=== PATIENT | female | born 1965 | race Caucasian/White ===

== ENCOUNTER → 2017-12-17 09:57 | Outpatient (CLI) | payer BC, SELFPAY ==
--- NOTE | 2017-12-17 10:06 | MM_ITS ---
MM Dig screening mamm BI w/CAD CAD Screening ORDERING PHYSICIAN : Sena Koroma MD PATIENT AGE: 52 years GENDER: Female COMPARISON: Previous mammograms: October 2013 digital mammogram most helpful. There is also an older 2002 outside mammogram from from [facility]. INDICATION: Routine screening. No hormones. No new complaints. Previous benign needle biopsy right breast. Noncontributory family history. TECHNIQUE: Standard CC and MLO images were obtained. R2 CAD reviewed. FINDINGS: Lower density breast with moderate generalized fatty replacement. No significant new findings. Scattered small unimpressive areas of subtle nodularity bilaterally have been seen before and stable. No new areas of concern Bilateral follow-up one year recommended Cent[facility] IMPRESSION: ...... Stable bilateral mammogram. No new areas of concern. Follow-up in one year recommended BI-RADS Category: 1 Negative RECOMMENDED FOLLOW-UP: 1YR - 1 YEAR FOLLOW-UP (A letter has been sent to the patient regarding results of the study.)
--- NOTE | 2017-12-17 10:06 | XR_ITS ---
DEXA SCAN.-BONE DENSITY STUDY HIPS AND LUMBAR SPINE HISTORY: Postmenopausal female 52-year-old female low calcium intake. Previous fractures in used TECHNIQUE: DEXA scan hip and lumbar spine The most complete data summary and color graphic presentation of the today's ( and any prior ) DEXA findings are available in PACS. Definition and treatment guidelines included. COMPARISON: DEXA October 2013 LUMBAR SPINE: Above normal bone density L1 vertebral body demonstrates the lowest T score 1.3 with BMD1.29 g/cm sq Overall mean lumbar L1-L4 T score 2.5 with BMD1.477 g/cm sq . . October 2013 prior DEXA the mean T score 3.1 with BMD was1.57g/cm sq Thus when comparing today's study to the prior exam there's been a 4.5% decrease bone density in interval but still the bases are well over, over 2 standard deviations above mean. HIPS: Femoral neck density is best predictor of hip fracture risk . Left femoral neck demonstrates the lowest T score 0.5 with BMD1.109 g/cm sq . Right femoral neck T score 0.6 with BMD 1.116 Averaging all regions of the hips yields today's Hip Mean T score 1.6 with BMD1.204 g/cm sq . DEXA October 2013 T score 1.5 with mean BMD1.196. g/cm sq Thus this reflects a 0.7% 6 increase in overall mean bone density at the hips in the interval. IMPRESSION 1. LUMBAR SPINE:. Above normal bone density all levels 2. HIPS:. Normal bone density bilaterally at femoral necks and overall WHO criteria for post-menopausal, Women: Normal: T-score at or above -1 SD Osteopenia: T-score between -1 and -2.5 SD Osteoporosis: T-score at or below -2.5 SD
== END ==
PROVIDERS: Family Provider Family Medicine; PCP Family Medicine; Visit Provider Family Medicine
DX: M85.89 Other specified disorders of bone density and structure, multiple sites (principal); Z13.820 Encounter for screening for osteoporosis; N60.19 Diffuse cystic mastopathy of unspecified breast
CPT/HCPCS: 77067; 77080

== ENCOUNTER → 2018-04-06 13:05 | Outpatient (CLI) | payer BC, SELFPAY ==
--- NOTE | 2018-04-06 13:13 | CI_ITS ---
Cerebrovascular Exam Indications: 780.2 Syncope and collapse. IMPRESSIONS 1. The bilateral vertebral arteries are patent with normal antegrade flow. 2. Study suggests less than 20% stenosis involving the right internal carotid artery and the left internal carotid artery. 3. Tortuous carotid arteries seen bilaterally. Carotid duplex study. Complete study and Doppler flow study including spectral analysis, color and white scale imaging. Location: Vascular laboratory. Patient status: Outpatient. Tables: Arterial flow: + +--------+--------+ Location V sys V ed + +--------+--------+ Right CCA - proximal 73.1cm/s 25.1cm/s + +--------+--------+ Right CCA - distal 94.3cm/s 27.5cm/s + +--------+--------+ Right ECA 86.4cm/s -------- + +--------+--------+ Right ICA - proximal 86.4cm/s 32.2cm/s + +--------+--------+ Right ICA - mid 83.3cm/s 33.8cm/s + +--------+--------+ Right ICA - distal 74.6cm/s 33.6cm/s + +--------+--------+ Right vertebral 41.6cm/s -------- + +--------+--------+ Left CCA - proximal 78.6cm/s 19.6cm/s + +--------+--------+ Left CCA - distal 84.9cm/s 22cm/s + +--------+--------+ Left ECA 88cm/s -------- + +--------+--------+ Left ICA - proximal 66cm/s 22.8cm/s + +--------+--------+ Left ICA - mid 79.1cm/s 32.5cm/s + +--------+--------+ Left ICA - distal 65.7cm/s 26.8cm/s + +--------+--------+ Left vertebral 36.1cm/s -------- + +--------+--------+ Velocity ratios: + + + + + + Right, V sys Right, V ed Left, V sys Left, V ed + + + + + + Max ICA/dist CCA 0.92 1.23 0.93 1.48 + + + + + + (Report amended ) Electronically signed by: Jan Johnson [id number]
== END ==
PROVIDERS: PCP Family Medicine; Visit Provider Family Medicine
DX: R07.9 Chest pain, unspecified (principal); R55 Syncope and collapse
CPT/HCPCS: 93017; 93880

== ENCOUNTER → 2018-04-07 13:08 | Outpatient (CLI) | payer BC, SELFPAY ==
--- NOTE | 2018-04-07 13:21 | NVE_ITS ---
Venous Exam Indications: 729.5 Pain in limb. IMPRESSIONS 1. There is no evidence of significant Reflux. 2. No evidence of deep or superficial vein thrombosis involving the right lower extremity Right lower extremity venous duplex evaluation. Doppler flow study including spectral analysis, color and white scale imaging. Location: Vascular laboratory. Patient status: Outpatient. Tables: Venous flow and imaging: + + + + Location Overall Flow properties + + + + Right common femoral Patent Normal phasicity; spontaneous; normal augmentation; compressible + + + + Right saphenofemoral Patent Compressible junction + + + + Right profunda femoral Patent Compressible + + + + Right femoral Patent Normal phasicity; spontaneous; normal augmentation; compressible + + + + Right greater saphenous Patent Normal phasicity; spontaneous; normal augmentation; compressible + + + + Right popliteal Patent Normal phasicity; spontaneous; normal augmentation; compressible + + + + Right posterior tibial Patent Compressible + + + + Right peroneal Difficult Compressible study + + + + Right gastrocnemius Patent Compressible + + + + Right soleal Patent Compressible + + + + (Report amended ) Electronically signed by: Jan Johnson [id number]
--- NOTE | 2018-04-07 14:15 | CT_ITS ---
CT chest wo con HISTORY: Shortness of breath, chest pressure ITS.REASON: SOB, HX DVT ORDERING PHYSICIAN: Dahlia Perdomo MD PATIENT AGE: 52 years COMPARISON: None Technique: Axial images obtained with sagittal and coronal reformats. All CT scans at the facility use one or more dose reduction, viz: automated exposure control, ma/kV adjustment per patient size (including targeted exams where dose is matched to indication, i.e. head), or iterative reconstruction technique. FINDINGS: No mediastinal or hilar mass. There is mild prominence of the ascending aorta measuring up to 4.1 cm. Coronary artery calcifications are present. Normal heart size without evidence of pericardial effusion. Small hiatal hernia is suspected. There is a small hypodense nodule in the right lobe of the thyroid gland at 11 mm previously 9 mm There is a small pneumatocele in the right upper lobe at 1 cm not significant change. There are mild fibrotic changes in the lung bases. No suspicious pulmonary nodules. No pneumonia or effusions. Upper abdominal images show mild cortical scarring of the left kidney inferiorly with a nonobstructing 2 mm stone in the lower pole on the left. No acute bony findings. IMPRESSION: 1. Mild prominence of the ascending aorta at 4.1 cm previously measuring 3.9 cm. 2. No change in the postinflammatory fibrotic changes in the lung bases 3. Slightly enlarging nodule in the right lobe of the thyroid gland measuring 11 mm
== END ==
PROVIDERS: Family Provider Family Medicine; PCP Family Medicine; Visit Provider Emergency Medicine
DX: R06.02 Shortness of breath (principal); Z86.718 Personal history of other venous thrombosis and embolism
CPT/HCPCS: 71250; 93971

== ENCOUNTER → 2018-04-11 08:17 | Outpatient (CLI) | payer BC, SELFPAY ==
--- NOTE | 2018-04-11 | CA_ITS ---
PROCEDURE: 2-D M-mode and color Doppler study INDICATIONS FOR THE TEST: Chest pain COPD Heart Murmur Tobacco Smoking Palpitations+ Fatigue+ Syncope Edema Hypertension+Diabetes Mellitus Rheumatic Fever SOB+VALDEZ+Obesity+Hyperlipidemia+ Family History HD+ Additional History chest pressure, dizziness, TIA, memory loss PATIENT INFORMATION HEIGHT: 65 WEIGHT: 215 GENDER: Female B/P: 135/82 2-D/M-MODE INTERPRETATION: 2-D MEASUREMENTS OBSERVED VALUES IN CMS Right Ventricular Dimension (RVDd) 2.3 Interventricular Septum (Thickness)(IVsd) 0.8 Left Ventricular Internal Dimensions(LVIDd) 3.1 Left Ventricular Posterior Wall (Thickness)(LVPWd) 0.8 Aortic Root 3.1 Aortic Cusp Separation 2.2 Left Atrial Dimensions (LAD) 2.7 2D 1. Left atrium is qualitatively mildly enlarged, left ventricle is normal size, mild concentric left ventricular hypertrophy, visually estimated ejection fraction 55% with no regional wall motion abnormality. 2. The right atrium and right ventricle are normal size and contractility. 3. The aortic valve is minimally thickened and calcified, leaflet continue to display good mobility. 4. The mitral and tricuspid valvular grossly normal. 5. The pulmonic valve is poorly visualized. 6. No significant pericardial effusion noted. DOPPLER INTERROGATION: Doppler interrogation of the aortic, mitral and tricuspid valvular presence of mild mitral and tricuspid regurgitation, tricuspid regurgitation jet velocity is insufficient for calculation of the right ventricular systolic pressure, grade 1 diastolic dysfunction seen without tissue Doppler evidence of raised left CONCLUSION: 1. Mildly enlarged left atrium, normal left ventricular size, mild concentric left ventricular hypertrophy, visually estimated ejection fraction of 55% with no regional wall motion abnormality, grade 1 diastolic dysfunction seen without tissue Doppler evidence of raised left atrial pressure. 2. Mild mitral and tricuspid regurgitation 3. No significant pericardial effusion noted.
--- NOTE | 2018-04-11 08:29 | CT_ITS ---
CT head/brain wo con HISTORY: ITS.REASON: MEMORY LOSS,TIA ORDERING PHYSICIAN: Dahlia Perdomo MD PATIENT AGE: 52 years COMPARISON: None TECHNIQUE: Axial images obtained without contrast. Brain and bone windows reviewed. All CT scans at the facility use one or more dose reduction, viz: automated exposure control, ma/kV adjustment per patient size (including targeted exams where dose is matched to indication, i.e. head), or iterative reconstruction technique. FINDINGS: No midline shift, mass effect, intracranial hemorrhage, hydrocephalus, or extra-axial fluid collection is evident. There is a small linear area of increased density within the left putamen consistent with some minimal calcification of the basal ganglia. The calvarium has an unremarkable appearance. No mastoid effusion. No sinus air-fluid levels.. IMPRESSION: No acute intracranial finding
== END ==
PROVIDERS: Family Provider Family Medicine; PCP Family Medicine; Visit Provider Emergency Medicine
DX: R41.3 Other amnesia (principal); G45.9 Transient cerebral ischemic attack, unspecified; R06.02 Shortness of breath
CPT/HCPCS: 70450; 93306

== ENCOUNTER → 2019-03-29 14:08 | Outpatient (CLI) | payer BC, SELFPAY ==
--- NOTE | 2019-03-29 14:13 | CA_ITS ---
APPROVED REPORT Right Lower Extremity Venous Study for DVT. Business Consultant: SARAI Indications Lower Extremity Pain: Right Lower Extremity Edema: Left Risk Factors Prior Phlebitis/DVT Obesity Past History DVT : Vein Imaging CFV (R): compressive, spontaneous, phasic, augmentation FEM (R): compressive, spontaneous, phasic, augmentation POP (R): compressive, spontaneous, phasic, augmentation PTV (R): Compressible GSV (R): Compressible Peroneals (R):Compressible GAS (R): Thrombus Conclusion No evidence of DVT visualized right lower extremity. SVT seen in area of right gastrocnemius vein. Critical Notification Physician Notified Date: 03/29/2019 Time: 14:55 Physician Name: Manuela Soliz Electronically signed by : Jan Johnson MD 03/30/2019 16:41:47
== END ==
LOC: RAD 14:09
PROVIDERS: PCP Nurse Practitioner Family; Visit Provider Nurse Practitioner Family
DX: R60.0 Localized edema (principal)
CPT/HCPCS: 93971

== ENCOUNTER → 2019-06-28 13:17 | Outpatient (CLI) | payer BC, SELFPAY ==
--- NOTE | 2019-06-28 13:21 | CA_ITS ---
APPROVED REPORT Right Lower Extremity Venous Study for DVT., DVT. Prepared [employer] Associate: JACINDA Indications Lower Extremity Swelling: Right H/O SVT CALF 03/29/19 Vein Imaging CFV (R): compressive, spontaneous, phasic, augmentation SFJ (R): compressive, spontaneous, phasic, augmentation FEM (R): compressive, spontaneous, phasic, augmentation POP (R): compressive, spontaneous, phasic, augmentation PTV (R): compressive, spontaneous, phasic, augmentation GSV (R): Compressible Peroneals (R):Compressible GAS (R): Compressible Findings No evidence of DVT or superficial thrombophlebitis in the veins scanned of the right lower extremity. Conclusion No evidence of DVT or superficial thrombophlebitis in the veins scanned of the right lower extremity. Electronically signed by : Jan Johnson MD 06/30/2019 17:14:38
--- NOTE | 2019-06-28 16:00 | XR_ITS ---
PROCEDURE: XR CHEST 2V CLINICAL HISTORY: RESPIRATORY CRACKLES AT LT LUNG BASE Cough COMPARISON: CXR CHEST(2 VIEWS-NOT PORTABLE) from 10/21/[address] chest wo con from 04/07/2018 XR CHEST 2V from 06/10/2019 FINDINGS: The cardiomediastinal silhouette and pulmonary vascularity are within normal limits. There is increased density in the left lung base posteriorly consistent with pneumonia. No effusions. The right lung is clear. No acute bony abnormalities. IMPRESSION: Left lower lobe pneumonia Dictated by: Jan Johnson MD 06/28/2019 16:22 Electronically signed by Jan Johnson MD in [facility] 06/28/2019 16:22
== END ==
LOC: RT 13:18 → RAD 15:58
PROVIDERS: PCP Family Medicine; Visit Provider Emergency Medicine
DX: I82.890 Acute embolism and thrombosis of other specified veins (principal); R09.89 Other specified symptoms and signs involving the circulatory and respiratory systems
CPT/HCPCS: 71046; 93971

== ENCOUNTER 2019-06-29 16:35 | Inpatient (IN) ==
--- NOTE | 2019-06-29 17:11 | Progress Note ---
Internal Medicine - PN: Subj *Date: 06/29/19 *Time: 17:09 Interval history: Patient recently diagnosed with pneumonia, was in office today for f/u, HR noted to be 180 bpm by nurse. Assessment and Plan (1) CAP (community acquired pneumonia) Current visit: Yes Status: Acute Category: Medical Code(s): J18.9 - Pneumonia, unspecified organism (2) Tachycardia Current visit: Yes Status: Acute Category: Medical Code(s): R00.0 - Tachycardia, unspecified - Assessment and plan all Dx Assessment and Plan for all problems:: Saw patient in the office. She is being admitted for further evaluation and ma nagement of her pneumonia and tachycardia, see orders.
--- NOTE | 2019-06-29 17:15 | History & Physical Report ---
*Admission Date: 06/29/19 <Shruthi Kenny 06/29/19 17:15> *Chief complaint: heart racing, pneumonia <Shruthi Kenny 06/29/19 17:15> *History of present illness: Ms. Gonzalez is a 53-year-old female who was just seen in the office yesterday and was diagnosed with a left lower lobe pneumonia. She was started on cefdinir, Phenergan DM cough syrup, and an albuterol inhaler. She was called with the CXR results today and zithromax was sent to the pharmacy in addition to her Omnicef. The patient came back to the office today to bring her grandchildren for their well-child exams. She stated her heart had been racing since this morning. She had not taken her cough medicine or used her inhaler and was concerned that her heart rate was elevated. Her heart rate was taken in the office and was 180bpm. She was directly admitted to the stepdown unit for further evaluation and treatment. She does have a history of SVT but states that she never saw a soil scientist. She also has a history of a DVT and is currently on Xarelto. <Shruthi Kenny 06/29/19 18:36> [facility] History I have reviewed the patient's past medical history: Yes <Shruthi Kenny 06/29/19 18:36> Medical History: Reports:: Anxiety, Congestive Heart Failure, Deep Vein Thrombosis, Depression, Hyperlipidemia, Hypertension, Supraventricular Tachycardia <Shruthi Kenny 06/29/19 18:36> *Have you ever received a pneumonia vaccine?: Yes <Shruthi Kenny 06/29/19 17:15> *Have you received a flu vaccine this season?: Yes <Shruthi Kenny 06/29/19 19:12> Comment:: Insomnia, chronic back pain, seasonal allergies <Shruthi Kenny 06/29/19 18:36> Laterality Cases: Bilateral: Tonsillectomy <Shruthi Kenny 06/29/19 18:36> Other Surgeries: Yes: , Hysterectomy-Partial <Shruthi Kenny 06/29/19 18:36> Comment: Left hand ORIF, Laparoscopy x5, root canal, oral surgery <Shruthi Kenny 06/29/19 18:36> - *Social History Smoking Status: Never smoker <[facility] 06/29/19 17:15> [facility] Int[facility]: never [facility] 06/29/[facility] 17:15> Alcohol Intake Frequency:: other <[facility] 06/29/19 17:15> Substance Use Type: denies use <[facility] 06/29/19 17:15> *Occupational Status:: employed <[facility] 06/29/19 17:15> *Travel in the last 8 weeks: None <[facility] 06/29/19 19:12> Family Hx:: Cancer, Hyperlipidemia, Hypertension <[facility] 06/29/19 18:36> Review of Systems - Constitutional Reports body ache(s), Reports chills, Reports fever(s), Reports weakness <[facility] 06/29/19 18:36> - Eyes Denies blurry vision, Denies double vision <[facility] 06/29/19 18:36> - ENT Reports nasal congestion, Reports sore throat <[facility] 06/29/19 18:36> - *Cardiovascular Reports shortness of breath, Reports rapid, pounding, or irregular heartbeat, Denies chest pain, Denies leg swelling <[facility] 06/29/19 18:36> - *Respiratory Reports chest congestion, Reports cough, Reports shortness of breath, Reports wheezing <[facility] 06/29/19 18:36> - *Gastrointestinal Denies abdominal pain, Denies loose stools, Denies nausea, Denies vomiting <[facility] 06/29/19 18:36> - *Genitourinary Denies difficulty urinating, Denies painful urination <[facility] 06/29/19 18:36> - *Musculoskeletal Reports body aches, Denies joint pain <[facility] 06/29/19 18:36> - *Neurologic Reports headache(s), Reports dizziness, Reports weakness <[facility] 06/29/19 18:36> Meds Home Medications Medication Instructions Recorded Confirmed Type furosemide 20 mg tablet 20 mg PO DAILY #30 tab 11/17/18 06/29/19 History gabapentin 100 mg capsule 100 mg PO DAILY #90 cap 11/17/18 06/29/19 History liraglutide (weight loss) 3 mg/0.5 0.6 units SQ DAILY #3 ml 11/17/18 06/29/19 History mL (18 mg/3 mL) subcut pen injector Rivaroxaban [Xarelto 20mg Tablet*] 20 mg PO DAILY 06/10/19 06/29/19 History alprazolam 0.25 mg tablet 0.25 mg PO BID PRN #60 tab 06/20/19 06/29/19 Rx doxepin 100 mg capsule 200 mg PO QHS #60 cap 06/20/19 06/29/19 Rx Albuterol Sulfate [Albuterol HFA 1 - 2 puffs IH Q4-6H PRN 06/29/19 06/29/19 Hist ory Inhaler] Benzonatate [Benzonatate 100mg 100 mg PO TIDP PRN 06/29/19 06/29/19 History cap] Cefdinir [Omnicef 300mg Capsule] 300 mg PO BID 06/29/19 06/29/19 History Gabapentin [Gabapentin 100mg Cap] 200 mg PO HS 06/29/19 06/29/19 History Phentermine/Topiramate [Qsymia 15 1 tab PO DAILY 06/29/19 06/29/19 History mg-92 mg Capsule] Vortioxetine Hydrobromide 20 mg PO HS 06/29/19 06/29/19 History [Trintellix] hydrOXYzine pamoate [Hydroxyzine 1 - 2 cap PO BIDP PRN 06/29/19 06/29/19 History Pamoate] <David Tobin - 06/29/19 19:20> Allergies Allergy/AdvReac Type Severity Reaction Status Date / Time No Known Allergies Allergy Verified 06/29/19 17:54 <CristaDavid - 06/29/19 19:20> Exam Vital signs and Labs for Last 24 Hours: Temp Pulse Resp BP Pulse Ox 100.1 F H 100 H 26 H 155/87 H 98 06/29/19 17:52 06/29/19 18:24 06/29/19 17:52 06/29/19 18:32 06/29/19 17:52 Laboratory Results - last 24 hr 06/29/19 17:35: WBC 9.2, RBC 5.06, Hgb 14.0, Hct 42.7, MCV 84.5, MCH 27.8, MCHC 32.9, RDW 14.2, Plt Count 332, MPV 8.0, Neut % (Auto) 76.8, Lymph % (Auto) 16.7, [place] % (Auto) 5.1, Eos % (Auto) 1.1, Baso % (Auto) 0.2, Neut # (Auto) 7.1, Lymph # (Auto) 1.5, [place] # (Auto) 0.5, Eos # (Auto) 0.1, Baso # (Auto) 0.0 06/29/19 17:35: Sodium 145, Potassium 4.1, Chloride 106, Carbon Dioxide 25, Anion Gap 18.1 H, BUN 10, Creatinine 1.16 H, Estimated Creat Clear 98, Estimated GFR 49 L, Est GFR ( Amer) 59, Glucose 108 H, Calcium 8.6, Total Bilirubin 0.6, AST 69 H, ALT 91 H, Alkaline Phosphatase 129 H, Total Protein 7.6, Albumin 3.4, Globulin 4.2 H, Albumin/Globulin Ratio 0.8 L 06/29/19 17:35: Lactate 1.8 06/29/19 18:00: Influenza Type A Ag Negative, Influenza Type B Ag Negative <David Tobin - 06/29/19 19:20> I & O for Last 24 hours: Intake & Output 06/26/19 06/27/19 06/28/19 06/29/19 23:59 23:59 23:59 23:59 Weight 250 lb 5 oz <David Tobin - 06/29/19 19:20> Microbiology Reports for the Last 24 Hours: Microbiology 06/29/19 18:00 Sputum - Expectorated Sputum Gram Stain - Final <David Tobin - 06/29/19 19:20> - Constitutional Comments: Does not appear to feel well <Shruthi Kenny - 06/29/19 18:36> - *Routine HEENT Exam Head: Present: normocephalic, atraumatic <Shruthi Kenny - 06/29/19 18:36> Eye: Present: EOMI, PERRL <[facility] 06/29/19 18:36> ENT: Present: mucous membranes dry, sinus tenderness (nose congested) <[facility] 06/29/19 18:36> - *Routine Neck Exam Present: supple. Absent: carotid bruit, lymphadenopathy <[facility] 06/29/19 18:36> - *Routine Respiratory Exam Present: rales (left base), rhonchi, wheezes <[facility] 06/29/19 18:36> - *Routine Cardiovascular Exam Present: tachycardia (180bpm) <[facility] 06/29/19 18:36> - *Routine Abdominal Exam Present: soft, normoactive bowel sounds. Absent: tenderness <[facility] 06/29/19 18:36> - *Routine Extremities Exam Present: edema (trace bilateral LE's). Absent: cyanosis, clubbing <[facility] 06/29/19 18:36> - *Routine Skin Exam Present: pallor, warm. Absent: rash <[facility] 06/29/19 18:36> - *Routine Neurological Exam Present: alert, oriented X3 <[facility] 06/29/19 18:36> Assessment and Plan (1) CAP (community acquired pneumonia) Current visit: Yes Status: Acute Category: Medical Code(s): J18.9 - Pneumonia, unspecified organism (2) Tachycardia Current visit: Yes Status: Acute Category: Medical Code(s): R00.0 - Tachycardia, unspecified (3) URI (upper respiratory infection) Current visit: No Status: Acute Qualifiers: URI type: unspecified URI Qualified Code(s): J06.9 - Acute upper respiratory infection, unspecified Category: Medical Code(s): J06.9 - Acute upper respiratory infection, unspecified (4) Renal insufficiency Current visit: Yes Status: Acute Category: Medical Code(s): N28.9 - Disorder of kidney and ureter, unspecified (5) Hypertension Current visit: Yes Status: Chronic Category: Medical Code(s): I10 - Essential (primary) hypertension (6) Hyperlipidemia Current visit: Yes Status: Chronic Category: Medical Code(s): E78.5 - Hyperlipidemia, unspecified (7) History of DVT (deep vein thrombosis) Current visit: Yes Status: Chronic Category: Medical Code(s): Z86.718 - Personal history of other venous thrombosis and embolism (8) Depression with anxiety Current visit: Yes Status: Chronic Category: Medical Code(s): F41.8 - Other specified anxiety disorders (9) SIRS (systemic inflammatory response syndrome) Current visit: Yes Status: Acute Category: Medical Code(s): R65.10 - Systemic inflammatory response syndrome (SIRS) of non-infectious origin without acute organ dysfunction <David Tobin - 06/29/19 19:20> (1) CAP (community acquired pneumonia) Current visit: Yes Status: Acute Category: Medical Code(s): J18.9 - Pneumonia, unspecified organism (2) Tachycardia Current visit: Yes Status: Acute Category: Medical Code(s): R00.0 - Tachycardia, unspecified (3) URI (upper respiratory infection) Current visit: No Status: Acute Qualifiers: URI type: unspecified URI Qualified Code(s): J06.9 - Acute upper respiratory infection, unspecified Category: Medical Code(s): J06.9 - Acute upper respiratory infection, unspecified (4) Renal insufficiency Current visit: Yes Status: Acute Category: Medical Code(s): N28.9 - Disorder of kidney and ureter, unspecified (5) Hypertension Current visit: Yes Status: Chronic Category: Medical Code(s): I10 - Essential (primary) hypertension (6) Hyperlipidemia Current visit: Yes Status: Chronic Category: Medical Code(s): E78.5 - Hyperlipidemia, unspecified (7) History of DVT (deep vein thrombosis) Current visit: Yes Status: Chronic Category: Medical Code(s): Z86.718 - Personal history of other venous thrombosis and embolism (8) Depression with anxiety Current visit: Yes Status: Chronic Category: Medical Code(s): F41.8 - Other specified anxiety disorders <Shruthi Kenny - 06/29/19 18:39> - Assessment and plan all Dx Assessment and Plan for all problems:: Saw patient in the office and after admission to [facility]. HR has improved, now 110, with NS IV bolus, plan to decrease IVF rate to 100 ml/hr now, await CXR. <David Tobin - 06/29/19 19:20> Patient has been started on IV abx and nebs for her pneumonia. Sputum and blood cultures were ordered as well as a lactic acid. She has been started on IVF's and will also get a flu test. Cardiology was consulted and an echo, EKG, and telemetry were ordered. Will discuss further care with Dr. Tobin. <Shruthi Kenny - 06/29/19 18:36>
[2019-06-29 17:58] LABS: Basophils % 0.2 % (0.1-2.0); Eosinophils # 0.1 K/mm3 (0.0-0.4); Eosinophils % 1.1 % (0.1-12.0); Hematocrit 42.7 % (37.0-47.0); Lymphocytes # 1.5 K/mm3 (0.7-4.5); Lymphocytes % 16.7 % (10-50); Mean Corpuscular HGB Conc 32.9 g/dL (31.8-35.4); Mean Corpuscular Volume 84.5 fl (81-99); Monocytes # 0.5 K/mm3 (0.1-1.0); Monocytes % 5.1 % (1.7-9.3); Neutrophils # 7.1 K/mm3 (1.8-7.8); Neutrophils % 76.8 % (37.0-80.0); Platelet Count 332 K/mm3 (142-424); Red Blood Count 5.06 M/mm3 (4.20-5.40); Red Cell Distribution Width 14.2 % (11.5-17.5); White Blood Count 9.2 K/mm3 (4.8-10.8)
[2019-06-29 18:07] LABS: Albumin Level 3.4 gm/dL (3.4-5.0); Albumin/Globulin Ratio 0.8 (1.1-1.8); Anion Gap 18.1 mEq/L (5-15); Bilirubin,Total 0.6 mg/dL (0.2-1.0); Calcium 8.6 mg/dL (8.5-10.1); Globulin 4.2 gm/dl (1.3-3.2); Total Protein,Serum 7.6 gm/dL (6.4-8.2)
[2019-06-30 06:37] LABS: Basophils % 0.3 % (0.1-2.0); Eosinophils # 0.1 K/mm3 (0.0-0.4); Eosinophils % 1.3 % (0.1-12.0); Hematocrit 36.2 % (37.0-47.0); Lymphocytes # 1.7 K/mm3 (0.7-4.5); Lymphocytes % 29.6 % (10-50); Mean Corpuscular HGB Conc 33.3 g/dL (31.8-35.4); Mean Corpuscular Volume 84.4 fl (81-99); Monocytes # 0.3 K/mm3 (0.1-1.0); Monocytes % 5.1 % (1.7-9.3); Neutrophils # 3.6 K/mm3 (1.8-7.8); Neutrophils % 63.6 % (37.0-80.0); Platelet Count 282 K/mm3 (142-424); Red Blood Count 4.28 M/mm3 (4.20-5.40); Red Cell Distribution Width 14.2 % (11.5-17.5); White Blood Count 5.6 K/mm3 (4.8-10.8)
[2019-06-30 06:40] LABS: Albumin Level 2.8 gm/dL (3.4-5.0); Albumin/Globulin Ratio 0.8 (1.1-1.8); Anion Gap 14.4 mEq/L (5-15); Bilirubin,Total 0.5 mg/dL (0.2-1.0); Globulin 3.4 gm/dl (1.3-3.2); Total Protein,Serum 6.2 gm/dL (6.4-8.2)
[2019-06-30 06:52] LABS: Calcium 7.7 mg/dL (8.5-10.1)
--- NOTE | 2019-06-30 07:18 | Pharmacy Consult Notes ---
[facility] Pharmacy VTE Monitoring - Patient Demographics Admission date: 06/29/19 Report Date: 06/30/19 Time: 07:18 Allergies/Adverse Reactions: Patient Allergies No Known Allergies Allergy (Verified 06/29/19 17:54) Height: 1.73 m Weight: 116.8 kg Patient Problems: Current Active Problems CAP (community acquired pneumonia) (Acute) Tachycardia (Acute) Hypertension (Chronic) Hyperlipidemia (Chronic) History of DVT (deep vein thrombosis) (Chronic) Depression with anxiety (Chronic) Renal insufficiency (Acute) SIRS (systemic inflammatory response syndrome) (Acute) - VTE Risk Labs: VTE Related Lab Results Hgb 14.0 g/dL (12.2-16.2) 06/29/19 17:35 Hct 36.2 % (37.0-47.0) L 06/30/19 05:44 Plt Count 282 K/mm3 (142-424) 06/30/19 05:44 BUN 8 mg/dL (7-18) 06/30/19 05:44 Creatinine 0.95 mg/dL (0.55-1.02) 06/30/19 05:44 Estimated Creat Clear 123 mL/min (50-200) 06/30/19 05:44 Was VTE Risk Assessment Performed: Yes VTE Score: 4 VTE Risk Level: Low Risk Clinical Trial Participant: No - Prophylaxis VTE Prophylaxis Ordered?: Yes Types of VTE Prophylaxis: TEDS Knee High, Pharmacological Pharmacologic Type: Other (XARELTO)
--- NOTE | 2019-06-30 07:23 | Electrocardiograph Report ---
APPROVED REPORT Exam: Resting ECG HR:116 bpm ECG Measurements Heart Rate 116 AXES [place] 184 P 53 QRSd 78 QRS -13 QT 330 T43 QTc 458 <Conclusion> Sinus tachycardia left atrial abnormality late r wave progression Abnormal ECG Electronically signed by : [place], 06/30/2019 07:22:20
--- NOTE | 2019-06-30 08:16 | Consult Report ---
History of Present Illness Consult date: 06/30/19 Requesting physician: David Tobin Chief complaint: SOA, chest pain Additional Medical History:: 1. Obesity 2. History of DVT, approximately 2017 and again in 2019 A. Chronic anticoagulation therapy B. Family history of blood clots 3. Questionable history of hypertension 4. Coronary calcification on CT of the chest 2017 5. History of enlarged aortic root at 4.[address] of the chest, 2018 6. Reported history of CHF History of present illness: Ms. Gonzalez is a 53-year-old female who was just seen in the office yesterday and was diagnosed with a left lower lobe pneumonia. She was started on cefdinir, Phenergan DM cough syrup, and an albuterol inhaler. She was called with the CXR results today and zithromax was sent to the pharmacy in addition to her Omnicef. The patient came back to the office today to bring her grandchildren for their well-child exams. She stated her heart had been racing since this morning. She had not taken her cough medicine or used her inhaler and was concerned that her heart rate was elevated. Her heart rate was taken in the office and was 180bpm. She was directly admitted to the stepdown unit for further evaluation and treatment. She does have a history of SVT but states that she never saw a finger buff sewer. She also has a history of a DVT and is currently on Xarelto The above per Shruthi Kenny PA-C for Dr. Tobin After receiving IV fluids in the hospital, patient's heart rate significantly improved to around 100 to 110 bpm and is noted to be sinus rhythm on EKG and telemetry. No EKG or telemetry strips recorded with heart rate in the 170s or 80s. Patient relates a history of SVT in the past for which she was on medication to try to control this and her blood pressure but due to the low blood pressure it was discontinued. Patient has a history of a DVT approximately 2 years ago and again reportedly this year with follow-up lower extremity venous Doppler earlier this month to assess for continued DVT or superficial thrombophlebitis and need for continued anticoagulation. The results are pending at this time. Patient remains on anticoagulant therapy. She does relate a family history of blood clots in her mother and her brother. Patient has never had an anticoagulation work-up due to being on anticoagulation therapy. Patient denies any chest pain but has noted some chest pressure and tightness with activity that may have worsened over the last 6 months. She had a Madi protocol stress test in 2018 where she underwent less than 6 minutes and did not achieve target heart rate but did complain of chest pain. [facility] History Medical History: Reports:: Anxiety, Congestive Heart Failure, Deep Vein Thrombosis, Depression, Hyperlipidemia, Hypertension, Supraventricular Ta chycardia Denies:: Diabetes Mellitus Type 2 *Have you ever received a pneumonia vaccine?: No *Have you received a flu vaccine this season?: Yes Laterality Cases: Bilateral: Tonsillectomy Other Surgeries: Yes: , Hysterectomy-Partial - *Social History Educational Level: Completed College Smoking Status: Never smoker Alcohol Intake: never Alcohol Intake Frequency:: other Substance Use Type: denies use *Occupational Status:: employed *Travel in the last 8 weeks: None - Psychiatric History Pschychiatric History:: Reports:: Anxiety, Depression Family Hx:: Cancer, Hyperlipidemia, Hypertension Meds Home Medications Medication Instructions Recorded Confirmed Type furosemide 20 mg tablet 20 mg PO DAILY #30 tab 11/17/18 06/29/19 History gabapentin 100 mg capsule 100 mg PO DAILY #90 cap 11/17/18 06/29/19 History liraglutide (weight loss) 3 mg/0.5 0.6 units SQ DAILY #3 ml 11/17/18 06/29/19 History mL (18 mg/3 mL) subcut pen injector Rivaroxaban [Xarelto 20mg Tablet*] 20 mg PO DAILY 06/10/19 06/29/19 History alprazolam 0.25 mg tablet 0.25 mg PO BID PRN #60 tab 06/20/19 06/29/19 Rx doxepin 100 mg capsule 200 mg PO QHS #60 cap 06/20/19 06/29/19 Rx Albuterol Sulfate [Albuterol HFA 1 - 2 puffs IH Q4-6H PRN 06/29/19 06/29/19 History Inhaler] Benzonatate [Benzonatate 100mg 100 mg PO TIDP PRN 06/29/19 06/29/19 History cap] Cefdinir [Omnicef 300mg Capsule] 300 mg PO BID 06/29/19 06/29/19 History Gabapentin [Gabapentin 100mg Cap] 200 mg PO HS 06/29/19 06/29/19 History Phentermine/Topiramate [Qsymia 15 1 tab PO DAILY 06/29/19 06/29/19 History mg-92 mg Capsule] Vortioxetine Hydrobromide 20 mg PO HS 06/29/19 06/29/19 History [Trintellix] hydrOXYzine pamoate [Hydroxyzine 1 - 2 cap PO BIDP PRN 06/29/19 06/29/19 History Pamoate] Allergies Allergy/AdvReac Type Severity Reaction Status Date / Time No Known Allergies Allergy Verified 06/29/19 17:54 Review of Systems - *Cardiovascular Reports chest pain with activity, Reports shortness of breath with activity, Denies chest pain - *Respiratory Reports cough, Reports shortness of breath with activity - *Gastrointestinal Denies abdominal pain, Denies nausea, Denies vomiting - *Genitourinary Denies blood in urine - *Musculoskeletal Reports joint pain, Reports back pain - *Neurologic Reports headache(s), Reports dizziness, Reports weakness Exam Vital signs and Labs for Last 24 Hours: Temp Pulse Resp BP Pulse Ox 97.9 F 94 H 18 133/83 95 06/30/19 04:00 06/30/19 06:00 06/30/19 06:00 06/30/19 06:00 06/30/19 06:00 Laboratory Results - last 24 hr 06/29/19 17:35: WBC 9.2, RBC 5.06, Hgb 14.0, Hct 42.7, MCV 84.5, MCH 27.8, MCHC 32.9, RDW 14.2, Plt Count 332, MPV 8.0, Neut % (Auto) 76.8, Lymph % (Auto) 16.7, [place] % (Auto) 5.1, Eos % (Auto) 1.1, Baso % (Auto) 0.2, Neut # (Auto) 7.1, Lymph # (Auto) 1.5, [place] # (Auto) 0.5, Eos # (Auto) 0.1, Baso # (Auto) 0.0 06/29/19 17:35: Sodium 145, Potassium 4.1, Chloride 106, Carbon Dioxide 25, Anion Gap 18.1 H, BUN 10, Creatinine 1.16 H, Estimated Creat Clear 98, Estimated GFR 49 L, Est GFR ( Amer) 59, Glucose 108 H, Calcium 8.6, Total Bilirubin 0.6, AST 69 H, ALT 91 H, Alkaline Phosphatase 129 H, Total Protein 7.6, Albumin 3.4, Globulin 4.2 H, Albumin/Globulin Ratio 0.8 L 06/29/19 17:35: Lactate 1.8 06/29/19 18:00: Influenza Type A Ag Negative, Influenza Type B Ag Negative 06/30/19 05:44: WBC 5.6 D, RBC 4.28, Hgb 12.0 L D, Hct 36.2 L, MCV 84.4, MCH 28.1, MCHC 33.3, RDW 14.2, Plt Count 282, MPV 8.0, Neut % (Auto) 63.6, Lymph % (Auto) 29.6, [place] % (Auto) 5.1, Eos % (Auto) 1.3, Baso % (Auto) 0.3, Neut # (Auto) 3.6, Lymph # (Auto) 1.7, [place] # (Auto) 0.3, Eos # (Auto) 0.1, Baso # (Auto) 0.0 06/30/19 05:44: Sodium 143, Potassium 3.4 L, Chloride 107, Carbon Dioxide 25, Anion Gap 14.4, BUN 8, Creatinine 0.95, Estimated Creat Clear 123, Estimated GFR 61, Est GFR ( Amer) 74 D, Glucose 107 H, Calcium 7.7 L D, Total Bilirubin 0.5, AST 35 D, ALT 70, Alkaline Phosphatase 101, Total Protein 6.2 L, Albumin 2.8 L D, Globulin 3.4 H, Albumin/Globulin Ratio 0.8 L I & O for Last 24 hours: Intake & Output 06/27/19 06/28/19 06/29/19 06/30/19 11:59 11:59 11:59 11:59 Intake Total 2424 / 2424 Output Total 700 / 700 Balance 1724 / 1724 Weight 257 lb 8 oz Microbiology Reports for the Last 24 Hours: Microbiology 06/29/19 18:00 Sputum - Expectorated Sputum Gram Stain - Final 06/29/19 18:00 Sputum - Expectorated Sputum Sputum Culture - Preliminary - *Routine HEENT Exam Head: Present: normocephalic Eye: Present: EOMI, PERRL ENT: Present: mucous membranes moist - *Routine Respiratory Exam Present: rhonchi. Absent: accessory muscle use, rales, wheezes Comments: Mild and expiratory wheezes noted on the right side. - *Routine Cardiovascular Exam Present: RRR. Absent: murmur, gallop, rubs - *Routine Abdominal Exam Present: soft. Absent: tenderness, distended, guarding - *Routine Extremities Exam Present: edema. Absent: calf tenderness - *Routine Neurological Exam Present: alert, oriented X3, moving all extremities Assessment and Plan (1) CAP (community acquired pneumonia) Current visit: Yes Status: Acute Category: Medical Code(s): J18.9 - Pneumonia, unspecified organism (2) Tachycardia Current visit: Yes Status: Acute Category: Medical Code(s): R00.0 - Tachycardia, unspecified (3) URI (upper respiratory infection) Current visit: No Status: Acute Qualifiers: URI type: unspecified URI Qualified Code(s): J06.9 - Acute upper respiratory infection, unspecified Category: Medical Code(s): J06.9 - Acute upper respiratory infection, unspecified (4) Renal insufficiency Current visit: Yes Status: Acute Category: Medical Code(s): N28.9 - Disorder of kidney and ureter, unspecified (5) Hypertension Current visit: Yes Status: Chronic Category: Medical Code(s): I10 - Essential (primary) hypertension (6) Hyperlipidemia Current visit: Yes Status: Chronic Category: Medical Code(s): E78.5 - Hyperlipidemia, unspecified (7) History of DVT (deep vein thrombosis) Current visit: Yes Status: Chronic Category: Medical Code(s): Z86.718 - Personal history of other venous thrombosis and embolism (8) Depression with anxiety Current visit: Yes Status: Chronic Category: Medical Code(s): F41.8 - Other specified anxiety disorders (9) SIRS (systemic inflammatory response syndrome) Current visit: Yes Status: Acute Category: Medical Code(s): R65.10 - Systemic inflammatory response syndrome (SIRS) of non-infectious origin without acute organ dysfunction (10) Coronary artery calcification seen on CT scan Current visit: Yes Status: Acute Category: Medical Code(s): I25.10 - Atherosclerotic heart disease of [place] coronary artery without angina pectoris (11) Aortic root enlargement Current visit: Yes Status: Acute Category: Medical Code(s): I77.89 - Other specified disorders of arteries and arterioles - Assessment and plan all Dx Assessment and Plan for all problems:: 1. Tachycardia likely secondary to acute pulmonary process. Patient is on antibiotics for possible pneumonia. Due to the history of DVT, would like to obtain a CTA of the chest to assess for pulmonary embolus. This will also give us a follow-up on the patient's aortic root enlargement. Tachycardia resolved with IV fluids but was most likely SVT. Will consider low-dose beta-haley or calcium channel haley therapy if recurs, in the meantime would like to have the patient wear a 30-day event monitor upon discharge. Echocardiogram is pending. 2. Regarding the patient's history of exertional chest discomfort and abnormal stress test in 2018, will pursue further work-up as outpatient once the patient's pulmonary status has improved. 3. Further recommendations to follow pending above results.
--- NOTE | 2019-06-30 08:17 | Progress Note ---
Internal Medicine - PN: Subj *Date: 06/30/19 *Time: 08:33 Interval history: Patient states she feels bad this morning. Her heart rate has improved as has her blood pressure. She is still coughing and achy and extremely exhausted. She has some pain in the right mid back, but her pneumonia is on the left. She has been seen by cardiology and they are ordering a CTA to rule out a PE. Exam Vital signs and Labs for Last 24 Hours: Temp Pulse Resp BP Pulse Ox 97.9 F 94 H 18 133/83 95 06/30/19 04:00 06/30/19 06:00 06/30/19 06:00 06/30/19 06:00 06/30/19 06:00 Laboratory Results - last 24 hr 06/29/19 17:35: WBC 9.2, RBC 5.06, Hgb 14.0, Hct 42.7, MCV 84.5, MCH 27.8, MCHC 32.9, RDW 14.2, Plt Count 332, MPV 8.0, Neut % (Auto) 76.8, Lymph % (Auto) 16.7, [place] % (Auto) 5.1, Eos % (Auto) 1.1, Baso % (Auto) 0.2, Neut # (Auto) 7.1, Lymph # (Auto) 1.5, [place] # (Auto) 0.5, Eos # (Auto) 0.1, Baso # (Auto) 0.0 06/29/19 17:35: Sodium 145, Potassium 4.1, Chloride 106, Carbon Dioxide 25, Anion Gap 18.1 H, BUN 10, Creatinine 1.16 H, Estimated Creat Clear 98, Estimated GFR 49 L, Est GFR ( Amer) 59, Glucose 108 H, Calcium 8.6, Total Bilirubin 0.6, AST 69 H, ALT 91 H, Alkaline Phosphatase 129 H, Total Protein 7.6, Albumin 3.4, Globulin 4.2 H, Albumin/Globulin Ratio 0.8 L 06/29/19 17:35: Lactate 1.8 06/29/19 18:00: Influenza Type A Ag Negative, Influenza Type B Ag Negative 06/30/19 05:44: WBC 5.6 D, RBC 4.28, Hgb 12.0 L D, Hct 36.2 L, MCV 84.4, MCH 28.1, MCHC 33.3, RDW 14.2, Plt Count 282, MPV 8.0, Neut % (Auto) 63.6, Lymph % (Auto) 29.6, [place] % (Auto) 5.1, Eos % (Auto) 1.3, Baso % (Auto) 0.3, Neut # (Auto) 3.6, Lymph # (Auto) 1.7, [place] # (Auto) 0.3, Eos # (Auto) 0.1, Baso # (Auto) 0.0 06/30/19 05:44: Sodium 143, Potassium 3.4 L, Chloride 107, Carbon Dioxide 25, Anion Gap 14.4, BUN 8, Creatinine 0.95, Estimated Creat Clear 123, Estimated GFR 61, Est GFR ( Amer) 74 D, Glucose 107 H, Calcium 7.7 L D, Total B ilirubin 0.5, AST 35 D, ALT 70, Alkaline Phosphatase 101, Total Protein 6.2 L, Albumin 2.8 L D, Globulin 3.4 H, Albumin/Globulin Ratio 0.8 L I & O for Last 24 hours: Intake & Output 06/27/19 06/28/19 06/29/19 06/30/19 11:59 11:59 11:59 11:59 Intake Total 2424 / 2424 Output Total 700 / 700 Balance 1724 / 1724 Weight 257 lb 8 oz Microbiology Reports for the Last 24 Hours: Microbiology 06/29/19 18:00 Sputum - Expectorated Sputum Gram Stain - Final 06/29/19 18:00 Sputum - Expectorated Sputum Sputum Culture - Preliminary Radiology Reports for the Last 24 Hours: CXR - Slight improvement left basilar infiltrate - Constitutional no acute distress - *Routine Respiratory Exam Present: rales (left base - slightly improved), wheezes - *Routine Cardiovascular Exam Present: RRR - *Routine Abdominal Exam Present: soft, normoactive bowel sounds. Absent: tenderness - *Routine Extremities Exam Present: edema (bilateral LE's). Absent: cyanosis, clubbing - *Routine Skin Exam Present: warm. Absent: rash - *Routine Neurological Exam Present: alert, oriented X3 Assessment and Plan (1) CAP (community acquired pneumonia) Current visit: Yes Status: Acute Category: Medical Code(s): J18.9 - Pneumonia, unspecified organism (2) Tachycardia Current visit: Yes Status: Acute Category: Medical Code(s): R00.0 - Tachycardia, unspecified (3) URI (upper respiratory infection) Current visit: No Status: Acute Qualifiers: URI type: unspecified URI Qualified Code(s): J06.9 - Acute upper respiratory infection, unspecified Category: Medical Code(s): J06.9 - Acute upper respiratory infection, unspecified (4) Renal insufficiency Current visit: Yes Status: Acute Category: Medical Code(s): N28.9 - Disorder of kidney and ureter, unspecified (5) Hypertension Current visit: Yes Status: Chronic Category: Medical Code(s): I10 - Essential (primary) hypertension (6) Hyperlipidemia Current visit: Yes Status: Chronic Category: Medical Code(s): E78.5 - Hyperlipidemia, unspecified (7) History of DVT (deep vein thrombosis) Current visit: Yes Status: Chronic Category: Medical Code(s): Z86.718 - Personal history of other venous thrombosis and embolism (8) Depression with anxiety Current visit: Yes Status: Chronic Category: Medical Code(s): F41.8 - Other specified anxiety disorders (9) SIRS (systemic inflammatory response syndrome) Current visit: Yes Status: Acute Category: Medical Code(s): R65.10 - Systemic inflammatory response syndrome (SIRS) of non-infectious origin without acute organ dysfunction - Assessment and plan all Dx Assessment and Plan for all problems:: Cardiology has ordered a CTA to r/o a PE. Patient's HR has improved. May need to decrease IVF's once she is eating a drinking and start back on low dose lasix. Will discuss with Dr. Koroma.
--- NOTE | 2019-06-30 14:54 | Cardiology Report ---
APPROVED REPORT EXAM: Comprehensive 2D, Doppler, and color-flow Echocardiogram Marketing And Public Relations Manager: Maty Thomas CRT Ht: 5 ft 8 in Wt: 257lbs BSA: 2.27 BP: 133/83 mmHg Indications: PALP, HTN, SVT, PNEUMONIA, DVT, HTN, HLD 2D Dimensions LVOT 1.63 cm (M/F) 1.5-2.5 M-Mode Dimensions RVDd 2.15 cm (0.9-2.6)LVDd 4.27 cm (3.5-5.7) LVDs 2.04 cm (3.5-5.7)IVSd 1.15 cm (0.6-1.1) PWd 1.15 cm (0.6-1.1)EF (Teich) 83.60% FS 52.20% EDV (Teich) 81.70 mL ESV (Teich) 13.40 mL Left Ventricle Left atrium is mildly enlarged, left ventricle is normal size, mild concentric left ventricular hypertrophy, visually estimated ejection fraction 55% with no regional wall motion abnormality. Doppler evidence of impaired LV relaxation seen, there is no tissue Doppler performed. Right Ventricle Right atrium and right ventricular normal size and contractility. Aortic Valve Aortic valve is minimally thickened and fibrosed. There is no aortic stenosis aortic insufficiency. Mitral Valve Mitral valve is grossly normal, there is mild mitral regurgitation. Tricuspid Valve Tricuspid valve is grossly normal, there is mild tricuspid regurgitation. Pulmonic Valve Pulmonic valve is poorly visualized. Great Vessels Aortic root is normal size. Pericardium No significant pericardial effusion noted. Conclusion 1. Mildly enlarged left atrium, normal left ventricular size, mild concentric left ventricular hypertrophy, visually estimated ejection fraction 55% with no regional wall motion abnormality, Doppler evidence of impaired relaxation seen, there is no tissue Doppler performed. 2. Mild mitral and tricuspid regurgitation. 3. No significant pericardial effusion noted. Electronically signed by : Chip Madrid, 06/30/2019 14:54:21
[2019-07-01 09:28] LABS: Basophils % 0.4 % (0.1-2.0); Eosinophils # 0.1 K/mm3 (0.0-0.4); Eosinophils % 2.5 % (0.1-12.0); Hematocrit 39.6 % (37.0-47.0); Hemoglobin 12.9 g/dL (12.2-16.2); Lymphocytes # 1.1 K/mm3 (0.7-4.5); Lymphocytes % 27.2 % (10-50); Mean Corpuscular HGB Conc 32.5 g/dL (31.8-35.4); Mean Corpuscular Volume 85.8 fl (81-99); Mean Platelet Volume 7.3 fl (7.4-10.4); Monocytes # 0.2 K/mm3 (0.1-1.0); Monocytes % 5.1 % (1.7-9.3); Neutrophils # 2.7 K/mm3 (1.8-7.8); Neutrophils % 64.8 % (37.0-80.0); Platelet Count 306 K/mm3 (142-424); Red Blood Count 4.61 M/mm3 (4.20-5.40); Red Cell Distribution Width 14.3 % (11.5-17.5); White Blood Count 4.1 K/mm3 (4.8-10.8)
[2019-07-01 09:32] LABS: Anion Gap 15.3 mEq/L (5-15); Calcium 8.3 mg/dL (8.5-10.1)
--- NOTE | 2019-07-01 09:36 | Progress Note ---
Internal Medicine - PN: Subj *Date: 07/01/19 *Time: 09:34 Interval history: She is stable. She seems to be responding to treatment. Her heart rate is well controlled. Echocardiogram is reviewed and is not concerning. She is breathing better and is able to rest. Exam Vital signs and Labs for Last 24 Hours: Temp Pulse Resp BP Pulse Ox 97.9 F 91 H 20 142/85 H 95 07/01/19 08:00 07/01/19 08:00 07/01/19 08:00 07/01/19 08:00 07/01/19 08:00 Laboratory Results - last 24 hr 07/01/19 09:10: WBC 4.1 L D, RBC 4.61, Hgb 12.9, Hct 39.6, MCV 85.8, MCH 27.9, MCHC 32.5, RDW 14.3, Plt Count 306, MPV 7.3 L, Neut % (Auto) 64.8, Lymph % (Auto) 27.2, [place] % (Auto) 5.1, Eos % (Auto) 2.5, Baso % (Auto) 0.4, Neut # (Auto) 2.7, Lymph # (Auto) 1.1, [place] # (Auto) 0.2, Eos # (Auto) 0.1, Baso # (Auto) 0.0 I & O for Last 24 hours: Intake & Output 06/28/19 06/29/19 06/30/19 07/01/19 11:59 11:59 11:59 11:59 Intake Total 2424 / 2424 1320 / 1320 Output Total 1150 / 1150 2800 / 2800 Balance 1274 / 1274 -1480 / -1480 Weight 257 lb 8 oz 258 lb 1.6 oz Microbiology Reports for the Last 24 Hours: Microbiology 06/29/19 18:00 Sputum - Expectorated Sputum Gram Stain - Final 06/29/19 18:00 Sputum - Expectorated Sputum Sputum Culture - Preliminary - Constitutional no acute distress - Routine Chest/Breast/Axilla Exam Chest wall: Absent: tenderness - *Routine Respiratory Exam Comments: Good air movement bilaterally. Some bibasilar rales. Sounds may be a bit decreased at the bases. - *Routine Cardiovascular Exam Present: RRR. Absent: tachycardia - *Routine Abdominal Exam Present: soft. Absent: tenderness - *Routine Extremities Exam Absent: edema - *Routine Neurological Exam Present: alert, oriented X3 Assessment and Plan (1) CAP (community acquired pneumonia) Current visit: Yes Status: Acute Category: Medical Code(s): J18.9 - Pneumonia, unspecified organism (2) Tachycardia Current visit: Yes Status: Acute Category: Medical Code(s): R00.0 - Tachycardia, unspecified (3) URI (upper respiratory infection) Current visit: No Status: Acute Qualifiers: URI type: unspecified URI Qualified Code(s): J06.9 - Acute upper respiratory infection, unspecified Category: Medical Code(s): J06.9 - Acute upper respiratory infection, unspecified (4) Renal insufficiency Current visit: Yes Status: Acute Category: Medical Code(s): N28.9 - Disorder of kidney and ureter, unspecified (5) Hypertension Current visit: Yes Status: Chronic Category: Medical Code(s): I10 - Essential (primary) hypertension (6) Hyperlipidemia Current visit: Yes Status: Chronic Category: Medical Code(s): E78.5 - Hyperlipidemia, unspecified (7) History of DVT (deep vein thrombosis) Current visit: Yes Status: Chronic Category: Medical Code(s): Z86.718 - Personal history of other venous thrombosis and embolism (8) Depression with anxiety Current visit: Yes Status: Chronic Category: Medical Code(s): F41.8 - Other specified anxiety disorders (9) SIRS (systemic inflammatory response syndrome) Current visit: Yes Status: Acute Category: Medical Code(s): R65.10 - Systemic inflammatory response syndrome (SIRS) of non-infectious origin without acute organ dysfunction (10) Coronary artery calcification seen on CT scan Current visit: Yes Status: Acute Category: Medical Code(s): I25.10 - Atherosclerotic heart disease of [place] coronary artery without angina pectoris (11) Aortic root enlargement Current visit: Yes Status: Acute Category: Medical Code(s): I77.89 - Other specified disorders of arteries and arterioles - Assessment and plan all Dx Assessment and Plan for all problems:: Continue current therapy. She will receive IV antibiotics through the weekend. Incentive spirometry added.
--- NOTE | 2019-07-02 13:16 | Progress Note ---
Internal Medicine - PN: Subj *Date: 07/02/19 *Time: 13:13 Interval history: She was able to sleep last night. She feels a bit better. She seems less congested. Her color is better. She does have rosacea. Exam Vital signs and Labs for Last 24 Hours: Temp Pulse Resp BP Pulse Ox 98.3 F 65 17 137/83 93 L 07/02/19 11:47 07/02/19 11:47 07/02/19 11:47 07/02/19 11:47 07/02/19 11:47 I & O for Last 24 hours: Intake & Output 06/30/19 07/01/19 07/02/19 07/03/19 11:59 11:59 11:59 11:59 Intake Total 2424 / 2424 1320 / 1320 1740 / 1740 240 / 240 Output Total 1150 / 1150 2800 / 2800 1300 / 1300 Balance 1274 / 1274 -1480 / -1480 440 / 440 240 / 240 Weight 257 lb 8 oz 258 lb 1.6 oz 254 lb 8 oz Microbiology Reports for the Last 24 Hours: Microbiology 06/29/19 18:00 Sputum - Expectorated Sputum Gram Stain - Final 06/29/19 18:00 Sputum - Expectorated Sputum Sputum Culture - Final Normal Respiratory Meghana 06/29/19 17:35 Blood Blood Culture - Preliminary NO GROWTH AFTER 48 HOURS 06/29/19 17:30 Blood Blood Culture - Preliminary NO GROWTH AFTER 48 HOURS - Constitutional no acute distress - *Routine HEENT Exam Head: Present: normocephalic ENT: Present: mucous membranes moist Comments: Erythema of the cheeks with some tent telangiectasias suggestive of rosacea. - *Routine Respiratory Exam Comments: Good air movement bilaterally. Basilar rales are present more prominent on the left than on the right. - *Routine Cardiovascular Exam Present: RRR Comments: No ectopics - *Routine Extremities Exam Present: edema (Trace) - *Routine Neurological Exam Present: alert, oriented X3 Assessment and Plan (1) CAP (community acquired pneumonia) Current visit: Yes Status: Acute Category: Medical Code(s): J18.9 - Pneumonia, unspecified organism (2) Tachycardia Current visit: Yes Status: Acute Category: Medical Code(s): R00.0 - Tachycardia, unspecified (3) URI (upper respiratory infection) Current visit: No Status: Acute Qualifiers: URI type: unspecified URI Qualified Code(s): J06.9 - Acute upper respiratory infection, unspecified Category: Medical Code(s): J06.9 - Acute upper respiratory infection, un specified (4) Renal insufficiency Current visit: Yes Status: Acute Category: Medical Code(s): N28.9 - Disorder of kidney and ureter, unspecified (5) Hypertension Current visit: Yes Status: Chronic Category: Medical Code(s): I10 - Essential (primary) hypertension (6) Hyperlipidemia Current visit: Yes Status: Chronic Category: Medical Code(s): E78.5 - Hyperlipidemia, unspecified (7) History of DVT (deep vein thrombosis) Current visit: Yes Status: Chronic Category: Medical Code(s): Z86.718 - Personal history of other venous thrombosis and embolism (8) Depression with anxiety Current visit: Yes Status: Chronic Category: Medical Code(s): F41.8 - Other specified anxiety disorders (9) SIRS (systemic inflammatory response syndrome) Current visit: Yes Status: Acute Category: Medical Code(s): R65.10 - Systemic inflammatory response syndrome (SIRS) of non-infectious origin without acute organ dysfunction (10) Coronary artery calcification seen on CT scan Current visit: Yes Status: Acute Category: Medical Code(s): I25.10 - Atherosclerotic heart disease of [place] coronary artery without angina pectoris (11) Aortic root enlargement Current visit: Yes Status: Acute Category: Medical Code(s): I77.89 - Other specified disorders of arteries and arterioles - Assessment and plan all Dx Assessment and Plan for all problems:: Saline lock IV. Thyroid ultrasound is ordered due to the 12 mm nodule seen on the CTA. Likely home tomorrow.
[2019-07-03 06:08] LABS: Basophils % 0.3 % (0.1-2.0); Eosinophils # 0.1 K/mm3 (0.0-0.4); Eosinophils % 2.8 % (0.1-12.0); Hematocrit 43.3 % (37.0-47.0); Lymphocytes # 1.7 K/mm3 (0.7-4.5); Lymphocytes % 36.6 % (10-50); Mean Corpuscular HGB Conc 32.2 g/dL (31.8-35.4); Mean Corpuscular Volume 85.3 fl (81-99); Mean Platelet Volume 7.9 fl (7.4-10.4); Monocytes # 0.3 K/mm3 (0.1-1.0); Monocytes % 6.5 % (1.7-9.3); Neutrophils # 2.5 K/mm3 (1.8-7.8); Neutrophils % 53.9 % (37.0-80.0); Platelet Count 363 K/mm3 (142-424); Red Blood Count 5.08 M/mm3 (4.20-5.40); Red Cell Distribution Width 14.2 % (11.5-17.5); White Blood Count 4.7 K/mm3 (4.8-10.8)
[2019-07-03 06:40] LABS: Anion Gap 15.1 mEq/L (5-15); Calcium 8.9 mg/dL (8.5-10.1)
--- NOTE | 2019-07-03 08:02 | Progress Note ---
Internal Medicine - PN: Subj *Date: 07/03/19 *Time: 08:02 Exam Vital signs and Labs for Last 24 Hours: Temp Pulse Resp BP Pulse Ox 97.9 F 80 18 151/92 H 95 07/03/19 07:49 07/03/19 07:49 07/03/19 07:49 07/03/19 07:49 07/03/19 07:49 Laboratory Results - last 24 hr 07/03/19 05:46: WBC 4.7 L, RBC 5.08, Hgb 14.0, Hct 43.3, MCV 85.3, MCH 27.5, MCHC 32.2, RDW 14.2, Plt Count 363, MPV 7.9, Neut % (Auto) 53.9, Lymph % (Auto) 36.6, Dickenson % (Auto) 6.5, Eos % (Auto) 2.8, Baso % (Auto) 0.3, Neut # (Auto) 2.5, Lymph # (Auto) 1.7, Dickenson # (Auto) 0.3, Eos # (Auto) 0.1, Baso # (Auto) 0.0 07/03/19 05:46: Sodium 141, Potassium 4.1, Chloride 104, Carbon Dioxide 26, Anion Gap 15.1 H, BUN 7 D, Creatinine 0.91, Estimated Creat Clear 127, Estimated GFR 64, Est GFR ( Amer) 78, Glucose 98, Calcium 8.9 I & O for Last 24 hours: Intake & Output 06/30/19 07/01/19 07/02/19 07/03/19 23:59 23:59 23:59 23:59 Intake Total 1024 / 1024 1720 / 1720 2120 / 2120 200 / 200 Output Total 3050 / 3650 1300 / 1300 1999 / 1999 400 / 400 Balance -2026 / -2626 420 / 420 120 / 120 -200 / -200 Weight 116.8 kg 117.072 kg 115.439 kg 114.901 kg Microbiology Reports for the Last 24 Hours: Microbiology 06/29/19 18:00 Sputum - Expectorated Sputum Gram Stain - Final 06/29/19 18:00 Sputum - Expectorated Sputum Sputum Culture - Final Normal Respiratory Meghana Assessment and Plan (1) CAP (community acquired pneumonia) Current visit: Yes Status: Acute Category: Medical Code(s): J18.9 - Pn eumonia, unspecified organism (2) Tachycardia Current visit: Yes Status: Acute Category: Medical Code(s): R00.0 - Tachycardia, unspecified (3) URI (upper respiratory infection) Current visit: No Status: Acute Qualifiers: URI type: unspecified URI Qualified Code(s): J06.9 - Acute upper respiratory infection, unspecified Category: Medical Code(s): J06.9 - Acute upper respiratory infection, unspecified (4) Renal insufficiency Current visit: Yes Status: Acute Category: Medical Code(s): N28.9 - Disorder of kidney and ureter, unspecified (5) Hypertension Current visit: Yes Status: Chronic Category: Medical Code(s): I10 - Essential (primary) hypertension (6) Hyperlipidemia Current visit: Yes Status: Chronic Category: Medical Code(s): E78.5 - Hyperlipidemia, unspecified (7) History of DVT (deep vein thrombosis) Current visit: Yes Status: Chronic Category: Medical Code(s): Z86.718 - Personal history of other venous thrombosis and embolism (8) Depression with anxiety Current visit: Yes Status: Chronic Category: Medical Code(s): F41.8 - Other specified anxiety disorders (9) SIRS (systemic inflammatory response syndrome) Current visit: Yes Status: Acute Category: Medical Code(s): R65.10 - Systemic inflammatory response syndrome (SIRS) of non-infectious origin without acute organ dysfunction (10) Coronary artery calcification seen on CT scan Current visit: Yes Status: Acute Category: Medical Code(s): I25.10 - Atherosclerotic heart disease of [place] coronary artery without angina pectoris (11) Aortic root enlargement Current visit: Yes Status: Acute Category: Medical Code(s): I77.89 - Other specified disorders of arteries and arterioles The patient's infection will respond to the chosen ABx?: Yes Is the patient receiving the right drug, dose, and route?: Yes Could a more targeted ABx be ordered?: No
--- NOTE | 2019-07-03 08:16 | Progress Note ---
Internal Medicine - PN: Subj *Date: 07/03/19 *Time: 08:19 Interval history: Pt is sitting up in bed without complaint. She rested well and denies any pain. She remains SOBOE and continues to get SOB at rest during conversation. She is eating well, up to bathroom without difficulty. She is anxious to get home to her family. Exam Vital signs and Labs for Last 24 Hours: Temp Pulse Resp BP Pulse Ox 97.9 F 80 18 151/92 H 95 07/03/19 07:49 07/03/19 07:49 07/03/19 07:49 07/03/19 07:49 07/03/19 07:49 Laboratory Results - last 24 hr 07/03/19 05:46: WBC 4.7 L, RBC 5.08, Hgb 14.0, Hct 43.3, MCV 85.3, MCH 27.5, MCHC 32.2, RDW 14.2, Plt Count 363, MPV 7.9, Neut % (Auto) 53.9, Lymph % (Auto) 36.6, [place]ady % (Auto) 6.5, Eos % (Auto) 2.8, Baso % (Auto) 0.3, Neut # (Auto) 2.5, Lymph # (Auto) 1.7, Grady # (Auto) 0.3, Eos # (Auto) 0.1, Baso # (Auto) 0.0 07/03/19 05:46: Sodium 141, Potassium 4.1, Chloride 104, Carbon Dioxide 26, Anion Gap 15.1 H, BUN 7 D, Creatinine 0.91, Estimated Creat Clear 127, Estimated GFR 64, Est GFR ( Amer) 78, Glucose 98, Calcium 8.9 I & O for Last 24 hours: Intake & Output 06/30/19 07/01/19 07/02/19 07/03/19 11:59 11:59 11:59 11:59 Intake Total 2424 / 2424 1320 / 1320 1740 / 1740 980 / 980 Output Total 1150 / 1150 2800 / 2800 1300 / 1300 1800 / 1800 Balance 1274 / 1274 -1480 / -1480 440 / 440 -820 / -820 Weight 257 lb 8 oz 258 lb 1.6 oz 254 lb 8 oz 253 lb 5 oz Microbiology Reports for the Last 24 Hours: Microbiology 06/29/19 18:00 Sputum - Expectorated Sputum Gram Stain - Final 06/29/19 18:00 Sputum - Expectorated Sputum Sputum Culture - Final Normal Respiratory Meghana - Constitutional no acute distress - *Routine HEENT Exam Head: Present: normocephalic, atraumatic ENT: Present: mucous membranes moist - *Routine Respiratory Exam Comments: good air movement with few left basilar rales, frequent cough with deep breathing - *Routine Cardiovascular Exam Present: RRR - *Routine Abdominal Exam Present: soft, normoactive bowel sounds. Absent: tenderness, distended, rebound, guarding, firm, organomegaly - *Routine Extremities Exam Present: full ROM, pulses intact. Absent: edema, calf tenderness - *Routine Neurological Exam Present: alert, oriented X3, moving all extremities, normal speech Assessment and Plan (1) CAP (community acquired pneumonia) Current visit: Yes Status: Acute Category: Medical Code(s): J18.9 - Pneumonia, unspecified organism (2) Tachycardia Current visit: Yes Status: Acute Category: Medical Code(s): R00.0 - Tachycardia, unspecified (3) URI (upper respiratory infection) Current visit: No Status: Acute Qualifiers: URI type: unspecified URI Qualified Code(s): J06.9 - Acute upper respiratory infection, unspecified Category: Medical Code(s): J06.9 - Acute upper respiratory infection, unspecified (4) Renal insufficiency Current visit: Yes Status: Acute Category: Medical Code(s): N28.9 - Disorder of kidney and ureter, unspecified (5) Hypertension Current visit: Yes Status: Chronic Category: Medical Code(s): I10 - Essential (primary) hypertension (6) Hyperlipidemia Current visit: Yes Status: Chronic Category: Medical Code(s): E78.5 - Hyperlipidemia, unspecified (7) History of DVT (deep vein thrombosis) Current visit: Yes Status: Chronic Category: Medical Code(s): Z86.718 - Personal history of other venous thrombosis and embolism (8) Depression with anxiety Current visit: Yes Status: Chronic Category: Medical Code(s): F41.8 - Other specified anxiety disorders (9) SIRS (systemic inflammatory response syndrome) Current visit: Yes Status: Acute Category: Medical Code(s): R65.10 - Systemic inflammatory response syndrome (SIRS) of non-infectious origin without acute organ dysfunction (10) Coronary artery calcification seen on CT scan Current visit: Yes Status: Acute Category: Medical Code(s): I25.10 - Atherosclerotic heart disease of [place] coronary artery without angina pectoris (11) Aortic root enlargement Current visit: Yes Status: Acute Category: Medical Code(s): I77.89 - Other specified disorders of arteries and arterioles - Assessment and plan all Dx Assessment and Plan for all problems:: Scheduled for thyroid ultrasound. Further per Dr. Koroma.
--- NOTE | 2019-07-04 11:11 | Discharge Summary ---
General - General Admission date:: 06/29/19 Discharge date: 07/03/19 HPI HPI: Ms. Gonzalez is a 53-year-old female who was just seen in the office yesterday and was diagnosed with a left lower lobe pneumonia. She was started on cefdinir, Phenergan DM cough syrup, and an albuterol inhaler. She was called with the CXR results today and zithromax was sent to the pharmacy in addition to her Omnicef. The patient came back to the office today to bring her grandchildren for their well-child exams. She stated her heart had been racing since this morning. She had not taken her cough medicine or used her inhaler and was concerned that her heart rate was elevated. Her heart rate was taken in the office and was 180bpm. She was directly admitted to the stepdown unit for further evaluation and treatment. She does have a history of SVT but states that she never saw a formula clerk. She also has a history of a DVT and is currently on Xarelto. Hospital Course Hospital Course: The patient was admitted to the stepdown unit and was started on IV antibiotics and nebs for her pneumonia. Sputum and blood cultures were ordered as was a lactic acid. She was started on IV fluids and a flu test was ordered. It was negative and her lactic acid was normal. Cardiology was also consulted and an echo, EKG and telemetry were ordered. The patient's heart rate improved with IV hydration and decreased down to 110 bpm. Her IV fluid rate was decreased to 100 mL/h. Her chest x-ray showed slight improvement in her left basilar pneumonia. She was seen in consultation by cardiology and they wanted to order a chest CTA to rule out a PE. She had a CTA which showed no evidence of PE. There was consolidation in the left lower lobe consistent with pneumonia along with trace bilateral effusions. She also had an echo showing a normal LVEF without significant valve disease. They wanted to continue to monitor the patient on telemetry for recurrent tachycardia/SVT while she was inpatient and then also wanted her to have a Holter monitor for 48 hours upon discharge. They recommended to hold off on beta-haley or calcium channel haley unless there was a recurrent tachycardia episode. The patient's heart rate remained well controlled. She was breathing better and was able to rest. Incentive spirometry was added. She became less congested. Her sputum returned with normal respiratory romana and her blood culture showed no growth. A thyroid ultrasound was ordered due to a 12 mm nodule that was seen on the CTA. It showed multinodular thyroid gland and radiology felt she should have a repeat ultrasound in 6 to 12 months. She still remained short of breath with exertion, but was able to get up to the bathroom without difficulty. She was anxious to get home to her family. She was discharged home on Cardizem as well as some potassium. She was told to continue her Omnicef for her pneumonia which she already had at home. She will follow-up in the office with Dr. Koroma. Objective Vital signs: Temp Pulse Resp BP Pulse Ox 97.9 F 100 H 18 151/92 H 95 07/03/19 07:49 07/03/19 08:00 07/03/19 07:49 07/03/19 07:49 07/03/19 07:49 Narrative: - Constitutional Comments: Does not appear to feel well - *Routine HEENT Exam Head: Present: normocephalic, atraumatic Eye: Present: EOMI, PERRL ENT: Present: mucous membranes dry, sinus tenderness (nose congested) - *Routine Neck Exam Present: supple. Absent: carotid bruit, lymphadenopathy - *Routine Respiratory Exam Present: rales (left base), rhonchi, wheezes - *Routine Cardiovascular Exam Present: tachycardia (180bpm) - *Routine Abdominal Exam Present: soft, normoactive bowel sounds. Absent: tenderness - *Routine Extremities Exam Present: edema (trace bilateral LE's). Absent: cyanosis, clubbing - *Routine Skin Exam Present: pallor, warm. Absent: rash - *Routine Neurological Exam Present: alert, oriented X3 Results Labs on day of discharge: Preliminary micro results at discharge 06/29/19 17:35 Blood Culture - Preliminary Blood NO GROWTH AFTER 48 HOURS 06/29/19 17:30 Blood Culture - Preliminary Blood NO GROWTH AFTER 48 HOURS DS: Diagnosis - Discharge Diagnosis (1) CAP (community acquired pneumonia) Status: Acute (2) Tachycardia Status: Acute (3) URI (upper respiratory infection) Status: Acute (4) Renal insufficiency Status: Acute (5) Hypertension Status: Chronic (6) Hyperlipidemia Status: Chronic (7) History of DVT (deep vein thrombosis) Status: Chronic (8) Depression with anxiety Status: Chronic (9) SIRS (systemic inflammatory response syndrome) Status: Acute (10) Coronary artery calcification seen on CT scan Status: Acute (11) Aortic root enlargement Status: Acute Discharge Plan - Patient Discharge Instructions ACTIVITY: Limited activity DIET: low fat, low cholesterol Patient Instructions: Pneumonia-Adult, Tachycardia, DI for Pneumonia -- Adult, DI for Tachycardia - Follow up Plan Follow up with: Sena Koroma MD [Primary Care Provider] - 07/10/19 10:30 am Disposition: Home, Self-Group Home Medications: Home Medications Medication Instructions Recorded Confirmed Type furosemide 20 mg tablet 20 mg PO DAILY #30 tab 11/17/18 06/29/19 History gabapentin 100 mg capsule 100 mg PO DAILY #90 cap 11/17/18 06/29/19 History liraglutide (weight loss) 3 mg/0.5 0.6 units SQ DAILY #3 ml 11/17/18 06/29/19 History mL (18 mg/3 mL) subcut pen injector Rivaroxaban [Xarelto 20mg Tablet*] 20 mg PO QPMWM 06/10/19 06/30/19 History alprazolam 0.25 mg tablet 0.25 mg PO BID PRN #60 tab 06/20/19 06/29/19 Rx Albuterol Sulfate [Albuterol HFA 1 - 2 puffs IH Q4-6H PRN 06/29/19 06/29/19 History Inhaler] Benzonatate [Benzonatate 100mg 100 mg PO TIDP PRN 06/29/19 06/29/19 History cap] Cefdinir [Omnicef 300mg Capsule] 300 mg PO BID 06/29/19 06/29/19 History Gabapentin [Gabapentin 100mg Cap] 200 mg PO HS 06/29/19 06/29/19 History Vortioxetine Hydrobromide 20 mg PO HS 06/29/19 06/29/19 History [Trintellix] hydrOXYzine pamoate [Hydroxyzine 1 - 2 cap PO BIDP PRN 06/29/19 06/29/19 History Pamoate] Non Formulary [Pt's Own Medication] 1 each PO HS each 07/03/19 Rx Potassium Chloride [Klor-con 20 20 meq PO DAILY #30 tab 07/03/19 Rx mEq tablet] dilTIAZem HCL [Cardizem CD 120mg 120 mg PO DAILY #30 cap.er.24h 07/03/19 Rx Cap] Prescriptions/Medication Reconciliation: New dilTIAZem HCL [Cardizem CD 120mg Cap] 120 mg PO DAILY #30 cap.er.24h Non Formulary [Pt's Own Medication] 1 each PO HS each Potassium Chloride [Klor-con 20 mEq tablet] 20 meq PO DAILY #30 tab Continued gabapentin 100 mg capsule 100 mg PO DAILY #90 cap furosemide 20 mg tablet 20 mg PO DAILY #30 tab liraglutide (weight loss) 3 mg/0.5 mL (18 mg/3 mL) subcut pen injector 0.6 units SQ DAILY #3 ml alprazolam 0.25 mg tablet 0.25 mg PO BID PRN #60 tab PRN Reason: anxiety Rivaroxaban [Xarelto 20mg Tablet*] 20 mg PO QPMWM Benzonatate [Benzonatate 100mg cap] 100 mg PO TIDP PRN PRN Reason: Cough Albuterol Sulfate [Albuterol HFA Inhaler] 1 - 2 puffs IH Q4-6H PRN PRN Reason: Shortness Of Breath Or Wheezing Cefdinir [Omnicef 300mg Capsule] 300 mg PO BID hydrOXYzine pamoate [Hydroxyzine Pamoate] 1 - 2 cap PO BIDP PRN PRN Reason: Anxiety Vortioxetine Hydrobromide [Trintellix] 20 mg PO HS Gabapentin [Gabapentin 100mg Cap] 200 mg PO HS Discontinued doxepin 100 mg capsule 200 mg PO QHS #60 cap Azithromycin 250 mg PO DAILY - Problem Reconciliation Problems Reviewed?: Yes
== END 2019-07-03 11:20 | disposition home or self-care (01) | DRG 308 ==
LOC: 2ND → OBSVTOIN 16:40 → 2ND 18:36
PROVIDERS: ADMIT Family Medicine; ATTEND Family Medicine
CPT/HCPCS: 36415; 71020; 71046; 71275; 76536; 80048; 80053; 83605; 84484; 85025; 87040; 87070; 87205; 87275; 87276; 93005; 93306; 94640; 94761; J0456; Q9967

== ENCOUNTER → 2019-07-25 12:42 | Outpatient (CLI) | payer BC, SELFPAY | LOC: RT 12:43 | PROVIDERS: PCP Family Medicine; Visit Provider Physician Assistant | DX: R00.2 Palpitations (principal); I50.30 Unspecified diastolic (congestive) heart failure; I10 Essential (primary) hypertension; I25.10 Atherosclerotic heart disease of native coronary artery without angina pectoris; I77.89 Other specified disorders of arteries and arterioles | CPT/HCPCS: 93225 ==

== ENCOUNTER → 2019-07-31 12:06 | Outpatient (CLI) | payer BC, SELFPAY ==
--- NOTE | 2019-07-31 | CA_ITS ---
APPROVED REPORT Exam: Pharmacologic Technologist: Jayla Borrero Ht: 5 ft 5 in Wt: 255 lbs BSA: 2.19 m2 HR: 86 bpm BP: 127/79 mmHg Indications: CP, SOB Medical History Medications: Alprazolam,,,,, Gabapentin,,,,, Lasix,,,,, Cefdinir,,,,, BenzONATATE,,,,, CardIZEM,,,,, RIvaROXABAN,,,,, Liraglutide,,,,, Hhydrooxyzine,,,,, VoRtioxetine,,,,, Stress Test Details Test: LEXISCAN HR Resting HR: 79 bpm Max Heart Rate (APMHR): 165 bpm Max HR Achieved: 95 bpm Target HR (85% APMHR): 140 bpm % of APMHR: 57 Recovery HR: 85 bpm BP Resting BP: 127.0/79.0 mmHg Max BP: 133.0/76.0 mmHg Recovery BP: 122.0/81.0 mmHg ECG Clinical Exercise duration: 04:02 min Highest Stage Achieved: Stress ECG Conclusion Resting ECG: Sinus rhythm Lexiscan portion completed. Patient complained of shortness of breath and chest pain at peak infusion. Symptoms: Chest pain and shortness of breath. Resolved in recovery. No dizziness. Arrhythmias/Ectopy: Occasional PVC ST-T Changes: Less than 1.[address] depression. Conclusion: Images to follow. Test Summary RECOVERY 03:00 . . 85 . 122/ 73 . . Stage 1 01:00 . . 91 . . . . Stage 2 01:00 . . 94 . 116/ 75 . . Stage 3 01:00 . . 90 . 132/ 77 . . Stage 4 01:00 . . 91 . 123/ 82 . . Stage 4 01:02 . . 90 . 123/ 82 . Stop exercise at 04:02 RECOVERY 01:00 . . 91 . 133/ 76 . . RECOVERY 02:00 . . 88 . 133/ 76 . . RECOVERY 03:00 . . 85 . 122/ 73 . . RECOVERY 04:00 . . 85 . 122/ 75 . . RECOVERY 04:39 . . 90 . 122/ 81 . . Electronically signed by : Chip Madrid, 07/31/2019 19:01:35
--- NOTE | 2019-07-31 12:14 | NM_ITS ---
APPROVED REPORT Exam: Nuclear Stress Test Indication: ABN EKG, C.P., HTN, FM. HX, SOB Patient Location: Outpatient Stress Tech: Jayla Borrero MA Tech:Raisa Barajas, ARRT, RT (R)(N) Ht: 5 ft 5 in Wt: 255 lbs Bra Size: 44DD HR: 86 bpm BP: 127/79 mmHg BSA: 2.19 m2 BMI: 42.4 History: ABN EKG, C.P., HTN, FM. HX, SOB Procedure: Patient received a 0.4 mg of intravenous Lexiscan, resting heart rate 86 bpm, resting blood pressure 127/79 mmHg, with Lexiscan maximum heart rate achived was 93 bpm which is Less than 85 % of the maximum predicted heart rate and blood pressure was 132/77 mmHg. SOB Electrocardiogram Resting electrocardiogram showed sinus rhythm, with Lexiscan there is less than 1.[address] segment depression noted from the baseline EKG. The EKG portion of the Lexiscan Myoview is nondiagnostic. Cardiac Stress and Resting SPECT Images: Cardiac Stress and Resting SPECT images were obtained using technetium 99m Myoview 30.2 mCi stress and 10.02 mCi at rest. Gated SPECT with analysis of segmental wall motion and calculation of the ejection fraction also done. Cardiac stress and rest SPECT images show mild fixed defect in the anterior wall with normal contractility gated SPECT is likely secondary to soft tissue attenuation, no reversible ischemia seen. Computer derived ejection fraction is over 65% with no regional wall motion abnormality, right ventricle is normal size and contractility. Conclusion: 1. The EKG portion of the Lexiscan Myoview is nondiagnostic. 2. No scintigraphic evidence of reversible ischemia seen, computer derived ejection fraction is over 65% with no regional wall motion abnormality, right ventricle is normal size and contractility. 3. Likely normal Lexiscan Myoview study. Electronically signed by : Chip Madrid, 07/31/2019 19:05:22
--- NOTE | 2019-07-31 12:41 | HMH.ITSHM ---
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 []LIRAGLUTIDE HYDROXYZINE GABAPENTIN FUROSEMIDE DILTIAZEM ALPRAZOLAM TRINTELLIX XARELTO POTASSIUM CEFDINIR BENZONATATE ALBUTEROL
== END ==
PROVIDERS: PCP Family Medicine; Visit Provider Physician Assistant
DX: I25.10 Atherosclerotic heart disease of native coronary artery without angina pectoris (principal); I10 Essential (primary) hypertension; I51.89 Other ill-defined heart diseases; I77.89 Other specified disorders of arteries and arterioles
CPT/HCPCS: 78452; 93017; A9502; J2785

== ENCOUNTER 2019-09-18 15:09 | Outpatient (RCR) | payer BC, SELFPAY ==
--- NOTE | 2019-09-18 16:02 | HMH.PTOPWND ---
Rehab Outpt Wound Evaluation Rehab OP Wound Evaluation Start: 09/18/19 15:19 Freq: Status: Active Protocol: Document 09/18/19 15:56 MARY (Rec: 09/18/19 16:02 PHORRAMYA [id number]) Electronically Signed By Bari Wick, PT 09/18/19 15:56 Subjective/History History History Pt is 53 yowf who presents with c/o B LE edema, R > L, x ~ 3 yrs. She reports hx of DVT and another superficial clot both in the R lower leg. She reports increased pain with edema and intermittent numbness, worse in the R LE. She reports hx of HTN, anxiety , depression, and tachycardia. Subjective Subjective She reports pain 4/10 currently, 8/10 at worst. Lymphedema Eval Classification of Lymphedema Secondary Lymphedema Yes Stemmer's sign Stemmer's Sign no Stage of Lymphedema Lymphedema stages Stage II (Pitting edema, increased fibrosis w/ decreased pitting) Skin Changes Dry Skin Yes Redness Yes Other Changes Yes Pain Scale Pain Scale (0-10) 4 Affected Extremities Areas Affected by Lymphedema/Edema Right Lower Extremity,Left Lower Extremity Manual Lymphatic Drainage Treatment Area MLD Treatment Area Right Lower Extremity,Left Lower Extremity Wound Problems/Impairments Impairments Problems/Impairmments Palpation Tenderness,Impaired Endurance,Impaired Walking, Impaired Recreational Activities,Increased Edema, Lymphedema Present,Subjective C/O Pain,Impaired Self Care/ Self Management Prognosis Rehab Potential Good Clinical Impression Consistent with Diagnosis Yes Short Term Goals Number of Weeks 4 Decreased Palpation Tenderness Yes: to min Decrease Subjective C/O Pain Yes: 2/10 Patient to be Ind w/ [place] Yes Compression Garments Patient to Understand Lymphedema Yes Treatment and Exercises Decrease Girth Measurments by (cm) Yes: by 10 cm 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
== END 2019-09-18 16:00 | disposition home or self-care (01) ==
LOC: PT 15:09
PROVIDERS: PCP Family Medicine; Visit Provider Family Medicine
DX: R60.0 Localized edema (principal); I89.0 Lymphedema, not elsewhere classified
CPT/HCPCS: 97140; 97162; 97760

== ENCOUNTER → 2019-11-13 12:04 | Outpatient (CLI) | payer BC, SELFPAY | PROVIDERS: PCP Family Medicine; Visit Provider Family Medicine | DX: Z86.79 Personal history of other diseases of the circulatory system (principal) | CPT/HCPCS: 93225; 93226 ==

== ENCOUNTER → 2020-03-19 14:28 | Outpatient (CLI) | payer BC, SELFPAY ==
--- NOTE | 2020-03-19 14:32 | CA_ITS ---
APPROVED REPORT Bilateral Lower Extremity Venous Study for Medical Reimbursement Manager: JACINDA Indications PAIN Vein Imaging CFV (R): compressive, spontaneous, phasic, augmentation SFJ (R): compressive, spontaneous, phasic, augmentation FEM (R): compressive, spontaneous, phasic, augmentation POP (R): compressive, spontaneous, phasic, augmentation PTV (R): compressive, spontaneous, phasic, augmentation GSV (R): Compressible SSV (R): Partially Compressible Peroneals (R):Not Visualized GAS (R): Partially Compressible Findings POSITIVE FOR DVT OF CALF VEIN IN RIGHT LOWER EXTREMITY Conclusion POSITIVE FOR DVT OF CALF VEIN IN RIGHT LOWER EXTREMITY Electronically signed by : Jan Johnson MD 03/19/2020 15:44:00
== END ==
PROVIDERS: PCP Family Medicine; Visit Provider Family Medicine
DX: M79.604 Pain in right leg (principal); R60.0 Localized edema
CPT/HCPCS: 93971

== ENCOUNTER 2020-06-13 13:00 | Outpatient (RCR) | payer BC, SELFPAY ==
--- NOTE | 2020-01-30 14:45 | HMH.PTOPWND ---
Rehab Outpt Wound Evaluation Rehab OP Wound Evaluation Start: 01/30/20 13:15 Freq: Status: Active Protocol: Document 01/30/20 14:39 PHOCARO (Rec: 01/30/20 14:44 PHORNE [id number]) Electronically Signed By Bari Wick, PT 01/30/20 14:39 Subjective/History History History Pt is 54 yowf who presents with c/o B LE edema, R > L, x ~ 3 yrs. She reports increased pain with edema, especially in the R LE. She has hx of R LE DVT and multiple abdominal surgeries in the past. She reports no c/o numbness or tingling at this time. she also reports the edema does not seem to decreased with elevation of her legs. PMH: CAD, CHF, HTN, Anxiety. Subjective Subjective Pain currently 5/10 in R Lower leg, 7/10 at worst. Palpation tenderness 3/4 in R foot and gaitor area of R Lower leg. Lymphedema Eval Classification of Lymphedema Secondary Lymphedema Yes Stemmer's sign Stemmer's Sign no Stage of Lymphedema Lymphedema stages Stage II (Pitting edema, increased fibrosis w/ decreased pitting) Skin Changes Dry Skin Yes Redness Yes Discoloration of Skin Yes Other Changes Yes Pain Scale Pain Scale (0-10) 5 Affected Extremities Areas Affected by Lymphedema/Edema Right Lower Extremity,Left Lower Extremity Manual Lymphatic Drainage Treatment Area MLD Treatment Area Right Lower Extremity,Left Lower Extremity Wound Problems/Impairments Short Term Goals Number of Weeks 4 Decreased Palpation Tenderness Yes: to min Decrease Edema Yes Decrease Subjective C/O Pain Yes: 3/10 Patient to Understand Lymphedema Yes Treatment and Exercises Decrease Girth Measurments by (cm) Yes: by 10 cm 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
--- NOTE | 2020-03-05 13:56 | HMH.RHREAS ---
Rehab Reassessment Rehab OP Re-assessment Start: 03/05/20 13:52 Freq: Status: Active Protocol: Document 03/05/20 13:52 MARY (Rec: 03/05/20 13:56 MARY [id number]) Electronically Signed By Bari Wick, PT 03/05/20 13:52 Rehab Re-assessment Subjective Subjective Pt reports overall she feels sh is progressing Objective Objective Notes Pitting edema: remains 2+ in B lower legs, R worse than L. Tenderness to palpation: 1/4 throughout B lower legs. Assessment Progress Assessment Progressing as Expected Assessment Notes Less tenderness to palpation and pain overall. Erythema remains worse on R lower leg. Patient goals met ST,2,3,4,5 Goals Not Met LT,2,3,4,5,6,7 Revised Goals none Plan Plan Continue per initial POC Frequency of Therapy 2 x/wk Duration of therapy 8 wks Time and Billing Re-Eval Time 15 Re-Eval Billing Units 1 PHYSICIAN CERTIFICATION: I certify the specified therapy services for Maria L Gonzalez are required, authorized, and reviewed every 30 days.
--- NOTE | 2020-05-07 13:38 | HMH.RHREAS ---
Rehab Reassessment Rehab OP Re-assessment Start: 03/05/20 13:52 Freq: Status: Active Protocol: Document 05/07/20 13:36 MARY (Rec: 05/07/20 13:38 MARY [id number]) Electronically Signed By Bari Wick, PT 05/07/20 13:36 Rehab Re-assessment Subjective Subjective Pt reports continued tenderness in the R lower leg. Objective Objective Notes 2+ pitting edema in B lower legs worse at the ankle and distal calf. Mildly fibrotic edema in the upper calf and thigh area. Assessment Progress Assessment Progressing as Expected Assessment Notes Improving edema overall, continues to have some pain, but it is decreasing. Patient goals met ST,2,3,4,5 Goals Not Met LT,2,3,4,5,6,7 Revised Goals none Plan Plan Continue per initial POC Frequency of Therapy 2 x/wk Duration of therapy 8 wks Time and Billing Re-Eval Time 15 Re-Eval Billing Units 1 PHYSICIAN CERTIFICATION: I certify the specified therapy services for Maria L Gonzalez are required, authorized, and reviewed every 30 days.
== END 2020-06-13 13:05 | disposition home or self-care (01) ==
LOC: PT 13:00
PROVIDERS: PCP Family Medicine; Visit Provider Family Medicine
DX: R60.0 Localized edema (principal)
CPT/HCPCS: 97110; 97140; 97162; 97164; 97760

== ENCOUNTER 2020-08-27 16:11 | Emergency (ER) | payer BC, SELFPAY ==
[2020-08-27 16:30] VITALS: BP 136/91; PULSE 102; RESP 19; TEMP 36.9; O2SAT 98; BMI 45.7
--- NOTE | 2020-08-27 17:42 | HMH.EDUTC ---
[facility] [place] Clinical Impression: Nausea Cellulitis Qualifiers: Site of cellulitis: extremity Site of cellulitis of extremity: lower extremity Laterality: right Qualified Code(s): L03.115 - Cellulitis of right lower limb Disposition: Home, Self-Care Condition on Discharge: Good Instructions: Cellulitis, DI for Nausea -- Adult, Nausea and Vomiting-Adult, Clindamycin Additional Instructions: *Start antibiotic(s) immediately and be sure to take as ordered for the FULL length of time although you may be feeling better or start to see improvement in the next 24-48 hours *Monitor closely. Outlined redness so that you can monitor easier. Follow up immediately for new or worsening symptoms including but not limited to redness, swelling, streaking from site fever or chills. *Warm compress 15 minutes 3-4 times day *Never squeeze or pop these on your own. Seek immediate medical attention next time this occurs *Monitor Temp. Tylenol every 4 hours as needed and ibuprofen every 6 hours as needed (as long as your primary care doctor has told you that it is ok to take both. For fever, aches, pain. ER if no less that 101 despite Tylenol and ibuprofen Follow up with your family doctor/primary care physician in the next 48-72 hours if no improvement and for further evaluation and treatment Return if needed Wound culture was obtained make sure to follow up with your Family Doctor for wound culture results to make sure you are on the right medication to clear infection Straight to ER if any life threatening symptoms If you have any tremors, mental status changes, unsteadiness etc stop taking zofran and follow up immediately ? Avoid fruit juices, as these do not replace minerals and can actually increase diarrhea. ? Children and adults can use sports drinks to replenish electrolytes. Younger children and infants should use products formulated for children, like oral rehydration solutions. ? Eat food in small amounts and let your stomach recover. ? Get lots of rest. You may feel tired or weak. ? No greasy or fried foods for the next 24-48 hours BRAT diet Bananas Rice Apples and [place] ? Make sure to drink plenty of liquids ? Return if needed ? Straight to ER if any life threatening symptoms ? Zofran as prescribed ? Follow up with family doctor in the next 48-72 hours if no improvement or any worsening of symptoms Prescriptions: Mupirocin [Bactroban 2% Ointment 22gm tube] 1 applicatio TP TID 10 Days #1 tube Transmission Status: Pending to [facility] # clindamycin HCL [Cleocin HCl] 300 mg PO TID 10 Days #30 cap Transmission Status: Pending to [facility] # Ondansetron [Zofran 4mg ODT] 4 mg PO BIDP PRN #6 tab PRN Reason: Nausea Transmission Status: Pending to [facility] # Referrals: Sena Koroma MD [Primary Care Provider] - As needed Time of Disposition: 17:59 Medical Decision Making - Aron Inquiry Pt receiving controlled substance: No Aron was queried for this patient: No Vital Signs: 08/27/20 16:30 08/27/20 17:52 Temperature 98.4 F 98.4 F Temperature Source Oral Pulse Rate 102 H Pulse Rate [Left Brachial] 102 H Respiratory Rate 19 19 Blood Pressure 136/91 H Blood Pressure [Left Arm] 136/91 H Blood Pressure Mean [Left Arm] 106 Blood Pressure Source [Left Arm] Automatic Cuff Blood Pressure Position [Left Arm] Sitting 02 Sat by Pulse Oximetry 98 Oxygen Delivery Method Room Air Orders (Tests/Meds): ED MEDICATIONS Generic Name Dose Route Start Last Admin Trade Name Freq PRN Reason Stop Dose Admin Sodium Chloride 1,000 mls @ 999 mls/hr 08/27/20 17:30 08/27/20 17:02 Sod Chlor 0.9% 1000ml Bag IV 08/27/20 18:30 999 mls/hr .Q1H1M GAVIOTA Administration ORDERS Category Date Time Status Wound Culture and Gram Stain Stat Micro 08/27/20 17:00 Received Medical Decision Narrative: Ordered bolus still infusing patient states that she is feeling much bett
[2020-08-27 17:52] VITALS: BP 136/91; PULSE 102; RESP 19; TEMP 36.9; O2SAT 98
== END 2020-08-27 18:18 | disposition home or self-care (01) ==
PROVIDERS: Emergency Provider Nurse Practitioner; PCP Family Medicine
DX: L03.115 Cellulitis of right lower limb (principal); F41.8 Other specified anxiety disorders; I10 Essential (primary) hypertension; E78.5 Hyperlipidemia, unspecified; I47.1 Supraventricular tachycardia; Z79.899 Other long term (current) drug therapy
CPT/HCPCS: 87070; 87077; 87186; 87205; 96365; 99202; G0463

== ENCOUNTER → 2020-11-27 14:09 | Outpatient (CLI) | payer BC, SELFPAY ==
--- NOTE | 2020-11-27 14:20 | XR_ITS ---
PROCEDURE: XR LUMBAR SPINE MIN 4V CLINICAL INDICATION: ACUTE MIDLINE LOW BACK PAIN W/O SCIATICA COMPARISON: No exams were available for comparison FINDINGS: No fracture or dislocation. No lytic or blastic change. There is normal mineralization. Degenerative disc disease is present at T12-L1 L1-L2 L4-5 and L5-S1 most severe at L5-S1. There is nonspecific vascular calcification. IMPRESSION: Multilevel lumbar spondylosis most severe at L5-S1 Dictated by: Jan Johnson MD 11/27/2020 14:44 Jan Johnson MD in [place] 11/27/2020 14:44
== END ==
LOC: RAD 14:10
PROVIDERS: PCP Physician Assistant; Visit Provider Physician Assistant
DX: M54.5 Low back pain (principal)
CPT/HCPCS: 72110

== ENCOUNTER → 2020-12-18 09:17 | Outpatient (CLI) | payer BC, SELFPAY ==
--- NOTE | 2020-12-18 09:24 | US_ITS ---
PROCEDURE: US THYROID CLINICAL INDICATION: THYROID NODULE Follow-up thyroid nodule COMPARISON: US US THYROID from 07/03/2019 FINDINGS: Right lobe: 4.4 x 1.9 x 2.4 cm. Multiple nodules are present involving the right lobe. In the upper pole there is a 13 x 8 mm mixed nodule unchanged. 7 mm cyst in the mid polar region benign-appearing. 5 mm hypoechoic nodule mid polar region possibly due to small cyst. 10 mm by 5 mm slightly hypoechoic nodule mid polar region medially unchanged. Left lobe: 4.5 x 1.9 x 2 cm. 5 mm hypoechoic nodule upper pole unchanged. 8 mm hypoechoic nodule upper pole posteriorly which may be slightly more prominent but could be related to the scanning technique. Stability may be confirmed with follow-up.. Slightly hypoechoic nodule mid polar region at 9 mm unchanged. 7 mm slightly hypoechoic nodule mid polar region unchanged Isthmus: Slightly prominent at 5 mm Additional findings: IMPRESSION: Multiple nodules apparent overall not significantly changed. Mildly enlarged thyroid gland Dictated by: Jan Johnson MD 12/18/2020 12:33 Jan Johnson MD in [place] 12/18/2020 12:33
--- NOTE | 2020-12-18 09:25 | US_ITS ---
PROCEDURE: US EXTREMITY LT LIMITED CLINICAL INDICATION: MASS OF LT FOREARM COMPARISON: No exams were available for comparison FINDINGS: Ultrasound performed of palpable in anterior aspect of forearm. There is slight increase homogeneous echogenicity in the area of palpable concern possibly due to lipomatosis involvement. There are 2 different region which measure approximately 7 mm and could be due to small lipomas. No cyst or other significant anomalies evident. IMPRESSION: Two small areas of ill-defined increased echogenicity in the subcutaneous region in the area of palpable concern which may be due to small lipomas. Dictated by: Jan Johnson MD 12/18/2020 14:06 Jan Johnson MD in [place] 12/18/2020 14:06
== END ==
PROVIDERS: PCP Physician Assistant; Visit Provider Physician Assistant
DX: E04.1 Nontoxic single thyroid nodule (principal); R22.32 Localized swelling, mass and lump, left upper limb
CPT/HCPCS: 76536; 76882

== ENCOUNTER 2020-12-18 14:09 | Outpatient (RCR) | payer BC, SELFPAY ==
--- NOTE | 2020-12-18 14:57 | HMH.PTOPEV ---
PT Outpatient Evaluation Rehab PT Outpatient Evaluation Start: 12/18/20 14:22 Freq: Status: Active Protocol: Document 12/18/20 14:43 MARTHAJOSIE (Rec: 12/18/20 14:56 LUCA [id number]) Electronically Signed By Juan Bangura PT 12/18/20 14:43 Outpatient Therapy Subjective History Subjective History This is the initial Physical Therapy evaluation for Maria L Gonzalez. Pt is a 55 y/o female referred to PT of r c/o LBP and L sided buttocks pian. Pt reports pain began insidiously ~2-3 months ago. Pt does not recall any aggravating factor or trauma. Pt reports she feels like her low back freezes up and she has sharp pains that radiate across low back and some pain shoots up when she walks for any length of time. Chief Complaint Pain,Stiff Symptom Type Throb,Sharp,Stabbing,Burning, Shooting Symptoms Relieved By Nothing Symptoms Aggravated By Supine,Bending/Stooping, Physical Activity,Walking Current Functional Limitations Housework,Driving,Sleeping, Standing,Recreation Activity, Walking,Bending/Stooping Symptom Description Intermittent Level of pain today (0-10) 5 Pain scale - at its best (0-10) 0 Pain scale - at its worst (0-10) 8 Lumbopelvic Eval Posture Lumbar Spine Posture Standing Position Flattened Assistive device Assistive Devices None / NA Palapation tenderness left thoracic spinal tenderness No lumbar spinal tenderness Yes paraspinal tenderness Yes buttock tenderness Yes Lumbar/Sacral Palpation Findings Tenderness,Spasm,Muscle Guarding Accessory Movement L3 left L4 left L5 left S1 left Range of Motion Lumbar Spine Active Flexion Range of 50 Motion (degrees) Lumbar Spine Active Extension Range of 10 Motion (degrees) Left Lumbar Spine Lateral Flexion Active 10 Range of Motion (degrees) Right Lumbar Spine Lateral Flexion 20 Active Range of Motion (degrees) Lumbar Spine ROM Limitations Pain Special Tests Forward Bending Test- Standing Positive Left Hip Piriformis Test Positive Left Sciatic Nerve Tension Jennifer
== END 2020-12-18 14:15 | disposition home or self-care (01) ==
LOC: PT 14:09
PROVIDERS: PCP Physician Assistant; Visit Provider Nurse Practitioner
DX: G57.02 Lesion of sciatic nerve, left lower limb (principal); M54.5 Low back pain
CPT/HCPCS: 97110; 97163

== ENCOUNTER → 2020-12-30 11:00 | Outpatient (CLI) | payer BC, SELFPAY ==
--- NOTE | 2020-12-30 11:04 | MR_ITS ---
PROCEDURE: MR LUMBAR SPINE WO CON CLINICAL INDICATION: ACUTE MIDLINE LOW BACK PAIN Lbp worse on lt side. Symptoms [id number]. No injury or trauma. No prior. COMPARISON: CT ABDPELW CT ABD PELVIS W/ CONTRAST from 09/05/2016 TECHNIQUE: Standard multiplanar multiecho sequences are performed without contrast. 3-D MIP and myelographic images are also rendered and reviewed FINDINGS: There is normal alignment. The spinal cord ends at the L2 level. Multilevel degenerative disc disease is present as described below. T10-T11: Degenerative disc disease with bulging disc. This is slightly eccentric toward the left and is causing some minimal contour deformity along the anterior aspect of the cord with borderline canal stenosis. There is mild left-sided foraminal and lateral recess narrowing. T11-T12: Degenerative disc disease with mild bulging disc. T12-L1: Degenerative disc disease with bulging disc and mild right paracentral disc protrusion with mild right lateral recess and foraminal narrowing. L1-L2: Degenerative disc disease with bulging disc with a small right paracentral disc herniation with minimal inferior extrusion there is mild right-sided foraminal narrowing L2-L3: Degenerative disc disease with minimal bulging disc with facet and ligamentum hypertrophy and mild bilateral foraminal narrowing. There is a tiny right paracentral disc protrusion. L3-L4: Degenerative disc disease. Facet and ligamentum hypertrophic change with [id number] bilateral foraminal narrowing. L4-5: Degenerative disc disease with minimal bulging disc with moderate facet and ligamentum hypertrophic change and moderate bilateral foraminal narrowing right greater than left. Moderate bilateral lateral recess narrowing. L5-S1: Severe degenerative disc disease with endplate hypertrophic change and facet and ligamentum hypertrophy with moderate left-sided foraminal narrowing. No acute fracture apparent. IMPRESSION: Abnormal MRI of the lumbar spine with multilevel lumbar spondylosis. Please see above for detailed description at each level. Dictated by: Jan Johnson MD 12/31/2020 08:20 Jan Johnson MD in [place] 12/31/2020 08:20
== END ==
LOC: RAD 11:01
PROVIDERS: PCP Physician Assistant; Visit Provider Physician Assistant
DX: M54.5 Low back pain (principal)
CPT/HCPCS: 72148; 76376

== ENCOUNTER → 2021-01-09 11:16 | Outpatient (CLI) | payer BC, SELFPAY ==
--- NOTE | 2021-01-09 11:17 | CA_ITS ---
APPROVED REPORT EXAM: Comprehensive 2D, Doppler, and color-flow Echocardiogram Nonfarm Animal Caretaker: Maty Thomas CRT Ht: 5 ft 5 in Wt: 300lbs BSA: 2.35 BP: 138/92 mmHg Indications: Shortness of Breath, Palpitations, Hyperlipidemia, Hypertension/HDD Technically difficult study 2D Dimensions LVOT 1.98 cm (M/F) 1.5-2.5 M-Mode Dimensions RVDd 1.92 cm (0.9-2.6) LA Diam 4.00 cm (1.9-4.0) LVDd 4.73 cm (3.5-5.7) Ao Diam 4.84 cm (2.0-3.7) LVDs 3.32 cm (3.5-5.7) IVSd 1.24 cm (0.6-1.1) PWd 0.89 cm (0.6-1.1) EF (Teich) 56.90% FS 29.80% EDV (Teich) 103.90 mL ESV (Teich) 44.80 mL LV Diastology E Decel Time 263.00 (160-240 msec) E/A Ratio 0.60 MED E' 5.60 (< 7 cm/sec) MED A' 9.70 cm/s E'/MED E' Ratio 10.00 (>14) LAT E' 5.40 (<10 cm/sec) LAT A' 13.40 cm/s E/LAT E' Ratio 10.37 (>14) Aortic Valve AO Peak GR. 7.30 mmHg Mitral Valve MV A Velocity 94.00 (40-130 cm/s) E/A Ratio 0.60 MV Decel. Time 263.00 (160-240 ms) Pulmonary Valve PV Peak Velocity 81.00 (50-150 cm/s) Tricuspid Valve TR P. Velocity 146.00 cm/s RAP Estimate 10.00 mmHg RVSP 18.50 mmHg Left Ventricle Technically difficult study because of the patient factors and poor acoustic windows. Left atrium is mildly enlarged, left ventricle is normal size, mild concentric left ventricular hypertrophy, visually estimated ejection fraction 55% with no regional wall motion abnormality, grade 1 diastolic dysfunction seen without tissue Doppler evidence of raise left atrial pressure. Right Ventricle Right atrium and right ventricle qualitatively mildly enlarged with normal contractility. Aortic Valve Aortic valve is poorly visualized, Doppler is not indicated of of aortic stenosis or aortic insufficiency. Mitral Valve Mitral valve grossly normal, there is trace mitral regurgitation. Tricuspid Valve Tricuspid valve grossly normal, there is trace tricuspid regurgitation, tricuspid regurgitation jet velocity is inadequate for calculation of the right ventricular systolic pressure. Pulmonic Valve Pulmonic valve is poorly visualized. Great Vessels Aortic root is normal size. Pericardium No significant pericardial effusion noted. Conclusion 1. Technically difficult study because of the patient factors and poor acoustic windows. Endocardial surfaces are poorly visualized. 2. Mild biatrial enlargement, normal left ventricular size, mild concentric left ventricular hypertrophy, visually estimated ejection fraction 55% with no regional wall motion abnormality, grade 1 diastolic dysfunction seen without tissue Doppler evidence of raise left atrial pressure. 3. Mildly enlarged right ventricle with normal contractility. 4. Trace mitral and tricuspid regurgitation. 5. No significant pericardial effusion noted. Electronically signed by : Chip Madrid, 01/09/2021 16:33:13
[2021-01-09 13:41] LABS: Chloride 98 mmol/L (98-107)
[2021-01-09 13:42] LABS: Potassium 3.9 mmoL/L (3.5-5.1); Sodium 142 mmol/L (136-145)
[2021-01-09 13:45] LABS: Anion Gap 14.9 mEq/L (5-15); Blood Urea Nitrogen 25 mg/dl (7-17); Calcium 9.7 mg/dl (8.4-10.2); Carbon Dioxide 33 mmol/L (22.0-30.0); Estimated Glomerular Filt Rate 42 ml/min (>60); GFR (African American) 51 ML/MIN (>60); Glucose 120 mg/dl (74-100)
== END ==
PROVIDERS: PCP Family Medicine; Visit Provider Nurse Practitioner Family
DX: R06.02 Shortness of breath (principal); R00.2 Palpitations; R60.9 Edema, unspecified; I25.10 Atherosclerotic heart disease of native coronary artery without angina pectoris; I10 Essential (primary) hypertension; I77.89 Other specified disorders of arteries and arterioles
CPT/HCPCS: 36415; 80048; 93306

== ENCOUNTER → 2021-01-09 12:13 | Outpatient (CLI) | payer BC, SELFPAY | PROVIDERS: Visit Provider Nurse Practitioner Family | DX: R06.02 Shortness of breath (principal) | CPT/HCPCS: 36415; 80048 ==

== ENCOUNTER 2021-05-28 10:16 | Inpatient (IN) | payer BC, SELFPAY ==
[2021-05-28] VITALS (16 sets, daily range): BP systolic 93–130; BP diastolic 60–78; PULSE 89–96; RESP 18–20; TEMP 37.7–37.9; O2SAT 75–97; BMI 48.4
--- NOTE | 2021-05-28 10:36 | XR_ITS ---
PROCEDURE: XR CHEST PORTABLE CLINICAL HISTORY: Cough COMPARISON: CR XR CHEST 2V from 06/10/2019 CR XR CHEST 2V from 06/28/2019 CR XR CHEST 2V from 06/29/[address] ANGIO CHEST from 06/30/[address] ABDOMEN PELVIS WO CON from 05/28/2021 FINDINGS: Borderline cardiomegaly without failure. There are low lung volumes. There is mild patient rotation with increased density of the left hemithorax likely related to the technique. Mild atelectatic changes are present in the right lung base. IMPRESSION: Mild right basilar atelectasis Dictated by: Jan Johnson MD 05/28/2021 13:32 Jan Johnson MD in [place] 05/28/2021 13:32
--- NOTE | 2021-05-28 10:37 | CT_ITS ---
PROCEDURE INFORMATION: Exam: CT Head Without Contrast Exam date and time: 05/28/2021 10:37 AM Age: 55 years old Clinical indication: Patient HX: Dizziness and headache x 2 days TECHNIQUE: Imaging protocol: Computed tomography of the head without contrast. Radiation optimization: All CT scans at this facility use at least one of these dose optimization techniques: automated exposure control; mA and/or kV adjustment per patient size (includes targeted exams where dose is matched to clinical indication); or iterative reconstruction. COMPARISON: HEADWO CT head/brain wo con 04/11/2018 8:32 AM FINDINGS: Brain: Normal. No hemorrhage. Unremarkable white matter. No mass effect. Cerebral ventricles: No ventriculomegaly. Paranasal sinuses: Visualized sinuses are unremarkable. No fluid levels. Mastoid air cells: Visualized mastoid air cells are well aerated. Bones/joints: Unremarkable. No acute fracture. Soft tissues: Unremarkable. IMPRESSION: No acute intracranial abnormality.
[2021-05-28 11:24] LABS: Basophils # 0.1 K/mm3 (0-0.2); Basophils % 0.5 % (0.1-2.0); Eosinophils % 0.1 % (0.1-12.0); Hematocrit 42.9 % (37.0-47.0); Hemoglobin 14.7 g/dL (12.2-16.2); Lymphocytes # 1.2 K/mm3 (0.7-4.5); Lymphocytes % 8.4 % (10-50); Mean Corpuscular HGB Conc 34.2 g/dL (31.8-35.4); Mean Corpuscular Hemoglobin 26.7 pg (27.0-31.2); Mean Corpuscular Volume 77.9 fl (81-99); Mean Platelet Volume 10.4 fl (7.4-10.4); Monocytes # 0.4 K/mm3 (0.1-1.0); Monocytes % 2.4 % (1.7-9.3); Neutrophils # 12.7 K/mm3 (1.8-7.8); Neutrophils % 88.6 % (37.0-80.0); Platelet Count 105 K/mm3 (142-424); Red Cell Distribution Width 14.2 % (11.5-17.5); White Blood Count 14.4 K/mm3 (4.8-10.8)
[2021-05-28 11:27] LABS: Alanine Aminotransferase 82 U/L (12-78); Albumin Level 3.9 g/dl (3.5-5.0); Albumin/Globulin Ratio 1.3 (1.1-1.8); Alkaline Phosphatase 134 U/L (38-126); Anion Gap 15.3 mEq/L (5-15); Aspartate Amino Transferase 195 U/L (14-36); Bilirubin,Total 2.5 mg/dl (0.2-1.3); Blood Urea Nitrogen 58 mg/dl (7-17); Calcium 8.2 mg/dl (8.4-10.2); Carbon Dioxide 38 mmol/L (22.0-30.0); Chloride 81 mmol/L (98-107); Creatinine Clearance Estimated 13 mL/min (50-200); Estimated Glomerular Filt Rate 10 ml/min (>60); GFR (African American) 13 ML/MIN (>60); Glucose 159 mg/dl (74-100); Magnesium 1.7 mg/dl (1.6-2.3); Phosphorous 2.7 mg/dl (2.5-4.5); Sodium 132 mmol/L (136-145); Total Protein,Serum 6.9 g/dl (6.3-8.2)
[2021-05-28 11:28] LABS: Lactic Acid 2.4 mmol/L (0.7-2.1); MANUAL DIFFERENTIAL MANUAL DIFFERENTIAL (MANUAL DIFF)
[2021-05-28 11:30] LABS: Potassium 2.3 mmoL/L (3.5-5.1)
--- NOTE | 2021-05-28 11:34 | PC.NURSE ---
Received a call from lab with the following results... Potassium 2.3; Createnine 4.40
--- NOTE | 2021-05-28 11:39 | US_ITS ---
PROCEDURE: US ABDOMEN LIMITED CLINICAL INDICATION: Elevated T bili Daniela start upon with the tech cared on the karis javier COMPARISON: US RUQ US RUQ-(ABD LTD)1ORGAN/QUAD/FU from 05/11/2013 FINDINGS: PANCREAS: Unremarkable. No obvious mass or abnormal fluid collection. No ductal dilatation LIVER: Diffuse increased echogenicity of the liver with poor through transmission of sound consistent with hepatic steatosis. No focal liver lesion demonstrated. There is appropriate direction of blood flow within non dilated portal vein. RIGHT KIDNEY: Unremarkable. Normal size and echogenicity. No hydronephrosis GALLBLADDER: Gallbladder is distended measuring 11 x 5 cm. No stones, gallbladder wall thickening, pericholecystic fluid, or biliary dilatation is evident. IMPRESSION: Distended gallbladder. No obvious stones. Fatty liver Dictated by: Jan Johnson MD 05/28/2021 16:24 Jan Johnson MD in [place] 05/28/2021 16:24
--- NOTE | 2021-05-28 11:39 | CT_ITS ---
PROCEDURE INFORMATION: Exam: CT Abdomen And Pelvis Without Contrast Exam date and time: 05/28/2021 11:39 AM Age: 55 years old Clinical indication: Abdominal pain; Localized; Lower; Additional info: Elevated t bili TECHNIQUE: Imaging protocol: Computed tomography of the abdomen and pelvis without contrast. Radiation optimization: All CT scans at this facility use at least one of these dose optimization techniques: automated exposure control; mA and/or kV adjustment per patient size (includes targeted exams where dose is matched to clinical indication); or iterative reconstruction. COMPARISON: ABDPELW CT ABD PELVIS W/ CONTRAST 09/05/2016 2:44 PM FINDINGS: Lungs: There are streaky bibasilar opacities, right greater than left. Liver: There is diffuse fatty infiltration of the liver. Gallbladder and bile ducts: There is suspected gallbladder sludge. No calcified stones. No ductal dilation. Pancreas: Normal. No ductal dilation. Spleen: Normal. No splenomegaly. Adrenal glands: Normal. No mass. Kidneys and ureters: There are punctate nonobstructing renal calculi. Stomach and bowel: There is distal colonic diverticulosis. Appendix: No evidence of appendicitis. Intraperitoneal space: Unremarkable. No free air. No significant fluid collection. Vasculature: Unremarkable. No abdominal aortic aneurysm. Lymph nodes: Unremarkable. No enlarged lymph nodes. Urinary bladder: Unremarkable as visualized. Reproductive: The uterus is surgically absent. Bones/joints: Unremarkable. No acute fracture. Soft tissues: Unremarkable. IMPRESSION: 1. Diffuse fatty infiltration of the liver. 2. Gallbladder sludge. No cholelithiasis, cholecystitis or evidence of biliary obstruction.
[2021-05-28 11:47] LABS: Eosinophils % 2 % (0-3); Lymphocytes % 7 % (10-50); Monocytes % 4 % (2-9); Neutrophils % 84 % (42-76); Total Cells Counted 100
[2021-05-28 11:48] LABS: Microcytosis 1+; Platelet Estimate Slight Decrease
--- NOTE | 2021-05-28 11:51 | HMH.PHACONS ---
- Pharmacy Consult Date: 05/28/21 Time: 11:51 Referring provider: DR. GONZALEZ Reason for Consult:: VANCOMYCIN DOSING Allergies and ADEs:: Allergies Allergy/AdvReac Type Severity Reaction Status Date / Time No Known Allergies Allergy Verified 01/06/21 13:02 Home Medications:: Home Medications Medication Instructions Recorded Confirmed Type gabapentin 100 mg capsule 100 mg PO DAILY #90 cap 11/17/18 04/29/21 History Albuterol Sulfate [Ventolin HFA 1 - 2 puffs IH Q4-6H PRN 06/29/19 04/29/21 History Inhaler] Gabapentin [Gabapentin 100mg Cap] 200 mg PO HS 06/29/19 04/29/21 History Potassium Chloride [Klor-con 20 20 meq PO DAILY #30 tab 07/03/19 04/29/21 Rx mEq tablet] alprazolam 0.5 mg tablet 0.5 mg PO TID PRN tab 01/01/21 04/29/21 History furosemide 80 mg tablet 80 mg PO DAILY #90 tab 01/01/21 04/29/21 Rx rivaroxaban 20 mg tablet 20 mg PO QPMWM #30 tab 01/01/21 04/29/21 Rx bisoprolol fumarate 10 mg tablet 10 mg PO BID #180 tab 01/10/21 04/29/21 Rx cariprazine 1.5 mg capsule 1.5 mg PO DAILY #30 cap 04/25/21 04/29/21 Rx doxepin 100 mg capsule 200 mg PO HS PRN #30 cap 04/25/21 04/29/21 Rx hydroxyzine pamoate 50 mg capsule 100 mg PO BID PRN #120 cap 04/25/21 04/29/21 Rx vortioxetine 20 mg tablet 20 mg PO HS #30 tab 05/15/21 Rx Height: 1.65 m Weight: 131.995 kg Laboratory Results:: Laboratory Results - last 24 hr 05/28/21 11:00: WBC 14.4 H, RBC 5.50 H, Hgb 14.7, Hct 42.9, MCV 77.9 L, MCH 26.7 L, MCHC 34.2, RDW 14.2, Plt Count 105 L, MPV 10.4, Neut % (Auto) 88.6 H, Lymph % (Auto) 8.4 L, [place] % (Auto) 2.4, Eos % (Auto) 0.1, Baso % (Auto) 0.5, Neut # (Auto) 12.7 H, Lymph # (Auto) 1.2, [place] # (Auto) 0.4, Eos # (Auto) 0.0, Baso # (Auto) 0.1, Total Counted 100, Neutrophils % (Manual) 84 H, Band Neutrophils % 3.0, Lymphocytes % (Manual) 7 L, Monocytes % (Manual) 4, Eosinophils % (Manual) 2, Platelet Estimate Slight decrease, RBC Morphology Not Reportable, Microcytosis 1+ 05/28/21 11:00: Sodium 132 L, Potassium 2.3 L*, Chloride 81 L, Carbon Dioxide 38 H, Anion Gap 15.3 H, BUN 58 H, Creatinine 4.40 H, Estimated Creat Clear 13, Estimated GFR 10 L*, Est GFR ( Amer) 13 L*, Glucose 159 H, Calcium 8.2 L, Phosphorus 2.7, Magnesium 1.7, Total Bilirubin 2.5 H, AST 195 H, ALT 82 H, Alkaline Phosphatase 134 H, Total Protein 6.9, Albumin 3.9, Globulin 3.0, Albumin/Globulin Ratio 1.3 05/28/21 11:00: Lactate 2.4 H Medical History: Reports:: Anxiety, Congestive Heart Failure, Deep Vein Thrombosis, Depression, Hyperlipidemia, Hypertension, Supraventricular Tachycardia Denies:: Diabetes Mellitus Type 2 Assessment and Plan - Assessment and plan all Dx Assessment and Plan for all problems:: Pharmacokinetic dosing service Objective: Patient: Floor: Age: 55 yo Serum creatinine: 4.40 mg/dL Height: 65.0 Inches Weight (kg): 132 Assessment: IBW (kg): 57.00 Dosing wt(kg): 132 Estimated Creatinine clearance (ml/min): 12.7 CRCL method: Cockcroft and Gault using ibw(default). Drug selected: Vancomycin Loading dose (mg): Vd (liters): 105.6 (factor used: 0.8 L/kg) Aquilino (hr-1): 0.015 Half life (hrs): 46.21 CLvanco=?? 1.584 L/hr Recommended dose: 2250 mg Interval: 72 hrs Infusion time (hrs): 2.0 Predicted peak (mcg/mL): 31.8 Predicted trough (mcg/mL): 11.13 Total body weight is being used for vancomycin dosing. Recommendations: Give Vancomycin 2250 mg q 72 hrs with an expected Cpeak of 31.8 mcg/ml and an expected Ctrough of 11.13 mcg/ml AUC 0-24 /EVERARDO Data: EVERARDO 0.5 mcg/mL:?? AUC/EVERARDO:? 947.0 EVERARDO 1.0 mcg/mL:?? AUC/EVERARDO:? 473.5 --------- EVERARDO 1.5 mcg/mL:?? AUC/EVERARDO:? 315.7 EVERARDO 2.0 mcg/mL:?? AUC/EVERARDO:? 236.7 Thank you for the consult, will continue to follow. -JULIA MASTERSON, JUNAIDD
--- NOTE | 2021-05-28 12:14 | HMH.EDGENADL ---
ED Disposition Clinical Impression: Pyelonephritis, YASMIN (acute kidney injury) Clinical Impression: (Ruled Out): Intractable abdominal pain Disposition: Admitted As Inpatient Condition on Discharge: Good Referrals: Sena Koroma MD [Primary Care Provider] - - Critical Care Critical Care Time: Yes Attestation: On 05/28/21, the high probability of a clinically significant, sudden or life threatening deterioration of the following system(s) required my full and direct attention, intervention and personal management. The time I documented below is in addition to time spent performing reported procedures but includes the following listed in this critical care notation. Total Critical Care Time: 35 Vital system(s) involved:: Circulatory Failure My critical care processes included: Assessment & monitoring of V/S, Initial and Re-exams, Data Review/Interpretation, Coordinating Care, Medication Orders and management, Documentation Medical Decision Making - Aron Inquiry Pt receiving controlled substance: No Vital Signs: 05/28/21 10:17 05/28/21 11:31 Temperature 99.8 F H Temperature Source Oral Pulse Rate 96 H Pulse Rate [Right Radial] 94 H Respiratory Rate 18 Blood Pressure 108/60 L Blood Pressure [Right Arm] 125/78 Blood Pressure Mean 76 Blood Pressure Mean [Right Arm] 93 Blood Pressure Source [Right Arm] Automatic Cuff Blood Pressure Position [Right Arm] Sitting 02 Sat by Pulse Oximetry 88 L 96 Oxygen Delivery Method Room Air - Lab Data Lab Results 05/28/21 10:37: SARS-CoV-2 (PCR) Not detected, Influenza A Untype (PCR) Not detected, Influenza Type B (PCR) Not detected 05/28/21 11:00: WBC 14.4 H, RBC 5.50 H, Hgb 14.7, Hct 42.9, MCV 77.9 L, MCH 26.7 L, MCHC 34.2, RDW 14.2, Plt Count 105 L, MPV 10.4, Neut % (Auto) 88.6 H, Lymph % (Auto) 8.4 L, [place] % (Auto) 2.4, Eos % (Auto) 0.1, Baso % (Auto) 0.5, Neut # (Auto) 12.7 H, Lymph # (Auto) 1.2, [place] # (Auto) 0.4, Eos # (Auto) 0.0, Baso # (Auto) 0.1, Total Counted 100, Neutrophils % (Manual) 84 H, Band Neutrophils % 3.0, Lymphocytes % (Manual) 7 L, Monocytes % (Manual) 4, Eosinophils % (Manual) 2, Platelet Estimate Slight decrease, RBC Morphology Not Reportable, Microcytosis 1+ 05/28/21 11:00: Sodium 132 L, Potassium 2.3 L*, Chloride 81 L, Carbon Dioxide 38 H, Anion Gap 15.3 H, BUN 58 H, Creatinine 4.40 H, Estimated Creat Clear 13, Estimated GFR 10 L*, Est GFR ( Amer) 13 L*, Glucose 159 H, Calcium 8.2 L, Phosphorus 2.7, Magnesium 1.7, Total Bilirubin 2.5 H, AST 195 H, ALT 82 H, Alkaline Phosphatase 134 H, Total Protein 6.9, Albumin 3.9, Globulin 3.0, Albumin/Globulin Ratio 1.3 05/28/21 11:00: Lactate 2.4 H 05/28/21 12:18: Urine Color Yellow, Urine Appearance Clear, Urine pH 6.0, Ur Specific [place] 1.025, Urine Protein 2+, Urine Glucose (UA) Negative, Urine Ketones Negative, Urine Blood 3+, Urine Nitrate Negative, Urine Bilirubin 1+ A, Urine Urobilinogen 1.0, Ur Leukocyte Esterase 3+ A, Urine RBC 10-20, Urine WBC 10-20, Amorphous Sediment 1+, Urine Bacteria 3+, Hyaline Casts 3-5 Result diagrams: 05/28/21 11:00 05/28/21 11:00 Orders (Tests/Meds): ED MEDICATIONS Generic Name Dose Route Start Last Admin Trade Name Freq PRN Reason Stop Dose Admin Vancomycin HCl 2,250 mg/ 250 mls @ 125 mls/hr 05/28/21 12:00 Sodium Chloride IV 06/11/21 11:59 Q72H GAVIOTA Cefepime HCl 2 gm/ Sodium 100 mls @ 200 mls/hr 05/28/21 12:00 05/28/21 13:18 Chloride IV 06/11/21 11:59 200 mls/hr Q24H GAVIOTA Administration Discontinued Medications Generic Name Dose Route Start Last Admin Trade Name Freq PRN Reason Stop Dose Admin Lactated Ringer's 500 mls @ 999 mls/hr 05/28/21 11:45 Lactated Ringer's 1000 Ml Bag IV 05/28/21 12:15 .Q31M GAVIOTA Piperacillin Sod/Tazobactam 50 mls @ 100 mls/hr 05/28/21 11:45 Sod 3.375 gm/ Sodium Chloride IV 06/11/21 11:44 Q6H GAVIOTA Miscellaneous 1 each 05/28/21 11:45 Vancomycin Consult Request * 06/11
[2021-05-28 12:15] LABS: Coronavirus 19, PCR Not Detected (NotDetected); Influenza A, PCR Not Detected (NotDetected); Influenza B, PCR Not Detected (NotDetected)
[2021-05-28 12:21] LABS: Microscopic, Urine URINE MICROSCOPIC (MICROSCOPIC)
[2021-05-28 12:48] LABS: Appearance,Urine CLEAR (Clear); Blood, Urine 3+ (Negative); Color,Urine YELLOW (Yellow); Glucose,Urine (UA) Negative (Negative); Ketones,Urine Negative (Negative); Leukocyte Esterase,Urine 3+ (Negative); Nitrate,Urine Negative (Negative); Protein,Urine 2+ (Negative); Specific Gravity, Urine 1.025 (1.005-1.030)
[2021-05-28 12:52] LABS: Bilirubin,Urine 1+ (Negative)
[2021-05-28 12:53] LABS: Amorphous Sediment,Urine 1+ /lpf; Bacteria,Urine 3+ /lpf
--- NOTE | 2021-05-28 14:43 | PC.NURSE ---
Called Care Management and spoke with Vandana pertaining to a bed request for admission.
[2021-05-28 15:13] LABS: Reflex Lactic Add Lactic Reflex
--- NOTE | 2021-05-28 15:27 | PC.NURSE ---
Pt to ultrasound
[2021-05-28 17:10] LABS: Lactic Acid Follow Up (RFLX 1) 2.3 mmol/L (0.7-2.1)
--- NOTE | 2021-05-28 17:36 | HMH.HP ---
*Admission Date: 05/28/21 *Chief complaint: fever, body aches, dysuria, cough *History of present illness: Ms. Gonzalez is a 55-year-old female who presented to the office of [facility] today for a preop physical. She has felt poorly for the past 4 to 5 days and complains of fever, cough, body aches, chills, and dysuria. She was so weak she had to be pushed in wheelchair and was unable to walk. She was confused and generally appeared to be unwell. She was sent to the emergency room for evaluation and was found to have pyelonephritis. She will be admitted and started on IV antibiotics. [facility] History I have reviewed the patient's past medical history: Yes Medical History: Reports:: Anxiety, Congestive Heart Failure, Deep Vein Thrombosis, Depression, Hyperlipidemia, Hypertension, Supraventricular Tachycardia Denies:: Diabetes Mellitus Type 2 *Have you ever received a pneumonia vaccine?: Yes *Have you received a flu vaccine this season?: Yes Laterality Cases: Bilateral: Tonsillectomy Other Surgeries: Yes: , Hysterectomy-Partial - *Social History Last grade of school completed: Advanced degree Smoking Status: Never smoker Alcohol Intake: never Alcohol Intake Frequency:: other Substance Use Type: denies use *Occupational Status:: retired *Travel in the last 8 weeks: None - Psychiatric History Pschychiatric History:: Reports:: Anxiety, Depression Family Hx:: Cancer, Hyperlipidemia, Hypertension Review of Systems - Constitutional Reports fatigue, Reports fever(s), Reports malaise, Reports weakness - Eyes Denies blurry vision, Denies double vision - ENT Denies nasal congestion, Denies sore throat - *Cardiovascular Reports shortness of breath, Denies chest pain - *Respiratory Reports cough, Reports shortness of breath - *Gastrointestinal Reports abdominal pain, Reports nausea, Denies loose stools, Denies vomiting - *Genitourinary Reports painful urination - *Musculoskeletal Reports body aches - *Neurologic Reports headache(s), Reports dizziness, Reports weakness Meds Home Medications Medication Instructions Recorded Confirmed Type gabapentin 100 mg capsule 100 mg PO DAILY #90 cap 11/17/18 05/28/21 History Albuterol Sulfate [Ventolin HFA 1 - 2 puffs IH Q4-6H PRN 06/29/19 05/28/21 History Inhaler] Gabapentin [Gabapentin 100mg Cap] 200 mg PO HS 06/29/19 05/28/21 History alprazolam 0.5 mg tablet 0.5 mg PO TID PRN tab 01/01/21 05/28/21 History rivaroxaban 20 mg tablet 20 mg PO QPMWM #30 tab 01/01/21 05/28/21 Rx doxepin 100 mg capsule 200 mg PO HS PRN #30 cap 04/25/21 05/28/21 Rx hydroxyzine pamoate 50 mg capsule 100 mg PO BID PRN #120 cap 04/25/21 05/28/21 Rx vortioxetine 20 mg tablet 20 mg PO HS #30 tab 05/15/21 05/28/21 Rx Cariprazine HCl [Vraylar] 1.5 mg PO DAILY 05/28/21 05/28/21 History Furosemide [Furosemide 80mg Tab] 80 mg PO DAILY 05/28/21 05/28/21 History Potassium Chloride [Klor-con 20 20 meq PO DAILY 05/28/21 05/28/21 History mEq tablet] bisoproloL fumarate [Bisoprolol 10 mg PO BID 05/28/21 05/28/21 History Fumarate] Allergies Allergy/AdvReac Type Severity Reaction Status Date / Time No Known Allergies Allergy Verified 01/06/21 13:02 Exam Vital signs and Labs for Last 24 Hours: Temp Pulse Resp BP Pulse Ox 99.8 F H 96 H 18 108/60 L 96 05/28/21 10:17 05/28/21 11:31 05/28/21 10:17 05/28/21 11:31 05/28/21 11:31 Laboratory Results - last 24 hr 05/28/21 10:37: SARS-CoV-2 (PCR) Not detected, Influenza A Untype (PCR) Not detected, Influenza Type B (PCR) Not detected 05/28/21 11:00: WBC 14.4 H, RBC 5.50 H, Hgb 14.7, Hct 42.9, MCV 77.9 L, MCH 26.7 L, MCHC 34.2, RDW 14.2, Plt Count 105 L, MPV 10.4, Neut % (Auto) 88.6 H, Lymph % (Auto) 8.4 L, [place] % (Auto) 2.4, Eos % (Auto) 0.1, Baso % (Auto) 0.5, Neut # (Auto) 12.7 H, Lymph # (Auto) 1.2, [place] # (Auto) 0.4, Eos # (Auto) 0.0, Baso # (Auto) 0.1, Total Counted 100, Neutrophils % (Manual) 84 H, Band Ne
--- NOTE | 2021-05-28 17:45 | PC.NURSE ---
per laborer cook house, waiting on room to be cleaned and then pt will be able to go assigned room on second floor
--- NOTE | 2021-05-28 18:10 | PC.NURSE ---
pt sitting up in bed eating soup at this time, will continue to monitor
[2021-05-28 19:03] LABS: Reflex Lactic (2 hrs) Add Lactic Reflex
--- NOTE | 2021-05-28 20:58 | PC.NURSE ---
patient up to floor via wheelchair @ this time.
[2021-05-29] VITALS: BP 103/61; PULSE 91; RESP 22; TEMP 37.9; O2SAT 98
[2021-05-29 04:00] VITALS: BP 106/63; PULSE 87; RESP 24; TEMP 37.1; O2SAT 95
--- NOTE | 2021-05-29 04:49 | PC.NURSE ---
pt admitted tonight from ER with pyleonephritis diagnosis, altered mental status, pt has slept most of night and has been difficult to arouse after name calling at times, but once arroused pt has been oriented to name, , year but gets confused regarding place. Pt forgets where she is at times. pt with pitting edema to RLE, potassium run x1 given for hypokalemia, V/S with temp 100.2 treated with tylenol overnight.
[2021-05-29 05:11] VITALS: BMI 48.9
[2021-05-29 05:19] VITALS: BMI 48.9
--- NOTE | 2021-05-29 07:31 | P.CONPHA_ITS ---
[facility] Pharmacy VTE Monitoring - Patient Demographics Admission date: 05/28/21 Report Date: 05/29/21 Time: 07:31 Allergies/Adverse Reactions: Patient Allergies No Known Allergies Allergy (Verified 01/06/21 13:02) Height: 1.65 m Weight: 133.2 kg Patient Problems: Current Active Problems Pyelonephritis (Acute) YASMIN (acute kidney injury) (Acute) Elevated lactic acid level (Acute) Hypokalemia (Acute) CAD (coronary artery disease) (Chronic) Diastolic dysfunction (Chronic) Hypertension (Chronic) Hyperlipidemia (Chronic) History of DVT (deep vein thrombosis) (Chronic) Depression with anxiety (Chronic) - VTE Risk Labs: VTE Related Lab Results Hgb 14.7 g/dL (12.2-16.2) 05/28/21 11:00 Hct 42.9 % (37.0-47.0) 05/28/21 11:00 Plt Count 105 K/mm3 (142-424) L 05/28/21 11:00 BUN 58 mg/dl (7-17) H 05/28/21 11:00 Creatinine 4.40 mg/dl (0.52-1.04) H 05/28/21 11:00 Estimated Creat Clear 13 mL/min (50-200) 05/28/21 11:00 Was VTE Risk Assessment Performed: Yes VTE Score: 4 VTE Risk Level: Low Risk - Prophylaxis VTE Prophylaxis Ordered?: Yes Types of VTE Prophylaxis: TEDS Knee High, Pharmacological Location of Applied Device: Bilateral Lower Extremeties Pharmacologic Type: Other (XARELTO)
[2021-05-29 07:47] VITALS: BP 98/52; PULSE 90; RESP 22; TEMP 36.6; O2SAT 96
--- NOTE | 2021-05-29 07:54 | HMH.ACPN2 ---
Internal Medicine - PN: Subj *Date: 05/29/21 *Time: 07:54 Interval history: She did not sleep well. She does not feel a whole lot better this morning. I noticed that she seems to be slurring her words. Her IV rate is at 125 cc an hour. Blood work has been drawn but not available at this time. Exam Vital signs and Labs for Last 24 Hours: Temp Pulse Resp BP Pulse Ox 97.9 F 90 22 98/52 L 96 05/29/21 07:47 05/29/21 07:47 05/29/21 07:47 05/29/21 07:47 05/29/21 07:47 Laboratory Results - last 24 hr 05/28/21 10:37: SARS-CoV-2 (PCR) Not detected, Influenza A Untype (PCR) Not detected, Influenza Type B (PCR) Not detected 05/28/21 11:00: WBC 14.4 H, RBC 5.50 H, Hgb 14.7, Hct 42.9, MCV 77.9 L, MCH 26.7 L, MCHC 34.2, RDW 14.2, Plt Count 105 L, MPV 10.4, Neut % (Auto) 88.6 H, Lymph % (Auto) 8.4 L, [place] % (Auto) 2.4, Eos % (Auto) 0.1, Baso % (Auto) 0.5, Neut # (Auto) 12.7 H, Lymph # (Auto) 1.2, [place] # (Auto) 0.4, Eos # (Auto) 0.0, Baso # (Auto) 0.1, Total Counted 100, Neutrophils % (Manual) 84 H, Band Neutrophils % 3.0, Lymphocytes % (Manual) 7 L, Monocytes % (Manual) 4, Eosinophils % (Manual) 2, Platelet Estimate Slight decrease, RBC Morphology Not Reportable, Microcytosis 1+ 05/28/21 11:00: Sodium 132 L, Potassium 2.3 L*, Chloride 81 L, Carbon Dioxide 38 H, Anion Gap 15.3 H, BUN 58 H, Creatinine 4.40 H, Estimated Creat Clear 13, Estimated GFR 10 L*, Est GFR ( Amer) 13 L*, Glucose 159 H, Calcium 8.2 L, Phosphorus 2.7, Magnesium 1.7, Total Bilirubin 2.5 H, AST 195 H, ALT 82 H, Alkaline Phosphatase 134 H, Total Protein 6.9, Albumin 3.9, Globulin 3.0, Albumin/Globulin Ratio 1.3 05/28/21 11:00: Lactate 2.4 H 05/28/21 12:18: Urine Color Yellow, Urine Appearance Clear, Urine pH 6.0, Ur Specific [place] 1.025, Urine Protein 2+, Urine Glucose (UA) Negative, Urine Ketones Negative, Urine Blood 3+, Urine Nitrate Negative, Urine Bilirubin 1+ A, Urine Urobilinogen 1.0, Ur Leukocyte Esterase 3+ A, Urine RBC 10-20, Urine WBC 10-20, Amorphous Sediment 1+, Urine Bacteria 3+, Hyaline Casts 3-5 05/28/21 16:22: Lactate 2.3 H 05/28/21 19:55: Lactate 2.0 I & O for Last 24 hours: Intake & Output 05/26/21 05/27/21 05/28/21 05/29/21 11:59 11:59 11:59 11:59 Intake Total 480 / 480 Balance 480 / 480 Weight 291 lb 293 lb 10.491 oz Microbiology Reports for the Last 24 Hours: Microbiology 05/28/21 10:37 Nasopharyngeal Coronavirus COVID-19 PCR - Final - Constitutional no acute distress - *Routine HEENT Exam Head: Present: normocephalic Eye: Present: EOMI, PERRL ENT: Present: mucous membranes moist. Absent: mucous membranes dry - *Routine Neck Exam Present: supple. Absent: lymphadenopathy - *Routine Respiratory Exam Present: CTA bilaterally - *Routine Cardiovascular Exam Present: RRR - *Routine Abdominal Exam Present: soft, obese. Absent: mass - *Routine Extremities Exam Absent: cyanosis, clubbing, edema - *Routine Skin Exam Present: warm. Absent: rash - *Routine Neurological Exam Present: alert (But does not feel well. Seems like she's slurring her words.), oriented X3 Assessment and Plan (1) YASMIN (acute kidney injury) Status: Acute Category: Medical Code(s): N17.9 - Acute kidney failure, unspecified (2) Pyelonephritis Status: Acute Category: Medical Code(s): N12 - Tubulo-interstitial nephritis, not specified as acute or chronic (3) CAD (coronary artery disease) Status: Chronic Qualifiers: Coronary Disease-Associated Artery/Lesion type: [place] artery [place] vs. transplanted heart: [place] heart Associated angina: without angina Qualified Code(s): I25.10 - Atherosclerotic heart disease of [place] coronary artery without angina pectoris Category: Medical Code(s): I25.10 - Atherosclerotic heart disease of [place] coronary artery without angina pectoris (4) Diastolic dysfunction Status: Chronic Category: Medical Code(s): I51.89 - Other ill-defined heart diseases
--- NOTE | 2021-05-29 08:01 | HMH.PHAINT ---
Verified home medications with [facility]
[2021-05-29 08:04] LABS: Basophils % 0.1 % (0.1-2.0); Eosinophils % 0.4 % (0.1-12.0); Hematocrit 39.8 % (37.0-47.0); Hemoglobin 13.4 g/dL (12.2-16.2); Lymphocytes # 1.1 K/mm3 (0.7-4.5); Lymphocytes % 9.6 % (10-50); Mean Corpuscular HGB Conc 33.7 g/dL (31.8-35.4); Mean Corpuscular Hemoglobin 26.9 pg (27.0-31.2); Mean Corpuscular Volume 79.7 fl (81-99); Mean Platelet Volume 9.8 fl (7.4-10.4); Monocytes # 0.3 K/mm3 (0.1-1.0); Monocytes % 2.8 % (1.7-9.3); Neutrophils # 10.2 K/mm3 (1.8-7.8); Platelet Count 81 K/mm3 (142-424); Red Blood Count 4.99 M/mm3 (4.20-5.40); Red Cell Distribution Width 14.5 % (11.5-17.5); White Blood Count 11.7 K/mm3 (4.8-10.8)
[2021-05-29 08:16] LABS: MANUAL DIFFERENTIAL MANUAL DIFFERENTIAL (MANUAL DIFF)
[2021-05-29 08:26] LABS: Anion Gap 15.7 mEq/L (5-15); Blood Urea Nitrogen 74 mg/dl (7-17); Calcium 7.2 mg/dl (8.4-10.2); Carbon Dioxide 33 mmol/L (22.0-30.0); Chloride 85 mmol/L (98-107); Creatinine Clearance Estimated 10 mL/min (50-200); Estimated Glomerular Filt Rate 8 ml/min (>60); GFR (African American) 10 ML/MIN (>60); Glucose 118 mg/dl (74-100); Sodium 131 mmol/L (136-145)
[2021-05-29 08:43] LABS: Potassium 2.7 mmoL/L (3.5-5.1)
[2021-05-29 09:27] LABS: Eosinophils % 1 % (0-3); Lymphocytes % 5 % (10-50); Monocytes % 2 % (2-9); Neutrophils % 88 % (42-76); Total Cells Counted 100
[2021-05-29 09:28] LABS: Microcytosis 1+; Platelet Estimate Moderate Decrease
[2021-05-29 09:29] LABS: Hypochromasia 1+
--- NOTE | 2021-05-29 10:13 | CT_ITS ---
PROCEDURE: CT ABDOMEN PELVIS WO CON CLINICAL INDICATION: elevated creatinine and surendra COMPARISON: CT CT ABDOMEN PELVIS WO CON from 05/28/2021 TECHNIQUE: Axial images obtained with sagittal and coronal reformats. All CT scans at the facility use one or more dose reduction, viz: automated exposure control, ma/kV adjustment per patient size (including targeted exams where dose is matched to indication, i.e. head), or iterative reconstruction technique. FINDINGS: LOWER THORAX: Atelectatic changes the right lower. Elevation of the right. ABDOMEN & PELVIS: Diffuse fatty liver infiltration with elevated right hemidiaphragm. No focal liver lesion apparent. No radiopaque gallstones apparent. The spleen has an unremarkable appearance. The adrenal glands and pancreas have an unremarkable appearance There is mild stranding of the right perinephric renal fat. There are numerous small bilateral renal calculi. No hydronephrosis. No ureteral calculus. No intestinal obstruction or free air. Hyperdensity noted in the distal esophagus and proximal stomach may be due to ingested contrast or medication. No evidence of appendicitis. There is a small umbilical hernia containing fat. There has been a prior hysterectomy. There is mild stranding of the right and left perinephric renal fat right greater than left, mild thickening of the right and left pericolic gutter, and mild thickening of the lateral conal fascia on the left. There may be a small amount fluid in the right pararenal space IMPRESSION: 1. Overall no significant change in the appearance of the abdomen and pelvis. There are numerous nonobstructing bilateral renal calculi. No hydronephrosis. 2. Mild stranding of the perinephric renal fat and bilateral pericolic gutters as well as left lateral conal fascia. These findings are nonspecific and could be seen with hypoalbuminemia the. The inflammatory changes for also considered. 3. Diffuse fatty liver infiltration with other nonacute findings as detailed above Dictated by: Jan Johnson MD 05/29/2021 12:45 Jan Johnson MD in [place] 05/29/2021 12:45
[2021-05-29 14:13] VITALS: BMI 48.8
--- NOTE | 2021-05-29 14:28 | PC.NURSE ---
PT IS RESTING IN BED WITH FAMILY IN THE ROOM. PT HAS BEEN VERY DROWSY THIS SHIFT. WHEN PT WAS UP TO THE BSC EARLIER SHE STATED I SEE WRITING ON THE FLOOR BUT I KNOW IT ISN'T REAL PT HAS BEEN SEEING THINGS OFF AND ON T/O THE SHIFT WHILE AWAKE. SKIN WARM/DRY/INTACT. PT'S FACE IS FLUSHED. PT HAS NOT HAD AN APPETITE THIS SHIFT BUT HAS BEEN DRINKING WATER AND CRANBERRY JUICE. THIS MORNING WHEN PT GOT UP TO THE BSC SHE DID SIT FOR SEVERAL MINUTES AND STATED I HAVE THE URGE TO URINATE BUT CAN'T CALLED AND STATED TO INSERT CATHETER AND ORDERED CT ABDOMEN/PELVIS W/O CONTRAST. AFTER CATHETER WAS INSERTED PT IMMEDIATELY HAD 550 ML'S OF CLOUDY/JAMIN URINE. PT STATED SHE HAS ONLY BEEN ABLE TO URINATE VERY LITTLE AT A TIME AT HOME WELL FOR THE LAST 4 DAYS WHICH IS WHEN PT STATED SHE STARTED TO FEEL BAD. LUNG SOUNDS CLEAR. ABDOMEN SOFT/NON TENDER WITH ACTIVE BOWEL SOUNDS. PT STATES SHE IS HAVING SOME MILD LOWER BACK DISCOMFORT. WILL CONTINUE TO MONITOR.
[2021-05-29 14:49] LABS: Microscopic, Urine URINE MICROSCOPIC (MICROSCOPIC)
[2021-05-29 15:08] LABS: Appearance,Urine CLOUDY (Clear); Bilirubin,Urine Negative (Negative); Blood, Urine 3+ (Negative); Color,Urine YELLOW (Yellow); Glucose,Urine (UA) Negative (Negative); Ketones,Urine Negative (Negative); Leukocyte Esterase,Urine 2+ (Negative); Nitrate,Urine POSITIVE (Negative); PH,Urine 7.5 (5.0-8.5); Protein,Urine 2+ (Negative); Urobilinogen,Urine 0.2 EU/dl (0.2)
[2021-05-29 15:21] LABS: Bacteria,Urine 4+ /lpf; RBC,Urine 20-50 #/hpf (0-3); WBC,Urine 20-50 #/hpf (0-3)
[2021-05-29 15:41] VITALS: BP 136/67; PULSE 93; RESP 22; TEMP 37.9; O2SAT 99
[2021-05-29 19:19] VITALS: O2SAT 78
[2021-05-29 19:53] VITALS: BP 98/53; PULSE 88; RESP 20; TEMP 36.6; O2SAT 100
[2021-05-30 04:00] VITALS: BP 111/71; PULSE 86; RESP 22; TEMP 36.7; O2SAT 96
[2021-05-30 05:00] VITALS: BMI 49.7
--- NOTE | 2021-05-30 06:07 | PC.NURSE ---
Pt has become more alert and oriented t/o shift. E[place] is draining cloudy, mellissa urine. No BM this shift. Pt voiced no c/o of pain t/o shift. Pt remains on 2L NC with no c/o of SOA. Pt received a bed bath and linen change and tolerated well. Call light within reach.
[2021-05-30 06:43] LABS: Basophils % 0.2 % (0.1-2.0); Eosinophils # 0.3 K/mm3 (0.0-0.4); Eosinophils % 3.1 % (0.1-12.0); Hematocrit 35.6 % (37.0-47.0); Hemoglobin 12.2 g/dL (12.2-16.2); Lymphocytes % 9.5 % (10-50); Mean Corpuscular HGB Conc 34.3 g/dL (31.8-35.4); Mean Corpuscular Hemoglobin 26.5 pg (27.0-31.2); Mean Corpuscular Volume 77.4 fl (81-99); Mean Platelet Volume 10.8 fl (7.4-10.4); Monocytes # 0.5 K/mm3 (0.1-1.0); Monocytes % 4.3 % (1.7-9.3); Neutrophils # 8.9 K/mm3 (1.8-7.8); Neutrophils % 82.9 % (37.0-80.0); Platelet Count 102 K/mm3 (142-424); Red Cell Distribution Width 14.7 % (11.5-17.5); White Blood Count 10.7 K/mm3 (4.8-10.8)
[2021-05-30 07:15] LABS: Anion Gap 10.9 mEq/L (5-15); Blood Urea Nitrogen 74 mg/dl (7-17); Carbon Dioxide 31 mmol/L (22.0-30.0); Chloride 90 mmol/L (98-107); Creatinine Clearance Estimated 11 mL/min (50-200); Estimated Glomerular Filt Rate 9 ml/min (>60); GFR (African American) 11 ML/MIN (>60); Glucose 142 mg/dl (74-100); Sodium 129 mmol/L (136-145)
[2021-05-30 07:24] LABS: Potassium 2.9 mmoL/L (3.5-5.1)
[2021-05-30 07:41] VITALS: BP 111/72; PULSE 89; RESP 18; TEMP 37.1; O2SAT 95
[2021-05-30 08:00] VITALS: O2SAT 94
--- NOTE | 2021-05-30 08:54 | HMH.ACPN2 ---
Internal Medicine - PN: Subj *Date: 05/30/21 *Time: 08:59 Interval history: She reports resting better overnight. She is more alert this morning and reports feeling a little stronger. She continues with low back discomfort. Exam Vital signs and Labs for Last 24 Hours: Temp Pulse Resp BP Pulse Ox 98.7 F 89 18 111/72 95 05/30/21 07:41 05/30/21 07:41 05/30/21 07:41 05/30/21 07:41 05/30/21 07:41 Laboratory Results - last 24 hr 05/29/21 06:52: Total Counted 100, Neutrophils % (Manual) 88 H, Band Neutrophils % 3.0, Lymphocytes % (Manual) 5 L, Monocytes % (Manual) 2, Eosinophils % (Manual) 1, Basophils % (Manual) 1.0, Platelet Estimate Moderate decrease, Hypochromasia 1+, Microcytosis 1+ 05/29/21 10:36: Urine Color Yellow, Urine Appearance Cloudy, Urine pH 7.5, Ur Specific [place] 1.020, Urine Protein 2+, Urine Glucose (UA) Negative, Urine Ketones Negative, Urine Blood 3+, Urine Nitrate Positive, Urine Bilirubin Negative, Urine Urobilinogen 0.2, Ur Leukocyte Esterase 2+ A, Urine RBC 20-50, Urine WBC 20-50, Ur Squamous Epith Cells 3-5, Urine Bacteria 4+ 05/30/21 06:18: WBC 10.7, RBC 4.60, Hgb 12.2, Hct 35.6 L, MCV 77.4 L, MCH 26.5 L, MCHC 34.3, RDW 14.7, Plt Count 102 L D, MPV 10.8 H, Neut % (Auto) 82.9 H, Lymph % (Auto) 9.5 L, [place] % (Auto) 4.3, Eos % (Auto) 3.1, Baso % (Auto) 0.2, Neut # (Auto) 8.9 H, Lymph # (Auto) 1.0, [place] # (Auto) 0.5, Eos # (Auto) 0.3, Baso # (Auto) 0.0 05/30/21 06:18: Sodium 129 L, Potassium 2.9 L*, Chloride 90 L, Carbon Dioxide 31 H, Anion Gap 10.9, BUN 74 H, Creatinine 4.80 H, Estimated Creat Clear 11, Estimated GFR 9 L*, Est GFR ( Amer) 11 L*, Glucose 142 H D, Calcium 7.0 L I & O for Last 24 hours: Intake & Output 05/27/21 05/28/21 05/29/21 05/30/21 11:59 11:59 11:59 11:59 Intake Total 480 / 480 2480 / 2480 Output Total 550 / 550 1800 / 1800 Balance -70 / -70 680 / 680 Weight 291 lb 293 lb 10.491 oz 298 lb 8.094 oz Microbiology Reports for the Last 24 Hours: Microbiology 05/28/21 12:18 Urine,Clean Catch Urine Culture - Preliminary Radiology Reports for the Last 24 Hours: 05/29/21 CT abdomen/pelvis: IMPRESSION: 1. Overall no significant change in the appearance of the abdomen and pelvis. There are numerous nonobstructing bilateral renal calculi. No hydronephrosis. 2. Mild stranding of the perinephric renal fat and bilateral pericolic gutters as well as left lateral conal fascia. These findings are nonspecific and could be seen with hypoalbuminemia the. The inflammatory changes for also considered. 3. Diffuse fatty liver infiltration with other nonacute findings as detailed above - Constitutional no acute distress - *Routine HEENT Exam Head: Present: normocephalic, atraumatic ENT: Present: mucous membranes moist - *Routine Respiratory Exam Present: CTA bilaterally. Absent: respiratory distress - *Routine Cardiovascular Exam Present: RRR - *Routine Abdominal Exam Present: soft, normoactive bowel sounds, obese. Absent: tenderness, distended - *Routine Extremities Exam Present: pulses intact. Absent: extremity cold to touch Comments: 1+ BLE edema R > L - *Routine Neurological Exam Present: alert, oriented X3, moving all extremities, normal speech Assessment and Plan (1) YASMIN (acute kidney injury) Status: Acute Category: Medical Code(s): N17.9 - Acute kidney failure, unspecified (2) Pyelonephritis Status: Acute Category: Medical Code(s): N12 - Tubulo-interstitial nephritis, not specified as acute or chronic (3) CAD (coronary artery disease) Status: Chronic Qualifiers: Coronary Disease-Associated Artery/Lesion type: [place] artery [place] vs. transplanted heart: [place] heart Associated angina: without angina Qualified Code(s): I25.10 - Atherosclerotic heart disease of [place] coronary artery without angina pectoris Category: Medical Code(s): I25.10 - Atherosclerotic heart disease of [place] coronary artery w
--- NOTE | 2021-05-30 13:02 | DIET.NUTRFU ---
Addendum entered by Lubna Foreman RD, LD 06/04/21 13:36: PO intakes slightly improved 50-75%, pt states she still has nausea but medication is helping. [place] diet selections recommended. BG moderate avg. 150. Addendum entered by Lubna Foreman RD, LD 06/03/21 10:38: PO intakes 50%, weight stable, pt has had some nausea treated with meds and responded well. Original Note: PO intakes 50%. Weight up 4#, pt with 1+ edema.
[2021-05-30 15:31] VITALS: BP 137/81; PULSE 98; RESP 18; TEMP 37.1; O2SAT 94
[2021-05-30 19:59] VITALS: BP 143/82; PULSE 102; RESP 21; TEMP 36.7; O2SAT 93
--- NOTE | 2021-05-30 20:21 | PC.NURSE ---
pt was able to take po medications this shift and tolerated well po intake improving. able to answer some basic questions. has not c/o pain thus far.
[2021-05-31 04:00] VITALS: BP 186/83; PULSE 103; RESP 21; TEMP 36.4; O2SAT 93
[2021-05-31 05:00] VITALS: BMI 22.4
[2021-05-31 08:00] VITALS: BP 99/58; PULSE 88; RESP 19; TEMP 36.4; O2SAT 92
[2021-05-31 08:13] LABS: Basophils % 0.3 % (0.1-2.0); Eosinophils # 0.2 K/mm3 (0.0-0.4); Eosinophils % 1.8 % (0.1-12.0); Hematocrit 40.3 % (37.0-47.0); Hemoglobin 13.4 g/dL (12.2-16.2); Lymphocytes # 1.2 K/mm3 (0.7-4.5); Lymphocytes % 9.7 % (10-50); Mean Corpuscular HGB Conc 33.2 g/dL (31.8-35.4); Mean Corpuscular Volume 78.3 fl (81-99); Monocytes # 0.4 K/mm3 (0.1-1.0); Monocytes % 2.9 % (1.7-9.3); Neutrophils # 10.6 K/mm3 (1.8-7.8); Neutrophils % 85.3 % (37.0-80.0); Platelet Count 167 K/mm3 (142-424); Red Blood Count 5.14 M/mm3 (4.20-5.40); Red Cell Distribution Width 15.1 % (11.5-17.5); White Blood Count 12.5 K/mm3 (4.8-10.8)
[2021-05-31 08:18] LABS: Chloride 95 mmol/L (98-107); Potassium 3.7 mmoL/L (3.5-5.1); Sodium 134 mmol/L (136-145)
[2021-05-31 08:19] LABS: MANUAL DIFFERENTIAL MANUAL DIFFERENTIAL (MANUAL DIFF)
[2021-05-31 08:21] LABS: Anion Gap 14.7 mEq/L (5-15); Blood Urea Nitrogen 68 mg/dl (7-17); Carbon Dioxide 28 mmol/L (22.0-30.0); Creatinine Clearance Estimated 15 mL/min (50-200); Estimated Glomerular Filt Rate 12 ml/min (>60); GFR (African American) 14 ML/MIN (>60); Glucose 157 mg/dl (74-100)
[2021-05-31 08:22] LABS: Calcium 7.6 mg/dl (8.4-10.2)
[2021-05-31 08:43] LABS: Eosinophils % 2 % (0-3); Hypochromasia 2+; Lymphocytes % 4 % (10-50); Monocytes % 5 % (2-9); Neutrophils % 89 % (42-76); Platelet Estimate Normal; Total Cells Counted 100
[2021-05-31 15:25] VITALS: BP 149/97; PULSE 91; RESP 18; TEMP 36.7; O2SAT 96
--- NOTE | 2021-05-31 15:33 | HMH.ACPN2 ---
Internal Medicine - PN: Subj *Date: 05/31/21 *Time: 15:33 Interval history: She feels better today and seems more oriented, less confused. Renal function incrementally improving. Exam Vital signs and Labs for Last 24 Hours: Temp Pulse Resp BP Pulse Ox 98.1 F 91 H 18 149/97 H 96 05/31/21 15:25 05/31/21 15:25 05/31/21 15:25 05/31/21 15:25 05/31/21 15:25 Laboratory Results - last 24 hr 05/31/21 07:00: WBC 12.5 H, RBC 5.14, Hgb 13.4, Hct 40.3, MCV 78.3 L, MCH 26.0 L, MCHC 33.2, RDW 15.1, Plt Count 167 D, MPV 10.0, Neut % (Auto) 85.3 H, Lymph % (Auto) 9.7 L, [place] % (Auto) 2.9, Eos % (Auto) 1.8, Baso % (Auto) 0.3, Neut # (Auto) 10.6 H, Lymph # (Auto) 1.2, [place] # (Auto) 0.4, Eos # (Auto) 0.2, Baso # (Auto) 0.0, Total Counted 100, Neutrophils % (Manual) 89 H, Lymphocytes % (Manual) 4 L, Monocytes % (Manual) 5, Eosinophils % (Manual) 2, Platelet Estimate Normal, Hypochromasia 2+ 05/31/21 07:00: Sodium 134 L, Potassium 3.7 D, Chloride 95 L, Carbon Dioxide 28, Anion Gap 14.7, BUN 68 H, Creatinine 3.90 H, Estimated Creat Clear 15, Estimated GFR 12 L*, Est GFR ( Amer) 14 L* D, Glucose 157 H, Calcium 7.6 L Laboratory Tests 05/28/21 05/29/21 05/30/21 11:00 06:52 06:18 Sodium Potassium 2.9 L* Creatinine 4.40 H 5.40 H D 4.80 H Estimated GFR 10 L* 8 L* 9 L* 05/31/21 07:00 Sodium 134 L Potassium 3.7 D Creatinine 3.90 H Estimated GFR 12 L* I & O for Last 24 hours: Intake & Output 05/29/21 05/30/21 05/31/2121/21 11:59 11:59 11:59 11:59 Intake Total 480 / 480 2480 / 2480 4971 / 4971 120 / 120 Output Total 550 / 550 1800 / 1800 1700 / 1700 1999 Balance -70 / -70 680 / 680 3271 / 3271 -1880 / -1880 Weight 293 lb 10.491 oz 298 lb 8.094 oz 135 lb Microbiology Reports for the Last 24 Hours: Microbiology 05/28/21 12:18 Urine,Clean Catch Urine Culture - Final Escherichia coli Proteus mirabilis 05/29/21 10:36 Urine,Catheterized Urine Culture - Preliminary - *Routine HEENT Exam Head: Present: normocephalic Eye: Present: EOMI, PERRL ENT: Present: mucous membranes moist - *Routine Neck Exam Present: supple. Absent: lymphadenopathy - *Routine Respiratory Exam Present: CTA bilaterally - *Routine Cardiovascular Exam Present: RRR - *Routine Abdominal Exam Present: soft, normoactive bowel sounds, obese. Absent: tenderness - *Routine Extremities Exam Present: edema (2+ noted today). Absent: cyanosis, clubbing - *Routine Skin Exam Present: warm. Absent: rash - *Routine Neurological Exam Present: alert, oriented X3, normal speech. Absent: altered mental status (improved), tremors Assessment and Plan (1) YASMIN (acute kidney injury) Status: Acute Category: Medical Code(s): N17.9 - Acute kidney failure, unspecified (2) Pyelonephritis Status: Acute Category: Medical Code(s): N12 - Tubulo-interstitial nephritis, not specified as acute or chronic (3) CAD (coronary artery disease) Status: Chronic Qualifiers: Coronary Disease-Associated Artery/Lesion type: [place] artery [place] vs. transplanted heart: [place] heart Associated angina: without angina Qualified Code(s): I25.10 - Atherosclerotic heart disease of [place] coronary artery without angina pectoris Category: Medical Code(s): I25.10 - Atherosclerotic heart disease of [place] coronary artery without angina pectoris (4) Diastolic dysfunction Status: Chronic Category: Medical Code(s): I51.89 - Other ill-defined heart diseases (5) Depression with anxiety Status: Chronic Category: Medical Code(s): F41.8 - Other specified anxiety disorders (6) History of DVT (deep vein thrombosis) Status: Chronic Category: Medical Code(s): Z86.718 - Personal history of other venous thrombosis and embolism (7) Hyperlipidemia Status: Chronic Qualifiers: Hyperlipidemia type: mixed hyperlipidemia Agustín
[2021-05-31 20:00] VITALS: BP 116/64; PULSE 88; RESP 19; TEMP 37.2; O2SAT 96
[2021-06-01 04:39] VITALS: BMI 22.4
[2021-06-01 04:57] VITALS: BMI 49.5
[2021-06-01 08:00] VITALS: BP 118/70; PULSE 92; RESP 24; TEMP 36.8; O2SAT 99
[2021-06-01 08:32] LABS: Basophils # 0.1 K/mm3 (0-0.2); Eosinophils # 0.2 K/mm3 (0.0-0.4); Eosinophils % 1.5 % (0.1-12.0); Hematocrit 40.8 % (37.0-47.0); Hemoglobin 13.8 g/dL (12.2-16.2); Lymphocytes # 1.9 K/mm3 (0.7-4.5); Lymphocytes % 13.7 % (10-50); Mean Corpuscular HGB Conc 33.8 g/dL (31.8-35.4); Mean Corpuscular Hemoglobin 26.5 pg (27.0-31.2); Mean Corpuscular Volume 78.3 fl (81-99); Mean Platelet Volume 9.9 fl (7.4-10.4); Monocytes # 0.6 K/mm3 (0.1-1.0); Monocytes % 4.7 % (1.7-9.3); Neutrophils # 10.7 K/mm3 (1.8-7.8); Platelet Count 227 K/mm3 (142-424); Red Blood Count 5.21 M/mm3 (4.20-5.40); Red Cell Distribution Width 15.5 % (11.5-17.5); White Blood Count 13.6 K/mm3 (4.8-10.8)
[2021-06-01 08:41] LABS: Blood Urea Nitrogen 66 mg/dl (7-17); Calcium 8.2 mg/dl (8.4-10.2); Carbon Dioxide 28 mmol/L (22.0-30.0); Chloride 100 mmol/L (98-107); Creatinine Clearance Estimated 18 mL/min (50-200); Estimated Glomerular Filt Rate 16 ml/min (>60); GFR (African American) 19 ML/MIN (>60); Glucose 182 mg/dl (74-100); Sodium 135 mmol/L (136-145)
--- NOTE | 2021-06-01 09:38 | HMH.ACPN2 ---
Internal Medicine - PN: Subj *Date: 06/01/21 *Time: 09:38 Interval history: She feels better, but groggy this AM. Renal function is improving. Creatinine 3.0 this AM. Potassium WNL. Exam Vital signs and Labs for Last 24 Hours: Temp Pulse Resp BP Pulse Ox 98.2 F 92 H 24 118/70 99 06/01/21 08:00 06/01/21 08:00 06/01/21 08:00 06/01/21 08:00 06/01/21 08:00 Laboratory Results - last 24 hr 06/01/21 08:06: WBC 13.6 H, RBC 5.21, Hgb 13.8, Hct 40.8, MCV 78.3 L, MCH 26.5 L, MCHC 33.8, RDW 15.5, Plt Count 227 D, MPV 9.9, Neut % (Auto) 79.0, Lymph % (Auto) 13.7, [place] % (Auto) 4.7, Eos % (Auto) 1.5, Baso % (Auto) 1.0, Neut # (Auto) 10.7 H, Lymph # (Auto) 1.9, [place] # (Auto) 0.6, Eos # (Auto) 0.2, Baso # (Auto) 0.1 06/01/21 08:06: Sodium 135 L, Potassium 4.0, Chloride 100, Carbon Dioxide 28, Anion Gap 11.0, BUN 66 H, Creatinine 3.00 H D, Estimated Creat Clear 18, Estimated GFR 16 L*, Est GFR ( Amer) 19 L* D, Glucose 182 H, Calcium 8.2 L I & O for Last 24 hours: Intake & Output 05/29/21 05/30/21 05/31/21 06/01/21 11:59 11:59 11:59 11:59 Intake Total 480 / 480 2480 / 2480 4971 / 4971 480 / 480 Output Total 550 / 550 1800 / 1800 1700 / 1700 4500 / 4500 Balance -70 / -70 680 / 680 3271 / 3271 -4020 / -4020 Weight 293 lb 10.491 oz 298 lb 8.094 oz 135 lb 297 lb 6.457 oz Microbiology Reports for the Last 24 Hours: Microbiology 05/28/21 12:18 Urine,Clean Catch Urine Culture - Final Escherichia coli Proteus mirabilis 05/29/21 10:36 Urine,Catheterized Urine Culture - Preliminary - Constitutional no acute distress - *Routine HEENT Exam Head: Present: normocephalic Eye: Present: EOMI, PERRL ENT: Present: mucous membranes moist - *Routine Neck Exam Present: supple. Absent: lymphadenopathy - *Routine Respiratory Exam Present: CTA bilaterally - *Routine Cardiovascular Exam Present: RRR - *Routine Abdominal Exam Present: soft, normoactive bowel sounds, obese. Absent: tenderness - *Routine Extremities Exam Present: edema (2+). Absent: cyanosis, clubbing - *Routine Skin Exam Present: warm. Absent: rash - *Routine Neurological Exam Present: oriented X3 Assessment and Plan (1) YASMIN (acute kidney injury) Status: Acute Category: Medical Code(s): N17.9 - Acute kidney failure, unspecified (2) Pyelonephritis Status: Acute Category: Medical Code(s): N12 - Tubulo-interstitial nephritis, not specified as acute or chronic (3) CAD (coronary artery disease) Status: Chronic Qualifiers: Coronary Disease-Associated Artery/Lesion type: [place] artery [place] vs. transplanted heart: [place] heart Associated angina: without angina Qualified Code(s): I25.10 - Atherosclerotic heart disease of [place] coronary artery without angina pectoris Category: Medical Code(s): I25.10 - Atherosclerotic heart disease of [place] coronary artery without angina pectoris (4) Diastolic dysfunction Status: Chronic Category: Medical Code(s): I51.89 - Other ill-defined heart diseases (5) Depression with anxiety Status: Chronic Category: Medical Code(s): F41.8 - Other specified anxiety disorders (6) History of DVT (deep vein thrombosis) Status: Chronic Category: Medical Code(s): Z86.718 - Personal history of other venous thrombosis and embolism (7) Hyperlipidemia Status: Chronic Qualifiers: Hyperlipidemia type: mixed hyperlipidemia Qualified Code(s): E78.2 - Mixed hyperlipidemia Category: Medical Code(s): E78.5 - Hyperlipidemia, unspecified (8) Hypertension Status: Chronic Qualifiers: Hypertension type: essential hypertension Category: Medical Code(s): I10 - Essential (primary) hypertension (9) Elevated lactic acid level Status: Acute Category: Medical Code(s): R79.89 - Other specified abnormal findings of blood chemistry (10) Hypokalemia Status: Acute Category: M
[2021-06-01 16:00] VITALS: BP 103/65; PULSE 79; RESP 24; TEMP 36.4; O2SAT 97
--- NOTE | 2021-06-01 19:20 | PC.NURSE ---
No acute changes. VSS.
[2021-06-01 20:00] VITALS: BP 146/77; PULSE 86; RESP 20; TEMP 36.6; O2SAT 96
--- NOTE | 2021-06-02 03:30 | PC.NURSE ---
Patient has had complaints of nausea and an upset stomach this RN's shift. Patient was treated per MAR for the nausea with favorable results. Patient has been pretty restless tonight and has been sleeping on and off thus far. Patient is finally currently resting comfortably thus far.
[2021-06-02 04:00] VITALS: BP 140/70; PULSE 88; RESP 18; TEMP 36.7; O2SAT 96
[2021-06-02 04:28] VITALS: BMI 49.4
[2021-06-02 08:00] VITALS: BP 137/71; PULSE 91; RESP 22; TEMP 37.1; O2SAT 96
--- NOTE | 2021-06-02 08:34 | HMH.ACPN2 ---
Internal Medicine - PN: Subj *Date: 06/02/21 *Time: 08:34 Interval history: She feels that her body has been run over by a train. She does note improvement since admission. She did have some nausea last night but was able to eat some breakfast this morning. She really has not been out of bed except to the bedside commode for bowel movements. She describes a couple of loose stools yesterday during the night. She continues with a [place] catheter. She denies chest pain or shortness of breath. Exam Vital signs and Labs for Last 24 Hours: Temp Pulse Resp BP Pulse Ox 98.7 F 91 H 22 137/71 96 06/02/21 08:00 06/02/21 08:00 06/02/21 08:00 06/02/21 08:00 06/02/21 08:00 Laboratory Results - last 24 hr 06/01/21 08:06: WBC 13.6 H, RBC 5.21, Hgb 13.8, Hct 40.8, MCV 78.3 L, MCH 26.5 L, MCHC 33.8, RDW 15.5, Plt Count 227 D, MPV 9.9, Neut % (Auto) 79.0, Lymph % (Auto) 13.7, [place] % (Auto) 4.7, Eos % (Auto) 1.5, Baso % (Auto) 1.0, Neut # (Auto) 10.7 H, Lymph # (Auto) 1.9, [place] # (Auto) 0.6, Eos # (Auto) 0.2, Baso # (Auto) 0.1 06/01/21 08:06: Sodium 135 L, Potassium 4.0, Chloride 100, Carbon Dioxide 28, Anion Gap 11.0, BUN 66 H, Creatinine 3.00 H D, Estimated Creat Clear 18, Estimated GFR 16 L*, Est GFR ( Amer) 19 L* D, Glucose 182 H, Calcium 8.2 L I & O for Last 24 hours: Intake & Output 05/30/21 05/31/21 06/01/21 06/02/21 11:59 11:59 11:59 11:59 Intake Total 2480 / 2480 4971 / 4971 480 / 480 720 / 720 Output Total 1800 / 1800 1700 / 1700 5075 / 5075 1000 / 1000 Balance 680 / 680 3271 / 3271 -4595 / -4595 -280 / -280 Weight 298 lb 8.094 oz 135 lb 297 lb 6.457 oz 297 lb - Constitutional no acute distress, obese - *Routine Respiratory Exam Present: CTA bilaterally (Anteriorly and posteriorly) - *Routine Cardiovascular Exam Present: RRR - *Routine Abdominal Exam Present: normoactive bowel sounds, distended, obese. Absent: tenderness - *Routine Extremities Exam Present: edema (Bilateral lower leg edema. Legs are in dependent position.). Absent: calf tenderness - *Routine Neurological Exam Present: alert, oriented X3 Assessment and Plan (1) YASMIN (acute kidney injury) Status: Acute Category: Medical Code(s): N17.9 - Acute kidney failure, unspecified (2) Pyelonephritis Status: Acute Category: Medical Code(s): N12 - Tubulo-interstitial nephritis, not specified as acute or chronic (3) CAD (coronary artery disease) Status: Chronic Qualifiers: Coronary Disease-Associated Artery/Lesion type: [place] artery [place] vs. transplanted heart: [place] heart Associated angina: without angina Qualified Code(s): I25.10 - Atherosclerotic heart disease of [place] coronary artery without angina pectoris Category: Medical Code(s): I25.10 - Atherosclerotic heart disease of [place] coronary artery without angina pectoris (4) Diastolic dysfunction Status: Chronic Category: Medical Code(s): I51.89 - Other ill-defined heart diseases (5) Depression with anxiety Status: Chronic Category: Medical Code(s): F41.8 - Other specified anxiety disorders (6) History of DVT (deep vein thrombosis) Status: Chronic Category: Medical Code(s): Z86.718 - Personal history of other venous thrombosis and embolism (7) Hyperlipidemia Status: Chronic Qualifiers: Hyperlipidemia type: mixed hyperlipidemia Qualified Code(s): E78.2 - Mixed hyperlipidemia Category: Medical Code(s): E78.5 - Hyperlipidemia, unspecified (8) Hypertension Status: Chronic Qualifiers: Hypertension type: essential hypertension Category: Medical Code(s): I10 - Essential (primary) hypertension (9) Elevated lactic acid level Status: Acute Category: Medical Code(s): R79.89 - Other specified abnormal findings of blood chemistry (10) Hypokalemia Status: Acute Category: Medical Code(s): E87.6 - Hypokalemia (11) Obesity Status: Acute Category: Medical Code(s): E66.9 - Obes
[2021-06-02 09:27] LABS: Basophils # 0.1 K/mm3 (0-0.2); Basophils % 0.6 % (0.1-2.0); Eosinophils # 0.3 K/mm3 (0.0-0.4); Hematocrit 37.8 % (37.0-47.0); Hemoglobin 12.5 g/dL (12.2-16.2); Lymphocytes % 13.2 % (10-50); Mean Corpuscular Hemoglobin 26.2 pg (27.0-31.2); Mean Corpuscular Volume 79.3 fl (81-99); Mean Platelet Volume 9.4 fl (7.4-10.4); Monocytes # 0.6 K/mm3 (0.1-1.0); Monocytes % 3.6 % (1.7-9.3); Neutrophils # 12.4 K/mm3 (1.8-7.8); Neutrophils % 80.5 % (37.0-80.0); Platelet Count 283 K/mm3 (142-424); Red Blood Count 4.77 M/mm3 (4.20-5.40); Red Cell Distribution Width 15.7 % (11.5-17.5); White Blood Count 15.4 K/mm3 (4.8-10.8)
[2021-06-02 09:30] LABS: MANUAL DIFFERENTIAL MANUAL DIFFERENTIAL (MANUAL DIFF)
[2021-06-02 09:37] LABS: Alanine Aminotransferase 113 U/L (12-78); Albumin/Globulin Ratio 0.9 (1.1-1.8); Alkaline Phosphatase 207 U/L (38-126); Anion Gap 7.9 mEq/L (5-15); Aspartate Amino Transferase 137 U/L (14-36); Bilirubin,Total 1.1 mg/dl (0.2-1.3); Blood Urea Nitrogen 56 mg/dl (7-17); Carbon Dioxide 31 mmol/L (22.0-30.0); Chloride 101 mmol/L (98-107); Creatinine Clearance Estimated 20 mL/min (50-200); Estimated Glomerular Filt Rate 18 ml/min (>60); GFR (African American) 22 ML/MIN (>60); Globulin 3.2 g/dL (1.3-3.2); Glucose 113 mg/dl (74-100); Potassium 3.9 mmoL/L (3.5-5.1); Sodium 136 mmol/L (136-145); Total Protein,Serum 6.2 g/dl (6.3-8.2)
[2021-06-02 09:47] LABS: Lymphocytes % 11 % (10-50); Monocytes % 4 % (2-9); Neutrophils % 83 % (42-76); Total Cells Counted 100
[2021-06-02 09:48] LABS: Hypochromasia 1+; Microcytosis 1+; Platelet Estimate Normal
[2021-06-02 15:20] VITALS: BP 120/63; PULSE 81; RESP 18; TEMP 36.5; O2SAT 97
--- NOTE | 2021-06-02 16:33 | PC.NURSE ---
Patient is non tele and on room air. Patient is up with standby assist/assist times one. Patient up to chair most of the day. Patient is alert and oriented times 4. Bed in lowest position and phone and and call light in reach. Will continue to monitor.
[2021-06-02 20:00] VITALS: BP 116/76; PULSE 90; RESP 18; TEMP 36.5; O2SAT 100
[2021-06-03 05:00] VITALS: BMI 49.4
--- NOTE | 2021-06-03 06:02 | PC.NURSE ---
Pt has rested well t/o shift. Pt has voiced no complaints of pain/nausea this shift. Pt has been using [facility] x1 assist to void. Call light within reach.
[2021-06-03 07:20] LABS: Basophils # 0.1 K/mm3 (0-0.2); Basophils % 0.5 % (0.1-2.0); Eosinophils # 0.2 K/mm3 (0.0-0.4); Eosinophils % 1.5 % (0.1-12.0); Hematocrit 35.8 % (37.0-47.0); Lymphocytes # 2.1 K/mm3 (0.7-4.5); Lymphocytes % 14.2 % (10-50); Mean Corpuscular HGB Conc 33.5 g/dL (31.8-35.4); Mean Corpuscular Volume 77.6 fl (81-99); Mean Platelet Volume 9.6 fl (7.4-10.4); Monocytes # 0.4 K/mm3 (0.1-1.0); Monocytes % 2.9 % (1.7-9.3); Neutrophils # 12.1 K/mm3 (1.8-7.8); Neutrophils % 80.9 % (37.0-80.0); Platelet Count 372 K/mm3 (142-424); Red Blood Count 4.61 M/mm3 (4.20-5.40); Red Cell Distribution Width 15.8 % (11.5-17.5)
[2021-06-03 07:24] LABS: MANUAL DIFFERENTIAL MANUAL DIFFERENTIAL (MANUAL DIFF)
[2021-06-03 07:39] LABS: Anion Gap 9.2 mEq/L (5-15); Blood Urea Nitrogen 47 mg/dl (7-17); Calcium 8.2 mg/dl (8.4-10.2); Carbon Dioxide 26 mmol/L (22.0-30.0); Chloride 105 mmol/L (98-107); Creatinine Clearance Estimated 23 mL/min (50-200); Estimated Glomerular Filt Rate 22 ml/min (>60); GFR (African American) 26 ML/MIN (>60); Glucose 117 mg/dl (74-100); Potassium 4.2 mmoL/L (3.5-5.1); Sodium 136 mmol/L (136-145)
[2021-06-03 08:00] VITALS: BP 139/70; PULSE 101; RESP 18; TEMP 36.4; O2SAT 98
--- NOTE | 2021-06-03 08:50 | HMH.ACPN2 ---
Internal Medicine - PN: Subj *Date: 06/03/21 *Time: 08:50 Interval history: Patient may feel a little bit better today. She states she was out of bed much of yesterday and did not sit in the chair. Ely catheter is out and she is voiding QS. She continues to have loose stools. States she had 2-5 throughout the night yesterday. She has had minimal nausea and has been able to eat a little bit. She states she has no appetite. She denies chest pain or shortness of breath. Discussed UA culture with Proteus and sensitivities. Lab states had to be replated. Results should be available tomorrow a.m. Laboratory data this morning show continued elevated white blood cell count at 15,000 with a hemoglobin of 12 hematocrit of 35.8. Blood chemistries showed normal electrolytes. Renal function has improved with a BUN of 47 and creatinine of 2.3. Exam Vital signs and Labs for Last 24 Hours: Temp Pulse Resp BP Pulse Ox 97.5 F L 101 H 18 139/70 98 06/03/21 08:00 06/03/21 08:00 06/03/21 08:00 06/03/21 08:00 06/03/21 08:00 Laboratory Results - last 24 hr 05/29/21 10:36: Urine Color Yellow, Urine Appearance Cloudy, Urine pH 7.5, Ur Specific [place] 1.020, Urine Protein 2+, Urine Glucose (UA) Negative, Urine Ketones Negative, Urine Blood 3+, Urine Nitrate Positive, Urine Bilirubin Negative, Urine Urobilinogen 0.2, Ur Leukocyte Esterase 2+ A, Urine RBC 20-50, Urine WBC 20-50, Ur Squamous Epith Cells 3-5, Urine Bacteria 4+ 06/02/21 09:18: WBC 15.4 H, RBC 4.77, Hgb 12.5, Hct 37.8, MCV 79.3 L, MCH 26.2 L, MCHC 33.0, RDW 15.7, Plt Count 283, MPV 9.4, Neut % (Auto) 80.5 H, Lymph % (Auto) 13.2, [place] % (Auto) 3.6, Eos % (Auto) 2.0, Baso % (Auto) 0.6, Neut # (Auto) 12.4 H, Lymph # (Auto) 2.0, [place] # (Auto) 0.6, Eos # (Auto) 0.3, Baso # (Auto) 0.1, Total Counted 100, Neutrophils % (Manual) 83 H, Band Neutrophils % 1.0, Lymphocytes % (Manual) 11, Atypical Lymphs % 1.0, Monocytes % (Manual) 4, Platelet Estimate Normal, Hypochromasia 1+, Microcytosis 1+ 06/02/21 09:18: Sodium 136, Potassium 3.9, Chloride 101, Carbon Dioxide 31 H, Anion Gap 7.9, BUN 56 H, Creatinine 2.70 H, Estimated Creat Clear 20, Estimated GFR 18 L*, Est GFR ( Amer) 22 L, Glucose 113 H, Calcium 8.0 L, Total Bilirubin 1.1, AST 137 H, ALT 113 H, Alkaline Phosphatase 207 H, Total Protein 6.2 L, Albumin 3.0 L, Globulin 3.2, Albumin/Globulin Ratio 0.9 L 06/03/21 06:51: WBC 15.0 H, RBC 4.61, Hgb 12.0 L, Hct 35.8 L, MCV 77.6 L, MCH 26.0 L, MCHC 33.5, RDW 15.8, Plt Count 372 D, MPV 9.6, Neut % (Auto) 80.9 H, Lymph % (Auto) 14.2, [place] % (Auto) 2.9, Eos % (Auto) 1.5, Baso % (Auto) 0.5, Neut # (Auto) 12.1 H, Lymph # (Auto) 2.1, [place] # (Auto) 0.4, Eos # (Auto) 0.2, Baso # (Auto) 0.1 06/03/21 06:51: Sodium 136, Potassium 4.2, Chloride 105, Carbon Dioxide 26, Anion Gap 9.2, BUN 47 H, Creatinine 2.30 H, Estimated Creat Clear 23, Estimated GFR 22 L, Est GFR ( Amer) 26 L, Glucose 117 H, Calcium 8.2 L I & O for Last 24 hours: Intake & Output 05/31/21 06/01/21 06/02/21 06/03/21 11:59 11:59 11:59 11:59 Intake Total 4971 / 4971 480 / 480 720 / 720 480 / 480 Output Total 1700 / 1700 5075 / 5075 1000 / 1000 Balance 3271 / 3271 -4595 / -4595 -280 / -280 480 / 480 Weight 135 lb 297 lb 6.457 oz 297 lb 297 lb 0.108 oz Microbiology Reports for the Last 24 Hours: Microbiology 05/29/21 10:36 Urine,Catheterized Urine Culture - Preliminary Staphylococcus epidermidis Gram Negative Rods 05/28/21 12:18 Urine,Clean Catch Urine Culture - Preliminary Escherichia coli Proteus mirabilis - Constitutional no acute distress, obese - *Routine Respiratory Exam Present: CTA bilaterally (A&P) - *Routine Cardiovascular Exam Present: RRR - *Routine Abdominal Exam Present: obese. Absent: normoactive bowel sounds (hyperactive), tenderness - *Routine Extremities Exam Present: edema (t
[2021-06-03 09:07] LABS: Lymphocytes % 17 % (10-50); Monocytes % 6 % (2-9); Neutrophils % 77 % (42-76); Platelet Estimate Normal; Total Cells Counted 100
[2021-06-03 09:08] LABS: Microcytosis 2+
--- NOTE | 2021-06-03 10:18 | HMH.PTEV ---
Physical Therapy Evaluation Rehab PT IP Evaluation Start: 06/02/21 19:35 Freq: ONCE Status: Active Protocol: Document 06/03/21 10:07 MARTHAJOSIE (Rec: 06/03/21 10:18 ARLETTEBAIRON [id number]) Subjective/History History History This is the initial evaluation for Maria L Gonzalez. Pt is a 55 y/o female admitted to [facility] for fever, cough, body aches, chills, and dysuria. Pt found to have UTI. Pt was supine in bed upon arrival. - note done by Alexandria Mckeon, SPT Subjective Subjective Pt states that she was completely independent with all ADL's before this medical episode. 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 Pt reports no issuse with ambulation before current medical episode. Pt reports living at home with and two grandchildren. Rehab PT IP Eval Objective Appearance Patient Behavior Appropriate,Cooperative Patient Orientation Place,Name,Birthday,Year, Situation Difficulty following instructions none Speech Pattern Clear,Appropriate,Coherent Ambulation Patient Able to Ambulate Yes Ambulation Observation IP General Gait Pattern Observation Shuffling Step,Hips Posterior to BARBRA Ambulation Distance (feet) 75 Ambulation Assistive Device Rolling Walker Ambulation Ability Supervision/Stand by Balance Ability to Arise Able, uses arms to help Sitting Balance Steady, safe Standing Balance Steady, wide stance Dynamic Sitting Balance Ability Good Dynamic Standing Balance Ability Good Transfers Bed Transfer Ability Supervision/Stand by Sit to Stand Bed Transfer Ability Supervision/Stand by Rehab PT IP prob,goals,plan Problems Date of Evaluation: 06/03/21 PT IP Problems Bed Mobility,Transfers,Gait, Balance,Self care,Safety Rehab Potential Rehab Potential Good Plan PT Intervention Plan Bed Mobility,Transfers,Gait, Balance,Self care,Safety, Therapeutic Exercise PT Plan Frequency BID Duration LOS Discharge Goals Bed Transfer Ability Supervision/Stand by Ambulation Dist
--- NOTE | 2021-06-03 10:51 | HMH.ACPN ---
Internal Medicine - PN: Subj *Date: 06/03/21 *Time: 10:51 Exam Vital signs and Labs for Last 24 Hours: Temp Pulse Resp BP Pulse Ox 97.5 F L 101 H 18 139/70 98 06/03/21 08:00 06/03/21 08:00 06/03/21 08:00 06/03/21 08:00 06/03/21 08:00 Laboratory Results - last 24 hr 06/03/21 06:51: WBC 15.0 H, RBC 4.61, Hgb 12.0 L, Hct 35.8 L, MCV 77.6 L, MCH 26.0 L, MCHC 33.5, RDW 15.8, Plt Count 372 D, MPV 9.6, Neut % (Auto) 80.9 H, Lymph % (Auto) 14.2, [place] % (Auto) 2.9, Eos % (Auto) 1.5, Baso % (Auto) 0.5, Neut # (Auto) 12.1 H, Lymph # (Auto) 2.1, [place] # (Auto) 0.4, Eos # (Auto) 0.2, Baso # (Auto) 0.1, Total Counted 100, Neutrophils % (Manual) 77 H, Lymphocytes % (Manual) 17, Monocytes % (Manual) 6, Platelet Estimate Normal, Microcytosis 2+ 06/03/21 06:51: Sodium 136, Potassium 4.2, Chloride 105, Carbon Dioxide 26, Anion Gap 9.2, BUN 47 H, Creatinine 2.30 H, Estimated Creat Clear 23, Estimated GFR 22 L, Est GFR ( Amer) 26 L, Glucose 117 H, Calcium 8.2 L I & O for Last 24 hours: Intake & Output 05/31/21 06/01/21 06/02/21 06/03/21 23:59 23:59 23:59 23:59 Intake Total 4851 / 4851 720 / 720 840 / 840 240 / 240 Output Total 4600 / 4600 2275 / 2275 Balance 251 / 251 -1555 / -1555 840 / 840 240 / 240 Weight 61.235 kg 134.9 kg 134.717 kg 134.72 kg Microbiology Reports for the Last 24 Hours: Microbiology 05/28/21 12:18 Urine,Clean Catch Urine Culture - Preliminary Escherichia coli Proteus mirabilis 05/29/21 10:36 Urine,Catheterized Urine Culture - Preliminary Staphylococcus epidermidis Gram Negative Rods Assessment and Plan (1) YASMIN (acute kidney injury) Status: Acute Category: Medical Code(s): N17.9 - Acute kidney failure, unspecified (2) Pyelonephritis Status: Acute Category: Medical Code(s): N12 - Tubulo-interstitial nephritis, not specified as acute or chronic (3) CAD (coronary artery disease) Status: Chronic Qualifiers: Coronary Disease-Associated Artery/Lesion type: [place] artery [place] vs. transplanted heart: [place] heart Associated angina: without angina Qualified Code(s): I25.10 - Atherosclerotic heart disease of [place] coronary artery without angina pectoris Category: Medical Code(s): I25.10 - Atherosclerotic heart disease of [place] coronary artery without angina pectoris (4) Diastolic dysfunction Status: Chronic Category: Medical Code(s): I51.89 - Other ill-defined heart diseases (5) Depression with anxiety Status: Chronic Category: Medical Code(s): F41.8 - Other specified anxiety disorders (6) History of DVT (deep vein thrombosis) Status: Chronic Category: Medical Code(s): Z86.718 - Personal history of other venous thrombosis and embolism (7) Hyperlipidemia Status: Chronic Qualifiers: Hyperlipidemia type: mixed hyperlipidemia Qualified Code(s): E78.2 - Mixed hyperlipidemia Category: Medical Code(s): E78.5 - Hyperlipidemia, unspecified (8) Hypertension Status: Chronic Qualifiers: Hypertension type: essential hypertension Category: Medical Code(s): I10 - Essential (primary) hypertension (9) Elevated lactic acid level Status: Acute Category: Medical Code(s): R79.89 - Other specified abnormal findings of blood chemistry (10) Hypokalemia Status: Acute Category: Medical Code(s): E87.6 - Hypokalemia (11) Obesity Status: Acute Category: Medical Code(s): E66.9 - Obesity, unspecified The patient's infection will respond to the chosen ABx?: Yes (EMPIRIC THERAPY) Could a more targeted ABx be ordered?: No (AWAITING SENS AND RESIST)
[2021-06-03 16:00] VITALS: BP 160/88; PULSE 91; RESP 22; TEMP 36.8; O2SAT 93
--- NOTE | 2021-06-03 16:27 | PC.NURSE ---
Patient is non tele and on room air. Patient is alert and oriented times four. Patient is up with assist times one. Patient's bowels moved today. Plan of care, continue antibiotic treatment. Bed in lowest position and phone and call light in reach. Will continue to monitor.
[2021-06-03 19:10] VITALS: BP 125/69; PULSE 86; RESP 22; TEMP 36.6; O2SAT 98
[2021-06-03 23:55] VITALS: BP 141/79; PULSE 86; RESP 20; TEMP 37.2; O2SAT 96
[2021-06-04 04:00] VITALS: BP 138/83; PULSE 86; RESP 20; TEMP 37.2; O2SAT 96
--- NOTE | 2021-06-04 04:16 | PC.NURSE ---
pt has ambulated independently to the BR using walker. pt has had one small BM this shift. remains on room air. c/o nausea X1. Zofran admin per SEP w/ effectiveness noted. no other c/o pain or discomfort voiced.
[2021-06-04 05:00] VITALS: BMI 49.4
[2021-06-04 08:00] VITALS: BP 138/69; PULSE 84; RESP 18; TEMP 37.1; O2SAT 99
[2021-06-04 08:11] LABS: Basophils # 0.1 K/mm3 (0-0.2); Basophils % 0.4 % (0.1-2.0); Eosinophils # 0.2 K/mm3 (0.0-0.4); Eosinophils % 1.3 % (0.1-12.0); Hematocrit 36.2 % (37.0-47.0); Lymphocytes # 1.9 K/mm3 (0.7-4.5); Lymphocytes % 12.9 % (10-50); Mean Corpuscular Hemoglobin 26.3 pg (27.0-31.2); Mean Corpuscular Volume 79.7 fl (81-99); Mean Platelet Volume 8.3 fl (7.4-10.4); Monocytes # 0.5 K/mm3 (0.1-1.0); Monocytes % 3.2 % (1.7-9.3); Neutrophils # 11.9 K/mm3 (1.8-7.8); Neutrophils % 82.2 % (37.0-80.0); Platelet Count 342 K/mm3 (142-424); Red Blood Count 4.55 M/mm3 (4.20-5.40); White Blood Count 14.5 K/mm3 (4.8-10.8)
--- NOTE | 2021-06-04 09:08 | HMH.ACPN2 ---
Internal Medicine - PN: Subj *Date: 06/04/21 *Time: 09:08 Interval history: Patient states she is feeling slightly better today. She still very weak and does get nauseated towards the end of the day. She slept off and on last night and is trying to eat. Exam Vital signs and Labs for Last 24 Hours: Temp Pulse Resp BP Pulse Ox 98.7 F 84 18 138/69 99 06/04/21 08:00 06/04/21 08:00 06/04/21 08:00 06/04/21 08:00 06/04/21 08:00 Laboratory Results - last 24 hr 06/03/21 06:51: Total Counted 100, Neutrophils % (Manual) 77 H, Lymphocytes % (Manual) 17, Monocytes % (Manual) 6, Platelet Estimate Normal, Microcytosis 2+ 06/04/21 07:55: WBC 14.5 H, RBC 4.55, Hgb 12.0 L, Hct 36.2 L, MCV 79.7 L, MCH 26.3 L, MCHC 33.0, RDW 16.0, Plt Count 342, MPV 8.3, Neut % (Auto) 82.2 H, Lymph % (Auto) 12.9, [place] % (Auto) 3.2, Eos % (Auto) 1.3, Baso % (Auto) 0.4, Neut # (Auto) 11.9 H, Lymph # (Auto) 1.9, [place] # (Auto) 0.5, Eos # (Auto) 0.2, Baso # (Auto) 0.1 I & O for Last 24 hours: Intake & Output 06/01/21 06/02/21 06/03/21 06/04/21 11:59 11:59 11:59 11:59 Intake Total 480 / 480 720 / 720 720 / 720 720 / 720 Output Total 5075 / 5075 1000 / 1000 Balance -4595 / -4595 -280 / -280 720 / 720 720 / 720 Weight 297 lb 6.457 oz 297 lb 297 lb 0.108 oz 296 lb 4.82 oz Microbiology Reports for the Last 24 Hours: Microbiology 05/28/21 12:18 Urine,Clean Catch Urine Culture - Preliminary Escherichia coli Proteus mirabilis - Constitutional no acute distress - *Routine Respiratory Exam Present: CTA bilaterally - *Routine Cardiovascular Exam Present: RRR - *Routine Abdominal Exam Present: soft, normoactive bowel sounds, tenderness (Diffuse), distended - *Routine Extremities Exam Present: edema (Bilateral lower extremities, legs are wrapped) - *Routine Skin Exam Present: warm. Absent: rash - *Routine Neurological Exam Present: alert, oriented X3 Assessment and Plan (1) YASMIN (acute kidney injury) Status: Acute Category: Medical Code(s): N17.9 - Acute kidney failure, unspecified (2) Pyelonephritis Status: Acute Category: Medical Code(s): N12 - Tubulo-interstitial nephritis, not specified as acute or chronic (3) CAD (coronary artery disease) Status: Chronic Qualifiers: Coronary Disease-Associated Artery/Lesion type: [place] artery [place] vs. transplanted heart: [place] heart Associated angina: without angina Qualified Code(s): I25.10 - Atherosclerotic heart disease of [place] coronary artery without angina pectoris Category: Medical Code(s): I25.10 - Atherosclerotic heart disease of [place] coronary artery without angina pectoris (4) Diastolic dysfunction Status: Chronic Category: Medical Code(s): I51.89 - Other ill-defined heart diseases (5) Depression with anxiety Status: Chronic Category: Medical Code(s): F41.8 - Other specified anxiety disorders (6) History of DVT (deep vein thrombosis) Status: Chronic Category: Medical Code(s): Z86.718 - Personal history of other venous thrombosis and embolism (7) Hyperlipidemia Status: Chronic Qualifiers: Hyperlipidemia type: mixed hyperlipidemia Qualified Code(s): E78.2 - Mixed hyperlipidemia Category: Medical Code(s): E78.5 - Hyperlipidemia, unspecified (8) Hypertension Status: Chronic Qualifiers: Hypertension type: essential hypertension Category: Medical Code(s): I10 - Essential (primary) hypertension (9) Elevated lactic acid level Status: Acute Category: Medical Code(s): R79.89 - Other specified abnormal findings of blood chemistry (10) Hypokalemia Status: Acute Category: Medical Code(s): E87.6 - Hypokalemia (11) Obesity Status: Acute Category: Medical Code(s): E66.9 - Obesity, unspecified - Assessment and plan all Dx Assessment and Plan for all problems:: Urine culture is positive for E. coli and
[2021-06-04 15:16] LABS: Chloride 101 mmol/L (98-107); Potassium 4.5 mmoL/L (3.5-5.1); Sodium 136 mmol/L (136-145)
[2021-06-04 15:19] LABS: Anion Gap 11.5 mEq/L (5-15); Blood Urea Nitrogen 33 mg/dl (7-17); Calcium 8.2 mg/dl (8.4-10.2); Carbon Dioxide 28 mmol/L (22.0-30.0); Creatinine Clearance Estimated 28 mL/min (50-200); Estimated Glomerular Filt Rate 27 ml/min (>60); GFR (African American) 33 ML/MIN (>60); Glucose 150 mg/dl (74-100)
[2021-06-04 16:00] VITALS: BP 130/70; PULSE 85; RESP 18; TEMP 36.6; O2SAT 98
[2021-06-04 20:00] VITALS: BP 123/85; PULSE 85; RESP 16; TEMP 36.8; O2SAT 95
[2021-06-05 04:00] VITALS: BP 114/69; PULSE 87; RESP 18; TEMP 36.7; O2SAT 95
[2021-06-05 04:42] VITALS: BMI 49.9
[2021-06-05 07:35] VITALS: BP 122/82; PULSE 93; RESP 17; TEMP 36.5; O2SAT 97
--- NOTE | 2021-06-05 09:31 | HMH.ACPN2 ---
Internal Medicine - PN: Subj *Date: 06/05/21 *Time: 09:31 Interval history: She continues slow clinical improvement. She seems quite oriented and alert. She is concerned about returning home due to her 's debilitation. Her white blood cell count remains elevated. Further details on urine culture show E. coli and Proteus mirabilis, both sensitive to cefepime as well as other antibiotics. Her renal function has steadily improved. Exam Vital signs and Labs for Last 24 Hours: Temp Pulse Resp BP Pulse Ox 97.7 F 93 H 17 122/82 97 06/05/21 07:35 06/05/21 07:35 06/05/21 07:35 06/05/21 07:35 06/05/21 07:35 Laboratory Results - last 24 hr 06/04/21 07:55: Sodium 136, Potassium 4.5, Chloride 101, Carbon Dioxide 28, Anion Gap 11.5, BUN 33 H D, Creatinine 1.90 H, Estimated Creat Clear 28, Estimated GFR 27 L, Est GFR ( Amer) 33 L D, Glucose 150 H, Calcium 8.2 L I & O for Last 24 hours: Intake & Output 06/02/21 06/03/21 06/04/21 06/05/21 11:59 11:59 11:59 11:59 Intake Total 720 / 720 720 / 720 720 / 720 1610 / 1610 Output Total 1000 / 1000 Balance -280 / -280 720 / 720 720 / 720 1610 / 1610 Weight 297 lb 297 lb 0.108 oz 296 lb 4.82 oz 299 lb 13.259 oz Microbiology Reports for the Last 24 Hours: Microbiology 05/29/21 10:36 Urine,Catheterized Urine Culture - Final Staphylococcus epidermidis Proteus mirabilis 05/28/21 12:18 Urine,Clean Catch Urine Culture - Final Escherichia coli Proteus mirabilis Proteus mirabilis#2 - Constitutional no acute distress - *Routine HEENT Exam Head: Present: normocephalic Eye: Present: EOMI, PERRL ENT: Present: mucous membranes moist - *Routine Neck Exam Present: supple. Absent: lymphadenopathy - *Routine Respiratory Exam Present: CTA bilaterally - *Routine Cardiovascular Exam Present: RRR - *Routine Abdominal Exam Present: soft, normoactive bowel sounds, obese. Absent: tenderness - *Routine Extremities Exam Present: edema. Absent: cyanosis, clubbing - *Routine Skin Exam Present: warm. Absent: rash - *Routine Neurological Exam Present: alert, oriented X3 Assessment and Plan (1) YASMIN (acute kidney injury) Status: Acute Category: Medical Code(s): N17.9 - Acute kidney failure, unspecified (2) Pyelonephritis Status: Acute Category: Medical Code(s): N12 - Tubulo-interstitial nephritis, not specified as acute or chronic (3) CAD (coronary artery disease) Status: Chronic Qualifiers: Coronary Disease-Associated Artery/Lesion type: [place] artery [place] vs. transplanted heart: [place] heart Associated angina: without angina Qualified Code(s): I25.10 - Atherosclerotic heart disease of [place] coronary artery without angina pectoris Category: Medical Code(s): I25.10 - Atherosclerotic heart disease of [place] coronary artery without angina pectoris (4) Diastolic dysfunction Status: Chronic Category: Medical Code(s): I51.89 - Other ill-defined heart diseases (5) Depression with anxiety Status: Chronic Category: Medical Code(s): F41.8 - Other specified anxiety disorders (6) History of DVT (deep vein thrombosis) Status: Chronic Category: Medical Code(s): Z86.718 - Personal history of other venous thrombosis and embolism (7) Hyperlipidemia Status: Chronic Qualifiers: Hyperlipidemia type: mixed hyperlipidemia Qualified Code(s): E78.2 - Mixed hyperlipidemia Category: Medical Code(s): E78.5 - Hyperlipidemia, unspecified (8) Hypertension Status: Chronic Qualifiers: Hypertension type: essential hypertension Category: Medical Code(s): I10 - Essential (primary) hypertension (9) Elevated lactic acid level Status: Acute Category: Medical Code(s): R79.89 - Other specified abnormal findings of blood chemistry (1
[2021-06-05 14:59] VITALS: BP 125/79; PULSE 87; RESP 16; TEMP 36.6; O2SAT 96
--- NOTE | 2021-06-05 15:51 | PC.NURSE ---
PT IS RESTING IN BED. TOLERATED SITTING UP IN THE CHAIR FOR SEVERAL HOURS THIS SHIFT. PT HAS BEEN AMBULATING AROUND THE ROOM WITH WALKER. PT REQUESTED FOR ISAIAS WRAPS TO BE REMOVED B/C THEY WERE CAUSING HER SOME DISCOMFORT. PT STILL CONTINUES TO HAVE BLE EDEMA HOWEVER HAS IMPROVED. LUNG SOUNDS DIMINISHED. ABDOMEN SOFT/LARGE/NON TENDER WITH ACTIVE BOWEL SOUNDS. VSS. WILL CONTINUE TO MONITOR.
[2021-06-05 16:36] LABS: Microscopic, Urine URINE MICROSCOPIC (MICROSCOPIC)
[2021-06-05 16:39] LABS: Appearance,Urine SL CLOUDY (Clear); Bilirubin,Urine Negative (Negative); Blood, Urine 1+ (Negative); Color,Urine YELLOW (Yellow); Glucose,Urine (UA) Negative (Negative); Ketones,Urine Negative (Negative); Leukocyte Esterase,Urine Negative (Negative); Nitrate,Urine Negative (Negative); PH,Urine 6.5 (5.0-8.5); Protein,Urine 1+ (Negative); Specific Gravity, Urine 1.015 (1.005-1.030); Urobilinogen,Urine 0.2 EU/dl (0.2)
[2021-06-05 16:51] LABS: Bacteria,Urine 1+ /lpf
[2021-06-05 20:00] VITALS: BP 161/75; PULSE 86; RESP 20; TEMP 37.6; O2SAT 98
[2021-06-06] VITALS: BP 137/68; PULSE 89; RESP 16; TEMP 37.1; O2SAT 94
--- NOTE | 2021-06-06 03:25 | PC.NURSE ---
A&OX4. TOLERATING RA WELL. ONLY C/O HAS BEEN NA/VO MULTIPLE TIMES THIS SHIFT. TX WITH ZOFRAN PER SEP. EFFECTIVENESS NOTED. PT HAS SLEPT MAJORITY OF SHIFT. NO OTHER C/O THUS FAR. PT CONTINUES TO REFUSE WRAPPING TO BLE. VSS WILL CONTINUE TO MONITOR.
[2021-06-06 04:00] VITALS: BP 127/77; PULSE 87; RESP 16; TEMP 36.9; O2SAT 98; BMI 48.6
[2021-06-06 04:44] VITALS: BMI 48.6
[2021-06-06 08:00] VITALS: BP 122/78; PULSE 94; RESP 18; TEMP 37.2; O2SAT 95
--- NOTE | 2021-06-06 08:54 | HMH.ACPN2 ---
Internal Medicine - PN: Subj *Date: 06/06/21 *Time: 08:54 Interval history: She seems to be stable enough to go home today. Lab work is pending. I will follow her up soon in [facility]. Exam Vital signs and Labs for Last 24 Hours: Temp Pulse Resp BP Pulse Ox 98.4 F 87 16 127/77 98 06/06/21 04:00 06/06/21 04:00 06/06/21 04:00 06/06/21 04:00 06/06/21 04:00 Laboratory Results - last 24 hr 06/05/21 16:30: Urine Color Yellow, Urine Appearance Sl cloudy, Urine pH 6.5, Ur Specific [place] 1.015, Urine Protein 1+, Urine Glucose (UA) Negative, Urine Ketones Negative, Urine Blood 1+, Urine Nitrate Negative, Urine Bilirubin Negative, Urine Urobilinogen 0.2, Ur Leukocyte Esterase Negative, Urine RBC 3-5, Urine WBC 5-10, Ur Squamous Epith Cells 5-10, Urine Bacteria 1+ I & O for Last 24 hours: Intake & Output 06/03/21 06/04/21 06/05/21 06/06/21 11:59 11:59 11:59 11:59 Intake Total 720 / 720 720 / 720 1610 / 1610 600 / 600 Balance 720 / 720 720 / 720 1610 / 1610 600 / 600 Weight 297 lb 0.108 oz 296 lb 4.82 oz 299 lb 13.259 oz 292 lb 1.8 oz - Constitutional no acute distress - *Routine HEENT Exam Head: Present: normocephalic Eye: Present: EOMI, PERRL ENT: Present: mucous membranes moist - *Routine Neck Exam Present: supple. Absent: lymphadenopathy - *Routine Respiratory Exam Present: CTA bilaterally - *Routine Cardiovascular Exam Present: RRR - *Routine Abdominal Exam Present: soft, normoactive bowel sounds, obese. Absent: tenderness - *Routine Extremities Exam Present: edema. Absent: cyanosis, clubbing - *Routine Skin Exam Present: warm. Absent: rash - *Routine Neurological Exam Present: alert, oriented X3 Assessment and Plan (1) YASMIN (acute kidney injury) Status: Acute Category: Medical Code(s): N17.9 - Acute kidney failure, unspecified (2) Pyelonephritis Status: Acute Category: Medical Code(s): N12 - Tubulo-interstitial nephritis, not specified as acute or chronic (3) CAD (coronary artery disease) Status: Chronic Qualifiers: Coronary Disease-Associated Artery/Lesion type: [place] artery [place] vs. transplanted heart: [place] heart Associated angina: without angina Qualified Code(s): I25.10 - Atherosclerotic heart disease of [place] coronary artery without angina pectoris Category: Medical Code(s): I25.10 - Atherosclerotic heart disease of [place] coronary artery without angina pectoris (4) Diastolic dysfunction Status: Chronic Category: Medical Code(s): I51.89 - Other ill-defined heart diseases (5) Depression with anxiety Status: Chronic Category: Medical Code(s): F41.8 - Other specified anxiety disorders (6) History of DVT (deep vein thrombosis) Status: Chronic Category: Medical Code(s): Z86.718 - Personal history of other venous thrombosis and embolism (7) Hyperlipidemia Status: Chronic Qualifiers: Hyperlipidemia type: mixed hyperlipidemia Qualified Code(s): E78.2 - Mixed hyperlipidemia Category: Medical Code(s): E78.5 - Hyperlipidemia, unspecified (8) Hypertension Status: Chronic Qualifiers: Hypertension type: essential hypertension Category: Medical Code(s): I10 - Essential (primary) hypertension (9) Elevated lactic acid level Status: Acute Category: Medical Code(s): R79.89 - Other specified abnormal findings of blood chemistry (10) Hypokalemia Status: Acute Category: Medical Code(s): E87.6 - Hypokalemia (11) Obesity Status: Acute Category: Medical Code(s): E66.9 - Obesity, unspecified - Assessment and plan all Dx Assessment and Plan for all problems:: CBC and CMP are pending. Anticipate discharge with follow-up Wednesday.
[2021-06-06 09:09] LABS: Basophils # 0.1 K/mm3 (0-0.2); Basophils % 0.5 % (0.1-2.0); Eosinophils # 0.2 K/mm3 (0.0-0.4); Eosinophils % 1.7 % (0.1-12.0); Hematocrit 36.2 % (37.0-47.0); Hemoglobin 11.9 g/dL (12.2-16.2); Lymphocytes # 1.6 K/mm3 (0.7-4.5); Lymphocytes % 15.4 % (10-50); Mean Corpuscular HGB Conc 32.9 g/dL (31.8-35.4); Mean Corpuscular Hemoglobin 26.5 pg (27.0-31.2); Mean Corpuscular Volume 80.5 fl (81-99); Mean Platelet Volume 8.5 fl (7.4-10.4); Monocytes # 0.5 K/mm3 (0.1-1.0); Monocytes % 4.4 % (1.7-9.3); Neutrophils # 8.1 K/mm3 (1.8-7.8); Platelet Count 379 K/mm3 (142-424); Red Cell Distribution Width 15.7 % (11.5-17.5); White Blood Count 10.4 K/mm3 (4.8-10.8)
[2021-06-06 09:15] LABS: Chloride 103 mmol/L (98-107); Sodium 137 mmol/L (136-145)
[2021-06-06 09:16] LABS: Potassium 4.5 mmoL/L (3.5-5.1)
[2021-06-06 09:19] LABS: Alanine Aminotransferase 79 U/L (12-78); Albumin Level 3.4 g/dl (3.5-5.0); Alkaline Phosphatase 159 U/L (38-126); Anion Gap 10.5 mEq/L (5-15); Aspartate Amino Transferase 67 U/L (14-36); Bilirubin,Direct 0.4 mg/dl (0.0-0.4); Bilirubin,Indirect 0.7 mg/dL (0.0-0.9); Bilirubin,Total 1.1 mg/dl (0.2-1.3); Bilirubin,Unconjugated 0.7 mg/dL (0.0-1.1); Blood Urea Nitrogen 21 mg/dl (7-17); Calcium 8.4 mg/dl (8.4-10.2); Carbon Dioxide 28 mmol/L (22.0-30.0); Creatinine Clearance Estimated 33 mL/min (50-200); Estimated Glomerular Filt Rate 33 ml/min (>60); GFR (African American) 40 ML/MIN (>60); Glucose 139 mg/dl (74-100); Total Protein,Serum 6.6 g/dl (6.3-8.2)
--- NOTE | 2021-06-06 09:53 | DIET.NUTRFU ---
Pt with anticipated discharge today pending CBC and CMP. Pt with continued PO intake improvement with 50, 75, 50 at last 3 meals. Will continue to monitor.
--- NOTE | 2021-06-07 11:41 | HMH.DCSUM ---
General - General Admission date:: 05/28/21 Discharge date: 06/06/21 HPI HPI: Ms. Gonzalez is a 55-year-old female who presented to the office of [facility] today for a preop physical. She has felt poorly for the past 4 to 5 days and complains of fever, cough, body aches, chills, and dysuria. She was so weak she had to be pushed in wheelchair and was unable to walk. She was confused and generally appeared to be unwell. She was sent to the emergency room for evaluation and was found to have pyelonephritis. She will be admitted and started on IV antibiotics. Hospital Course Hospital Course: The patient was admitted and started on IV antibiotics for pyelonephritis. Her white blood cell count was elevated as was her BUN and creatinine. Her creatinine was 4.4 and her potassium was low at 2.3. She was started on potassium supplementation and IV fluids along with IV antibiotics. She did feel better by 05/29/2021. She had an abdominal pelvic CT on 05/29/2021 which showed no significant change in the appearance of the abdomen and pelvis. There were numerous nonobstructing bilateral renal calculi and no hydronephrosis. There was mild stranding of the perinephric renal fat and bilateral paracolic gutters as well as left lateral conal fascia. These were nonspecific and could be seen with hypoalbuminemia or inflammatory changes. There was diffuse fatty liver infiltration as well. She did become more alert and felt stronger. Dr. Koroma felt she had some degree of metabolic encephalopathy which was resolving. Her renal function remained elevated. She did gradually become less confused over her admission and her renal function incrementally began improving. Her urine culture grew E. coli and Proteus. She was continued on IV antibiotics. She did began having some nausea and loose stools. Her [place] catheter was removed and she was given medication for nausea. Her diarrhea improved. By 06/06/2021 she was feeling better and her labs had improved. It was felt she could be discharged home and will need to follow-up next week at [facility]. Objective Vital signs: Temp Pulse Resp BP Pulse Ox 99.0 F 94 H 18 122/78 95 06/06/21 08:00 06/06/21 08:00 06/06/21 08:00 06/06/21 08:00 06/06/21 08:00 Narrative: - Constitutional Comments: Ill-appearing, unable to walk - *Routine HEENT Exam Head: Present: normocephalic Eye: Present: EOMI, PERRL ENT: Present: mucous membranes dry - *Routine Neck Exam Present: supple. Absent: lymphadenopathy - *Routine Respiratory Exam Present: CTA bilaterally - *Routine Cardiovascular Exam Present: RRR - *Routine Abdominal Exam Present: soft, normoactive bowel sounds, tenderness (Suprapubic, left lower quadrant) - *Routine Rectal Exam Rectal:: deferred - *Routine Genitalia Exam Genitalia:: deferred - *Routine Extremities Exam Present: edema (Bilateral lower extremities). Absent: cyanosis, clubbing - *Routine Skin Exam Present: warm. Absent: rash - *Routine Neurological Exam Present: altered mental status DS: Diagnosis - Discharge Diagnosis (1) YASMIN (acute kidney injury) Status: Acute (2) Pyelonephritis Status: Acute (3) CAD (coronary artery disease) Status: Chronic (4) Diastolic dysfunction Status: Chronic (5) Depression with anxiety Status: Chronic (6) History of DVT (deep vein thrombosis) Status: Chronic (7) Hyperlipidemia Status: Chronic (8) Hypertension Status: Chronic (9) Elevated lactic acid level Status: Acute (10) Hypokalemia Status: Acute (11) Obesity Status: Acute Discharge Plan - Patient Discharge Instructions ACTIVITY: Limited activity DIET: low fat, low cholesterol Patient Instructions: Kidney Infection, Methicillin-Resistant Staph Infection, Escherichia coli Infection, Essential Hypertension, DI for Kidney Infection, Acute Kidney Injury, DI for Multiple Drug-resistant Organism (MDRO)
== END 2021-06-06 15:45 | disposition home or self-care (01) | DRG 683 ==
LOC: ER 14:44 → 2ND 14:58
PROVIDERS: Nurse Practitioner Family; Admitting Provider Family Medicine; Emergency Provider Emergency Medicine; PCP Family Medicine; Visit Provider Family Medicine
DX: N17.9 Acute kidney failure, unspecified (principal); Z68.42 Body mass index [BMI] 45.0-49.9, adult; N10 Acute pyelonephritis; Z20.822 Contact with and (suspected) exposure to COVID-19; I11.0 Hypertensive heart disease with heart failure; I50.9 Heart failure, unspecified; Z86.718 Personal history of other venous thrombosis and embolism; Z79.02 Long term (current) use of antithrombotics/antiplatelets; G47.00 Insomnia, unspecified; G89.29 Other chronic pain; M54.9 Dorsalgia, unspecified; I25.10 Atherosclerotic heart disease of native coronary artery without angina pectoris; E87.6 Hypokalemia; F41.8 Other specified anxiety disorders; E78.2 Mixed hyperlipidemia; E66.9 Obesity, unspecified; B96.20 Unspecified Escherichia coli [E. coli] as the cause of diseases classified elsewhere
CPT/HCPCS: 36415; 70450; 71045; 74176; 76705; 80048; 80053; 80076; 81001; 83605; 83735; 84100; 85007; 85025; 87086; 87088; 87186; 96365; 96366; 97116; 97161; 97530; 99281; C9803; J0692; J2405; J3370; U0003; U0005

== ENCOUNTER → 2021-06-13 15:18 | Outpatient (CLI) | payer BC, SELFPAY ==
[2021-06-13 17:28] LABS: Microscopic, Urine URINE MICROSCOPIC (MICROSCOPIC)
[2021-06-13 17:39] LABS: Basophils # 0.1 K/mm3 (0-0.2); Basophils % 0.9 % (0.1-2.0); Eosinophils # 0.1 K/mm3 (0.0-0.4); Eosinophils % 1.7 % (0.1-12.0); Hematocrit 36.5 % (37.0-47.0); Hemoglobin 11.9 g/dL (12.2-16.2); Lymphocytes # 1.8 K/mm3 (0.7-4.5); Lymphocytes % 25.7 % (10-50); Mean Corpuscular HGB Conc 32.6 g/dL (31.8-35.4); Mean Corpuscular Hemoglobin 26.5 pg (27.0-31.2); Mean Corpuscular Volume 81.4 fl (81-99); Mean Platelet Volume 9.1 fl (7.4-10.4); Monocytes # 0.4 K/mm3 (0.1-1.0); Monocytes % 5.1 % (1.7-9.3); Neutrophils # 4.7 K/mm3 (1.8-7.8); Neutrophils % 66.5 % (37.0-80.0); Platelet Count 438 K/mm3 (142-424); Red Blood Count 4.48 M/mm3 (4.20-5.40); Red Cell Distribution Width 15.5 % (11.5-17.5)
[2021-06-13 17:43] LABS: Chloride 101 mmol/L (98-107); Potassium 3.8 mmoL/L (3.5-5.1); Sodium 137 mmol/L (136-145)
[2021-06-13 17:45] LABS: Blood Urea Nitrogen 11 mg/dl (7-17); Estimated Glomerular Filt Rate 42 ml/min (>60); GFR (African American) 51 ML/MIN (>60)
[2021-06-13 17:46] LABS: Alanine Aminotransferase 71 U/L (12-78); Albumin Level 3.9 g/dl (3.5-5.0); Albumin/Globulin Ratio 1.1 (1.1-1.8); Alkaline Phosphatase 178 U/L (38-126); Anion Gap 14.8 mEq/L (5-15); Aspartate Amino Transferase 61 U/L (14-36); Bilirubin,Total 0.9 mg/dl (0.2-1.3); Calcium 9.2 mg/dl (8.4-10.2); Carbon Dioxide 25 mmol/L (22.0-30.0); Globulin 3.4 g/dL (1.3-3.2); Glucose 102 mg/dl (74-100); Total Protein,Serum 7.3 g/dl (6.3-8.2)
[2021-06-13 20:16] LABS: Appearance,Urine SL CLOUDY (Clear); Bilirubin,Urine Negative (Negative); Blood, Urine Negative (Negative); Color,Urine YELLOW (Yellow); Glucose,Urine (UA) Negative (Negative); Ketones,Urine Negative (Negative); Leukocyte Esterase,Urine TRACE (Negative); Nitrate,Urine Negative (Negative); PH,Urine 6.5 (5.0-8.5); Protein,Urine TRACE (Negative)
[2021-06-13 20:53] LABS: Bacteria,Urine 4+ /lpf
== END ==
PROVIDERS: PCP Physician Assistant; Visit Provider Physician Assistant
DX: Z20.822 Contact with and (suspected) exposure to COVID-19 (principal)
CPT/HCPCS: 36415; 80053; 81001; 85025; 87040; 87086; C9803; U0003; U0005

== ENCOUNTER → 2021-06-14 17:51 | Outpatient (CLI) | payer BC, SELFPAY ==
[2021-06-14 18:22] LABS: Adenovirus F 40/41, stool Not Detected (NotDetected); Astrovirus Not Detected (NotDetected); Campylobacter Not Detected (NotDetected); Cryptosporidium Not Detected (NotDetected); Cyclospora Cayetanesis Not Detected (NotDetected); Entamoeba histolytica Not Detected (NotDetected); Enteroaggregative E coli Not Detected (NotDetected); Enterotoxigenic E coli Not Detected (NotDetected); Giardia lamblia Not Detected (NotDetected); Norovirus Not Detected (NotDetected); Plesimonas Shigalloides, PCR Not Detected (NotDetected); Rotavirus A Not Detected (NotDetected); Salmonella, PCR Not Detected (NotDetected); Sapovirus Not Detected (NotDetected); Shiga-like toxin E coli Not Detected (NotDetected); Shigella Enterovasive E coli Not Detected (NotDetected); Vibrio Cholerae Not Detected (NotDetected); Vibrio, PCR Not Detected (NotDetected); Yersinia Entercolitica, PCR Not Detected (NotDetected)
[2021-06-14 21:25] LABS: Clostridium Difficile A/B, PCR Detected (NotDetected); Enteropathogenic E coli Detected (NotDetected)
== END ==
PROVIDERS: PCP Family Medicine; Visit Provider Physician Assistant
DX: Z20.822 Contact with and (suspected) exposure to COVID-19 (principal); R19.5 Other fecal abnormalities; A04.72 Enterocolitis due to Clostridium difficile, not specified as recurrent; A04.0 Enteropathogenic Escherichia coli infection
CPT/HCPCS: 87507

== ENCOUNTER → 2021-07-16 17:40 | Outpatient (CLI) | payer BC, SELFPAY ==
[2021-07-16 17:52] LABS: Microscopic, Urine URINE MICROSCOPIC (MICROSCOPIC)
[2021-07-16 18:59] LABS: Basophils # 0.1 K/mm3 (0-0.2); Basophils % 1.1 % (0.1-2.0); Eosinophils # 0.1 K/mm3 (0.0-0.4); Eosinophils % 2.2 % (0.1-12.0); Hemoglobin 12.6 g/dL (12.2-16.2); Lymphocytes # 2.5 K/mm3 (0.7-4.5); Lymphocytes % 51.4 % (10-50); Mean Corpuscular HGB Conc 31.5 g/dL (31.8-35.4); Mean Corpuscular Hemoglobin 26.5 pg (27.0-31.2); Mean Corpuscular Volume 84.1 fl (81-99); Mean Platelet Volume 8.3 fl (7.4-10.4); Monocytes # 0.2 K/mm3 (0.1-1.0); Monocytes % 4.5 % (1.7-9.3); Neutrophils % 40.8 % (37.0-80.0); Platelet Count 274 K/mm3 (142-424); Red Blood Count 4.75 M/mm3 (4.20-5.40); Red Cell Distribution Width 16.3 % (11.5-17.5); White Blood Count 4.9 K/mm3 (4.8-10.8)
[2021-07-16 19:05] LABS: MANUAL DIFFERENTIAL MANUAL DIFFERENTIAL (MANUAL DIFF)
[2021-07-16 19:21] LABS: Appearance,Urine CLOUDY (Clear); Bilirubin,Urine Negative (Negative); Blood, Urine Negative (Negative); Color,Urine YELLOW (Yellow); Glucose,Urine (UA) Negative (Negative); Ketones,Urine Negative (Negative); Leukocyte Esterase,Urine 1+ (Negative); Nitrate,Urine POSITIVE (Negative); Protein,Urine Negative (Negative); Specific Gravity, Urine 1.015 (1.005-1.030); Urobilinogen,Urine 0.2 EU/dl (0.2)
[2021-07-16 19:45] LABS: Creatinine,Urine Random 69 mg/dL (Not Estab.)
[2021-07-16 19:47] LABS: Eosinophils % 3 % (0-3); Lymphocytes % 50 % (10-50); Monocytes % 8 % (2-9); Neutrophils % 39 % (42-76); Platelet Estimate Normal; Total Cells Counted 100
[2021-07-16 19:48] LABS: Microcytosis 1+
[2021-07-16 19:49] LABS: Bacteria,Urine 1+ /lpf; WBC,Urine Occasional #/hpf (0-3)
[2021-07-16 20:01] LABS: Albumin Level 4.1 g/dl (3.5-5.0); Anion Gap 13.7 mEq/L (5-15); Blood Urea Nitrogen 14 mg/dl (7-17); Carbon Dioxide 25 mmol/L (22.0-30.0); Chloride 104 mmol/L (98-107); Estimated Glomerular Filt Rate 39 ml/min (>60); GFR (African American) 47 ML/MIN (>60); Glucose 109 mg/dl (74-100); Phosphorous 3.9 mg/dl (2.5-4.5); Potassium 3.7 mmoL/L (3.5-5.1); Sodium 139 mmol/L (136-145)
[2021-07-16 20:14] LABS: Intact Parathyroid Hormone 87.8 pg/mL (7.5-53.5)
[2021-07-16 20:19] LABS: 25-OH Vitamin D, Total 14.3 ng/mL (30-100)
== END ==
LOC: LAB 17:41
PROVIDERS: Visit Provider Internal Medicine Nephrology
DX: N18.32 Chronic kidney disease, stage 3b (principal); E55.9 Vitamin D deficiency, unspecified
CPT/HCPCS: 36415; 80069; 81001; 82306; 82570; 83970; 84155; 84156; 84166; 85007; 85025; 87086; 87186

== ENCOUNTER → 2021-07-17 14:32 | Outpatient (POV) | payer BC, SELFPAY | PROVIDERS: Visit Provider Internal Medicine Nephrology | DX: Z00.00 Encounter for general adult medical examination without abnormal findings (principal) ==

== ENCOUNTER → 2021-08-11 15:49 | Outpatient (CLI) | payer BC, SELFPAY ==
--- NOTE | 2021-08-11 | CA_ITS ---
FINAL REPORT TECHNIQUE: Color Doppler, duplex Doppler and compression sonography of the right lower extremity venous system was performed. CLINICAL HISTORY: . FINDINGS: There is no evidence of deep venous thrombosis from the level of the groin to the calf. The veins are patent and compressible. IMPRESSION: No evidence of deep venous thrombosis right lower extremity. Reviewed, Interpreted and Dictated by Deepak Atkins III, MD Transcribed by Baldomero Domínguez Authenticated by Deepak Atkins III, MD on 08/11/2021 04:56:37 PM [facility]
== END ==
LOC: RT 15:50
PROVIDERS: PCP Family Medicine; Visit Provider Family Medicine
DX: M79.604 Pain in right leg (principal)
CPT/HCPCS: 93971

== ENCOUNTER → 2021-10-02 16:07 | Outpatient (CLI) | payer BC, SELFPAY ==
[2021-10-02 17:21] LABS: Chloride 105 mmol/L (98-107); Potassium 4.4 mmoL/L (3.5-5.1); Sodium 140 mmol/L (136-145)
[2021-10-02 17:24] LABS: Anion Gap 10.4 mEq/L (5-15); Blood Urea Nitrogen 21 mg/dl (7-17); Calcium 8.8 mg/dl (8.4-10.2); Carbon Dioxide 29 mmol/L (22.0-30.0); Estimated Glomerular Filt Rate 36 ml/min (>60); GFR (African American) 43 ML/MIN (>60); Glucose 93 mg/dl (74-100)
== END ==
PROVIDERS: PCP Family Medicine; Visit Provider Ophthalmology
DX: Z01.812 Encounter for preprocedural laboratory examination (principal); Z11.52 Encounter for screening for COVID-19
CPT/HCPCS: 80048; C9803; U0003; U0005

== ENCOUNTER → 2021-10-16 15:02 | Outpatient (CLI) | payer BC, SELFPAY ==
[2021-10-16 15:09] LABS: Microscopic, Urine URINE MICROSCOPIC (MICROSCOPIC)
[2021-10-16 15:51] LABS: Hematocrit 44.5 % (37.0-47.0); Hemoglobin 14.7 g/dL (12.2-16.2); Mean Corpuscular HGB Conc 33.1 g/dL (31.8-35.4); Mean Corpuscular Hemoglobin 29.1 pg (27.0-31.2); Mean Corpuscular Volume 87.8 fl (81-99); Platelet Count 217 K/mm3 (142-424); Red Blood Count 5.07 M/mm3 (4.20-5.40); Red Cell Distribution Width 14.7 % (11.5-17.5); White Blood Count 5.8 K/mm3 (4.8-10.8)
[2021-10-16 16:56] LABS: Albumin Level 4.3 g/dl (3.5-5.0); Chloride 104 mmol/L (98-107); Potassium 3.8 mmoL/L (3.5-5.1); Sodium 140 mmol/L (136-145)
[2021-10-16 16:59] LABS: Anion Gap 12.8 mEq/L (5-15); Blood Urea Nitrogen 21 mg/dl (7-17); Calcium 9.3 mg/dl (8.4-10.2); Carbon Dioxide 27 mmol/L (22.0-30.0); Estimated Glomerular Filt Rate 39 ml/min (>60); GFR (African American) 47 ML/MIN (>60); Glucose 107 mg/dl (74-100); Phosphorous 5.7 mg/dl (2.5-4.5)
[2021-10-16 17:26] LABS: Appearance,Urine CLEAR (Clear); Bilirubin,Urine Negative (Negative); Blood, Urine TRACE-I (Negative); Color,Urine YELLOW (Yellow); Glucose,Urine (UA) Negative (Negative); Ketones,Urine Negative (Negative); Leukocyte Esterase,Urine TRACE (Negative); Nitrate,Urine Negative (Negative); Protein,Urine Negative (Negative); Urobilinogen,Urine 0.2 EU/dl (0.2)
[2021-10-16 17:43] LABS: Creatinine,Urine Random 63 mg/dL (Not Estab.)
== END ==
PROVIDERS: PCP Family Medicine; Visit Provider Internal Medicine Nephrology
DX: N17.9 Acute kidney failure, unspecified (principal)
CPT/HCPCS: 36415; 80069; 81001; 82570; 84155; 85014; 85018; 85048; 85049

== ENCOUNTER → 2021-10-20 15:17 | Outpatient (POV) | payer BC, SELFPAY | PROVIDERS: Visit Provider Internal Medicine Nephrology | DX: Z00.00 Encounter for general adult medical examination without abnormal findings (principal) ==

== ENCOUNTER → 2022-05-11 11:51 | Outpatient (CLI) | payer BC, SELFPAY ==
[2022-05-11 11:56] LABS: Microscopic, Urine URINE MICROSCOPIC (MICROSCOPIC)
[2022-05-11 12:29] LABS: Hematocrit 48.4 % (37.0-47.0); Hemoglobin 15.7 g/dL (12.2-16.2); Mean Corpuscular HGB Conc 32.5 g/dL (31.8-35.4); Mean Corpuscular Hemoglobin 29.4 pg (27.0-31.2); Mean Corpuscular Volume 90.5 fl (81-99); Platelet Count 270 K/mm3 (142-424); Red Blood Count 5.35 M/mm3 (4.20-5.40); Red Cell Distribution Width 14.5 % (11.5-17.5); White Blood Count 8.9 K/mm3 (4.8-10.8)
[2022-05-11 12:31] LABS: Appearance,Urine SL CLOUDY (Clear); Bilirubin,Urine Negative (Negative); Blood, Urine TRACE-I (Negative); Color,Urine YELLOW (Yellow); Glucose,Urine (UA) Negative (Negative); Ketones,Urine Negative (Negative); Leukocyte Esterase,Urine 1+ (Negative); Nitrate,Urine POSITIVE (Negative); PH,Urine 6.5 (5.0-8.5); Protein,Urine Negative (Negative); Urobilinogen,Urine 0.2 EU/dl (0.2)
[2022-05-11 12:36] LABS: Creatinine,Urine Random 69 mg/dL (Not Estab.)
[2022-05-11 12:54] LABS: Bacteria,Urine 3+ /lpf; Squamous Epithelial Cell,Urine Occasional #/hpf (0-5)
[2022-05-11 13:31] LABS: Albumin Level 4.6 g/dl (3.5-5.0); Chloride 104 mmol/L (98-107); Potassium 4.1 mmoL/L (3.5-5.1); Sodium 143 mmol/L (136-145)
[2022-05-11 13:33] LABS: Blood Urea Nitrogen 19 mg/dl (7-17)
[2022-05-11 13:34] LABS: Anion Gap 19.1 mEq/L (5-15); Calcium 10.5 mg/dl (8.4-10.2); Carbon Dioxide 24 mmol/L (22.0-30.0); Estimated Glomerular Filt Rate 46 ml/min (>60); GFR (African American) 56 ML/MIN (>60); Glucose 120 mg/dl (74-100); Phosphorous 4.6 mg/dl (2.5-4.5)
== END ==
PROVIDERS: PCP Family Medicine; Visit Provider Internal Medicine Nephrology
DX: N17.9 Acute kidney failure, unspecified (principal)
CPT/HCPCS: 36415; 80069; 81001; 82570; 84155; 85014; 85018; 85048; 85049; 87086; 87088; 87186

== ENCOUNTER → 2022-05-14 13:59 | Outpatient (POV) | payer BC, SELFPAY | PROVIDERS: Visit Provider Internal Medicine Nephrology | DX: Z00.00 Encounter for general adult medical examination without abnormal findings (principal) ==

== ENCOUNTER 2022-06-24 12:24 | Outpatient (CLI) | payer BC, SELFPAY ==
[2022-06-24 12:35] VITALS: BMI 50.3
[2022-06-24 12:55] VITALS: BP 135/82; PULSE 71; RESP 18; TEMP 35.8; O2SAT 92
[2022-06-24 13:34] LABS: Chloride 102 mmol/L (98-107)
[2022-06-24 13:35] LABS: Potassium 3.6 mmoL/L (3.5-5.1); Sodium 139 mmol/L (136-145)
[2022-06-24 13:38] LABS: Anion Gap 13.6 mEq/L (5-15); Blood Urea Nitrogen 14 mg/dl (7-17); Calcium 9.7 mg/dl (8.4-10.2); Carbon Dioxide 27 mmol/L (22.0-30.0); Creatinine Clearance Estimated 41 mL/min (50-200); Estimated Glomerular Filt Rate 42 ml/min (>60); GFR (African American) 51 ML/MIN (>60); Glucose 117 mg/dl (74-100)
[2022-06-24 13:55] VITALS: BP 124/75; PULSE 81; RESP 18; O2SAT 91
[2022-06-24 14:55] VITALS: BP 125/68; PULSE 78; RESP 18
[2022-06-24 15:40] VITALS: BP 99/60; PULSE 71; RESP 18
== END 2022-06-24 16:05 | disposition home or self-care (01) ==
LOC: INF 12:24
PROVIDERS: PCP Family Medicine; Visit Provider Physician Assistant
DX: E86.0 Dehydration (principal); R11.2 Nausea with vomiting, unspecified; R30.0 Dysuria
CPT/HCPCS: 80048; 96360; 96361; 96367; 96375; J1956; J2405

== ENCOUNTER → 2022-06-29 11:45 | Outpatient (CLI) | payer BC, SELFPAY ==
--- NOTE | 2022-06-29 11:51 | CT_ITS ---
FINAL REPORT CLINICAL HISTORY: STONE PROTOCOL Lt sided flank pain and decreased urine output for 3 weeks COMPARISON: May 29, 2021 FINDINGS: Axial CT images of the abdomen and pelvis were obtained without intravenous contrast. Coronal reformatted images were also obtained.This study was performed with techniques to keep radiation doses as low as reasonably achievable (ALARA). Individualized dose reduction techniques using automated exposure control or adjustment of mA and/or kV according to the patient's size were employed. Abdomen: There is mild atelectasis or scarring in the lung bases. There are less than 3 mm nonobstructing renal stones in both kidneys. There is no hydronephrosis. There is moderate scarring in the left kidney. The gallbladder is present. The liver is fatty infiltrated. The spleen and pancreas have an unremarkable, unenhanced appearance. No mass or adenopathy is seen. No inflammatory process is identified. There is a small umbilical hernia containing fat. Pelvis: Images of the pelvis reveal no evidence of ureteral dilation or ureteral stone. The appendix is normal. No mass or abnormal fluid collection is identified. The patient is status post hysterectomy. IMPRESSION: Bilateral less than 3 mm nonobstructing renal stones with no hydronephrosis. Moderate scarring in the left kidney. Reviewed, Interpreted and Dictated by Deepak Atkins III, MD Transcribed by Sally Escalante Authenticated and [facility]
== END ==
PROVIDERS: PCP Family Medicine; Visit Provider Nurse Practitioner Family
DX: R10.9 Unspecified abdominal pain (principal)
CPT/HCPCS: 74176

== ENCOUNTER → 2022-07-31 11:04 | Outpatient (CLI) | payer BC, SELFPAY ==
--- NOTE | 2022-07-31 11:06 | MM_ITS ---
PROCEDURE INFORMATION: Exam: MG Bilateral Screening 3D Mammography Exam date and time: 07/31/2022 10:58 AM Age: 56 years old Clinical indication: Screening examination TECHNIQUE: Imaging protocol: Bilateral Screening tomosynthesis and 2D mammography including computer-aided detection (CAD) when performed. COMPARISON: 1. MG SCBI MM Dig screening mamm BI w/CAD 12/17/2017 10:21 AM 2. MG DMSB DIG MAMM-SCREEN YARI 11/08/2013 4:09 PM FINDINGS: MAMMOGRAPHY: Breast composition: There are scattered areas of fibroglandular density. Mass: 1.0 cm mass in the middle third of the left medial breast Architectural distortion: None. Calcifications: No suspicious calcifications. Asymmetric density: None. Skin thickening: None. Axillary adenopathy: None. IMPRESSION: Patient to be recalled for spot compression views of the left breast in the CC and MLO projections, a full 90 degree lateral view, and left breast ultrasound for further evaluation of a left breast mass. ASSESSMENT: BI-RADS Category 0: Incomplete- Need Additional Imaging Evaluation and/or Prior Mammograms for Comparison
== END ==
PROVIDERS: PCP Family Medicine; Visit Provider Nurse Practitioner Family
DX: Z12.31 Encounter for screening mammogram for malignant neoplasm of breast (principal)
CPT/HCPCS: 77063; 77067

== ENCOUNTER 2022-08-14 09:13 | Day surgery (SDC) | payer BC, SELFPAY ==
[2022-08-11 09:18] VITALS: BMI 35.2
[2022-08-14] VITALS (7 sets, daily range): BP systolic 96–138; BP diastolic 60–81; PULSE 63–84; RESP 17–18; TEMP 36.5–36.8; O2SAT 93–96; BMI 51.0
--- NOTE | 2022-08-14 09:39 | P.PN_ITS ---
[facility] Disclaimer: The information contained in this section may have been updated after the patient was seen, as this information can be updated by other users. Medical History Anxiety CAD (coronary artery disease) Chest pain CHF (congestive heart failure) Depression DVT (deep venous thrombosis) Edema Hyperlipidemia Hypertension Left hand fracture Palpitations Renal insufficiency SVT (supraventricular tachycardia) Surgical History (Updated 08/14/22 @ 09:39 by Joshua Ramon RN) History of hand surgery History of partial hysterectomy Hx of colonoscopy Hx of oral surgery Hx of tonsillectomy Previous section Family History (Updated 08/14/22 @ 09:38 by Joshua Ramon RN) Other Colon cancer Family history of cancer Family history of myocardial infarction Social History Smoking Status: Never smoker alcohol intake: never substance use type: denies use current occupational status: retired Travel in the last 8 weeks: Inside the [place] number of children: 2 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 [employer] Anesthesia Checklist Patient Identification Patient Identification: Arm Band and Verbal (Name & ) Structural Data Admitted From: Home Planned Operative Procedure/s: Colonoscopy Consent for Planned Operative Procedure(s) Verified: Yes Verified Documents: Surgical Consent NPO Status Verified Time NPO: 14:00 Airway Assessment C-Spine Mobility Assessed: Yes TMJ Mobility Assessed: Yes Dentition: Good Dentition Neurological Assessment Level of Consciousness: Awake, Alert and Appropriate Anesthesia Plan Anesthesia Risk discussed: Yes ASA Class: II Anesthesia Type: MAC
--- NOTE | 2022-08-14 10:41 | HMH.SCOPE ---
Procedure: Date: 08/14/22 Patient Date of :: 1965 Procedure Performed:: Total colonoscopy to terminal ileum with multiple polypectomy using snare Indications:: Patient is a 56-year-old female with history of coronary artery disease, congestive heart failure, DVT, hypertension, hyperlipidemia, history of SVT, on Xarelto. She is referred by Dr. Mauricio Koroma for colonoscopy. She did have a colonoscopy [address] Ar Burk on 04/21/2010 which revealed a small polyp. She does have a family history of colon cancer with colon cancer in her maternal grandfather and paternal aunts and uncles. After her colonoscopy on 04/21/2010 5-year follow-up colonoscopy was recommended. Performing Provider:: Deepak Mcqueen MD Referring Provider:: Mauricio Koroma MD Sedation:: MAC sedation Procedure:: Patient history was obtained and appropriate physical examination was performed. Patient's medications and allergies were reviewed. Informed consent was obtained after explaining the benefits, alternatives, and risks of the procedure including, but not limited to, bleeding, perforation, missed lesions, and adverse reaction to anesthesia medications. Patient was transported to endoscopy procedure room. Patient was connected to monitoring devices. Throughout the procedure the patient's blood pressure, pulse, and oxygen saturations were monitored continuously. Patient identification and planned procedure were verified by the staff. Patient was positioned in lateral decubitus position. Digital anorectal exam was performed. Variable stiffness Olympus colonoscope was inserted and advanced under direct visualization to the cecum. Adequacy of the colonic preparation was noted. The colonoscope was advanced a short distance into the terminal ileum. The colonoscope was then slowly withdrawn while carefully examining the color, texture, anatomy, and integrity of the mucosoa circumferentially. Within the rectum retroflexion was performed. Colonoscope was then withdrawn. Findings:: She has some particulate liquid stool throughout the colon. High-volume irrigation and suctioning was performed which allowed for fair visualization. There was a small periappendiceal cecal polyp removed with cold snare with residual tissue removed with biopsy. There was a small adenomatous appearing polyp within the appendiceal orifice. This was grasped with a biopsy forceps and everted. It was then able to be removed in its entirety with cold cutting snare. Colonoscope was withdrawn to the proximal descending colon just distal to the splenic flexure. There were a couple of adenomatous appearing polyps removed with cold cutting snare. Potential residual tissue at the base was removed with biopsy forceps. There was some sigmoid diverticulosis. Retroflexion within the rectum revealed no evidence of any pathologic internal hemorrhoids. Colonoscope was withdrawn. Impression: Fair preparation despite high-volume irrigation and suctioning Cecal polyp Polyp within the appendiceal orifice, removed using cold snare after eversion. Proximal descending colon polyp x2 Sigmoid diverticulosis Recommendations:: Follow-up colonoscopy pending pathology. However, given suboptimal prep, multiple adenomatous appearing polyps, and family history likely repeat colonoscopy with maximum prep in 2 years Complications:: None immediately apparent Estimated blood obtained (mL): 2
[2022-08-15 09:20] LABS: POC Glucose,Bedside 110 (70-110)
== END 2022-08-14 11:26 | disposition home or self-care (01) ==
PROVIDERS: PCP Family Medicine; Visit Provider Surgery
PROC: 0DJD8ZZ Inspection of Lower Intestinal Tract, Via Natural or Artificial Opening Endoscopic (ICD-10-PCS; CPT 45385; principal; 2022-08-14 10:30)
DX: Z12.11 Encounter for screening for malignant neoplasm of colon (principal); D12.0 Benign neoplasm of cecum; D12.4 Benign neoplasm of descending colon; K57.30 Diverticulosis of large intestine without perforation or abscess without bleeding; Z79.899 Other long term (current) drug therapy
CPT/HCPCS: 45385; 82962; 88305; J2704

== ENCOUNTER → 2022-08-20 14:03 | Outpatient (CLI) | payer BC, SELFPAY ==
--- NOTE | 2022-08-20 14:07 | US_ITS ---
PROCEDURE INFORMATION: Exam: US Left Breast, Complete MG Left Diagnostic Breast Tomosynthesis Exam date and time: 08/20/2022 3:00 PM Age: 56 years old Clinical indication: Recall the basis of screening mammogram 07/31/2022 for further evaluation of 1.0 cm mass in the middle 3rd of the left medial breast. TECHNIQUE: Imaging protocol: Complete ultrasound of all four quadrants of the Left breast and the retroareolar regions, including ultrasound of the axilla when performed. Left Diagnostic tomosynthesis and 2D mammography including computer-aided detection (CAD) when performed. Unilateral or bilateral exam. COMPARISON: MG MM DIG MAMM DX UNILAT LT CAD 08/20/2022 2:00 PM MG US BREAST(S) 04/06/2003 11:24 AM FINDINGS: MAMMOGRAPHY: Spot compression demonstrates a persistent 1.0 cm oval mass in the middle 3rd of the medial breast. ULTRASOUND: Left sonography, all 4 quadrants, retroareolar and axilla. At 8 o'clock 6 cm from the nipple, simple cyst measuring 0.9 x 0.4 x 1.0 cm. At 9 o'clock 4 cm from the nipple, oval hypoechoic avascular mass with a central echogenic calcification, measuring 2.2 by 1.7 x 0.6 cm. Several scattered subcentimeter benign-appearing cysts. Sonographically unremarkable left axillary lymph nodes. IMPRESSION: Persistent new mammographic mass in the medial left breast more likely corresponds to the 1.0 simple cyst at 8:00; however, there is an indeterminate sonographic mass at 9 o'clock with no definite mammographic correlate. Suggest ultrasound-guided aspiration of the cyst at 8 o'clock and ultrasound-guided biopsy of the indeterminate mass at 9 o'clock - then checking the postprocedure mammogram to ensure that the mammographic mass either resolved related to the 8:00 cyst or matches the sonographically placed biopsy clip at 9:00. ASSESSMENT: BI-RADS Category 4: Suspicious
== END ==
LOC: RAD 14:03
PROVIDERS: PCP Family Medicine; Visit Provider Nurse Practitioner Family
DX: R92.8 Other abnormal and inconclusive findings on diagnostic imaging of breast (principal)
CPT/HCPCS: 76641; 77061; 77065; G0279

== ENCOUNTER → 2022-09-16 09:42 | Outpatient (CLI) | payer BC, SELFPAY ==
--- NOTE | 2022-09-16 09:49 | US_ITS ---
FINAL REPORT CLINICAL HISTORY: ABNORMAL MAMM Narciso Pruett FINDINGS: ULTRASOUND-GUIDED LEFT BREAST CORE BIOPSY and left breast FNA/aspiration TECHNIQUE: Limited images were obtained to localize region of interest. The left breast was prepped in a routine sterile fashion and locally anesthetized with 1% lidocaine. Standard written informed consent was obtained. There were 2 separate lesions of the left breast, one located at 8:00 and the 2nd located at 9:00. The biopsy needle was positioned within the outer periphery of the 9:00 lesion. A total of 3 passes were made with a 16 gauge core biopsy needle. A biopsy marker clip was deployed in satisfactory position. Postbiopsy mammogram showed postbiopsy changes with clip in satisfactory position. The 2nd lesion, located at 8:00, was then targeted. The lesion was subcentimeter in size measuring 9 mm. After achieving local anesthesia, an 18-gauge needle was directed into the lesion. The lesion was completely decompressed with complex fluid aspirated totaling less than 1 mL. Fluid was sent for cytology evaluation. Procedure was well tolerated . CONCLUSION: 1. Technically successful ultrasound guided core biopsy of left breast lesion 9:00 as above. 2. Biopsy marker clip deployed within the 8:00 lesion 3. Ultrasound directed FNA and aspiration performed of complex cystic lesion at 8:00 Histopathology reveals benign findings for both lesion, concordant with imaging findings. Short-term sonographic and mammographic follow-up left breast recommended in 6 months Authenticated and ERN
--- NOTE | 2022-09-16 09:52 | MM_ITS ---
FINAL REPORT CLINICAL HISTORY: clip placement, left breast biopsy FINDINGS: MAMMOGRAM LEFT TECHNIQUE: Standard digital 2-D views COMPARISON: 08-20-22 and 07-31-22 DENSITY: There are scattered areas of fibroglandular density FINDINGS: Post biopsy marker clip is noted to be in satisfactory position. Postbiopsy changes are noted. IMPRESSION: Biopsy marker clip in good position RECOMMENDATION: Histopathology reveals benign findings for both lesion, concordant with imaging findings. Short-term sonographic and mammographic follow-up left breast recommended in 6 months Authenticated and ERN
== END ==
PROVIDERS: PCP Psychiatry & Neurology Sleep Medicine; Visit Provider Nurse Practitioner Family
DX: R92.8 Other abnormal and inconclusive findings on diagnostic imaging of breast (principal)
CPT/HCPCS: 19083; 19084; 76942; 77065

== ENCOUNTER 2023-03-02 21:00 | Inpatient (IN) | payer BC, SELFPAY ==
--- NOTE | 2023-03-02 20:53 | ECG_ITS ---
APPROVED REPORT Exam: Resting ECG HR:75 bpm ECG Measurements Heart Rate 75 AXES [place] 200 P 101 QRSd 77 QRS 16 QT 332 T 24 QTc 361 Conclusion SINUS RHYTHM LOW QRS VOLTAGE IN PRECORDIAL LEADS [QRS DEFLECTION < 1.0 mV IN CHEST LEADS] NONSPECIFIC T-WAVE ABNORMALITY BORDERLINE ECG UNCONFIRMED REPORT Electronically signed by : West Ventura MD 03/04/2023 06:49:50
[2023-03-02 21:01] VITALS: BP 141/88; PULSE 74; RESP 18; TEMP 36.6; O2SAT 99; BMI 39.8
--- NOTE | 2023-03-02 21:06 | XR_ITS ---
PROCEDURE INFORMATION: Exam: XR Chest Exam date and time: 03/02/2023 9:08 PM Age: 57 years old Clinical indication: Sternal or substernal pain; Additional info: Severe cp TECHNIQUE: Imaging protocol: Radiologic exam of the chest. Views: 1 view. COMPARISON: CR XR CHEST PORTABLE 05/28/2021 11:24 AM FINDINGS: Lungs: Subsegmental atelectasis vs airspace disease in the left lung base. Bilateral lungs are otherwise well aerated. No appreciable pulmonary edema. Pleural spaces: No significant pleural effusion. No pneumothorax. Heart/Mediastinum: Cardiomediastinal silouhette is unchanged, noting prominent pericardial fat pad. Bones/joints: No evidence of acute osseous abnormality. IMPRESSION: Subsegmental atelectasis vs airspace disease in the left lung base.
[2023-03-02 21:09] VITALS: PULSE 79
[2023-03-02 21:20] LABS: Chloride 102 mmol/L (98-107); Potassium 4.2 mmoL/L (3.5-5.1); Sodium 140 mmol/L (136-145)
[2023-03-02 21:22] LABS: Alanine Aminotransferase 42 U/L (12-78); Aspartate Amino Transferase 46 U/L (14-36); Blood Urea Nitrogen 21 mg/dl (7-17); Creatinine Clearance Estimated 84 mL/min (50-200); Estimated Glomerular Filt Rate 46 ml/min (>60); GFR (African American) 56 ML/MIN (>60)
[2023-03-02 21:23] LABS: Albumin Level 4.6 g/dl (3.5-5.0); Albumin/Globulin Ratio 1.4 (1.1-1.8); Alkaline Phosphatase 119 U/L (38-126); Anion Gap 14.2 mEq/L (5-15); Bilirubin,Total 1.1 mg/dl (0.2-1.3); Calcium 10.1 mg/dl (8.4-10.2); Carbon Dioxide 28 mmol/L (22.0-30.0); Globulin 3.4 g/dL (1.3-3.2); Glucose 82 mg/dl (74-100)
[2023-03-02 21:31] VITALS: BP 127/76; PULSE 72; RESP 18; O2SAT 98
[2023-03-02 21:32] LABS: Basophils % 0.3 % (0.1-2.0); Eosinophils # 0.1 K/mm3 (0.0-0.4); Eosinophils % 0.9 % (0.1-12.0); Hemoglobin 15.8 g/dL (12.2-16.2); Lymphocytes # 3.5 K/mm3 (0.7-4.5); Lymphocytes % 42.2 % (10-50); Mean Corpuscular HGB Conc 32.8 g/dL (31.8-35.4); Mean Corpuscular Hemoglobin 28.1 pg (27.0-31.2); Mean Corpuscular Volume 85.8 fl (81-99); Mean Platelet Volume 10.2 fl (7.4-10.4); Monocytes # 0.3 K/mm3 (0.1-1.0); Monocytes % 4.2 % (1.7-9.3); Neutrophils # 4.3 K/mm3 (1.8-7.8); Neutrophils % 52.4 % (37.0-80.0); Platelet Count 209 K/mm3 (142-424); Red Cell Distribution Width 14.5 % (11.5-17.5); White Blood Count 8.3 K/mm3 (4.8-10.8)
[2023-03-02 21:43] LABS: Troponin I < 0.01 ng/ml (0.00-0.034)
--- NOTE | 2023-03-02 21:50 | HMH.EDGENADL ---
Discharge Plan Disposition Patient Disposition: Admitted Condition: Serious Clinical Impressions Clinical Impression: Acute non-ST elevation myocardial infarction (NSTEMI), Chest pain, Aortic aneurysm Discharge ED Provider: Jose D Lundberg General Adult HPI <Jose D Lundberg MD - Last Filed: 03/02/23 23:45> General Chief complaint: Chest Pain Stated complaint: chest pain Time Seen by Provider: 03/02/23 21:05 Mode of Arrival: Wheelchair Source of Information: Patient Limitations: No Limitations Description of Symptoms (Recalled from ER Triage Doc. by RN): pt c/o chest tightness radiating to back and lt arm since 4:30. pt states she took 300mg gabpentin and xanax @ 5:30 with no relief History of Present Illness HPI narrative: Is a 57-year-old female with history of hypertension, hyperlipidemia, right lower extremity DVT currently on Xarelto, CHF, CAD status post stenting, gastric bypass surgery presenting with chest pain. Patient states that chest pain started a few hours prior to arrival when she was walking around her house. Not doing anything exertional. Nothing particular makes it better or worse. It is nonpositional. Associated with shortness of breath. Chest pain is more of a pressure, located in the left side of her chest, radiates through to her left shoulder blade and down her left arm. Mild to moderate in intensity. No neurologic deficits, or any other concerns. Related Data Home Medications Medication Instructions Recorded Confirmed alprazolam 0.5 mg tablet 0.5 mg PO TID PRN Anxiety 01/01/21 03/03/23 potassium chloride 20 mEq 20 meq PO DAILY Potassium 05/28/21 03/03/23 tablet,extended release(part/cryst) supplement doxepin 100 mg capsule 50 mg PO QHS PRN sleep 02/19/22 03/03/23 gabapentin 100 mg capsule 300 mg PO BID NEUROPATHY 02/19/22 03/03/23 rivaroxaban 20 mg tablet (Xarelto) See Rx Instructions .Route 06/24/22 03/03/23 .COMPLEX DVT vortioxetine 10 mg tablet 10 mg PO DAILY Depression 06/24/22 03/03/23 (Trintellix) dulaglutide 1.5 mg/0.5 mL 1.5 mg SQ WEEKLY Diabetes 08/11/22 03/03/23 subcutaneous pen injector (Trulicity) bisoprolol fumarate 10 mg tablet See Rx Instructions .Route 03/03/23 03/03/23 .COMPLEX High Blood Pressure Previous Rx's Medication Instructions Recorded cariprazine 1.5 mg capsule 1.5 mg PO DAILY Mood #30 caps 10/23/21 hydroxyzine pamoate 50 mg capsule 50 mg PO BID PRN anxiety #60 caps 12/10/21 (Vistaril) Allergies Allergy/AdvReac Type Severity Reaction Status Date / Time No Known Allergies Allergy Verified 08/25/22 09:52 PFS <Jose D Lundberg MD - Last Filed: 03/02/23 23:45> [facility] Disclaimer: The information contained in this section may have been updated after the patient was seen, as this information can be updated by other users. Medical History Anxiety CAD (coronary artery disease) Chest pain CHF (congestive heart failure) Depression DVT (deep venous thrombosis) Edema Hyperlipidemia Hypertension Left hand fracture Palpitations Renal insufficiency SVT (supraventricular tachycardia) Surgical History History of hand surgery History of partial hysterectomy Hx of colonoscopy Hx of oral surgery Hx of tonsillectomy Previous section Family History Other Colon cancer Family history of cancer Family history of myocardial infarction Social History Smoking Status: Never smoker alcohol intake: never substance use type: denies use current occupational status: retired Travel in the last 8 weeks: Inside the [place] number of children: 2 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
[2023-03-02 21:51] LABS: Lipase 216 U/L (23-300)
--- NOTE | 2023-03-02 21:53 | CT_ITS ---
PROCEDURE INFORMATION: Exam: CTA Chest With Contrast Exam date and time: 03/02/2023 10:32 PM Age: 57 years old Clinical indication: Pain; Radiating; Additional info: Acute cp radiating to back TECHNIQUE: Imaging protocol: Computed tomographic angiography of the chest with contrast. Exam focused on the arteries. 3D rendering (Not supervised by radiologist): MIP and/or 3D reconstructed images were created by the technologist. Radiation optimization: All CT scans at this facility use at least one of these dose optimization techniques: automated exposure control; mA and/or kV adjustment per patient size (includes targeted exams where dose is matched to clinical indication); or iterative reconstruction. Contrast material: ISOVUE; Contrast volume: 100 ml; Contrast route: INTRAVENOUS (IV); REPORTING DATA: Count of CT and Cardiac NM exams in prior 12 months: This patient has received [address] and 0 known cardiac nuclear medicine studies in the 12 months prior to the current study. COMPARISON: CT ANGIO CHEST 06/30/2019 9:34 AM FINDINGS: Pulmonary arteries: No evidence of large central pulmonary emboli. Technically non-diagnostic exam for exclusion of most pulmonary emboli due to bolus timing for systemic arteries with poor opacification of the pulmonary arteries. Aorta: Mild fusiform aneurysmal dilation of the ascending aorta, measuring 4.0 cm in diameter. No evidence of aortic dissection. Thyroid: Hypoattenuating subcentimeter right thyroid nodule. No routine follow-up is recommended per current guidelines. (Reference: Cates) Lungs: No evidence of acute airspace consolidation. No pulmonary edema. Pleural spaces: No pneumothorax. No pleural effusion. Heart: No cardiomegaly. No significant pericardial effusion. Coronary arteries: Calcific coronary artery disease. Lymph nodes: No enlarged lymph nodes by CT criteria. Bones/joints: Multi-level bridging disc osteophytes in the mid thoracic spine compatible with diffuse idiopathic skeletal hyperostosis (DISH). No evidence of acute osseous abnormality. Soft tissues: Unremarkable. IMPRESSION: 1. No acute findings in the chest. 2. Mild fusiform aneurysmal dilation of the ascending aorta, measuring 4.0 cm in diameter. 3. Calcific coronary artery disease. 4. Diffuse idiopathic skeletal hyperostosis (DISH). COMMENTS: Consistent with the [employer]'s Incidental Findings Committee white paper (J Am Todd Radiol 2015): In patients aged 35 years and older with an incidental thyroid nodule equal to or greater than 1.[address], MRI or extrathyroidal US, further evaluation with dedicated thyroid US is recommended for patients with normal life expectancy and without comorbidities. For smaller nodules without suspicious features, no further evaluation or follow up is recommended. REFERENCES: Sena Cates., et al. (2015). Managing Incidental Thyroid Nodules Detected on Imaging: White Paper of the ACR Incidental Thyroid Findings Committee. Journal of the [employer], 12(2), 143-150.
[2023-03-02 22:01] VITALS: BP 118/67; PULSE 69; RESP 16; O2SAT 97
[2023-03-02 22:01] LABS: NT Pro Brain Natriuretic Pep. 74.7 pg/mL (0-125)
[2023-03-02 23:00] VITALS: BP 102/58; PULSE 69; RESP 15; O2SAT 99
[2023-03-02 23:30] VITALS: BP 107/57; PULSE 67; RESP 14; O2SAT 95
[2023-03-03] VITALS (24 sets, daily range): BP systolic 90–135; BP diastolic 48–85; PULSE 54–75; RESP 14–18; TEMP 36.6–36.9; O2SAT 93–100; BMI 39.4
--- NOTE | 2023-03-03 | IR_ITS ---
APPROVED REPORT Patient Location: Inpatient Construction Representative: ANDREA Nelson RT (R) PROCEDURES Selective coronary angiogram Drug-eluting stent deployment to the proximal and mid LAD Drug-eluting stent deployment to the ostial proximal first diagonal artery INDICATION Elevated troponin consistent with non-ST elevation myocardial infarction, Coronary artery disease Informed consent was obtained prior to the procedure. COMPLICATIONS None Estimated Blood Loss: Less than 10 ml TECHNIQUE One percent lidocaine used to anesthetize the right anterior aspect of the wrist. The right radial artery was accessed via the Seldinger technique. A 6 Spanish sheath was placed in the right radial artery. 2.5 mg of Verapamil, 800 mcg of nitroglycerin, 1mg Lidocaine and 5000 U Heparin were given through the arterial sheath. The papa catheter was also used to perform selective coronary angiography. At the end the diagnostic angiogram therapeutic Was administered giving a therapeutic ACT and the guide catheter was placed in left main artery followed by Choice PT extra-support wire being placed on the LAD. A 3.5 x 30 mm Iglesia frontier stent was deployed at 14 malcolm reducing the severe stenosis to 0%. There was significant jailing of a large first diagonal artery therefore an additional Choice PT wire was placed into the first diagonal artery and a 2 mm balloon was used to open the struts. Following this a 2.5 x 12 mm Iglesia frontier stent was placed in the ostium of the diagonal artery with a small amount sticking out into the LAD itself and deployed at 16 malcolm. The wire and the balloon was pulled out of the diagonal artery after achieving excellent angiographic results and a fresh 3.5 x 12 mm noncompliant balloon was placed adjacent to the first diagonal artery and deployed at 16 malcolm. The balloon was brought back into the proximal portion and deployed at 16 malcolm. VANIA II flow was present at the beginning of the procedure with VANIA-3 flow at the end of the procedure in the LAD and diagonal artery. At the end the procedure the apparatus was removed the sheath was removed and hemostasis was achieved using TR banding patient was transferred to the postop putting in stable condition ANGIOGRAPHIC RESULTS The left main artery Normal The left anterior descending artery Has proximal 60 to 70% stenosis with a 70 to 80% stenosis immediately distal to the first diagonal artery. Distally there are 10 to 20% luminal regularities The circumflex artery Is a large dominant vessel and normal The right coronary artery Vestigial normal The JOHNSON ventriculogram reveals Not performed The left ventricular end-diastolic pressure Not measured IMPRESSION Severe proximal LAD disease as described above Successful stenting of the proximal LAD with successful bifurcating stenting into a large first diagonal artery severe disease reduced to 0% with 1 stent in the LAD and 1 stent bifurcating into a large first diagonal artery PLAN 1. Effient 10 mg daily plus aspirin 81 mg daily 2. LDL less than 55 to be achieved with high intensity statin 3. Avoidance of tobacco products 4. Cardiac rehabilitation 5. Recommend echocardiogram 6. Aggressive risk factor modification Electronically signed by : Jamal Oviedo MD 03/03/2023 12:05:45
[2023-03-03 01:11] LABS: Troponin I 0.12 ng/ml (0.00-0.034)
--- NOTE | 2023-03-03 01:25 | ECG_ITS ---
APPROVED REPORT Exam: Resting ECG HR:71 bpm ECG Measurements Heart Rate 71 AXES [place] 234 P 61 QRSd 106 QRS 19 QT 413 T 25 QTc 436 Conclusion SINUS RHYTHM WITH FIRST DEGREE AV BLOCK LOW QRS VOLTAGE IN PRECORDIAL LEADS [QRS DEFLECTION < 1.0 mV IN CHEST LEADS] NONSPECIFIC T-WAVE ABNORMALITY ABNORMAL ECG UNCONFIRMED REPORT Electronically signed by : West Ventura MD 03/04/2023 06:47:36
--- NOTE | 2023-03-03 01:36 | PC.NURSE ---
on phone with dr reddy
--- NOTE | 2023-03-03 01:41 | PC.NURSE ---
notified bath house attendant of admission
--- NOTE | 2023-03-03 02:09 | PC.NURSE ---
Pt. arrived to floor via wheelchair at 2:09.
[2023-03-03 03:47] LABS: Troponin I < 0.01 ng/ml (0.00-0.034)
--- NOTE | 2023-03-03 06:55 | PC.NURSE ---
zainab reddy r/t shoulder, neck and cp on left side -- verbal orders for nitro -- see provider notification for details
--- NOTE | 2023-03-03 07:54 | HMH.PHAINT1 ---
Pharmacy Intervention Comments: Medication history complete, medication list verified with fill history. - Jennifer Olea, PharmD Candidate 2023
--- NOTE | 2023-03-03 09:57 | EXP.HP ---
History of Present Illness *Admission Date: 03/03/23 *Reason for visit:: chest pain *History of present illness: Ms. Gonzalez is a 57-year-old female with history of hypertension, hyperlipidemia, right lower extremity DVT currently on Xarelto, depression/anxiety, and a history of gastric bypass surgery who presented to the ER last night with chest pain. She states she began having pain in between her shoulder blades around 4:00 PM yesterday. Became progressively worsened and spread to her left shoulder blade and began going down her left arm. It then proceeded to radiate around into the middle and left side of her chest. She became very short of breath and felt poorly. She drove herself to the emergency room around 8 PM last night. She states she has continued with chest pain and nitroglycerin eased it only slightly. She does have a history of coronary calcification seen on CT scan. [facility] Disclaimer: The information contained in this section may have been updated after the patient was seen, as this information can be updated by other users. Medical History (Updated 03/03/23 @ 10:12 by FLORINA Edward) Anxiety CAD (coronary artery disease) Chest pain CHF (congestive heart failure) Depression DVT (deep venous thrombosis) Edema Hyperlipidemia Hypertension Left hand fracture Palpitations Renal insufficiency SVT (supraventricular tachycardia) Surgical History (Updated 03/03/23 @ 10:08 by FLORINA Edward) H/O gastric sleeve History of hand surgery History of laparoscopy History of partial hysterectomy History of root canal procedure Hx of colonoscopy Hx of oral surgery Hx of tonsillectomy Previous section Family History (Updated 03/03/23 @ 10:08 by FLORINA Edward) Colon cancer Family history of cancer Hyperlipidemia Family history of myocardial infarction Hypertension Social History Smoking Status: Never smoker alcohol intake: never substance use type: denies use current occupational status: retired Travel in the last 8 weeks: Inside the [place] number of children: 2 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 Review of Systems Constitutional Constitutional: Reports fatigue, Denies fever(s), Reports headache(s), Reports malaise and Reports weakness Eyes Eyes: Denies blurry vision and Denies diplopia ENT Ears, Nose, Mouth, and Throat: Reports headache(s), Denies nasal congestion, Denies sore throat and Reports vertigo *Cardiovascular Cardiovascular: Reports chest pain, Reports dyspnea, Reports irregular heart rhythm and Reports leg edema *Respiratory Respiratory: Denies cough and Reports dyspnea *Gastrointestinal Gastrointestinal: Denies abdominal pain, Denies diarrhea, Denies nausea and Denies vomiting *Genitourinary Genitourinary: Denies difficulty voiding and Denies dysuria *Musculoskeletal Musculoskeletal: Reports back pain *Neurologic Neurologic: Denies confusion, Reports headache(s), Reports paresthesias, Reports vertigo and Reports weakness Psychiatric Psychiatric: Reports anxiety, Denies confusion and Reports depression Endocrine Endocrine: Reports fatigue Meds Home Medications and Allergies Home Medications Medication Instructions Recorded Confirmed Type alprazolam 0.5 mg tablet 0.5 mg PO TID PRN Anxiety 01/01/21 03/03/23 History potassium chloride 20 mEq 20 meq PO DAILY Potassium 05/28/21 03/03/23 History tablet,extended release(part/cryst) supplement hydroxyzine pamoate 50 mg capsule 50 mg PO BID PRN anxiety #60 caps 12/10/21 03/03/23 Rx (Vistaril) gabapentin 100 mg capsule 300 mg PO BID Neuropathic pain 02/19/22 03/03/23 History rivaroxaban 20 mg tablet (Xarelto) 20 mg PO DAILY Blood Thinner 06/24/22 03/03/23 History vortioxetine 10 mg tablet 10 mg PO DAILY Mood 06/24/22 03/03/23 History (Trintellix) Lactobacillus acidophilus 10 10 cell PO DAILY Supplementation 03/03/23 03/03/23 History billion cell capsul
--- NOTE | 2023-03-03 10:31 | EXP.CARD.CON ---
History of Present Illness History of Present Illness Consult date: 03/03/23 Requesting physician: David Tobin Consult reason: chest pain Chief complaint: chest pain, NSTEMi History of present illness: 57 year old female with past medical history of hypertension, hyperlipidemia, unprovoked right lower extremity DVT on Xarelto and history of gastric bypass surgery presented to emergency department last night with complaints of left shoulder pain and chest pressure that started around 4 PM, was progressive and worsened throughout the evening, associated with soa. Initial EKG shows normal sinus rhythm rate of 75 with nonspecific T wave abnormality, negative for acute ischemic changes. Labs as follow: WBC 8.3, hemoglobin 15.8, sodium 140, potassium 4.2, creatinine 1.2, initial troponin 0.01 trending up to 0.12. A CTA of chest was negative for acute findings, a stable aneurysmal dilation of the ascending aorta measuring 4.0 cm was noted. Patient continued to have chest pain and was admitted for cardiology evaluation. [facility] Disclaimer: The information contained in this section may have been updated after the patient was seen, as this information can be updated by other users. Medical History (Updated 03/03/23 @ 10:12 by FLORINA Edward) Anxiety CAD (coronary artery disease) Chest pain CHF (congestive heart failure) Depression DVT (deep venous thrombosis) Edema Hyperlipidemia Hypertension Left hand fracture Palpitations Renal insufficiency SVT (supraventricular tachycardia) Surgical History (Updated 03/03/23 @ 10:08 by FLORINA Edward) H/O gastric sleeve History of hand surgery History of laparoscopy History of partial hysterectomy History of root canal procedure Hx of colonoscopy Hx of oral surgery Hx of tonsillectomy Previous section Family History (Updated 03/03/23 @ 10:08 by FLORINA Edward) Other Colon cancer Family history of cancer Family history of myocardial infarction Hyperlipidemia Hypertension Social History Smoking Status: Never smoker alcohol intake: never substance use type: denies use current occupational status: retired Travel in the last 8 weeks: Inside the [place] number of children: 2 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 Review of Systems Constitutional Constitutional: Reports headache(s) and Reports weakness ENT Ears, Nose, Mouth, and Throat: Reports headache(s) and Reports vertigo *Cardiovascular Cardiovascular: Reports chest pain and Reports dyspnea *Respiratory Respiratory: Reports dyspnea *Neurologic Neurologic: Denies confusion, Reports headache(s), Reports paresthesias, Reports vertigo and Reports weakness Psychiatric Psychiatric: Denies confusion Exam Data for Last 24 hours Vital signs and Labs for Last 24 Hours: Temp Pulse Resp BP Pulse Ox O2 Del Method O2 Flow Rate 97.9 F 65 18 106/50 L 97 Nasal Cannula 2 03/03/23 07:35 03/03/23 07:35 03/03/23 07:35 03/03/23 07:35 03/03/23 07:35 03/03/23 07:35 03/03/23 07:35 Laboratory Results - last 24 hr 03/02/23 21:07: WBC 8.3, RBC 5.60 H, Hgb 15.8, Hct 48.0 H, MCV 85.8, MCH 28.1, MCHC 32.8, RDW 14.5, Plt Count 209, MPV 10.2, Neut % (Auto) 52.4, Lymph % (Auto) 42.2, Polk % (Auto) 4.2, Eos % (Auto) 0.9, Baso % (Auto) 0.3, Neut # (Auto) 4.3, Lymph # (Auto) 3.5, Polk # (Auto) 0.3, Eos # (Auto) 0.1, Baso # (Auto) 0.0, Sodium 140, Potassium 4.2, Chloride 102, Carbon Dioxide 28, Anion Gap 14.2, BUN 21 H, Creatinine 1.20 H, Estimated Creat Clear 84, Estimated GFR 46 L, Est GFR ( Amer) 56 L, Glucose 82, Calcium 10.1, Total Bilirubin 1.1, AST 46 H, ALT 42, Alkaline Phosphatase 119, Troponin I < 0.01, NT-Pro-B Natriuret Pep 74.7, Total Protein 8.0, Albumin 4.6, Globulin 3.4 H, Albumin/Globulin Ratio 1.4, Lipase 216 03/03/23 00:40: Troponin I 0.12 H 03/03/23 03:10: Troponin I < 0.01 I & O for Last 24 hours: Intake & Output 02/28/23
--- NOTE | 2023-03-03 10:47 | CA_ITS ---
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 Thomas CRT Ht: 5 ft 4 in Wt: 231lbs BSA: 2.08 BP: 106/50 mmHg Indications: Chest Pain, Shortness of Breath, Non STEMI, Palpitations, Hyperlipidemia, STENTS TODAY, GASTRIC BYPASS, AAA 2D Dimensions LVOT 2.07 cm (M/F) 1.5-2.5 LA Volume 34.20 mL LA Volume Index 16.10 mL/m2 (M/F) 16-34 M-Mode Dimensions RVDd 2.50 cm (0.9-2.6) LA Diam 3.50 cm (1.9-4.0) LVDd 4.79 cm (3.5-5.7) Ao Diam 3.77 cm (2.0-3.7) LVDs 2.54 cm (3.5-5.7) IVSd 1.57 cm (0.6-1.1) PWd 0.57 cm (0.6-1.1) EF (Teich) 78.30% FS 47.00% EDV (Teich) 107.00 mL TAPSE 1.92 (<1.7) ESV (Teich) 23.20 mL LV Diastology E Decel Time 120.00 (160-240 msec) E/A Ratio 0.97 MED E' 6.70 (< 7 cm/sec) MED A' 8.20 cm/s E'/MED E' Ratio 13.46 (>14) LAT E' 8.10 (<10 cm/sec) LAT A' 9.20 cm/s E/LAT E' Ratio 11.14 (>14) Aortic Valve AO Peak GR. 8.40 mmHg Mitral Valve MV A Velocity 93.00 (40-130 cm/s) E/A Ratio 0.97 MV Decel. Time 120.00 (160-240 ms) Pulmonary Valve PV Peak Velocity 120.00 (50-150 cm/s) Tricuspid Valve TR P. Velocity 211.00 cm/s RAP Estimate 10.00 mmHg RVSP 27.90 mmHg Left Ventricle The left ventricle is normal size. The left ventricular systolic function is normal. The left ventricular ejection fraction is within the normal range. There is normal left ventricular wall thickness. There is normal LV segmental wall motion. The left ventricular diastolic function is normal. LVEF is 55%. Right Ventricle The right ventricle is normal size. The right ventricular systolic function is normal. Atria The left atrium size is normal. The right atrium size is normal. There is no Doppler evidence of interatrial shunt. Aortic Valve The aortic valve opens well. There is no aortic valvular stenosis. No aortic regurgitation is present. Mitral Valve The mitral valve is normal in structure. No evidence of mitral valve stenosis. Mild mitral regurgitation. Tricuspid Valve The tricuspid valve leaflets are thin and pliable. Trace tricuspid regurgitation. RVSP is normal. Pulmonic Valve The pulmonary valve is normal in structure. Trace pulmonic regurgitation. Great Vessels The aortic root is normal in size. The ascending aorta is mildly normal. Ascending aorta diameter measures 3.9 cm. IVC is normal in size and collapses >50% with inspiration. Pericardium There is no pericardial effusion. Other Information Study Quality: Adequate Conclusion Normal biventricular systolic function. No significant valvular disease. Mildly dilated ascending aorta 3.9 cm. Electronically signed by : Taylor Connell, 03/03/2023 23:03:08
[2023-03-03 12:09] LABS: CATHL Activated Clotting Time 323 SEC (74-125)
[2023-03-03 12:43] LABS: Direct LDL Cholesterol 125.31 mg/dL (100-129)
--- NOTE | 2023-03-03 21:45 | PC.NURSE ---
Spoke with Dr Tobin to have pts night meds ordered. Rest of pts home meds will need to be ordered tomorrow.
[2023-03-04] VITALS: BP 109/68; PULSE 50; PULSE 56; RESP 18; TEMP 36.7; O2SAT 95
[2023-03-04 04:00] VITALS: BP 113/75; PULSE 57; PULSE 60; RESP 18; TEMP 36.8; O2SAT 98; BMI 39.2
--- NOTE | 2023-03-04 05:20 | PC.NURSE ---
Pt medicated PRN per MAR for pain and anxiety this shift. Pt has had no other complaints. Denies CP or SOA. Remains on RA. Sinus Heath - NSR on tele.
[2023-03-04 08:00] VITALS: BP 133/71; PULSE 70; PULSE 80; RESP 16; TEMP 36.4; O2SAT 97
--- NOTE | 2023-03-04 08:44 | EXP.ACUTE.PN ---
Subjective *Date: 03/04/23 *Time: 09:05 Interval history: The patient states she is feeling much better today. She no longer has back pain or chest pressure. Her shortness of breath has also resolved. She slept off and on last night and has been able to eat breakfast. She wants to go home. Medical Exam Vital signs and Labs for Last 24 Hours: Vital Signs Temp Pulse Pulse Pulse Resp BP Pulse Ox 03/04/23 08:00 97.6 F 80 16 133/71 97 03/04/23 06:51 03/04/23 04:00 60 03/04/23 05:00 03/04/23 04:00 98.2 F 57 L 18 113/75 98 03/03/23 20:00 66 03/04/23 03:00 03/04/23 00:00 50 L 03/04/23 01:00 03/03/23 23:00 03/03/23 21:00 03/04/23 00:00 98.1 F 56 L 18 109/68 L 95 03/03/23 20:00 03/03/23 19:54 98.4 F 55 L 18 102/62 L 96 03/03/23 18:32 03/03/23 16:13 60 03/03/23 16:20 57 L 18 105/69 L 97 03/03/23 17:00 03/03/23 15:20 56 L 16 135/85 99 03/03/23 14:50 60 16 117/66 98 03/03/23 14:20 61 18 108/48 L 98 03/03/23 13:50 65 16 118/65 96 03/03/23 13:20 64 16 101/55 L 98 03/03/23 13:05 59 L 18 94/60 L 97 03/03/23 12:50 62 17 100/61 L 96 03/03/23 12:40 54 L 16 129/65 100 03/03/23 14:55 03/03/23 13:00 03/03/23 12:20 63 18 98/59 L 98 03/03/23 12:20 59 L 18 98/58 L 99 03/03/23 12:15 56 L 57 L 18 109/63 L 97 03/03/23 12:15 63 63 18 109/63 L 100 03/03/23 12:10 74 18 103/65 L 98 03/03/23 12:05 72 18 114/72 99 03/03/23 09:00 O2 Del Method O2 Flow Rate 03/04/23 08:00 Room Air 03/04/23 06:51 Room Air 03/04/23 04:00 03/04/23 05:00 Room Air 03/04/23 04:00 Room Air 03/03/23 20:00 03/04/23 03:00 Room Air 03/04/23 00:00 03/04/23 01:00 Room Air 03/03/23 23:00 Room Air 03/03/23 21:00 Room Air 03/04/23 00:00 Room Air 03/03/23 20:00 Room Air 03/03/23 19:54 Room Air 03/03/23 18:32 Room Air 03/03/23 16:13 03/03/23 16:20 Room Air 03/03/23 17:00 Room Air 03/03/23 15:20 Room Air 03/03/23 14:50 Room Air 03/03/23 14:20 Room Air 03/03/23 13:50 Room Air 03/03/23 13:20 Room Air 03/03/23 13:05 Room Air 03/03/23 12:50 Room Air 03/03/23 12:40 Room Air 03/03/23 14:55 Room Air 03/03/23 13:00 Room Air 03/03/23 12:20 Room Air 03/03/23 12:20 Room Air 03/03/23 12:15 Room Air 03/03/23 12:15 Room Air 03/03/23 12:10 Room Air 03/03/23 12:05 Room Air 03/03/23 09:00 Nasal Cannula 2 Intake and Output 03/03/23 03/04/23 03/04/23 19:59 03:59 11:59 Intake Total 480 / 480 Output Total 0 / 0 0 / 0 Balance 480 / 480 0 / 480 Intake: Intake, Oral Amount 480 / 480 Output: Output, Urine Amount 0 / 0 0 / 0 Other: Number of Unmeasured Voids 1 1 Weight 229 lb 8 oz Patient Weight 03/04/23 11:59 Weight 229 lb 8 oz Laboratory Results - last 24 hr 03/03/23 03:10: LDL Cholesterol Direct 125.31 03/03/23 11:39: Activated Clotting Time 323 H* I & O for Labs for Last 24 Hours: Intake & Output 03/01/23 03/02/23 03/03/23 03/04/23 11:59 11:59 11:59 11:59 Intake Total 480 / 480 Output Total 0 / 0 0 / 0 Balance 0 / 0 480 / 480 Weight 231 lb 4.238 oz 229 lb 8 oz Constitutional: Present no acute distress Respiratory: Present CTA bilaterally Cardiac: Present Reg Rate and Rhythm GI: Present soft and normal bowel sounds; Absent distention or tenderness Extremities: Absent edema, clubbing or cyanosis Skin: Present intact Neuro: Present alert and awake Assessment and Plan *Assessment and plan (1) Acute non-ST elevation myocardial infarction (NSTEMI): Status: Acute Category: Medical Code(s): I21.4 - Non-ST elevation (NSTEMI) myocardial infarction (2) Chest pain: Status: Acute Category: Medical Code(s): R07.9 - Chest pain, unspecified (3)
--- NOTE | 2023-03-04 09:25 | EXP.CARD.PN ---
Subjective Subjective Date: 03/04/23 Time: 08:00 Principal diagnosis: Non-STEMI Interval history: Status post left heart cath 03/03/2023, see report below ANGIOGRAPHIC RESULTS The left main artery Normal The left anterior descending artery Has proximal 60 to 70% stenosis with a 70 to 80% stenosis immediately distal to the first diagonal artery. Distally there are 10 to 20% luminal regularities The circumflex artery Is a large dominant vessel and normal The right coronary artery Vestigial normal The JOHNSON ventriculogram reveals Not performed The left ventricular end-diastolic pressure Not measured IMPRESSION Severe proximal LAD disease as described above Successful stenting of the proximal LAD with successful bifurcating stenting into a large first diagonal artery severe disease reduced to 0% with 1 stent in the LAD and 1 stent bifurcating into a large first diagonal artery PLAN 1. Effient 10 mg daily plus aspirin 81 mg daily 2. LDL less than 55 to be achieved with high intensity statin 3. Avoidance of tobacco products 4. Cardiac rehabilitation 5. Recommend echocardiogram 6. Aggressive risk factor modification Electronically signed by : Jamal Oviedo MD 08 Exam Data for Last 24 hours Vital signs and Labs for Last 24 Hours: Temp Pulse Resp BP Pulse Ox O2 Del Method O2 Flow Rate 97.6 F 80 16 133/71 97 Room Air 2 03/04/23 08:00 03/04/23 08:00 03/04/23 08:00 03/04/23 08:00 03/04/23 08:00 03/04/23 08:00 03/03/23 09:00 Laboratory Results - last 24 hr 03/03/23 03:10: LDL Cholesterol Direct 125.31 03/03/23 11:39: Activated Clotting Time 323 H* I & O for Last 24 hours: Intake & Output 03/01/23 03/02/23 03/03/23 03/04/23 23:59 23:59 23:59 23:59 Intake Total 480 / 480 Output Total 0 / 0 Balance 480 / 480 Weight 232 lb 231 lb 4.238 oz 229 lb 8 oz Constitutional Constitutional: no acute distress *Routine Respiratory Exam Respiratory: Present CTA bilaterally and symmetric chest movement *Routine Cardiovascular Exam Cardiovascular: Present RRR, Normal S1 and Normal S2 *Routine Abdominal Exam Abdominal: Present soft and normoactive bowel sounds; Absent tenderness *Routine Extremities Exam Extremities: Present full ROM and normal capillary refill; Absent edema *Routine Skin Exam Skin: Present intact, dry and warm Detailed Neck Exam: Thyroids Thyroid: Absent bruit Progress Note: A&P Assessment and plan (1) Acute non-ST elevation myocardial infarction (NSTEMI): Status: Acute (2) Chest pain: Status: Acute (3) Aortic aneurysm: Status: Acute (4) Hypertension: Status: Chronic (5) Hyperlipidemia: Status: Chronic (6) History of DVT (deep vein thrombosis): Status: Chronic (7) Depression with anxiety: Status: Chronic (8) Coronary artery calcification seen on CT scan: Status: Chronic (9) Status post coronary artery stent placement: Status: Acute (10) CAD (coronary artery disease): Status: Chronic Assessment and Plan Assessment and Plan for All Diagnoses:: NSTEMi Unstable angina CCS3 Stable aortic aneursym -Troponin 0.01 trending up to 0.12 -EKG negative for acute ischemic changes -History of coronary calcifications noted on CT -Plan for left heart catheterization today. Discussed risk versus benefits with patient she is agreeable. -Stable 4.0 cm aneurysmal dilation of the ascending aorta noted on CTA 03/02/2023 -Echo-normal biventricular systolic function, no significant valve disease, mildly dilated ascending aorta 3.9 cm 03/04/2023: Status post left heart cath with CAMILLA to LAD. Continue DAPT therapy with aspirin and Plavix(will switch from Effient to Plavix due to need for triple therapy, reloaded with Plavix) beta-haley and high-dose statin. History of unprovoked DVT -Maintained on Xarelto 20 mg p.o. daily. We will decrease Xarelto to 15 mg daily due need for Plavix as well. We will add Protonix 40 mg braden
[2023-03-04 12:00] VITALS: PULSE 50
[2023-03-04 12:19] VITALS: BP 114/66; PULSE 55; RESP 18; TEMP 36.7; O2SAT 95
--- NOTE | 2023-03-04 13:47 | P.CONPHA_ITS ---
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
--- NOTE | 2023-03-04 14:08 | PC.NURSE ---
Addendum entered by Sayda Valenzuela RN 03/04/23 14:18: also verified with her that metoprolol would be okay to go home with even though heart rate had moments in the 50-60s. Original Note: removed cath dressing from wrist, noted some swelling underneath and notified a zandra estradan. she stated to go ahead and order an ultrasound of it at this time.
--- NOTE | 2023-03-04 14:16 | CA_ITS ---
FINAL REPORT CLINICAL HISTORY: RT WRIST SWELLING,S/P CATH WITH RT WRIST ACCESS YESTERDAY FINDINGS: Spectral and Doppler waveform evaluations of the right wrist was performed. Spectral analysis was performed. There is no evidence of pseudoaneurysm. IMPRESSION: No evidence of pseudoaneurysm. Reviewed, Interpreted and Dictated by Enrrique Wood MD Transcribed by Manuela Bahena Authenticated and [facility]
--- NOTE | 2023-03-05 14:20 | CARE MANAGER ---
Spoke with patient related to hospital discharge. She picked up her medications and is aware of her follow up appointments. Denies any questions or concerns. OWEN Izaguirre
--- NOTE | 2023-03-09 23:08 | EXP.DC.SUM ---
General Admission date:: 03/03/23 Discharge date: 03/04/23 HPI HPI HPI: Ms. Gonzalez is a 57-year-old female with history of hypertension, hyperlipidemia, right lower extremity DVT currently on Xarelto, depression/anxiety, and a history of gastric bypass surgery who presented to the ER last night with chest pain. She states she began having pain in between her shoulder blades around 4:00 PM yesterday. Became progressively worsened and spread to her left shoulder blade and began going down her left arm. It then proceeded to radiate around into the middle and left side of her chest. She became very short of breath and felt poorly. She drove herself to the emergency room around 8 PM last night. She states she has continued with chest pain and nitroglycerin eased it only slightly. She does have a history of coronary calcification seen on CT scan. Hospital Course Hospital Course Hospital Course: Patient's chest x-ray showed subsegmental atelectasis versus airspace disease in the left lung base. Her chest CTA showed mild fusiform aneurysmal dilatation of the ascending aorta measuring at 4 cm, calcific coronary artery disease, and diffuse idiopathic skeletal hyperostosis. The patient continued with chest pain and did get some relief with sublingual nitroglycerin. Cardiology was consulted and the patient had a heart cath. She received 2 stents to the LAD and felt much better. By 03/04/2023 she no longer had any chest or back discomfort. Her shortness of breath resolved. She was able to eat breakfast and wanted to go home. She was stable to be discharged and will follow-up with both Dr. Koroma and cardiology. Exam Data for Last 24 hours Vital signs and Labs for Last 24 Hours: Temp Pulse Resp BP Pulse Ox O2 Del Method O2 Flow Rate 98.1 F 55 L 18 114/66 95 Room Air 2 03/04/23 12:19 03/04/23 12:19 03/04/23 12:19 03/04/23 12:19 03/04/23 12:19 03/04/23 13:00 03/03/23 09:00 Narrative: Constitutional Constitutional: no acute distress *Routine HEENT Exam Head: Present normocephalic and atraumatic Eye: Present EOMI and PERRL ENT: Present mucous membranes moist *Routine Neck Exam Neck: Present supple and full ROM *Routine Respiratory Exam Respiratory: Present CTA bilaterally *Routine Cardiovascular Exam Cardiovascular: Present RRR *Routine Abdominal Exam Abdominal: Present soft and normoactive bowel sounds; Absent tenderness *Routine Rectal Exam Rectal:: deferred *Routine Genitalia Exam Genitalia:: deferred *Routine Extremities Exam Extremities: Present edema (RLE); Absent cyanosis or clubbing *Routine Skin Exam Skin: Present intact; Absent erythema *Routine Neurological Exam Neurological: Present alert and oriented X3 DS: Diagnosis Discharge Diagnosis (1) Acute non-ST elevation myocardial infarction (NSTEMI): Status: Acute Code(s): I21.4 - Non-ST elevation (NSTEMI) myocardial infarction (2) Chest pain: Status: Acute Code(s): R07.9 - Chest pain, unspecified (3) Aortic aneurysm: Status: Acute Code(s): I71.9 - Aortic aneurysm of unspecified site, without rupture (4) Hypertension: Status: Chronic Code(s): I10 - Essential (primary) hypertension Qualifiers: Hypertension type: primary hypertension Qualified Code(s): I10 - Essential (primary) hypertension (5) Hyperlipidemia: Status: Chronic Code(s): E78.5 - Hyperlipidemia, unspecified Qualifiers: Hyperlipidemia type: mixed hyperlipidemia Qualified Code(s): E78.2 - Mixed hyperlipidemia (6) History of DVT (deep vein thrombosis): Status: Chronic Code(s): Z86.718 - Personal history of other venous thrombosis and embolism (7) Depression with anxiety: Status: Chronic Code(s): F41.8 - Other specified anxiety disorders (8) Coronary artery calcification seen on CT scan: Status: Chronic Code(s): I25.10 - Atherosclerotic heart disease
== END 2023-03-04 15:00 | disposition home or self-care (01) | DRG 247 ==
LOC: ER 23:45 → 2ND 03-03 01:52
PROVIDERS: Internal Medicine; Nurse Practitioner; Admitting Provider Internal Medicine Adolescent Medicine; Emergency Provider Emergency Medicine; PCP Family Medicine; Visit Provider Family Medicine
PROC: 027135Z Dilation of Coronary Artery, Two Arteries with Two Drug-eluting Intraluminal Devices, Percutaneous Approach (ICD-10-PCS; principal; 2023-03-03 10:30)
DX: I21.4 Non-ST elevation (NSTEMI) myocardial infarction (principal); I10 Essential (primary) hypertension; E78.2 Mixed hyperlipidemia; Z86.718 Personal history of other venous thrombosis and embolism; Z95.5 Presence of coronary angioplasty implant and graft; I71.9 Aortic aneurysm of unspecified site, without rupture; Z79.899 Other long term (current) drug therapy; Z79.84 Long term (current) use of oral hypoglycemic drugs; E11.9 Type 2 diabetes mellitus without complications; F41.8 Other specified anxiety disorders; I25.110 Atherosclerotic heart disease of native coronary artery with unstable angina pectoris; Z79.01 Long term (current) use of anticoagulants
CPT/HCPCS: 36415; 71045; 71275; 80053; 83690; 83722; 83880; 84484; 85025; 85347; 92929; 92941; 93005; 93306; 93458; 93931; 99152; 99153; 99291; C1725; C1760; C1769; C1874; C1876; C9601; C9606; J1644; Q9967

== ENCOUNTER 2023-03-11 13:16 | Outpatient (RCR) | payer BC, SELFPAY ==
[2023-03-11 16:58] LABS: Basophils % 0.4 % (0.1-2.0); Eosinophils # 0.1 K/mm3 (0.0-0.4); Eosinophils % 1.3 % (0.1-12.0); Hematocrit 45.3 % (37.0-47.0); Hemoglobin 14.9 g/dL (12.2-16.2); Lymphocytes # 2.8 K/mm3 (0.7-4.5); Lymphocytes % 44.5 % (10-50); Mean Corpuscular HGB Conc 32.9 g/dL (31.8-35.4); Mean Corpuscular Hemoglobin 28.5 pg (27.0-31.2); Mean Corpuscular Volume 86.6 fl (81-99); Mean Platelet Volume 9.4 fl (7.4-10.4); Monocytes # 0.3 K/mm3 (0.1-1.0); Monocytes % 4.5 % (1.7-9.3); Neutrophils # 3.1 K/mm3 (1.8-7.8); Neutrophils % 49.4 % (37.0-80.0); Platelet Count 207 K/mm3 (142-424); Red Blood Count 5.24 M/mm3 (4.20-5.40); Red Cell Distribution Width 14.6 % (11.5-17.5); White Blood Count 6.3 K/mm3 (4.8-10.8)
[2023-03-11 18:07] LABS: Chloride 104 mmol/L (98-107); Potassium 4.8 mmoL/L (3.5-5.1); Sodium 142 mmol/L (136-145)
[2023-03-11 18:10] LABS: Alanine Aminotransferase 47 U/L (12-78); Albumin Level 4.1 g/dl (3.5-5.0); Alkaline Phosphatase 146 U/L (38-126); Anion Gap 12.8 mEq/L (5-15); Aspartate Amino Transferase 38 U/L (14-36); Blood Urea Nitrogen 18 mg/dl (7-17); Calcium 9.6 mg/dl (8.4-10.2); Carbon Dioxide 30 mmol/L (22.0-30.0); Cholesterol 180 mg/dl (140-200); Estimated Glomerular Filt Rate 42 ml/min (>60); GFR (African American) 51 ML/MIN (>60); Glucose 81 mg/dl (74-100); Magnesium 1.9 mg/dl (1.6-2.3); Total Protein,Serum 6.7 g/dl (6.3-8.2); Triglycerides 81 mg/dl (30-150); VLDL Cholesterol 16 mg/dL (0-40)
[2023-03-11 18:11] LABS: Chol/HDL Ratio 3.5 (1-3.5); HDL Cholesterol 51 mg/dl (40-60)
[2023-03-11 18:26] LABS: Direct LDL Cholesterol 89.21 mg/dL (100-129)
[2023-03-11 18:27] LABS: Free T4 (Free Thyroxine) 1.17 ng/dl (0.78-2.19)
[2023-03-11 18:41] LABS: Thyroid Stimulating Hormone 1.83 uIU/mL (0.465-4.68)
[2023-03-11 21:14] LABS: Bilirubin,Direct 0.1 mg/dl (0.0-0.4); Bilirubin,Indirect 0.9 mg/dL (0.0-0.9); Bilirubin,Unconjugated 0.9 mg/dL (0.0-1.1)
== END 2023-04-21 14:30 | disposition home or self-care (01) ==
LOC: PT 13:16
PROVIDERS: Nurse Practitioner; Visit Provider Internal Medicine
DX: I25.10 Atherosclerotic heart disease of native coronary artery without angina pectoris (principal); Z95.5 Presence of coronary angioplasty implant and graft
CPT/HCPCS: 36415; 80048; 80061; 80076; 83735; 84439; 84443; 85025; 93798

== ENCOUNTER → 2023-03-11 14:09 | Outpatient (CLI) | payer BC, SELFPAY | PROVIDERS: PCP Psychiatry & Neurology Sleep Medicine; Visit Provider Internal Medicine | DX: I25.10 Atherosclerotic heart disease of native coronary artery without angina pectoris (principal); I10 Essential (primary) hypertension; E78.5 Hyperlipidemia, unspecified; Z95.5 Presence of coronary angioplasty implant and graft ==

== ENCOUNTER 2023-03-14 20:24 | Emergency (ER) | payer BC, SELFPAY ==
[2023-03-14 20:24] VITALS: BP 101/68; PULSE 82; RESP 20; TEMP 37.6; O2SAT 97; BMI 38.2
--- NOTE | 2023-03-14 20:52 | XR_ITS ---
PROCEDURE INFORMATION: Exam: XR Chest Exam date and time: 03/14/2023 8:51 PM Age: 57 years old Clinical indication: Pain; Chest pressure; Additional info: Cp TECHNIQUE: Imaging protocol: Radiologic exam of the chest. Views: 1 view. COMPARISON: CR XR CHEST PORTABLE 03/02/2023 9:08 PM FINDINGS: Lungs: Unremarkable. No consolidation. Pleural spaces: Unremarkable. No pleural effusion. No pneumothorax. Heart/Mediastinum: Unremarkable. No cardiomegaly. Diaphragm: There is elevation of the right hemidiaphragm. Bones/joints: Unremarkable. IMPRESSION: No dense parenchymal consolidation, pleural effusion, or pneumothorax.
--- NOTE | 2023-03-14 20:52 | ECG_ITS ---
APPROVED REPORT Exam: Resting ECG HR:93 bpm ECG Measurements Heart Rate 93 AXES IL 189 P 44 QRSd 97 QRS -34 QT 390 T 45 QTc 441 Conclusion SINUS RHYTHM LEFT AXIS DEVIATION [QRS AXIS < -30] LOW QRS VOLTAGE IN PRECORDIAL LEADS with late R wave progression ABNORMAL ECG UNCONFIRMED REPORT Electronically signed by : West Ventura MD 03/15/2023 15:50:34
[2023-03-14 20:59] LABS: Basophils % 0.3 % (0.1-2.0); Eosinophils % 0.5 % (0.1-12.0); Hematocrit 44.6 % (37.0-47.0); Hemoglobin 14.6 g/dL (12.2-16.2); Lymphocytes # 2.3 K/mm3 (0.7-4.5); Lymphocytes % 26.2 % (10-50); Mean Corpuscular HGB Conc 32.8 g/dL (31.8-35.4); Mean Corpuscular Hemoglobin 27.9 pg (27.0-31.2); Mean Corpuscular Volume 84.9 fl (81-99); Mean Platelet Volume 9.4 fl (7.4-10.4); Monocytes # 0.3 K/mm3 (0.1-1.0); Monocytes % 3.7 % (1.7-9.3); Neutrophils # 6.2 K/mm3 (1.8-7.8); Neutrophils % 69.3 % (37.0-80.0); Platelet Count 204 K/mm3 (142-424); Red Blood Count 5.25 M/mm3 (4.20-5.40); Red Cell Distribution Width 14.3 % (11.5-17.5); White Blood Count 8.9 K/mm3 (4.8-10.8)
[2023-03-14 21:00] VITALS: BP 118/68; PULSE 88; RESP 15; O2SAT 98
[2023-03-14 21:00] LABS: Chloride 104 mmol/L (98-107); Potassium 3.6 mmoL/L (3.5-5.1); Sodium 138 mmol/L (136-145)
[2023-03-14 21:03] LABS: Alanine Aminotransferase 37 U/L (12-78); Albumin Level 4.2 g/dl (3.5-5.0); Albumin/Globulin Ratio 1.3 (1.1-1.8); Alkaline Phosphatase 149 U/L (38-126); Anion Gap 13.6 mEq/L (5-15); Aspartate Amino Transferase 38 U/L (14-36); Bilirubin,Total 1.8 mg/dl (0.2-1.3); Blood Urea Nitrogen 17 mg/dl (7-17); Calcium 9.8 mg/dl (8.4-10.2); Carbon Dioxide 24 mmol/L (22.0-30.0); Creatinine Clearance Estimated 81 mL/min (50-200); Estimated Glomerular Filt Rate 46 ml/min (>60); GFR (African American) 56 ML/MIN (>60); Globulin 3.2 g/dL (1.3-3.2); Glucose 102 mg/dl (74-100); Total Protein,Serum 7.4 g/dl (6.3-8.2)
--- NOTE | 2023-03-14 21:06 | CT_ITS ---
PROCEDURE INFORMATION: Exam: CTA Chest With Contrast Exam date and time: 03/14/2023 9:30 PM Age: 57 years old Clinical indication: Pain; Chest pressure; Additional info: Chest pain radiating to the back TECHNIQUE: Imaging protocol: Computed tomographic angiography of the chest with contrast. Exam focused on the arteries. 3D rendering (Not supervised by radiologist): MIP and/or 3D reconstructed images were created by the technologist. Radiation optimization: All CT scans at this facility use at least one of these dose optimization techniques: automated exposure control; mA and/or kV adjustment per patient size (includes targeted exams where dose is matched to clinical indication); or iterative reconstruction. Contrast material: ISOVUE; Contrast volume: 100 ml; Contrast route: INTRAVENOUS (IV); REPORTING DATA: Count of CT and Cardiac NM exams in prior 12 months: This patient has received 2 known CTs and 0 known cardiac nuclear medicine studies in the 12 months prior to the current study. COMPARISON: CT ANGIO CHEST 03/02/2023 10:32 PM FINDINGS: Pulmonary arteries: There is fair opacification of the pulmonary arterial tree, no central pulmonary arterial filling defect is seen. Aorta: The ascending thoracic aorta is upper limits of normal in size measuring up to 3.9 cm (image 43 series 5). No evidence for dissection or aneurysm of the thoracic aorta. There is atherosclerotic disease of the visualized aorta and its major branch vessels. Lungs: Unremarkable. No consolidation. No masses. Pleural spaces: Unremarkable. No pneumothorax. No pleural effusion. Heart: Unremarkable. No cardiomegaly. No pericardial effusion. Coronary arteries: There is moderate coronary atherosclerotic disease/calcification. Lymph nodes: Unremarkable. No enlarged lymph nodes. Liver: There are partially visualized hyperdensities adjacent posterior right hepatic lobe which may reflect dropped gallstones (image 85 series 5). Gallbladder and bile ducts: The patient is status post cholecystectomy. Stomach and bowel: The patient is status post sleeve gastrectomy. Bones/joints: There is diffuse degenerative disease of the visualized osseous structures. Soft tissues: Unremarkable. IMPRESSION: The ascending thoracic aorta is upper limits of normal in size measuring up to 3.9 cm (image 43 series 5). No evidence for dissection or aneurysm of the thoracic aorta.
--- NOTE | 2023-03-14 21:08 | HMH.EDGENADL ---
Discharge Plan Disposition Patient Disposition: Home, Self-Care Condition: Good Prescriptions Prescriptions: No Action alprazolam 0.5 mg tablet 0.5 mg PO TID PRN (Reason: Anxiety) isosorbide mononitrate 60 mg tablet extended release 24 hr 60 mg PO DAILY Qty: 30 2RF gabapentin 100 mg capsule 300 mg PO BID hydroxyzine pamoate [Vistaril] 50 mg capsule 50 mg PO BID PRN (Reason: anxiety) Qty: 60 1RF atorvastatin 80 mg tablet 80 mg PO DAILY Qty: 30 2RF clopidogrel [Plavix] 75 mg tablet 75 mg PO DAILY Qty: 34 2RF Rx Instructions: Take loading dose of 300mg x 1 then 75mg daily aspirin [Adult Aspirin Regimen] 81 mg tablet,delayed release (DR/EC) 81 mg PO DAILY Qty: 30 2RF pantoprazole [Protonix] 40 mg tablet,delayed release (DR/EC) 40 mg PO DAILY Qty: 30 2RF metoprolol succinate [Toprol XL] 25 mg tablet extended release 24 hr 25 mg PO DAILY Qty: 30 2RF lisinopril 2.5 mg tablet 2.5 mg PO DAILY Qty: 30 2RF Xarelto 15 mg tablet 15 mg PO DAILY Qty: 30 2RF Rx Instructions: must administer with evening meal potassium chloride 20 MEQ tablet 20 meq PO DAILY Trintellix 10 mg tablet 10 mg PO DAILY Hair,Skin and Nails Tablet 1 tab PO DAILY cholecalciferol (vitamin D3) [Vitamin D3] 25 mcg (1,000 unit) Capsule 1 mcg PO DAILY Probiotic 10 billion cell Capsule 10 cell PO DAILY doxepin 50 mg capsule 50 mg PO DAILY omeprazole 20 mg capsule,delayed release(DR/EC) 20 mg PO DAILY Trulicity 0.75 mg/0.5 mL pen injector 0.75 mg SQ WEEKLY Referrals Follow up/Referrals: Sena Koroma MD [Primary Care Provider] - See instructions Activity Restrictions/Add. Instructions Additional Instructions/Restrictions: Please follow-up with your primary care provider. Please return to the emergency department if you develop any new or worsening symptoms or become concerned for your health. Clinical Impressions Clinical Impression: Chest pain, Back pain, Headache Discharge ED Provider: [place] [facility]PI <[place] MD - Last Filed: 03/14/23 23:17> General Chief complaint: Chest Pain Stated complaint: chest pain Time Seen by Provider: 03/14/23 20:52 Mode of Arrival: Ambulatory Source of Information: Patient Limitations: No Limitations Description of Symptoms (Recalled from ER Triage Doc. by RN): Presents to ED with c/o midsternal chest pressure, pain in between her shoulder blades, and SOA since this morning when she woke up. Patient reports having 2 stents placed 1 1/2 weeks ago. PAtient does taking Plavix and Xarelto. History of Present Illness HPI narrative: Patient is a 57-year-old female who is 1-1/2-week status post left heart cath with multiple stents placed after an NSTEMI presenting today with multiple complaints. She states she is having chest pain that is radiating through to her back and her shoulder blade she is also been having some dyspnea some palpitations and a significant headache. Headaches Mazz[place] worsening no sudden component of there is no neurologic symptoms. She states she feels much better than she did when she came in last time with her NSTEMI but is still severe. She states that her current anticoagulation regimen includes a low-dose of Xarelto, Plavix, and 81 mg aspirin. She states he has a history of DVT she has not had a pulmonary embolism in the past. She she denies any asymmetric lower extremity swelling. She does have some ecchymosis on her right upper extremity abdomen from the recent heart cath site. Related Data Home Medications Medication Instructions Recorded Confirmed alprazolam 0.5 mg tablet 0.5 mg PO TID PRN Anxiety 01/01/21 03/11/23 potassium chloride 20 mEq 20 meq PO DAILY Potassium 05/28/21 03/11/23 tablet,extended release(part/cryst) supplement gabapentin 100 mg capsule 300 mg PO BID Neuropathic pain 02/19/22 03/11/23 vortioxetine 10 mg tablet 10 mg
[2023-03-14 21:23] LABS: Troponin I < 0.01 ng/ml (0.00-0.034)
--- NOTE | 2023-03-14 21:59 | ECG_ITS ---
APPROVED REPORT Exam: Resting ECG HR:80 bpm ECG Measurements Heart Rate 80 AXES LA 206 P 49 QRSd 92 QRS -32 QT 386 T 44 QTc 422 Conclusion SINUS RHYTHM LEFT AXIS DEVIATION [QRS AXIS < -30] LOW QRS VOLTAGE IN PRECORDIAL LEADS [QRS DEFLECTION < 1.0 mV IN CHEST LEADS] POSSIBLE ANTERIOR MYOCARDIAL INFARCTION , PROBABLY OLD [30 ms Q WAVE IN V3/V4, OR R < 0.2 mV IN V4] ABNORMAL ECG UNCONFIRMED REPORT Electronically signed by : West Ventura MD 03/16/2023 19:57:37
[2023-03-14 22:00] VITALS: BP 106/72; PULSE 79; RESP 16; O2SAT 97
--- NOTE | 2023-03-14 22:00 | PC.NURSE ---
Rounded on patient and family member nothing needed at this time. Call light within reach
[2023-03-14 22:30] VITALS: BP 108/65; PULSE 77; RESP 18; O2SAT 92
--- NOTE | 2023-03-14 22:43 | PC.NURSE ---
Patient reported she was hurting and is requesting pain medication. MD notified; V/O for 4mg Morphine IVP. Patient also desat'd to 86% RA. Applied 2L NC to patient; patient's sat's improved to 96%
[2023-03-14 23:00] VITALS: BP 107/62; PULSE 71; RESP 16; O2SAT 92
[2023-03-14 23:30] VITALS: BP 103/60; PULSE 67; RESP 18; O2SAT 93
--- NOTE | 2023-03-14 23:31 | PC.NURSE ---
Rounded on patient and family; nothing needed at this time.
[2023-03-15] VITALS: BP 108/67; PULSE 73; RESP 15; O2SAT 96
[2023-03-15 00:30] VITALS: BP 102/60; PULSE 67; RESP 16; O2SAT 99
[2023-03-15 00:30] LABS: Troponin I < 0.01 ng/ml (0.00-0.034)
--- NOTE | 2023-03-15 00:44 | PC.NURSE ---
in room talking with patient at this time.
[2023-03-15 01:00] VITALS: BP 97/65; PULSE 63; RESP 14; O2SAT 98
--- NOTE | 2023-03-15 01:02 | PC.NURSE ---
Report handed off to Ashwin WEAVER.
[2023-03-15 01:24] VITALS: BP 106/68; PULSE 61; RESP 16; TEMP 37.1; O2SAT 94
== END 2023-03-15 01:25 | disposition home or self-care (01) ==
PROVIDERS: Emergency Provider Student in an Organized Health Care Education/Training Program; PCP Family Medicine
DX: R07.9 Chest pain, unspecified (principal); R51.9 Headache, unspecified; M54.6 Pain in thoracic spine; R06.02 Shortness of breath; I25.2 Old myocardial infarction; I25.10 Atherosclerotic heart disease of native coronary artery without angina pectoris; I11.0 Hypertensive heart disease with heart failure; I50.9 Heart failure, unspecified; I47.1 Supraventricular tachycardia; E78.5 Hyperlipidemia, unspecified; F32.A Depression, unspecified; N28.9 Disorder of kidney and ureter, unspecified; F41.9 Anxiety disorder, unspecified; Z79.01 Long term (current) use of anticoagulants; Z79.02 Long term (current) use of antithrombotics/antiplatelets; Z79.82 Long term (current) use of aspirin; Z86.718 Personal history of other venous thrombosis and embolism
CPT/HCPCS: 36415; 71045; 71275; 80053; 84484; 85025; 93005; 96374; 96375; 99285; J0131; Q9967

== ENCOUNTER → 2023-03-18 15:28 | Outpatient (CLI) | payer BC, SELFPAY | PROVIDERS: PCP Family Medicine; Visit Provider Internal Medicine Nephrology | DX: N18.31 Chronic kidney disease, stage 3a (principal) | CPT/HCPCS: 36415 ==

== ENCOUNTER → 2023-03-19 10:36 | Outpatient (CLI) | payer BC, SELFPAY ==
[2023-03-19 11:03] LABS: Microscopic, Urine URINE MICROSCOPIC (MICROSCOPIC)
[2023-03-19 11:40] LABS: Hematocrit 42.6 % (37.0-47.0); Hemoglobin 13.5 g/dL (12.2-16.2); Mean Corpuscular HGB Conc 31.8 g/dL (31.8-35.4); Mean Corpuscular Hemoglobin 28.2 pg (27.0-31.2); Mean Corpuscular Volume 88.8 fl (81-99); Platelet Count 235 K/mm3 (142-424); Red Cell Distribution Width 14.5 % (11.5-17.5); White Blood Count 4.7 K/mm3 (4.8-10.8)
[2023-03-19 11:42] LABS: Appearance,Urine CLEAR (Clear); Bilirubin,Urine Negative (Negative); Blood, Urine Negative (Negative); Color,Urine YELLOW (Yellow); Glucose,Urine (UA) Negative (Negative); Ketones,Urine Negative (Negative); Leukocyte Esterase,Urine TRACE (Negative); Nitrate,Urine Negative (Negative); Protein,Urine Negative (Negative); Urobilinogen,Urine 0.2 EU/dl (0.2)
[2023-03-19 11:54] LABS: Squamous Epithelial Cell,Urine Occasional #/hpf (0-5)
[2023-03-19 11:55] LABS: Creatinine,Urine Random 102 mg/dL (Not Estab.)
[2023-03-19 12:11] LABS: Albumin Level 4.1 g/dl (3.5-5.0); Anion Gap 11.8 mEq/L (5-15); Blood Urea Nitrogen 14 mg/dl (7-17); Calcium 8.9 mg/dl (8.4-10.2); Carbon Dioxide 31 mmol/L (22.0-30.0); Chloride 103 mmol/L (98-107); Estimated Glomerular Filt Rate 51 ml/min (>60); GFR (African American) 62 ML/MIN (>60); Glucose 87 mg/dl (74-100); Phosphorous 3.6 mg/dl (2.5-4.5); Potassium 3.8 mmoL/L (3.5-5.1); Sodium 142 mmol/L (136-145)
[2023-03-19 12:23] LABS: Intact Parathyroid Hormone 33.2 pg/mL (7.5-53.5)
[2023-03-19 12:26] LABS: 25-OH Vitamin D, Total 37.8 ng/mL (30-100)
== END ==
PROVIDERS: Internal Medicine Nephrology; PCP Family Medicine
DX: N18.31 Chronic kidney disease, stage 3a (principal); E55.9 Vitamin D deficiency, unspecified
CPT/HCPCS: 36415; 80069; 81001; 82306; 82570; 83970; 84155; 85014; 85018; 85048; 85049

== ENCOUNTER 2023-09-22 15:31 | Emergency (ER) | payer BC, SELFPAY ==
[2023-09-22] VITALS (8 sets, daily range): BP systolic 110–142; BP diastolic 51–76; PULSE 52–65; RESP 18; TEMP 36.6–36.7; O2SAT 96–100; BMI 38.0
--- NOTE | 2023-09-22 15:43 | CT_ITS ---
PROCEDURE INFORMATION: Exam: CT Abdomen And Pelvis With Contrast Exam date and time: 09/22/2023 4:15 PM Age: 57 years old Clinical indication: Abdominal pain; Generalized; Additional info: Fall, right flank/chest/abd pain on xarelto/plavix TECHNIQUE: Imaging protocol: Computed tomography of the abdomen and pelvis with contrast. Radiation optimization: All CT scans at this facility use at least one of these dose optimization techniques: automated exposure control; mA and/or kV adjustment per patient size (includes targeted exams where dose is matched to clinical indication); or iterative reconstruction. Contrast material: ISOVUE; Contrast volume: 75 ml; Contrast route: IV; COMPARISON: CT ABDOMEN PELVIS WO CON 06/29/2022 11:53 AM FINDINGS: Liver: Significant interval reduction in hepatic steatosis compared with most recent available prior abdominal imaging performed on 06/29/2022. No suspicious liver lesions. No evidence of liver laceration. Gallbladder and bile ducts: Status post cholecystectomy. Post cholecystectomy biliary ectasia, within normal limits. Pancreas: Unremarkable. Spleen: No evidence of splenic laceration. Adrenal glands: Unremarkable. Kidneys and ureters: Moderate cortical atrophy in the left kidney with multifocal cortical scarring, grossly unchanged from prior exam. Bilateral punctate (2-3 mm) non-obstructing renal stones. No hydronephrosis. Simple renal cyst in the right kidney. No evidence of acute kidney injury. Stomach and bowel: Post-operative changes of prior gastric sleeve surgery. Colonic diverticulosis without evidence of acute diverticulitis. Appendix: Appendix is visualized and is normal. Intraperitoneal space: No free fluid. No pneumoperitoneum. Vasculature: No abdominal aortic aneurysm. Lymph nodes: Unremarkable. Urinary bladder: Unremarkable. Reproductive: Status post hysterectomy. Bones/joints: No evidence of acute osseous abnormality. Soft tissues: Unremarkable. IMPRESSION: 1. No acute findings in the abdomen or pelvis. 2. Significant interval reduction in hepatic steatosis compared with most recent available prior abdominal imaging performed on 06/29/2022. 3. Bilateral punctate (2-3 mm) non-obstructing renal stones. 4. Colonic diverticulosis without evidence of acute diverticulitis. 5. Concurrent chest CT reported separately. COMMENTS: Consistent with the [employer]'s Incidental Findings Committee white paper (J Am Todd Radiol 2018): Any incidental renal lesion less than 1 cm or classified as too small to characterize, or any incidental cystic renal lesion characterized as simple-appearing, is likely benign. No follow-up imaging is recommended for these lesions per consensus recommendations based on imaging criteria.
--- NOTE | 2023-09-22 15:43 | CT_ITS ---
PROCEDURE INFORMATION: Exam: CT Chest With Contrast; Diagnostic Exam date and time: 09/22/2023 4:15 PM Age: 57 years old Clinical indication: Pain; Right-sided; Additional info: Fall, right flank/chest/abd pain on xarelto/plavix TECHNIQUE: Imaging protocol: Diagnostic computed tomography of the chest with contrast. Radiation optimization: All CT scans at this facility use at least one of these dose optimization techniques: automated exposure control; mA and/or kV adjustment per patient size (includes targeted exams where dose is matched to clinical indication); or iterative reconstruction. Contrast material: ISOVUE; Contrast volume: 75 ml; Contrast route: IV; COMPARISON: CT ANGIO CHEST 03/14/2023 9:30 PM FINDINGS: Thyroid: Subcentimeter right thyroid nodule. No routine follow-up is recommended per current guidelines. (Reference: Darryn) Lungs: No evidence of pulmonary contusion. No pulmonary edema. Pleural spaces: No pleural effusion. No pneumothorax. Heart: No cardiomegaly. No significant pericardial effusion. Coronary arteries: Calcific coronary artery disease status post coronary artery revascularization. Lymph nodes: Unremarkable. Vasculature: Ascending aortic ectasia measuring 3.9 cm in diameter. No aortic dissection. Bones/joints: No evidence of rib fracture or other acute osseous abnormality. Soft tissues: Unremarkable. IMPRESSION: 1. No acute findings in the chest. 2. Concurrent CT abdomen/pelvis reported separately. COMMENTS: Consistent with the [employer]'s Incidental Findings Committee white paper (J Am Todd Radiol 2015): In patients aged 35 years and older with an incidental thyroid nodule equal to or greater than 1.[address], MRI or extrathyroidal US, further evaluation with dedicated thyroid US is recommended for patients with normal life expectancy and without comorbidities. For smaller nodules without suspicious features, no further evaluation or follow up is recommended. REFERENCES: Sena Cates, et al. (2015). Managing Incidental Thyroid Nodules Detected on Imaging: White Paper of the [employer] Incidental Thyroid Findings Committee. Journal of the [employer], 12(2), 143-150.
--- NOTE | 2023-09-22 15:47 | HMH.EDGENADL ---
Discharge Plan Disposition Patient Disposition: Home, Self-Care Prescriptions Prescriptions: New ibuprofen 800 mg tablet 800 mg PO TID PRN (Reason: pain) 7 Days Qty: 20 0RF cyclobenzaprine 5 mg tablet 5 mg PO TID PRN (Reason: muscle spasm) 5 Days Qty: 15 0RF No Action alprazolam 0.5 mg tablet 0.5 mg PO TID PRN (Reason: Anxiety) gabapentin 100 mg capsule 300 mg PO BID hydroxyzine pamoate [Vistaril] 50 mg capsule 50 mg PO BID PRN (Reason: anxiety) Qty: 60 1RF isosorbide mononitrate 60 mg tablet extended release 24 hr 60 mg PO DAILY Qty: 90 1RF clopidogrel [Plavix] 75 mg tablet 75 mg PO DAILY Qty: 90 1RF lisinopril 2.5 mg tablet 2.5 mg PO DAILY Qty: 90 1RF atorvastatin 80 mg tablet 80 mg PO DAILY Qty: 90 1RF metoprolol succinate [Toprol XL] 25 mg tablet extended release 24 hr 25 mg PO DAILY Qty: 90 1RF Xarelto 15 mg tablet 15 mg PO DAILY Qty: 90 1RF Rx Instructions: must administer with evening meal pantoprazole [Protonix] 40 mg tablet,delayed release (DR/EC) 40 mg PO DAILY Qty: 90 1RF potassium chloride 20 MEQ tablet 20 meq PO DAILY Trintellix 10 mg tablet 10 mg PO DAILY Hair,Skin and Nails Tablet 1 tab PO DAILY cholecalciferol (vitamin D3) [Vitamin D3] 25 mcg (1,000 unit) Capsule 1 mcg PO DAILY Probiotic 10 billion cell Capsule 10 cell PO DAILY doxepin 50 mg capsule 50 mg PO DAILY Trulicity 0.75 mg/0.5 mL pen injector 0.75 mg SQ WEEKLY Referrals Follow up/Referrals: Sena Koroma MD [Primary Care Provider] - See instructions Activity Restrictions/Add. Instructions Additional Instructions/Restrictions: No traumatic abnormalities found in your workup today. Your urinalysis was abnormal but consistent with contamination no evidence of any blood from a trauma standpoint. Anti-inflammatory medication and muscle laxer have been prescribed to you. You may follow-up with primary care doctor as needed and return emerged part with any significant worsening symptoms. Clinical Impressions Clinical Impression: Contusion of right chest wall, Abdominal wall contusion, Anticoagulated Instructions Patient Instructions: DI for Acute Abdominal Pain Discharge ED Provider: [place] [facility] HPI General Chief complaint: Abdominal Pain Stated complaint: sent by Dr. Koroma. abd pain Time Seen by Provider: 09/22/23 15:35 History of Present Illness HPI narrative: Is a 57-year-old female who is chronically anticoagulated on Xarelto for DVTs and also on Plavix for antiplatelet in association with stents that she had placed from an NH last fall presents today with right upper quadrant and right flank pain following a fall. This happened several days ago she fell onto her [employer] toy box with direct blunt trauma to the right lateral aspect of her chest wall and the rib cage to the right upper quadrant and right flank. She has had pretty severe pain since that time. No injuries elsewhere. Related Data Home Medications Medication Instructions Recorded Confirmed alprazolam 0.5 mg tablet 0.5 mg PO TID PRN Anxiety 01/01/21 03/24/23 potassium chloride 20 mEq 20 meq PO DAILY Potassium 05/28/21 03/24/23 tablet,extended release(part/cryst) supplement gabapentin 100 mg capsule 300 mg PO BID Neuropathic pain 02/19/22 03/24/23 vortioxetine 10 mg tablet 10 mg PO DAILY Mood 06/24/22 03/24/23 (Trintellix) Lactobacillus acidophilus 10 10 cell PO DAILY Supplementation 03/03/23 03/24/23 billion cell capsule (Probiotic) cholecalciferol (vitamin D3) 25 1 mcg PO DAILY Supplementation 03/03/23 03/24/23 mcg (1,000 unit) capsule (Vitamin D3) doxepin 50 mg capsule 50 mg PO DAILY Mood 03/03/23 03/24/23 dulaglutide 0.75 mg/0.5 mL 0.75 mg SQ WEEKLY Diabetes 03/03/23 03/24/23 subcutaneous pen injector (Trulicity) multivitamin with minerals 1 tab PO DAILY Supplement 03/03/23 03/24/23 (Hair,Skin and Nails tablet) Previous Rx's Medication Instructions Recorded hydroxyzine pamoate 50 mg capsule 50 mg PO BID PRN anxiety #60 caps 12/10/21 (Vistaril) atorvastatin 80 mg tablet 80 mg PO DAILY #90 tabs 05/27/23 clopidogrel 75 mg tablet (Plavix) 75 mg PO DAILY #90 tabs 05/27/23 isosorbide mononitrate 60 mg 60 mg PO DAILY #90 tabs 05/27/23 tablet,extended release 24 hr lisinopril 2.5 mg tablet 2.5 mg PO DAILY #90 tabs 05/27/23 metoprolol succinate 25 mg 25 mg PO DAILY #90 tabs 05/27/23 tablet,extended release 24 hr (Toprol XL) pantoprazole 40 mg tablet,delayed 40 mg PO DAILY #90 tabs 05/27/23 release (Protonix) rivaroxaban 15 mg tablet (Xarelto) 15 mg PO DAILY #90 tabs 05/27/23 cyclobenzaprine 5 mg tablet 5 mg PO TID PRN muscle spasm 5 09/22/23 days #15 tabs ibuprofen 800 mg tablet 800 mg PO TID PRN pain 7 days #20 09/22/23 tabs Allergies Allergy/AdvReac Type Severity Reaction Status Date / Time No Known Allergies Allergy Verified 03/24/23 15:12 [facility] Disclaimer: The information contained in this section may have been updated after the patient was seen, as this information can be updated by other users. Medical History (Updated 09/22/23 @ 15:46 by [place] Carolina MD) Mild ascending aorta dilation SVT (supraventricular tachycardia) CHF (congestive heart failure) Renal insufficiency Depression Anxiety DVT (deep venous thrombosis) Hyperlipidemia Hypertension Chest pain Palpitations CAD (coronary artery disease) Left hand fracture Edema Surgical History H/O gastric sleeve History of root canal procedure History of laparoscopy History of hand surgery Previous section Hx of tonsillectomy Hx of colonoscopy History of partial hysterectomy Hx of oral surgery Family History Other Colon cancer Family history of cancer Family history of myocardial infarction Hyperlipidemia Hypertension Social History Smoking Status: Former smoker alcohol intake: never substance use type: denies use current occupational status: retired Travel in the last 8 weeks: Inside the [place] number of children: 2 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 ROS Obtained: Yes All systems reviewed & no additional complaints except as documented Physical Exam General General appearance: alert Chest Chest inspection: Present tenderness (Right lateral flank and chest wall tenderness with compression) Respiratory Respiratory exam: Present normal lung sounds bilaterally Cardiovascular Cardiovascular exam: Present regular rate and normal rhythm Abdominal Exam Abdominal exam: Present soft and tenderness (Right upper quadrant tenderness and right lateral flank tenderness) Neurological Exam Neurological exam: Present alert and oriented X3 Medical Decision Making Aron Inquiry Pt receiving controlled substance: No Vital Signs: 09/22/23 15:32 09/22/23 15:50 09/22/23 15:50 Temperature 97.9 F Temperature Source Oral Pulse Rate 65 Pulse Rate [Right Radial] 65 Respiratory Rate 18 Blood Pressure 117/73 Blood Pressure [Right Arm] 116/76 Blood Pressure Mean 88 Blood Pressure Mean [Right Arm] 89 Blood Pressure Source [Right Arm] Automatic Cuff Blood Pressure Position [Right Arm] Sitting 02 Sat by Pulse Oximetry 99 100 Oxygen Delivery Method Room Air 09/22/23 16:00 09/22/23 16:00 09/22/23 16:16 Temperature Temperature Source Pulse Rate 62 65 Pulse Rate [Right Radial] Respiratory Rate Blood Pressure 142/76 H 115/75 Blood Pressure [Right Arm] Blood Pressure Mean 85 93 Blood Pressure Mean [Right Arm] Blood Pressure Source [Right Arm] Blood Pressure Position [Right Arm] 02 Sat by Pulse Oximetry 99 100 Oxygen Delivery Method 09/22/23 16:45 09/22/23 17:01 09/22/23 17:15 Temperature Temperature Source Pulse Rate 61 52 L Pulse Rate [Right Radial] Respiratory Rate 18 18 Blood Pressure 119/76 110/75 114/76 Blood Pressure [Right Arm] Blood Pressure Mean 91 81 88 Blood Pressure Mean [Right Arm] Blood Pressure Source [Right Arm] Blood Pressure Position [Right Arm] 02 Sat by Pulse Oximetry 96 99 Oxygen Delivery Method Lab Data Lab results reviewed: Yes I reviewed the patient's lab results. Lab Results 09/22/23 15:50: WBC 4.9, RBC 4.71, Hgb 14.0, Hct 42.2, MCV 89.6, MCH 29.8, MCHC 33.3, RDW 14.4, Plt Count 194, MPV 9.0, Neut % (Auto) 41.6, Lymph % (Auto) 51.8 H, [place] % (Auto) 4.1, Eos % (Auto) 1.5, Baso % (Auto) 1.0, Neut # (Auto) 2.1, Lymph # (Auto) 2.6, [place] # (Auto) 0.2, Eos # (Auto) 0.1, Baso # (Auto) 0.1, Sodium 140, Potassium 3.9, Chloride 107, Carbon Dioxide 29, Anion Gap 7.9, BUN 18 H, Creatinine 1.10 H, Estimated Creat Clear 77, Estimated GFR 51 L, Est GFR ( Amer) 62, Glucose 87, Calcium 9.0, Total Bilirubin 1.1, AST 56 H, ALT 57, Alkaline Phosphatase 120, Total Protein 6.7, Albumin 4.1, Globulin 2.6, Albumin/Globulin Ratio 1.6, Lipase 196 09/22/23 16:00: Urine Color Yellow, Urine Appearance Clear, Urine pH 6.0, Ur Specific [place] >= 1.030, Urine Protein Negative, Urine Glucose (UA) Negative, Urine Ketones Negative, Urine Blood Negative, Urine Nitrate Negative, Urine Bilirubin Negative, Urine Urobilinogen 1.0, Ur Leukocyte Esterase 2+ A, Urine RBC Occasional, Urine WBC 10-20, Ur Squamous Epith Cells Occasional, Urine Bacteria Trace, Urine Yeast Occasional 09/22/23 15:50 09/22/23 15:50 Orders (Tests/Meds): ED MEDICATIONS Generic Name Dose Route Start Last Admin Trade Name Freq PRN Reason Stop Dose Admin Sodium Chloride 10 ml 09/22/23 16:45 09/22/23 16:46 Sodium Chloride 0.9% 10ml Syr (Rad Only) IV 10/22/23 16:44 10 ml NEEDED PRN Administration Maintain IV Site Discontinued Medications Generic Name Dose Route Start Last Admin Trade Name Freq PRN Reason Stop Dose Admin Lactated Ringer's 1,000 mls @ 999 mls/hr 09/22/23 15:45 09/22/23 15:52 Lactated Ringer's 1000 Ml Bag IV 09/22/23 16:45 999 mls/hr .Q1H1M GAVI[place] Administration Iopamidol 75 ml 09/22/23 16:45 09/22/23 16:46 Iopamidol-370 (76%);100ml Bottle IV 09/22/23 16:46 75 ml ONCE ONE Administration Morphine Sulfate 4 mg 09/22/23 15:43 09/22/23 15:52 Morphine 4mg/Ml Syringe IV 09/22/23 15:44 4 mg ONCE ONE Administration Ondansetron HCl 4 mg 09/22/23 15:43 09/22/23 15:52 Ondansetron 4mg/2ml Vial IV 09/22/23 15:44 4 mg ONCE ONE Administration ORDERS Category Date Time Status CT abdomen pelvis w con Stat Cat Scan 09/22/23 15:[address] chest w con Stat Cat Scan 09/22/23 15:43 Completed CBC w/Auto Diff [Complete Blood Count Auto Diff] Stat Lab 09/22/23 15:50 Results CMP [Comprehensive Metabolic Panel] Stat Lab 09/22/23 15:50 Completed Lipase Stat Lab 09/22/23 15:50 Completed UA [Urinalysis and Microscopic] Stat Lab 09/22/23 16:00 Completed Urine Culture Stat Micro 09/22/23 16:00 Received Medical Decision Narrative: Patient is a 57-year-old female chronically anticoagulated on a antiplatelet agents presents today with a fall with blunt injury to the right inferior margin of the lateral chest wall at the junction of the right upper quadrant of the abdomen differential includes hepatobiliary injury bony injury with multiple rib fractures hemothorax pneumothorax pulmonary contusion kidney injury etc. Will get contrasted CT scans to further evaluate this. IV fluids pain medicine nausea medicine have been administered will reassess. CT scans performed which I personally interpreted which show no acute traumatic abnormalities. Specifically no evidence of any type of injury in the right upper quadrant or the right lower rib ramírez. Urinalysis negative for blood but did have positive leuks I went and talked her further about that she has had no urinary symptoms no dysuria frequency or urgency is most likely contaminant will not treat for UTI. She has been given a prescription of anti-inflammatory medication muscle laxer with return precautions emphasized she was discharged in improved and stable condition. Critical Care Critical Care Time Critical Care Time: No
[2023-09-22] MEDS: MORPHINE 4MG/ML SYRINGE 4 MG IV (15:52)
[2023-09-22] MEDS: ONDANSETRON 4MG/2ML VIAL 4 MG IV (15:52)
[2023-09-22] MEDS: LACTATED RINGERS 1000ML 1,000 ML 999 ML IV (15:52)
[2023-09-22 16:04] LABS: Basophils # 0.1 K/mm3 (0-0.2); Eosinophils # 0.1 K/mm3 (0.0-0.4); Eosinophils % 1.5 % (0.1-12.0); Hematocrit 42.2 % (37.0-47.0); Lymphocytes # 2.6 K/mm3 (0.7-4.5); Lymphocytes % 51.8 % (10-50); MANUAL DIFFERENTIAL MANUAL DIFFERENTIAL (MANUAL DIFF); Mean Corpuscular HGB Conc 33.3 g/dL (31.8-35.4); Mean Corpuscular Hemoglobin 29.8 pg (27.0-31.2); Mean Corpuscular Volume 89.6 fl (81-99); Monocytes # 0.2 K/mm3 (0.1-1.0); Monocytes % 4.1 % (1.7-9.3); Neutrophils # 2.1 K/mm3 (1.8-7.8); Neutrophils % 41.6 % (37.0-80.0); Platelet Count 194 K/mm3 (142-424); Red Blood Count 4.71 M/mm3 (4.20-5.40); Red Cell Distribution Width 14.4 % (11.5-17.5); White Blood Count 4.9 K/mm3 (4.8-10.8)
[2023-09-22 16:06] LABS: Microscopic, Urine URINE MICROSCOPIC (MICROSCOPIC)
[2023-09-22 16:09] LABS: Chloride 107 mmol/L (98-107); Sodium 140 mmol/L (136-145)
[2023-09-22 16:10] LABS: Appearance,Urine CLEAR (Clear); Bilirubin,Urine Negative (Negative); Blood, Urine Negative (Negative); Color,Urine YELLOW (Yellow); Glucose,Urine (UA) Negative (Negative); Ketones,Urine Negative (Negative); Leukocyte Esterase,Urine 2+ (Negative); Nitrate,Urine Negative (Negative); Protein,Urine Negative (Negative); Specific Gravity, Urine >= 1.030 (1.005-1.030)
[2023-09-22 16:10] LABS: Potassium 3.9 mmoL/L (3.5-5.1)
[2023-09-22 16:12] LABS: Alanine Aminotransferase 57 U/L (12-78); Albumin Level 4.1 g/dl (3.5-5.0); Albumin/Globulin Ratio 1.6 (1.1-1.8); Alkaline Phosphatase 120 U/L (38-126); Anion Gap 7.9 mEq/L (5-15); Aspartate Amino Transferase 56 U/L (14-36); Bilirubin,Total 1.1 mg/dl (0.2-1.3); Blood Urea Nitrogen 18 mg/dl (7-17); Carbon Dioxide 29 mmol/L (22.0-30.0); Creatinine Clearance Estimated 77 mL/min (50-200); Estimated Glomerular Filt Rate 51 ml/min (>60); GFR (African American) 62 ML/MIN (>60); Globulin 2.6 g/dL (1.3-3.2); Glucose 87 mg/dl (74-100); Lipase 196 U/L (23-300); Total Protein,Serum 6.7 g/dl (6.3-8.2)
[2023-09-22 16:37] LABS: Bacteria,Urine Trace /lpf; RBC,Urine Occasional #/hpf (0-3); Squamous Epithelial Cell,Urine Occasional #/hpf (0-5); Yeast,Urine Occasional /lpf
[2023-09-22] MEDS: SODIUM CHLORIDE 0.9% 10ML SYR (RAD ONLY) 10 ML IV (16:46)
[2023-09-22] MEDS: IOPAMIDOL-370 (76%);100ML BOTTLE 75 ML IV (16:46)
[2023-09-22 20:09] LABS: Eosinophils % 1 % (0-3); Lymphocytes % 58 % (10-50); Monocytes % 1 % (2-9); Neutrophils % 40 % (42-76); Platelet Estimate Normal; RBC Morphology Normal; Total Cells Counted 100
== END 2023-09-22 18:06 | disposition home or self-care (01) ==
PROVIDERS: Emergency Provider Student in an Organized Health Care Education/Training Program; PCP Family Medicine
DX: S20.211A Contusion of right front wall of thorax, initial encounter (principal); S30.1XXA Contusion of abdominal wall, initial encounter; Z86.718 Personal history of other venous thrombosis and embolism; Z79.01 Long term (current) use of anticoagulants; Z79.02 Long term (current) use of antithrombotics/antiplatelets; W01.198A Fall on same level from slipping, tripping and stumbling with subsequent striking against other object, initial encounter; I11.0 Hypertensive heart disease with heart failure; I50.9 Heart failure, unspecified; I47.10 Supraventricular tachycardia, unspecified; I77.810 Thoracic aortic ectasia; E78.5 Hyperlipidemia, unspecified; I25.10 Atherosclerotic heart disease of native coronary artery without angina pectoris; Z87.891 Personal history of nicotine dependence
CPT/HCPCS: 71260; 74177; 80053; 81001; 83690; 85007; 85025; 87086; 96361; 96374; 96375; 99285; J2405; Q9967

== ENCOUNTER 2023-10-14 15:04 | Emergency (ER) | payer BC, SELFPAY ==
[2023-10-14] VITALS (9 sets, daily range): BP systolic 108–123; BP diastolic 73–82; PULSE 52–72; RESP 14–28; TEMP 36.8; O2SAT 95–100; BMI 32.9
--- NOTE | 2023-10-14 15:00 | ECG_ITS ---
APPROVED REPORT Exam: Resting ECG HR:64 bpm ECG Measurements Heart Rate 64 AXES NV 203 P 14 QRSd 86 QRS -21 QT 436 T 31 QTc 445 Conclusion SINUS RHYTHM BORDERLINE LEFT AXIS DEVIATION Electronically signed by : KELLEY GU, 10/14/2023 21:01:50
--- NOTE | 2023-10-14 15:18 | XR_ITS ---
FINAL REPORT CLINICAL HISTORY: Chest pain and shortness of breath COMPARISON: 03/14/2023 FINDINGS: A single portable view of the chest was obtained. The heart size and pulmonary vascularity are within normal limits. The mediastinum is within normal limits. No acute pulmonary abnormality is identified. The bony thorax is intact. IMPRESSION: No active cardiopulmonary disease. Reviewed, Interpreted and Dictated by Deepak Atkins III, MD Transcribed by Suki Eden Authenticated and [facility]
[2023-10-14 15:26] LABS: Basophils % 0.9 % (0.1-2.0); Eosinophils % 1.8 % (0.1-12.0); Hematocrit 42.5 % (37.0-47.0); Hemoglobin 13.8 g/dL (12.2-16.2); Lymphocytes % 49.6 % (10-50); Mean Corpuscular HGB Conc 32.5 g/dL (31.8-35.4); Mean Corpuscular Hemoglobin 29.2 pg (27.0-31.2); Mean Corpuscular Volume 89.9 fl (81-99); Mean Platelet Volume 9.2 fl (7.4-10.4); Monocytes % 4.7 % (1.7-9.3); Neutrophils % 43.1 % (37.0-80.0); Platelet Count 184 K/mm3 (142-424); Red Blood Count 4.72 M/mm3 (4.20-5.40); Red Cell Distribution Width 14.5 % (11.5-17.5)
[2023-10-14 15:27] LABS: Eosinophils # 0.1 K/mm3 (0.0-0.4); Lymphocytes # 2.5 K/mm3 (0.7-4.5); Monocytes # 0.2 K/mm3 (0.1-1.0); Neutrophils # 2.2 K/mm3 (1.8-7.8)
--- NOTE | 2023-10-14 15:27 | CT_ITS ---
FINAL REPORT TECHNIQUE: Then section axial CT images of the chest were obtained with contrast. Three-D reformatted images were also obtained.This study was performed with techniques to keep radiation doses as low as reasonably achievable (ALARA). Individualized dose reduction techniques using automated exposure control or adjustment of mA and/or kV according to the patient''s size were employed. CLINICAL HISTORY: CP to back FINDINGS: There is no evidence of pulmonary embolism. There is no evidence of thoracic aortic aneurysm or dissection. There is no evidence of mediastinal or hilar mass or adenopathy. A small hiatal hernia is present. There is no evidence of axillary mass or adenopathy. No localized inflammatory process is seen within the lungs. There is no evidence of pleural effusion. The chest wall is intact. Limited images of the upper abdomen reveal postoperative changes from gastric sleeve procedure and cholecystectomy. Moderate left renal scarring is noted. Several small nonobstructing left renal stones are seen. IMPRESSION: No evidence of pulmonary embolism. No mass or localized inflammatory process. Authenticated and [facility]
--- NOTE | 2023-10-14 15:27 | ED_ITS ---
Discharge Plan Disposition Patient Disposition: Home, Self-Care Chief Complaint: Chest Pain Prescriptions Prescriptions: No Action alprazolam 0.5 mg tablet 0.5 mg PO TID PRN (Reason: Anxiety) gabapentin 100 mg capsule 300 mg PO BID hydroxyzine pamoate [Vistaril] 50 mg capsule 50 mg PO BID PRN (Reason: anxiety) Qty: 60 1RF isosorbide mononitrate 60 mg tablet extended release 24 hr 60 mg PO DAILY Qty: 90 1RF clopidogrel [Plavix] 75 mg tablet 75 mg PO DAILY Qty: 90 1RF lisinopril 2.5 mg tablet 2.5 mg PO DAILY Qty: 90 1RF atorvastatin 80 mg tablet 80 mg PO DAILY Qty: 90 1RF metoprolol succinate [Toprol XL] 25 mg tablet extended release 24 hr 25 mg PO DAILY Qty: 90 1RF Xarelto 15 mg tablet 15 mg PO DAILY Qty: 90 1RF Rx Instructions: must administer with evening meal pantoprazole [Protonix] 40 mg tablet,delayed release (DR/EC) 40 mg PO DAILY Qty: 90 1RF potassium chloride 20 MEQ tablet 20 meq PO DAILY Trintellix 10 mg tablet 10 mg PO DAILY Hair,Skin and Nails Tablet 1 tab PO DAILY cholecalciferol (vitamin D3) [Vitamin D3] 25 mcg (1,000 unit) Capsule 1 mcg PO DAILY Probiotic 10 billion cell Capsule 10 cell PO DAILY doxepin 50 mg capsule 50 mg PO DAILY Trulicity 0.75 mg/0.5 mL pen injector 0.75 mg SQ WEEKLY ibuprofen 800 mg tablet 800 mg PO TID PRN (Reason: pain) 7 Days Qty: 20 0RF cyclobenzaprine 5 mg tablet 5 mg PO TID PRN (Reason: muscle spasm) 5 Days Qty: 15 0RF Referrals Follow up/Referrals: Provider,Referral, MD [Primary Care Provider] - See instructions Activity Restrictions/Add. Instructions Additional Instructions/Restrictions: Call your family doctor to establish care for this visit to the emergency department and schedule follow-up within 48 hours to ensure improvement. If you have any worsening of your condition or any other concerning signs or symptoms, return to the emergency department or your primary care doctor for further evaluation. Call Dr. Oviedo's office and follow-up for further evaluation. Clinical Impressions Clinical Impression: Chest pain, Heart palpitations Discharge ED Provider: Jose D Lundberg [facility] General Chief Complaint: Chest Pain Stated Complaint: cp Time Seen by Provider: 10/14/23 15:06 Mode of Arrival: Ambulatory Source of Information: Patient Limitations: No Limitations Description of Symptoms (Recalled from ER Triage Doc. by RN): pt to ed c/o chest discomfort. pt states at midnight she felt like her heart was racing. pt reports since then she has had a pressure in the center of her chest. pt denies any cp. pt states she spoke with cardiology who referred her to the ED. History of Present Illness HPI narrative: Is a 58-year-old female history of bariatric surgery, cholecystectomy, ACS, [place] status post stenting in the LAD currently on Plavix, unprovoked DVTs currently on Xarelto, thoracic aortic aneurysm, hypertension, hyperlipidemia, anxiety, depression presenting with chest pain. Patient states that last night, 4/3 in the p.m. while she was going to bed, she felt that her heart was beating very rapidly and forcefully. Did not feel like it radiated at that time. States she took her pulse and it was around 170, took her blood pressure and it was 90 systolic. She states that she tried to manage it as if it was anxiety without relief, blood pressure maintained lower readings and pulse remained high. Intermittently both did light up. Because patient began having chest pressure throughout the night into today, called cardiology. Because of patient's extensive history, cardiology recommended patient come to the emergency department for further evaluation. Patient states that she is currently having the symptoms, feels like her heart is racing, chest pressure. Chest pressure radiates through her to her back and she is feeling lightheaded. No shortness of breath, diaphoresis, nausea or vomiting, or unilateral deficits. No recent illness, recent travel, new medication changes, or any other concerns. Has been taking her medication as prescribed. Please note that above description of symptoms, in this electronic medical record under categorization of recalled from ER triage doctor by RN are reflective of an initial nursing assessment, however, is not reflective of my full history and physical exam that was personally taken and clarified. Consequentially, this preceding description of symptoms, which may include the patient's categorized chief complaint in the EMR, do not reflect my personal clinical impression, and the ultimate description of history of present illness and patient stated complaints should be deferred to this section of the note. Unless stated otherwise or congruent with this section of the note, additional signs, symptoms, or incongruence should be interpreted as inaccurate with my clinical impression. Related Data Home Medications Medication Instructions Recorded Confirmed alprazolam 0.5 mg tablet 0.5 mg PO TID PRN Anxiety 01/01/21 03/24/23 potassium chloride 20 mEq 20 meq PO DAILY Potassium 05/28/21 03/24/23 tablet,extended release(part/cryst) supplement gabapentin 100 mg capsule 300 mg PO BID Neuropathic pain 02/19/22 03/24/23 vortioxetine 10 mg tablet 10 mg PO DAILY Mood 06/24/22 03/24/23 (Trintellix) Lactobacillus acidophilus 10 10 cell PO DAILY Supplementation 03/03/23 03/24/23 billion cell capsule (Probiotic) cholecalciferol (vitamin D3) 25 1 mcg PO DAILY Supplementation 03/03/23 03/24/23 mcg (1,000 unit) capsule (Vitamin D3) doxepin 50 mg capsule 50 mg PO DAILY Mood 03/03/23 03/24/23 dulaglutide 0.75 mg/0.5 mL 0.75 mg SQ WEEKLY Diabetes 03/03/23 03/24/23 subcutaneous pen injector (Trulicity) multivitamin with minerals 1 tab PO DAILY Supplement 03/03/23 03/24/23 (Hair,Skin and Nails tablet) Previous Rx's Medication Instructions Recorded hydroxyzine pamoate 50 mg capsule 50 mg PO BID PRN anxiety #60 caps 12/10/21 (Vistaril) atorvastatin 80 mg tablet 80 mg PO DAILY #90 tabs 05/27/23 clopidogrel 75 mg tablet (Plavix) 75 mg PO DAILY #90 tabs 05/27/23 isosorbide mononitrate 60 mg 60 mg PO DAILY #90 tabs 05/27/23 tablet,extended release 24 hr lisinopril 2.5 mg tablet 2.5 mg PO DAILY #90 tabs 05/27/23 metoprolol succinate 25 mg 25 mg PO DAILY #90 tabs 05/27/23 tablet,extended release 24 hr (Toprol XL) pantoprazole 40 mg tablet,delayed 40 mg PO DAILY #90 tabs 05/27/23 release (Protonix) rivaroxaban 15 mg tablet (Xarelto) 15 mg PO DAILY #90 tabs 11/16/23 cyclobenzaprine 5 mg tablet 5 mg PO TID PRN muscle spasm 5 09/22/23 days #15 tabs ibuprofen 800 mg tablet 800 mg PO TID PRN pain 7 days #20 09/22/23 tabs Allergies Allergy/AdvReac Type Severity Reaction Status Date / Time No Known Allergies Allergy Verified 03/24/23 15:12 [facility] Disclaimer: The information contained in this section may have been updated after the patient was seen, as this information can be updated by other users. Medical History (Updated 10/14/23 @ 18:56 by Jose D Lundberg MD) Mild ascending aorta dilation SVT (supraventricular tachycardia) CHF (congestive heart failure) Renal insufficiency Depression Anxiety DVT (deep venous thrombosis) Hyperlipidemia Hypertension Chest pain Palpitations CAD (coronary artery disease) Left hand fracture Edema Surgical History H/O gastric sleeve History of root canal procedure History of laparoscopy History of hand surgery Previous section Hx of tonsillectomy Hx of colonoscopy History of partial hysterectomy Hx of oral surgery Family History Other Colon cancer Family history of cancer Family history of myocardial infarction Hyperlipidemia Hypertension Social History Smoking Status: Never smoker alcohol intake: never substance use type: denies use current occupational status: retired Travel in the last 8 weeks: Inside the [place] number of children: 2 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 ROS Obtained: Yes All systems reviewed & no additional complaints except as documented Physical Exam General General appearance: alert Neck Neck exam: Present trachea midline Chest Chest inspection: Present normal inspection and symmetric chest wall rise Respiratory Respiratory exam: Present normal lung sounds bilaterally; Absent respiratory distress, wheezes, stridor, accessory muscle use or prolonged expiratory phase Cardiovascular Cardiovascular exam: Present regular rate, normal rhythm and other (Pulses are equal and symmetric in bilateral upper and lower extremities); Absent systolic murmur Abdominal Exam Abdominal exam: Present soft; Absent distention, tenderness, guarding, rebound or rigidity Extremities Exam Extremities exam: Absent edema Neurological Exam Neurological exam: Present alert, oriented X3, CN II-XII intact and normal gait; Absent motor sensory deficit Skin Skin exam: Present warm and dry; Absent cyanosis, diaphoresis or pallor HEART Score HEART Score HEART Score assessment performed?: Yes HEART Score: 3 Critical Care Critical Care Time Critical Care Time: No Medical Decision Making Medical Records Medical records reviewed: Yes I reviewed the patient's medical records. Aron Inquiry Pt receiving controlled substance: No Aron was queried for this patient: No Vital Signs Vital Signs: 10/14/23 15:07 10/14/23 15:30 10/14/23 16:00 Temperature 98.2 F Temperature Source Oral Pulse Rate 72 64 Pulse Rate [Left Radial] 62 Respiratory Rate 20 16 24 Blood Pressure Blood Pressure [Right Arm] 122/81 Blood Pressure Mean Blood Pressure Mean [Right Arm] 94 02 Sat by Pulse Oximetry 99 100 99 10/14/23 16:23 10/14/23 16:30 10/14/23 17:00 Temperature Temperature Source Pulse Rate 54 L 52 L 59 L Pulse Rate [Left Radial] Respiratory Rate 16 Blood Pressure 123/82 123/77 108/75 L Blood Pressure [Right Arm] Blood Pressure Mean 97 103 86 Blood Pressure Mean [Right Arm] 02 Sat by Pulse Oximetry 99 99 95 10/14/23 17:30 10/14/23 18:00 Temperature Temperature Source Pulse Rate 62 71 Pulse Rate [Left Radial] Respiratory Rate 28 H 14 Blood Pressure 114/79 109/79 L Blood Pressure [Right Arm] Blood Pressure Mean 91 88 Blood Pressure Mean [Right Arm] 02 Sat by Pulse Oximetry 97 85 L Lab Data Labs: Lab Results 10/14/23 15:05: WBC 5.0, RBC 4.72, Hgb 13.8, Hct 42.5, MCV 89.9, MCH 29.2, MCHC 32.5, RDW 14.5, Plt Count 184, MPV 9.2, Neut % (Auto) 43.1, Lymph % (Auto) 49.6, [place] % (Auto) 4.7, Eos % (Auto) 1.8, Baso % (Auto) 0.9, Neut # (Auto) 2.2, Lymph # (Auto) 2.5, [place] # (Auto) 0.2, Eos # (Auto) 0.1, Baso # (Auto) 0.0, Sodium 142, Potassium 3.8, Chloride 106, Carbon Dioxide 31 H, Anion Gap 8.8, BUN 19 H, Creatinine 1.10 H, Estimated Creat Clear 75, Estimated GFR 51 L, Est GFR ( Amer) 61, Glucose 75, Calcium 9.2, Total Bilirubin 0.9, AST 52 H, ALT 46, Alkaline Phosphatase 115, Troponin I < 0.01, NT-Pro-B Natriuret Pep 272 H, Total Protein 6.5, Albumin 4.1, Globulin 2.4, Albumin/Globulin Ratio 1.7, Lipase 197 10/14/23 18:05: Troponin I < 0.01 10/14/23 15:05 10/14/23 15:05 Response Orders (Tests/Meds): ED MEDICATIONS Generic Name Dose Route Start Last Admin Trade Name Freq PRN Reason Stop Dose Admin Sodium Chloride 10 ml 10/14/23 16:06 10/14/23 16:12 Sodium Chloride 0.9% 10ml Syr (Rad Only) IV 11/13/23 16:05 10 ml NEEDED PRN Administration Maintain IV Site Discontinued Medications Generic Name Dose Route Start Last Admin Trade Name Freq PRN Reason Stop Dose Admin Acetaminophen 1,000 mg 10/14/23 15:18 10/14/23 15:33 Acetaminophen 500mg Tab PO 10/14/23 15:19 1,000 mg ONCE ONE Administration Aspirin 324 mg 10/14/23 15:18 10/14/23 15:31 Aspirin 81mg Chewable Tablet PO 10/14/23 15:19 324 mg ONCE ONE Administration Iopamidol 100 ml 10/14/23 16:06 10/14/23 16:07 Iopamidol-370 (76%);100ml Bottle IV 10/14/23 16:07 100 ml ONCE ONE Administration Sodium Chloride 50 ml 10/14/23 16:06 10/14/23 16:07 0.9 % Sodium Chloride 50 Ml Vial IV 10/14/23 16:07 50 ml ONCE ONE Administration ORDERS Category Date Time Status CT angio chest - dissection Stat Cat Scan 10/14/23 15:27 Completed CXR --portable [XR chest portable] Stat Exams 10/14/23 15:18 Completed CBC w/Auto Diff [Complete Blood Count Auto Diff] Stat Lab 10/14/23 15:05 Completed CMP [Comprehensive Metabolic Panel] Stat Lab 10/14/23 15:05 Completed Lipase Stat Lab 10/14/23 15:05 Completed NT Pro Brain Natriuretic Pep. 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 Patient states that last night, 4/3 in the p.m. while she was going to bed, she felt that her heart was beating very rapidly and forcefully. Did not feel like it radiated at that time. States she took her pulse and it was around 170, took her blood pressure and it was 90 systolic. She states that she tried to manage it as if it was anxiety without relief, blood pressure maintained lower readings and pulse remained high. Intermittently both did light up. Because patient began having chest pressure throughout the night into today, called cardiology. Because of patient's extensive history, cardiology recommended patient come to the emergency department for further evaluation. Patient states that she is currently having the symptoms, feels like her heart is racing, chest pressure. Chest pressure radiates through her to her back and she is feeling lightheaded. No shortness of breath, diaphoresis, nausea or vomiting, or unilateral deficits. No recent illness, recent travel, new medication changes, or any other concerns. Has been taking her medication as prescribed. History was obtained via conversation with patient. On arrival, patient hemodynamically stable, alert, oriented x4, appropriate, GCS 15, moving all extremities spontaneously, pupils equal and reactive to light. Full physical exam performed and significant for anxious appearing woman in no acute distress. Keeping her eyes closed and trying to breathe deeply due to anxiety. Neurologically intact including cranial nerve, cerebellar, motor and sensory exams. Cardiac exam with no murmurs, gallops, rubs, pulses are equal and symmetric, no lower extremity edema. Lungs are clear to auscultation anterior and posterior bilaterally. Abdomen nonfocal. Differential includes arrhythmia, microvascular coronary artery disease, CHF, ACS, [place], coronary artery dissection, pneumothorax, PE, dissection, pericarditis, myocarditis, pneumothorax, aortic aneurysm, pneumonia, bronchitis, among others. Patient was given 325 mg aspirin for symptomatic management and correction of underlying abnormalities. Workup independently interpreted and significant for nonactionable CBC or chemistry. Initial troponin negative. Chest x-ray without acute cardiopulmonary airspace disease see radiology read for full review of final results. Independent interpretation of EKG shows sinus rhythm 64 beats a minute no ST or T wave changes concerning for acute ischemia. Wandering baseline in the inferior leads, nondiagnostic EKG. SC interval mildly prolonged at 203 ms. QRS and QT intervals within normal limits. Patient was placed in observation beginning at 3:30 PM in order to rule out evolving [place] with delta troponins and determine need for admission versus home-going. The patient was provided serial exams and monitoring while awaiting results. Independent interpretation of results demonstrated negative delta troponin. On reevaluation, sleeping comfortably, has no complaints at this time and feeling comfortable with going home. At this time, I feel patient is appropriate for discharge. Total observation time 3 hours. Because patient at baseline without signs or symptoms of clinical decompensation, deemed appropriate for discharge. Results were relayed to patient who voiced understanding and were agreeable to outpatient management and follow up. I discussed my clinical impression with patient and answered all questions. At this time, the evidence for any other entities in the differential is insufficient to warrant any further testing or ED observation. This was explained as well. Advisory was given that persistent or worsening symptoms require further evaluation. I confirmed the understanding of this discussion.
[2023-10-14 15:30] LABS: Chloride 106 mmol/L (98-107); Potassium 3.8 mmoL/L (3.5-5.1); Sodium 142 mmol/L (136-145)
[2023-10-14] MEDS: ASPIRIN 81MG CHEWABLE TABLET 324 MG PO (15:31)
[2023-10-14 15:32] LABS: Blood Urea Nitrogen 19 mg/dl (7-17); Creatinine Clearance Estimated 75 mL/min (50-200); Estimated Glomerular Filt Rate 51 ml/min (>60); GFR (African American) 61 ML/MIN (>60)
[2023-10-14 15:33] LABS: Alanine Aminotransferase 46 U/L (12-78); Albumin Level 4.1 g/dl (3.5-5.0); Albumin/Globulin Ratio 1.7 (1.1-1.8); Alkaline Phosphatase 115 U/L (38-126); Anion Gap 8.8 mEq/L (5-15); Aspartate Amino Transferase 52 U/L (14-36); Bilirubin,Total 0.9 mg/dl (0.2-1.3); Calcium 9.2 mg/dl (8.4-10.2); Carbon Dioxide 31 mmol/L (22.0-30.0); Globulin 2.4 g/dL (1.3-3.2); Glucose 75 mg/dl (74-100); Lipase 197 U/L (23-300); Total Protein,Serum 6.5 g/dl (6.3-8.2)
[2023-10-14] MEDS: ACETAMINOPHEN 500MG TAB 1000 MG PO (15:33)
--- NOTE | 2023-10-14 15:42 | PC.NURSE ---
rounded on pt, pt does not need anything at this time.
[2023-10-14 15:43] LABS: NT Pro Brain Natriuretic Pep. 272 pg/mL (0-125)
--- NOTE | 2023-10-14 15:45 | PC.NURSE ---
pt has gone to radiology at this time.
[2023-10-14 15:47] LABS: Troponin I < 0.01 ng/ml (0.00-0.034)
[2023-10-14] MEDS: IOPAMIDOL-370 (76%);100ML BOTTLE 100 ML IV (16:07)
[2023-10-14] MEDS: 0.9 % SODIUM CHLORIDE 50 ML VIAL IV (16:07)
[2023-10-14] MEDS: SODIUM CHLORIDE 0.9% 10ML SYR (RAD ONLY) 10 ML IV (16:12)
[2023-10-14 18:43] LABS: Troponin I < 0.01 ng/ml (0.00-0.034)
== END 2023-10-14 19:25 | disposition home or self-care (01) ==
PROVIDERS: Emergency Provider Emergency Medicine
DX: R07.9 Chest pain, unspecified (principal); R00.2 Palpitations; I11.0 Hypertensive heart disease with heart failure; I50.9 Heart failure, unspecified; E78.5 Hyperlipidemia, unspecified; I25.10 Atherosclerotic heart disease of native coronary artery without angina pectoris; Z95.5 Presence of coronary angioplasty implant and graft; Z79.01 Long term (current) use of anticoagulants; Z86.73 Personal history of transient ischemic attack (TIA), and cerebral infarction without residual deficits
CPT/HCPCS: 71045; 71275; 80053; 83690; 83880; 84484; 85025; 93005; 99285; Q9967

== ENCOUNTER 2024-01-07 14:45 | Outpatient (CLI) | payer BC, SELFPAY ==
[2024-01-07 14:56] LABS: Microscopic, Urine URINE MICROSCOPIC (MICROSCOPIC)
[2024-01-07 15:31] LABS: Hematocrit 40.8 % (37.0-47.0); Hemoglobin 13.6 g/dL (12.2-16.2); Mean Corpuscular HGB Conc 33.3 g/dL (31.8-35.4); Mean Corpuscular Hemoglobin 29.6 pg (27.0-31.2); Platelet Count 222 K/mm3 (142-424); Red Blood Count 4.59 M/mm3 (4.20-5.40); Red Cell Distribution Width 14.5 % (11.5-17.5); White Blood Count 5.8 K/mm3 (4.8-10.8)
[2024-01-07 17:39] LABS: Appearance,Urine CLEAR (Clear); Bilirubin,Urine Negative (Negative); Blood, Urine Negative (Negative); Color,Urine YELLOW (Yellow); Glucose,Urine (UA) Negative (Negative); Ketones,Urine Negative (Negative); Leukocyte Esterase,Urine 1+ (Negative); Nitrate,Urine Negative (Negative); Protein,Urine Negative (Negative); Specific Gravity, Urine <= 1.005 (1.005-1.030); Urobilinogen,Urine 0.2 EU/dl (0.2)
[2024-01-07 17:59] LABS: Bacteria,Urine Trace /lpf
[2024-01-07 18:02] LABS: Creatinine,Urine Random 45 mg/dL (Not Estab.)
[2024-01-07 21:03] LABS: Albumin Level 4.2 g/dl (3.5-5.0); Anion Gap 15.4 mEq/L (5-15); Blood Urea Nitrogen 22 mg/dl (7-17); Calcium 9.8 mg/dl (8.4-10.2); Carbon Dioxide 30 mmol/L (22.0-30.0); Chloride 100 mmol/L (98-107); Estimated Glomerular Filt Rate 51 ml/min (>60); GFR (African American) 61 ML/MIN (>60); Glucose 82 mg/dl (74-100); Phosphorous 5.1 mg/dl (2.5-4.5); Potassium 4.4 mmoL/L (3.5-5.1); Sodium 141 mmol/L (136-145)
[2024-01-11 07:09] LABS: Cystatin C 1.29 mg/L (0.67-1.14)
== END 2024-01-07 23:59 | disposition home or self-care (01) ==
LOC: LAB 14:47
PROVIDERS: PCP Family Medicine; Visit Provider Internal Medicine Nephrology
DX: N18.31 Chronic kidney disease, stage 3a (principal)
CPT/HCPCS: 36415; 80069; 81001; 82570; 82610; 84156; 85014; 85018; 85048; 85049; 87086

== ENCOUNTER 2024-02-10 14:32 | Outpatient (CLI) | payer BC, SELFPAY ==
[2024-02-10 15:16] LABS: Basophils % 0.6 % (0.1-2.0); Eosinophils # 0.1 K/mm3 (0.0-0.4); Eosinophils % 1.2 % (0.1-12.0); Hematocrit 40.1 % (37.0-47.0); Hemoglobin 13.1 g/dL (12.2-16.2); Lymphocytes % 35.9 % (10-50); Mean Corpuscular HGB Conc 32.8 g/dL (31.8-35.4); Mean Corpuscular Hemoglobin 29.6 pg (27.0-31.2); Mean Corpuscular Volume 90.4 fl (81-99); Mean Platelet Volume 8.3 fl (7.4-10.4); Monocytes # 0.2 K/mm3 (0.1-1.0); Monocytes % 3.6 % (1.7-9.3); Neutrophils # 3.3 K/mm3 (1.8-7.8); Neutrophils % 58.8 % (37.0-80.0); Platelet Count 255 K/mm3 (142-424); Red Blood Count 4.43 M/mm3 (4.20-5.40); White Blood Count 5.6 K/mm3 (4.8-10.8)
[2024-02-10 16:03] LABS: Alanine Aminotransferase 29 U/L (12-78); Albumin Level 3.9 g/dl (3.5-5.0); Alkaline Phosphatase 106 U/L (38-126); Anion Gap 10.2 mEq/L (5-15); Aspartate Amino Transferase 32 U/L (14-36); Bilirubin,Indirect 0.8 mg/dL (0.0-0.9); Bilirubin,Total 0.8 mg/dl (0.2-1.3); Bilirubin,Unconjugated 0.8 mg/dL (0.0-1.1); Blood Urea Nitrogen 29 mg/dl (7-17); Calcium 9.4 mg/dl (8.4-10.2); Carbon Dioxide 32 mmol/L (22.0-30.0); Chloride 102 mmol/L (98-107); Chol/HDL Ratio 2.9 (1-3.5); Cholesterol 161 mg/dl (140-200); Estimated Glomerular Filt Rate 57 ml/min (>60); GFR (African American) 68 ML/MIN (>60); Glucose 80 mg/dl (74-100); HDL Cholesterol 56 mg/dl (40-60); Magnesium 1.9 mg/dl (1.6-2.3); Potassium 4.2 mmoL/L (3.5-5.1); Sodium 140 mmol/L (136-145); Total Protein,Serum 6.5 g/dl (6.3-8.2); Triglycerides 101 mg/dl (30-150); VLDL Cholesterol 20 mg/dL (0-40)
[2024-02-10 16:14] LABS: Direct LDL Cholesterol 69.77 mg/dL (100-129)
[2024-02-10 16:19] LABS: Free T4 (Free Thyroxine) 0.84 ng/dl (0.78-2.19)
[2024-02-10 16:34] LABS: Thyroid Stimulating Hormone 1.05 uIU/mL (0.465-4.68)
== END 2024-02-10 23:59 | disposition home or self-care (01) ==
LOC: LAB 14:34
PROVIDERS: PCP Family Medicine; Visit Provider Internal Medicine
DX: I77.810 Thoracic aortic ectasia (principal); E78.2 Mixed hyperlipidemia; I10 Essential (primary) hypertension; I25.10 Atherosclerotic heart disease of native coronary artery without angina pectoris; R60.0 Localized edema; Z95.5 Presence of coronary angioplasty implant and graft; Z86.718 Personal history of other venous thrombosis and embolism
CPT/HCPCS: 36415; 80048; 80061; 80076; 83735; 84439; 84443; 85025

== ENCOUNTER 2024-02-15 14:54 | Outpatient (CLI) | payer BC, SELFPAY ==
--- NOTE | 2024-02-15 14:55 | CA_ITS ---
FINAL REPORT TECHNIQUE: Color Doppler, duplex Doppler and compression sonography of the right lower extremity venous system was performed. CLINICAL HISTORY: Edema RLE, hx DVT 2020, HTN, HLD, travel by airplane 12/02-01/02. Patient currently taking Xarelto. FINDINGS: There is no evidence of deep venous thrombosis from the level of the groin to the calf. The veins are patent and compressible. IMPRESSION: No evidence of deep venous thrombosis right lower extremity. Reviewed, Interpreted and Dictated by Deepak Atkins III, MD Transcribed by Manuela Bahena Authenticated and [facility]
== END 2024-02-15 23:59 | disposition home or self-care (01) ==
LOC: RT 14:55
PROVIDERS: PCP Family Medicine; Visit Provider Internal Medicine
DX: R60.0 Localized edema (principal); Z86.718 Personal history of other venous thrombosis and embolism
CPT/HCPCS: 93971

== ENCOUNTER 2024-03-21 19:01 | Emergency (ER) | payer BC, SELFPAY ==
[2024-03-21 19:03] VITALS: BP 137/96; PULSE 74; RESP 20; TEMP 36.6; O2SAT 96; BMI 28.3
--- NOTE | 2024-03-21 19:05 | [facility].EDCP ---
Discharge Plan Disposition Patient Disposition: Home, Self-Care Prescriptions Prescriptions: New ferrous sulfate 325 mg (65 mg iron) tablet 325 mg PO .every other day Qty: 30 1RF No Action alprazolam 0.5 mg tablet 0.5 mg PO TID PRN (Reason: Anxiety) coenzyme Q10 [Co Q-10] 10 mg capsule 10 mg PO TID gabapentin 100 mg capsule 300 mg PO BID hydroxyzine pamoate [Vistaril] 50 mg capsule 50 mg PO BID PRN (Reason: anxiety) Qty: 60 1RF lisinopril 2.5 mg tablet 2.5 mg PO DAILY Qty: 90 1RF Xarelto 15 mg tablet 15 mg PO DAILY Qty: 90 1RF Rx Instructions: must administer with evening meal pantoprazole [Protonix] 40 mg tablet,delayed release (DR/EC) 40 mg PO DAILY Qty: 90 1RF clopidogrel [Plavix] 75 mg tablet 75 mg PO DAILY Qty: 90 1RF atorvastatin 80 mg tablet 80 mg PO DAILY Qty: 90 1RF metoprolol succinate [Toprol XL] 25 mg tablet extended release 24 hr 25 mg PO DAILY Qty: 90 1RF isosorbide mononitrate 60 mg tablet extended release 24 hr 60 mg PO DAILY Qty: 90 1RF Repatha Syringe 140 mg/mL syringe 140 mg SQ Q2W Qty: 3 2RF potassium chloride 20 MEQ tablet 20 meq PO DAILY Trintellix 10 mg tablet 10 mg PO DAILY Hair,Skin and Nails Tablet 1 tab PO DAILY cholecalciferol (vitamin D3) [Vitamin D3] 25 mcg (1,000 unit) Capsule 1 mcg PO DAILY Probiotic 10 billion cell Capsule 10 cell PO DAILY doxepin 50 mg capsule 50 mg PO DAILY Trulicity 0.75 mg/0.5 mL pen injector 0.75 mg SQ WEEKLY ibuprofen 800 mg tablet 800 mg PO TID PRN (Reason: pain) 7 Days Qty: 20 0RF Referrals Follow up/Referrals: Sena Koroma MD [Primary Care Provider] - See instructions Activity Restrictions/Add. Instructions Additional Instructions/Restrictions: Call your family doctor to establish care for this visit to the emergency department and schedule follow-up within 48 hours to ensure improvement. If you have any worsening of your condition or any other concerning signs or symptoms, return to the emergency department or your primary care doctor for further evaluation. Iron supplement every other day if you do not have it in your current daily multivitamin to prevent constipation and other GI upset. Have hemoglobin levels drawn in about 4 weeks to determine need for continued use versus cessation of iron supplementation. Clinical Impressions Clinical Impression: Symptomatic anemia Print Language Print Language: Luxembourgish Discharge ED Provider: Jose D Lundberg HPI General Chief Complaint: Weakness Stated Complaint: Dizziness,weakness,tingling hands & feet Time Seen by Provider: 03/21/24 19:04 History of Present Illness HPI narrative: Please note that above description of symptoms, in this electronic medical record under categorization of recalled from ER triage doctor by RN are reflective of an initial nursing assessment, however, is not reflective of my full history and physical exam that was personally taken and clarified. Consequentially, this preceding description of symptoms, which may include the patient's categorized chief complaint in the EMR, do not reflect my personal clinical impression, and the ultimate description of history of present illness and patient stated complaints should be deferred to this section of the note. Unless stated otherwise or congruent with this section of the note, additional signs, symptoms, or incongruence should be interpreted as inaccurate with my clinical impression. Related Data Home Medications ?Medication ?Instructions ?Recorded ?Confirmed alprazolam 0.5 mg tablet 0.5 mg PO TID PRN Anxiety 01/01/21 02/10/24 potassium chloride 20 mEq 20 meq PO DAILY Potassium 05/28/21 02/10/24 tablet,extended release(part/cryst) supplement gabapentin 100 mg capsule 300 mg PO BID Neuropathic pain 02/19/22 02/10/24 vortioxetine 10 mg tablet 10 mg PO DAILY Mood 06/24/22 02/10/24 (Trintellix) Lactobacillus acidophilus 10 10 cell PO DAILY Supplementation 03/03/23 02/10/24 billion cell capsule (Probiotic) cholecalciferol (vitamin D3) 25 1 mcg PO DAILY Supplementation 03/03/23 02/10/24 mcg (1,000 unit) capsule (Vitamin D3) doxepin 50 mg capsule 50 mg PO DAILY Mood 03/03/23 02/10/24 dulaglutide 0.75 mg/0.5 mL 0.75 mg SQ WEEKLY Diabetes 03/03/23 02/10/24 subcutaneous pen injector (Trulicity) multivitamin with minerals 1 tab PO DAILY Supplement 03/03/23 02/10/24 (Hair,Skin and Nails tablet) coenzyme Q10 10 mg capsule (Co 10 mg PO TID 02/10/24 02/10/24 Q-10) Previous Rx's ?Medication ?Instructions ?Recorded hydroxyzine pamoate 50 mg capsule 50 mg PO BID PRN anxiety #60 caps 12/10/21 (Vistaril) lisinopril 2.5 mg tablet 2.5 mg PO DAILY #90 tabs 05/27/23 ibuprofen 800 mg tablet 800 mg PO TID PRN pain 7 days #20 09/22/23 tabs atorvastatin 80 mg tablet 80 mg PO DAILY #90 tabs 11/10/23 clopidogrel 75 mg tablet (Plavix) 75 mg PO DAILY #90 tabs 11/10/23 isosorbide mononitrate 60 mg 60 mg PO DAILY #90 tabs 11/10/23 tablet,extended release 24 hr metoprolol succinate 25 mg 25 mg PO DAILY #90 tabs 11/10/23 tablet,extended release 24 hr (Toprol XL) pantoprazole 40 mg tablet,delayed 40 mg PO DAILY #90 tabs 11/10/23 release (Protonix) rivaroxaban 15 mg tablet (Xarelto) 15 mg PO DAILY #90 tabs 11/10/23 evolocumab 140 mg/mL subcutaneous 140 mg SQ Q2W #3 mL 02/21/24 syringe (Repatha Syringe) ferrous sulfate 325 mg (65 mg 325 mg PO .every other day #30 tabs 03/21/24 iron) tablet Allergies Allergy/AdvReac Type Severity Reaction Status Date / Time No Known Allergies Allergy Verified 02/10/24 13:23 [facility] Disclaimer: The information contained in this section may have been updated after the patient was seen, as this information can be updated by other users. Medical History (Updated 03/21/24 @ 20:42 by Jose D Lundberg MD) Edema of right lower extremity Mild ascending aorta dilation SVT (supraventricular tachycardia) CHF (congestive heart failure) Renal insufficiency Depression Anxiety DVT (deep venous thrombosis) Hyperlipidemia Hypertension Chest pain Palpitations CAD (coronary artery disease) Left hand fracture Edema Surgical History H/O gastric sleeve History of root canal procedure History of laparoscopy History of hand surgery Previous section Hx of tonsillectomy Hx of colonoscopy History of partial hysterectomy Hx of oral surgery Family History Other Colon cancer Family history of cancer Family history of myocardial infarction Hyperlipidemia Hypertension Social History Smoking Status: Never smoker alcohol intake: never substance use type: denies use current occupational status: retired Travel in the last 8 weeks: Inside the [place] number of children: 2 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 ROS Obtained: Yes All systems reviewed & no additional complaints except as documented Physical Exam General General appearance: alert, in no apparent distress and obese Neck Neck exam: Present trachea midline Chest Chest inspection: Present normal inspection and symmetric chest wall rise Respiratory Respiratory exam: Present normal lung sounds bilaterally; Absent respiratory distress, wheezes, stridor, accessory muscle use or prolonged expiratory phase Cardiovascular Cardiovascular exam: Present regular rate, normal rhythm and other (Pulses equal and symmetric in upper and lower extremities) Extremities Exam Extremities exam: Absent edema Neurological Exam Neurological exam: Present alert, oriented X3 and CN II-XII intact Skin Skin exam: Present warm and dry; Absent cyanosis, diaphoresis or pallor HEART Score HEART Score HEART Score assessment performed?: No Critical Care Critical Care Time Critical Care Time: No Medical Decision Making Medical Records Medical records reviewed: Yes I reviewed the patient's medical records. Aron Inquiry Pt receiving controlled substance: No Aron was queried for this patient: No Vital Signs Vital Signs: 03/21/24 19:03 03/21/24 19:31 03/21/24 20:00 Temperature 97.9 F Temperature Source Oral Pulse Rate 74 72 Pulse Rate [Left] 74 Respiratory Rate 20 Blood Pressure 110/65 114/69 Blood Pressure [Right Arm] 137/96 H Blood Pressure Mean [Right Arm] 109 Blood Pressure Source [Right Arm] Automatic Cuff Blood Pressure Position [Right Arm] Sitting 02 Sat by Pulse Oximetry 96 99 98 Oxygen Delivery Method Room Air Lab Data Labs: Lab Results 03/21/24 20:00: WBC 5.1, RBC 4.02 L, Hgb 11.6 L, Hct 36.9 L, MCV 91.8, MCH 29.0, MCHC 31.6 L, RDW 14.4, Plt Count 196, MPV 9.1, Neut % (Auto) 67.2, Lymph % (Auto) 27.9, Dyer % (Auto) 4.2, Eos % (Auto) 0.4, Baso % (Auto) 0.3, Neut # (Auto) 3.4, Lymph # (Auto) 1.4, Dyer # (Auto) 0.2, Eos # (Auto) 0.0, Baso # (Auto) 0.0, PT 10.9, INR 0.97, APTT 30.9 H, Sodium 140, Potassium 3.6, Chloride 108 H, Carbon Dioxide 31 H, Anion Gap 4.6 L, BUN 14, Creatinine 1.10 H, Estimated Creat Clear 64, Estimated GFR 51 L, Est GFR ( Amer) 61, Glucose 88, Calcium 8.2 L, Total Bilirubin 0.8, AST 31, ALT 35, Alkaline Phosphatase 93, Total Protein 6.0 L, Albumin 3.7, Globulin 2.3, Albumin/Globulin Ratio 1.6 03/21/24 20:00 03/21/24 20:00 Response Orders (Tests/Meds): ORDERS Category Date Time Status CBC w/Auto Diff [Complete Blood Count Auto Diff] Stat Lab 03/21/24 20:00 Completed CMP [Comprehensive Metabolic Panel] Stat Lab 03/21/24 20:00 Completed PT INR [Prothrombin Time INR] Stat Lab 03/21/24 20:00 Completed PTT [Activated Partial Thrombo Time] Stat Lab 03/21/24 20:00 Completed MDM Narrative Medical Decision Narrative: This is a 58-year-old female history of bariatric surgery, cholecystectomy, ACS, [place] status post stenting in the LAD currently on Plavix, 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 Patient states that she was recently diagnosed with rectal bleeding, followed up with gastroenterology at [facility]. She states that she had upper endoscopy and colonoscopy done yesterday. Stopped her Plavix and Xarelto 5 days and 2 days prior to the operation, respectively. States that during the colonoscopy, they removed a large polyp. Since that time, patient continued to bleed, they had to place surgical clips in order to control bleeding. Patient also states that bleeding was largely controlled, felt well throughout today, however she started having bleeding and passing large clots again. Went back to [facility] today, reevaluation with colonoscopy demonstrated rebleeding. Placed 5 more clips this afternoon. Bleeding was reportedly largely hemostatic, with small leak. Patient took first dose of Xarelto again this morning, 03/21. States that her new symptoms are tingling in her hands and feet, weakness, fatigue. No chest pain, shortness of breath, nausea or vomiting, not currently passing large clots at this time. Was told to come to the emergency department if she experiences any other symptoms concerning for blood loss, so she presents for evaluation. History was obtained via conversation with patient. On arrival, patient hemodynamically stable, alert, oriented x4, appropriate, GCS 15, moving all extremities spontaneously, pupils equal and reactive to light. Full physical exam performed and significant for well-appearing woman who is in no acute distress. Nontachycardic, but patient states that she is is on a haley. Normotensive, well-appearing overall. Does not appear incredibly pale. Differential includes acute blood loss anemia, symptomatic anemia, metabolic abnormality, anxiety, among others. Patient placed on continuous cardiac monitoring and continuous pulse ox with initial blood pressure 137/96, heart rate 74, saturation 96% on room air. Workup independently interpreted and significant for hemoglobin drop from about a month ago from 13.1-11.6 today. Platelet count normal, white count normal. Patient's coagulation factors unremarkable and nonactionable today. Electrolytes nonactionable. On reevaluation, patient still resting comfortably bed, results were relayed to her, she is agreeable to outpatient management. Does not take iron supplement that she knows of at home, does take daily multivitamin, unsure if it has iron in it. Iron will be sent to the pharmacy of choice in case she does not have iron prescription at home. I feel this is most likely related the patient's nearly 2 g hemoglobin drop in just a couple of weeks given very well appearance clinically, but generalized fatigue. Because patient at baseline without signs or symptoms of clinical decompensation, deemed appropriate for discharge. Results were relayed to patient who voiced understanding and were agreeable to outpatient management and follow up. I discussed my clinical impression with patient and answered all questions. At this time, the evidence for any other entities in the differential is insufficient to warrant any further testing or ED observation. This was explained as well. Advisory was given that persistent or worsening symptoms require further evaluation. I confirmed the understanding of this discussion. Scheduling Clerk disclaimer Much of this encounter note is an electronic environmental field technician spoken language to printed text. Electronic environmental field technician of the spoken language may permit errors. Although I have reviewed the note, some errors may still exist.
[2024-03-21 19:31] VITALS: BP 110/65; PULSE 74; O2SAT 99
[2024-03-21 20:00] VITALS: BP 114/69; PULSE 72; O2SAT 98
[2024-03-21 20:15] LABS: Chloride 108 mmol/L (98-107)
[2024-03-21 20:16] LABS: Albumin Level 3.7 g/dl (3.5-5.0); Potassium 3.6 mmoL/L (3.5-5.1); Sodium 140 mmol/L (136-145)
[2024-03-21 20:18] LABS: Blood Urea Nitrogen 14 mg/dl (7-17); Creatinine Clearance Estimated 64 mL/min (50-200); Estimated Glomerular Filt Rate 51 ml/min (>60); GFR (African American) 61 ML/MIN (>60)
[2024-03-21 20:19] LABS: Alanine Aminotransferase 35 U/L (12-78); Albumin/Globulin Ratio 1.6 (1.1-1.8); Alkaline Phosphatase 93 U/L (38-126); Anion Gap 4.6 mEq/L (5-15); Aspartate Amino Transferase 31 U/L (14-36); Bilirubin,Total 0.8 mg/dl (0.2-1.3); Calcium 8.2 mg/dl (8.4-10.2); Carbon Dioxide 31 mmol/L (22.0-30.0); Globulin 2.3 g/dL (1.3-3.2); Glucose 88 mg/dl (74-100)
[2024-03-21 20:22] LABS: Activated Partial Thrombo Time 30.9 seconds (22.8-30.6); INR 0.97 (0.9-1.1); Prothrombin Time 10.9 seconds (10.1-12.5)
[2024-03-21 20:30] VITALS: BP 127/75; PULSE 60; O2SAT 100
[2024-03-21 20:32] LABS: Basophils % 0.3 % (0.1-2.0); Eosinophils % 0.4 % (0.1-12.0); Hematocrit 36.9 % (37.0-47.0); Hemoglobin 11.6 g/dL (12.2-16.2); Lymphocytes # 1.4 K/mm3 (0.7-4.5); Lymphocytes % 27.9 % (10-50); Mean Corpuscular HGB Conc 31.6 g/dL (31.8-35.4); Mean Corpuscular Volume 91.8 fl (81-99); Mean Platelet Volume 9.1 fl (7.4-10.4); Monocytes # 0.2 K/mm3 (0.1-1.0); Monocytes % 4.2 % (1.7-9.3); Neutrophils # 3.4 K/mm3 (1.8-7.8); Neutrophils % 67.2 % (37.0-80.0); Platelet Count 196 K/mm3 (142-424); Red Blood Count 4.02 M/mm3 (4.20-5.40); Red Cell Distribution Width 14.4 % (11.5-17.5); White Blood Count 5.1 K/mm3 (4.8-10.8)
[2024-03-21 20:47] VITALS: BP 127/75; PULSE 67; RESP 18; TEMP 37.1; O2SAT 95
== END 2024-03-21 20:51 | disposition home or self-care (01) ==
PROVIDERS: Emergency Provider Emergency Medicine; PCP Family Medicine
DX: D64.9 Anemia, unspecified (principal); R42 Dizziness and giddiness; R20.2 Paresthesia of skin; R53.83 Other fatigue; Z86.010 Personal history of colon polyps; Z86.718 Personal history of other venous thrombosis and embolism; I10 Essential (primary) hypertension; E78.5 Hyperlipidemia, unspecified; Z86.79 Personal history of other diseases of the circulatory system; Z79.01 Long term (current) use of anticoagulants
CPT/HCPCS: 80053; 85025; 85610; 85730; 99283

== ENCOUNTER 2024-05-15 09:40 | Outpatient (CLI) | payer BC, SELFPAY ==
--- NOTE | 2024-05-15 09:49 | MM_ITS ---
PROCEDURE INFORMATION: Exam: MG Bilateral Screening 3D Mammography Exam date and time: 05/15/2024 9:34 AM Age: 58 years old Clinical indication: Screening examination TECHNIQUE: Imaging protocol: Bilateral Screening tomosynthesis and 2D mammography including computer-aided detection (CAD) when performed. COMPARISON: 1. MG MM CLIP PLACEMENT LT 09/16/2022 10:34 AM 2. MG MM DIG MAMM DX UNILAT LT CAD 08/20/2022 2:00 PM FINDINGS: MAMMOGRAPHY: Breast composition: The breasts are almost entirely fatty. Mass: None. Architectural distortion: None. Calcifications: No suspicious calcifications. Asymmetric density: None. Skin thickening: None. Axillary adenopathy: None. IMPRESSION: No mammographic evidence of malignancy. Annual screening is recommended unless otherwise clinically indicated. ASSESSMENT: BI-RADS Category 1: Negative.
--- NOTE | 2024-05-15 09:49 | XR_ITS ---
FINAL REPORT TECHNIQUE: Bone densitometry calculations of the lumbar spine and left hip were obtained. CLINICAL HISTORY: .screening COMPARISON: None FINDINGS: Using L1-4, the bone mineral density of the spine is 1.317 g/cm2, corresponding to T-score of 2.5. Using the left hip, the bone mineral density of the femoral neck is 1.057 g/cm2, corresponding to a T-score of 0.9. Using the right hip, the bone mineral density of the femoral neck is 1.020 g/cm?, corresponding to a T-score of 1.5. NOTE: T-score: Standard deviation compared with peak bone mass of young adult mean. *Following the recommendations of the International Society of Bone densitometry, classification of hip BMD is based on the lower of two T-scores; total hip or femoral neck. IMPRESSION: Normal bone mineral density of the lumbar spine and bilateral hips. Reviewed, Interpreted and Dictated by Deepak Atkins III, MD Transcribed by Sharon Hall Authenticated and [facility]
== END 2024-05-15 23:59 | disposition home or self-care (01) ==
LOC: RAD 09:41
PROVIDERS: PCP Family Medicine; Visit Provider Family Medicine
DX: M85.80 Other specified disorders of bone density and structure, unspecified site (principal); N60.19 Diffuse cystic mastopathy of unspecified breast
CPT/HCPCS: 77063; 77067; 77080

== ENCOUNTER 2025-02-02 13:13 | Outpatient (CLI) | payer BC, SELFPAY ==
--- OUTSIDE RECORDS SUMMARY | 2024-10-02 10:30 | XMS_ITS ---
Author Organization [facility] Address [address] [place] [id number] Care Team Providers Care Box Maker Paperboard Name Role Phone Indiana Koroma Primary Care Provider [phone] Allergies No Known Allergies Results Component Value [...] 1.05 Performing Lab: Notes/Report: Test performed by [facility] [address] [place] [address] , [address], [place] [address] Wilberto Johnson MD, Master Baker CLIA: [id number] Sodium 143 135-145 mmol/L Potassium 5.1 3.5-5.3 [...] HCl 50 MG TAKE 1 CAPSULE BY [facility] AT BEDTIME; Duration: 30 Active Potassium Chloride ER 20 MEQ 1 tab(s) orally once daily; Duration: 30 days Active Gabapentin 100 MG 2 caps orally 3 times a day 08/13 Active Trintellix 10 MG TAKE 1 TABLET BY [facility] ONCE DAILY; Duration: 30 Active Xanax 0.5 [...] AM Orally Once a day Active Nystatin-Triamcinolone 398245-8.1 UNIT/GM 1 application Externally Twice a day 10/02/2024 Active Repatha 140 MG/ML 1 mL Subcutaneous; Duration: 30 day(s) Active Probiotic Daily - as directed Orally Active Vitamin D3 25 MCG (1000 UT) 1 capsule Orally Once a day; Duration: 30 day(s) Active Vital Signs Weight 169.0 lbs 10/02/2024 Blood pressure systolic 120 mm Hg 10/03/19 25 Blood pressure diastolic 80 mm Hg 025 Heart Rate 74 /min 10/02/2024 Height 65 in 10/02/2024 BMI 28.12 kg/m2 10/02/2024 Encounters Encounter Location Date Provider Diagnosis [facility] [address] [place] [id number] 10/02/2024 Indiana Koroma Essential hypertensi on I10 [...] Sig Start Date Stop Date Notes Nystatin-Triamcinolone 187561-4.1 UNIT/GM 1 application Externally Twice a day 10/02/2024 Next Appt Details Follow Up: 3 Months, Reason: Provider Name:Indiana Isabel er, 03/26/2025 11:45:00 AM, [address], [address] , [place], [phone], Progress Notes * CHIKIS MOLINAOB:1965 (59 yo F)Acc No.[id number]:10/02/2024 Progress Notes Patient: MANUELA GIL Provider: Indiana Koroma M.D. :1965 A ge:59 Y S ex:Female Date:10/02/2024 Address:[address] [place] [address] [place] [id number] Subjective: * Chief Complaints: * 1 . [...] 08/27/2022. * Hospitalization/Major Diagno stic Procedure: M [facility] 06/14/2010, [facility] 09/02-, [facility], Tachycardia 06/29/2019, [facility] 06/28/2201. * Family History: F ather: [...] patient in office. 2.?Intertrigo? Start Nystatin-Triamcinolone Cream, 437457-8.1 UNIT/GM, 1 application, Externally, Twice a day, 60 Gram, Refills 0.?? * Procedure Codes: 8 5025 CBC WITH AUTO DIFF, 12314 VENIPUNCT, ROUTINE*, 3074F SYST BP LT 130 MM HG, 3079F DIAST BP 80-89 MM HG * Follow Up: 3 Months * Images: Billing Information: * Visit Code: 63222 Office Visit, Est Pt., Level 4. * Procedure Codes: 83513 CBC WITH AUTO DIFF. 20563 VENIPUNCT, ROUTINE*. 3074F SYST BP LT 130 MM HG. 3079F DIAST BP 80-89 MM HG. * Electronic signature of Indiana Koroma MD on 02/02/2025 at 01:15 PM EDT Sign off status: Pending * Provider: Indiana Koroma M.D. Date: 0 10/02/2024 Generated for Kunali santos/Caitlin/eTransmitting on: 0 02/02/2025 01:15 PM EDT History and Physical Notes * HPI (History [...]
--- OUTSIDE RECORDS SUMMARY | 2025-01-01 09:15 | XMS_ITS ---
Author Organization [facility] Address [address] [place] [id number] Care Team Providers Care Mathematics Professor Name Role Phone Indiana Koroma Primary Care Provider Allergies No Known Allergies Results Component Value Reference Range Notes Glycohemoglobin A1c (in hous e) Reviewed date:01/05/2025 12:20:09 PM Interpretation: Performing Lab: Notes/Report: glycohemoglobin 5.2% 5 - 6.5 % P-Basic Metabolic Panel (BMP ) Reviewed date:01/05/2025 01:33:12 PM Interpretation:satisfactory Performing Lab: Notes/Report: Test performed by [employer], [employer] [address] [place] [address] , [address], [place] [address] Wilberto Johnson MD, Steel Tester CLIA: [id number] Sodium 146 135-145 mmol/L Potassium 4.3 3.5-5.3 mmol/L Chloride 109 97-108 mmol/L CO2 27 22-32 mmol/L Glucose 78 65-99 mg/dL BUN 16 8-23 mg/dL Creatinine 1.01 0.50-1.00 mg/dL Calcium 9.1 8.6-10.4 mg/dL eGFR by Creatinine 63 >59 mL/min/1.73m2 Reason For Referral Reason lumbar DJD, pain Diagnosis 1 DJD (degenerative gee int disease), lumbosacral (M47.817) [facility] Referring Provider First Name Indiana Diaz Referring Provider Last Name Ga Referring Provider Speciality Family Pra ctice Referred Provider Specialty Physical The rapist General Notes Jessica Timmons 2024 03:04:33 PM > faxed to [facility] PT Referral Priority Routine REASON FOR VISIT [...] day; Duration: 30 days 10/19/2024 Active Nystatin-Triamcinolone 677403-1.1 UNIT/GM APPLY TO AFFECTED AREA TWICE DAILY; [...] Problem Status W/U Status Risk Notes Problem DJD (degenerative joint disease), lumbosacral (M47.817) Active confirmed Vital Signs Weight 163.6 lbs 01/01/2025 Blood pressure systolic 92 mm Hg 01/02/20 25 Blood pressure diastolic 62 mm Hg 025 Heart Rate 64 /min 01/01/2025 Height 65 in 01/01/2025 BMI 27.22 kg/m2 01/01/2025 Encounters Encounter Location Date Provider Diagnosis [facility] [address] [facility] [address] [facility] [address] [place] [id number] 01/01/2025 Indiana Koroma Essential hypertensi on I10 ; Diastolic dysfunction I51.89 ; BMI 27.0-27.9,adult Z68.27 ; Atherosclerosis of [place] coronary artery without angina pectoris, unspecified whether [place] or transplanted heart I25.10 and DJD (degenerative joint disease), lumbosacral M47.817 Assessments Encounter Date Diagnosis (ICD Code) Assessment Notes Treatment Notes Treatment Clinical Notes Section Notes 01/01/2025 Essential hypertension (ICD-10 - I10) 01/01/2025 Diastolic dysfunction (ICD-10 - I51.89) 01/01/2025 BMI 27.0-27.9,adult (ICD-10 - Z68.27) 01/01/2025 Atherosclerosis of [place] coronary artery without angina pectoris, unspecified whether [place] or transplanted heart (ICD-10 - I25.10) 01/01/2025 [...] 3 Weeks, Reason: Provider Name:Indiana Isabel er, 03/26/2025 11:45:00 AM, [address] [facility], [address], [place], [id number], Progress Notes * CHIKIS MOLINAOB:1965 (59 yo F)Acc No.[id number]:01/01/2025 Progress Notes Patient: MANUELA GIL Provider: Indiana Koroma M.D. :1965 A ge:59 Y S ex:Female Date:01/01/2025 Address:[address] [place] [address] [id number] Subjective: * Chief Complaints: * 1 . [...] 08/27/2022. * Hospitalization/Major Diagno stic Procedure: M [facility] 06[facility]14/2010, [facility] 09/02-, [facility], Tachycardia 06/29/2019, [facility] 06/28/2201. * Family History: F ather: alive, [...] 3 times a day , Taking Nystatin-Triamcinolone 456095-4.1 UNIT/GM Cream APPLY TO AFFECTED AREA TWICE [...] iastolic dysfunction - I51.89 3 . B NE 27.0-27.9,adult - Z68.27 4 . A therosclerosis of [place] coronary artery without angina pectoris, unspecified whether [place] or transplanted heart - I25.10 5 . [...] Patient informed of normal results. 2.?Atherosclerosis of [place] coronary artery without angina pectoris, unspecified whether [place] or transplanted heart? Decrease Isosorbide Mononitrate ER [...] Procedure Codes: 3 6416 CAPILLARY BLOOD DRAW, 53016 GLYCATED HEMOGLOBIN TEST, Modifiers: QW , 1036F TOBACCO NON-USER, 3044F HG A1C LEVEL LT 7.0%, G8783 BP SCR PRFRM RCMDD DEFIND SCR INTVL, G8752 MOST RECENT SYSTOLIC BP < 140MM HG, G8754 MOST RECENT DIASTOLIC BP < 90MM HG, G8420 BMI<30 AND >=22 CALC & DOCU * Follow Up: 3 Weeks * Images: Billing Information: * Visit Code: 33330 Office Visit, Est Pt., Level 4. * Procedure Codes: 94527 CAPILLARY BLOOD DRAW. 56860 GLYCATED HEMOGLOBIN TEST. Modifiers: QW 1036F TOBACCO NON-USER. 3044F HG A1C LEVEL LT 7.0%. G8783 BP SCR PRFRM RCMDD DEFIND SCR INTVL. G8752 MOST RECENT SYSTOLIC BP < 140MM HG. G8754 MOST RECENT DIASTOLIC BP < 90MM HG. G8420 BMI<30 AND >=22 CALC & DOCU. * Electronic signature of Indiana Koroma MD on 02/02/2025 at 01:16 PM EDT Sign off status: Pending * Provider: Indiana Koroma M.D. Date: 0 01/01/2025 Generated for Isabel graham/Caitlin/eTransmitting on: 0 02/02/2025 01:16 PM EDT History and Physical Notes * [...] Referring Provider Referred Provider Not es 01/01/2025 Indiana Koroma , lumbar DJD , pain
--- OUTSIDE RECORDS SUMMARY | 2025-01-22 09:15 | XMS_ITS ---
Author Organization [facility] [place] Address [address] [facility] [address] [place] [id number] Care Team Providers Care Bee Farmer Name Role Phone Indiana Koroma Primary Care Provider Allergies No Known Allergies REASON FOR VISIT 3 weeks Medications Medication [...] day; Duration: 30 days 01/01/2025 Active Nystatin-Triamcinolone 926477-2.1 UNIT/GM APPLY TO AFFECTED AREA TWICE DAILY; [...] - as directed Orally Active Vital Signs Weight 158.8 lbs 01/22/2025 Blood pressure systolic 102 mm Hg 01/23/20 25 Blood pressure diastolic 66 mm Hg 025 Heart Rate 74 /min 01/22/2025 Height 65 in 01/22/2025 BMI 26.42 kg/m2 01/22/2025 Encounters Encounter Location Date Provider Diagnosis [facility] [address] [facility] [address] [facility] [address] [place], [place] [id number] 01/22/2025 Indiana Koroma Lumbar back pain wit h radiculopathy affecting lower extremity M54.16 and Degeneration of intervertebral disc of lumbar [...] pain (ICD-10 - M51.362) Plan Of Treatment Treatment Notes Assessment Notes Lumbar back pain with radicu lopathy affecting lower extremity Continue present care. MRI Pending Test Test Name Order Date MRI : spine, lumbosacral with and withou t contrast 01/22/2025 Next Appt Details Follow Up: 2 Months, Reason: Provider Name:Indiana Isabel er, 03/26/2025 11:45:00 AM, [address] [facility], [address], [place], [id number], Progress Notes * CHIKIS MOLINAOB:1965 (59 yo F)Acc No.[id number]:01/22/2025 Progress Notes Patient: MANUELA GIL Provider: Indiana Koroma M.D. :1965 A ge:59 Y S ex:Female Date:01/22/2025 [facility] [place], [id number] Subjective: * Chief Complaints: * 1 . 3 weeks. * HPI: Mary marquis back: The patient is here for a [...] 08/27/2022. * Hospitalization/Major Diagno stic Procedure: M [facility] 06/14/2010, [facility] 09/02-, [facility], Tachycardia 06/29/2019, [facility] 06/28/2201. * Family History: F [...] day (in the evening) , Taking Nystatin-Triamcinolone 505543-0.1 UNIT/GM Cream APPLY TO AFFECTED AREA TWICE [...] extremity pain - M51.362 Plan: * Treatment: Notes: Continue present care. MRI??2.?Degeneration of intervertebral disc of lumbar region with discogenic back pain and lower extremity pain?Imaging: MRI : spine, lumbosacral with and without contrast* Jessica Timmons 01/24/2025 02:0 8:56 PM EDT > auth# [id number]; valid 01/24/2025-02/22/2025; CPT code 58544; faxed to [facility] Scheduling * Follow Up: 2 Months * Images: Billing Information: * Visit Code: 62349 Office Visit, Est Pt., Level 3. * Procedure Codes: * Electronic signature of Indiana Koroma MD on 02/02/2025 at 01:15 PM EDT Sign off status: Pending * Provider: Indiana Koroma M.D. Date: 01/22/2025 Generated for Printi ng/Fabarrong/eTransmitting on: 02/02/2025 01:15 PM EDT History and Physical [...]
--- OUTSIDE RECORDS SUMMARY | 2025-02-02 13:16 | XMS_ITS | Clinical Summary ---
Author Organization [facility] Address [address] [place] [address] Care Team Providers Care Pail Tester Name Role Phone Joshua Koroma MD Primary Care Provider [phone] Allergies No known active allergies Medications * This document contains information received from the source organization and may not represent a complete record from that organization. ALPRAZolam (XANAX) 0.5 MG tablet Take 1 tablet by mouth 3 (Three) Times a Day. 1 Active hydrOXYzine pamoate (VISTARIL) 50 MG capsule Take 1 capsule by mouth Daily. 1 Active Vortioxetine HBr (TRINTELLIX) 10 MG tablet tablet Take 1 tablet by mouth Daily. 1 Active potassium chloride (K-DUR,KLOR-CON) 20 MEQ CR tablet Take 1 tablet by mouth Daily. 1 Active doxepin (SINEquan) 50 MG capsule Take 1 capsule by mouth Daily. 1 Active gabapentin (NEURONTIN) 300 MG capsuleIndicatio ns:Meralgia paraesthetica, right Take 1 capsule by mouth 3 (Three) Times a Day. 90 capsule 1 Active Cholecalciferol (Vitamin D3) 50 MCG (1999 UT) tablet Take 1 tablet by mouth Daily. Active atorvastatin (LIPITOR) 80 MG tablet Take 1 tablet by mouth Daily. Active clopidogrel (PLAVIX) 75 MG tablet Take 1 tablet by mouth Daily. 3 Active isosorbide mononitrate (IMDUR) 60 MG 24 hr tablet Take 1 tablet by mouth Daily. 3 Active metoprolol succinate XL (TOPROL-XL) 25 MG 24 hr tablet Take 1 tablet by mouth Daily. 3 Active multivitamin with minerals (Hair Skin and Nails Formula) tablet tablet 3 Active multivitamin with minerals (ONE-A-DAY 50 PLUS PO) Active Probiotic Product (Daily Probiotic) capsule 3 Active Evolocumab (REPATHA) solution prefilled syringe injection Inject 1 mL under the skin into the appropriate area as directed Every 14 (Fourteen) Days. Active Xarelto 15 MG tablet Take 1 tablet by mouth Daily With Dinner. 4 Active pantoprazole (PROTONIX) 40 MG EC tabletIndication s:Gastroesophage al reflux disease, unspecified whether esophagitis present Take 1 tablet by mouth Daily. 30 tablet 11 4 Active Tirzepatide (Mounjaro) 10 MG/0.5ML solution auto-injector Inject 10 mg under the skin into the appropriate area as directed Every 7 (Seven) Days. Active Active Problems Problem Noted Date Diagnosed Date Morbid obesity with body mas s index (BMI) of 50.0 to 59.9 in adult 08/04/2022 Hypertension 11/05/2021 HLD (hyperlipidemia) 11/05/2021 Dyspepsia 11/05/2021 Chronic low back pain 11/05/2021 Overview (11/05/2021): DDD; takes gabapentin; PRN Tylenol. Endometriosis 11/05/2021 Overview (11/05/2021): s/p partial hysterectomy PCOS (polycystic ovarian syndrome) 11/05/2021 Overview (11/05/2021): s/p R oopherectomy Palpitations 11/05/2021 Overview (11/05/2021): Sees Dr. Oviedo Anxiety and depression 04/22/2021 Physical deconditioning 04/22/2021 Chronic anticoagulation 04/22/2021 Gait disturbance 04/22/2021 Lymphedema of both lower extremities 04/22/2021 Meralgia paraesthetica, right 04/22/2021 Spondylosis of lumbar region without myelopathy or radiculopathy 04/10/2021 Degeneration of lumbar or lumbosacral interverte bral disc 04/10/2021 Lumbar stenosis with neurogenic claudication Morbid obesity 04/10/2021 Kidney infection 07/12/2020 Overview (11/05/2021): bilateral; resulted in sepsis and admission x 2 weeks Acute deep vein thrombosis ( DVT) of distal vein of right lower extremity 07/12/2016 Overview (11/05/2021): DVT x 1; has had 2 superficial vein clots since. On Xarelto Resolved Problems Problem Noted Date Diagnosed Date Resolved Date Chronic cholecystitis without calculus 08/05/2022 08/27/2022 Overview (08/05/2022): Added automatically from request for surgery [id number] Immunizations Immunization Administration Dates Next Due COVID-19 (MODERNA) 1st,2nd,3 rd Dose Monovalent 07/25/2021,10/23/2020,09/25/2020 Family History Medical History Relation Name Comments Clotting disorder Brother Drug abuse Daughter Alcohol abuse Father Cirrhosis Father Heart disease Father Hypertension Father Cancer Maternal Grandfather Colon cancer Maternal Grandfather Hearing loss Maternal Grandfather Hypertension Maternal Grandfather Arthritis Mother Cancer Mother Heart disease Mother Hypertension Mother Kidney disease Mother Liver disease Mother Colon cancer Paternal Aunt Cancer Paternal Grandfather Alcohol abuse Paternal Uncle Colon cancer Paternal Uncle Rheum arthritis Sister Relation Name Status Comments Brother Daughter Father Maternal Grandfather Mother Paternal Aunt Paternal Grandfather Paternal Uncle Sister Social History Tobacco Use Types Packs/Day Years Used Date Smoking Tobacco: Never Smokeless Tobacco: Never Tobacco Cessation:Counseling Given: Not Answered Alcohol Use Standard Drinks/Week Comments Not Currently 0 (1 standard drink = 0.6 oz pur e alcohol) Occ AUDIT-C Answer Date Recorded Q1: How often do you have a drink containing alcohol? Never 08/27/2022 Q2: How many drinks containi ng alcohol do you have on a typical day when you are drinking? Patient does not drink Q3: How often do you have si x or more drinks on one occasion? Never 08/27/2022 PHQ-2 Answer Date Recorded Retired Total Score 16 12/17/2021 Abuse Screen Answer Date Recorded Feels Unsafe at Home or Work/School no 08/27/2022 Feels Threatened by Someone no 08/12 Does Anyone Try to Keep You From Having Contact with Others or Doing Things Outside Your Home? no 08/27/2022 Physical Signs of Abuse Present no 08/27/2022 Housing Stability Answer Date Recorded Current Living Arrangements home 08/12 Potentially Unsafe Housing Conditions Not on dario e 08/28/2022 Disabilities Answer Date Recorded Difficulty Concentrating, Remembering or Making Decisions no 08/27/2022 Difficulty Managing Errands Independently no 08/27/2022 Education Answer Date Recorded Help with school or training? Not on file Preferred Language Bangladeshi 08/28/2022 Education Answer Date Recorded What is the highest level of school you have completed or the highest degree you have received? 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, CLINICAL NURSING MANAGER, MARCUS) 12/18/2021 Comments No Sex and Gender Information Value Date Recorded Sex Assigned at Not on file Legal Sex Female 9:34 AM EDT Gender Identity Not on file Sexual Orientation Not on file Last Filed Vital Signs Vital Sign Reading Time Taken Comments Blood Pressure 116/72 10/09/2024 9:28 AM EDT Pulse 66 10/09/2024 9:28 AM EDT Temperature 36.2 C (97.1 F) 10/09/2024 9:28 AM EDT Respiratory Rate 16 10/09/2024 9:28 AM EDT Oxygen Saturation 97% 10/09/2024 9:28 AM EDT Inhaled Oxygen Concentration - - Weight 76 kg (167 lb 9.6 oz) 10/09/2024 9:28 AM EDT Height 161.3 cm (5' 3.5 ) 10/09/2024 9:28 AM EDT Body Mass Index 29.22 10/09/2024 9:28 AM EDT Plan of Treatment Upcoming Encounters Date Type Department Care Team (Late st Contact Info) Description 10/09/2025 11:00 AM EDT Office Visit [facility] [address] [place] [address] Bere Daly PA [address] [place] [address] Health Maintenance Due Date Last Done Comments Annual Gynecologic Pelvic an d Breast Exam 1965 Pneumococcal Vaccine 50+ (1 of 2 - PCV) 09/30/1982 TDAP/TD VACCINES (1 - Tdap) 09/30/1982 MAMMOGRAM 2003 COLOGUARD 09/30/2008 COLON CANCER SCREENING 5 YEA R SIGMOIDOSCOPY 09/30/2008 CT COLONOGRAPHY 09/30/2008 FECAL OCCULT BLOOD TEST 09/30/2008 FIT Testing (1 year) 09/30/2008 ZOSTER VACCINE (1 of 2) 09/30/2013 ANNUAL PHYSICAL 03/10/2021 HEPATITIS C SCREENING 03/10/2021 LIPID PANEL 11/05/2022 11/05/2021 COVID-19 Vaccine (4 - 2023-2 5 season) 2024 07/25/2021, 10/23/2020, 09/25/2020 INFLUENZA VACCINE 04/11/2025 04/15/2022, , 05/07/2020, Additional history exists COLONOSCOPY 03/21/2034 03/21/2024, 0903/2024, 08/14/2022 (Patient-Reported (Performed Externally)) COLORECTAL CANCER SCREENING 03/21/2034 Medical Devices Implanted Type Area Route Cdl Driver Device Identifier Shelf Expiration Date Model / Serial / Lot Clipapplr M/ Endo Ligamax5 5mm 33cm /Lg - [id number] Implanted:Qty : 1 on 08/27/2022 by Amanuel Nunes MD at [facility] Implant N/A: Bile Duct [employer] J [employer] J 07/11/2027 [id number] / / [id number] Stplr Gastrc/Slv Titan/Sgs Non/Articulr Pwr 23cm 1/Pu - [id number] Implanted:Qty : 1 on 08/27/2022 by Amanuel Nunes MD at [facility] Implant N/A: Stomach STANDARD [employer] 01/30/2023 [id number] / / [id number] Description:Tracking number: [id number] Kt Tran Hemos Abs Floseal Matrx Fast/Prep 10ml - [id number] Implanted:Qty : 1 on 08/27/2022 by Amanuel Nunes MD at [facility] Implant N/A: Abdomen [facility] 06/02/2024 [id number] / / [id number] Procedures Procedure Name Priority Date/Time Associated Diagnosis Comments SCANNED - COLONOSCOPY 03/21/2024 LIPID PANEL Routine 11/05/2021 1:03 PM EDT Palpitations Hypertension, unspecified type Hyperlipidemia, unspecified hyperlipidemia type Body mass index (BMI) of 50-59.9 in adult Fatigue, unspecified type from Last 3 Months or Most Recently Relevant to Health Maintenance Results * Colonoscopy, Scan (03/21/2024) us Ryder Seymour MD CHART REVIEW T ABS Final Result * (ABNORMAL) Lipid Panel (11/05/2021 1:03 PM EDT) Total Cholesterol 251(H) 100 - 199 mg/dL [facility] Triglycerides 199(H) 0 - 149 mg/dL [facility] HDL Cholesterol 47 >39 mg/dL [facility] VLDL Cholesterol Nehemiah 37 5 - 40 mg/dL [facility] LDL Chol Calc (NIH) 167(H) 0 - 99 mg/dL [facility] Blood 11/05/2021 1:03 PM EDT 11/05/2021 Narrative [facility]) - 11/07/2021 3:08 PM EDT Performed at: [facility] [id number] Net Making Supervisor: Trey Moran PhD, Phone: [phone] Patient Fasting: N us Carol [facility] BLOOD ORDERABLES Final Resu lt [facility] ([facility]) [address] [place] [address], [place] [phone] [facility] [address] [place] [address], [place] [phone] from Last 3 Months or Most Recently Relevant to Health Maintenance Insurance [employer] [facility] Advance Directives * CPR (Attempt to Resuscitate) (Latest Code Status on File) Date Activated Date Inactivated Comments 08/27/2022 11:02 AM 08/29/2022 6:36 PM Question Answer Comments Code Status (Patient has no pulse and is not breathing): CPR (Attempt to Resuscitate) Medical Interventions (Patie nt has pulse or is breathing): Full Support Level Of Support Discussed With: Patient Release to patient: Routine Release Care Teams Pail Tester Relationship Specialty Start Date End Date Joshua Koroma MD [address] [facility] [address] [place] [address] PCP - General Family Medicine 01/31/21
--- OUTSIDE RECORDS SUMMARY | 2025-02-02 13:16 | XMS_ITS | Clinical Summary ---
Author Organization [facility] Address [address] [place] [address] Care Team Providers Care Chief Clinical Dietitian Name Role Phone Joshua Koroma MD Primary Care Provider [phone] Allergies No known active allergies Medications bisoprolol (Zebeta) 10 MG tablet Take by mouth 1 (one) time each day. Active rivaroxaban (Xarelto) 20 MG tablet Take by mouth 1 (one) time each day. Take with food. Active hydrOXYzine pamoate (Vistaril) 25 MG capsule Take 25 mg by mouth 2 (two) times a day. Active gabapentin (Neurontin) 100 MG capsule Take 100 mg by mouth. 2 caps tid Active potassium chloride CR (Klor-Con M20) 20 MEQ ER tablet Take 20 mEq by mouth 1 (one) time each day. Do not crush or chew. Active ALPRAZolam (Xanax) 1 MG tablet Take 1 mg by mouth at night if needed for anxiety. Active doxepin (SINEquan) 100 MG capsule 10/10/2021 Active Trintellix 10 MG tablet 10/10/2021 Active Active Problems Problem Noted Date Diagnosed Date Traveling blood clot in leg 07/25/2024 Overview (07/25/2024): 3 times also family history of blood clots Colonoscopy causing post-procedural bleeding 03/2024 Overview (07/25/2024): Removed 12mm polyp from rectum Placed 5 clips the next day because of excessive bleeding Heart attack 03/02/2023 Overview (07/25/2024): 2 stents 1 in maker and one in LAD artery Fatty liver determined by biopsy 08/27/2022 Stage 3 chronic kidney disease 10/20/2021 Morbid obesity 10/20/2021 Vitamin D deficiency 07/24/2021 Proteinuria 07/24/2021 Resolved Problems Problem Noted Date Diagnosed Date Resolved Date YASMIN (acute kidney injury) 07/17/2021 Immunizations Immunization Administration Dates Next Due Influenza, injectable, quadrivalent 11/2021,03/26/2021,05/07/2020,04/21,04/14/2018,03/31/2017 Moderna COVID-19 Vaccine (Re d Cap) 12+ years 07/25/2021,10/23/2020,09/25/2020 Pneumococcal Polysaccharide PPV23 12/02/2017 Tdap 04/08/2020 Zoster, live 05/07/2020 Family History Medical History Relation Name Comments Depression Daughter Cali Gonzalez Drug abuse Daughter Cali Gonzalez Alcohol abuse Father Frankie Oketo Cancer Father Frankie Oketo Heart disease Father Frankie Oketo Hyperlipidemia Father Frankie Oketo Hypertension Father Frankie Oketo Alcohol abuse Father's Brother 1 León Oketo Cancer Father's Brother 1 León Oketo Alcohol abuse Father's Brother 2 Edin Oketo Alcohol abuse Father's Sister Sravani Dinesh Cancer Father's Sister Sravani Dinesh Cancer Maternal Grandfather LaVaine Minerva Heart disease Maternal Grandfather LaVaine Minerva Cancer Mother Dee Oketo Heart disease Mother Dee Oketo Hypertension Mother Dee Oketo Kidney disease Mother Dee Oketo Cancer Mother's Sister LaDene Tarrabaccia Cancer Paternal Grandfather Ole Oketo Hypertension Son Rolando Gonzalez Relation Name Status Comments Heidi Gonzalez Father Frankie Oketo Alive Father's Brother 1 León Oketo Father's Brother 2 Edin Oketo Father's Sister Sravani Dinesh Maternal Grandfather LaVaine Minerva Mother Dee Oketo Alive Mother's Sister LaDene Tarrabaccia Paternal Grandfather Ole Oketo Son Rolando Gonzalez Social History Tobacco Use Types Packs/Day Years Used Date Smoking Tobacco: Never Passive Smoke Exposure: Never Smokeless Tobacco: Never Tobacco Cessation:Counseling Given: Not Answered Alcohol Use Standard Drinks/Week Comments Not Currently 0 (1 standard drink = 0.6 oz pur e alcohol) Comments Unknown Sex and Gender Information Value Date Recorded Sex Assigned at Not on file Legal Sex Female 8:02 PM EDT Gender Identity Not on file Sexual Orientation Not on file Last Filed Vital Signs Vital Sign Reading Time Taken Comments Blood Pressure 99/66 05/05/2024 1:14 PM EDT Pulse 70 05/05/2024 1:14 PM EDT Temperature - - Respiratory Rate 18 03/22/2023 3:37 PM EDT Oxygen Saturation 99% 01/10/2024 2:33 PM EDT Inhaled Oxygen Concentration - - Weight 86.7 kg (191 lb 2.2 oz) 05/05/2024 1:14 P M EDT Height 162.6 cm (5' 4 ) 05/05/2024 1:14 PM EDT Body Mass Index 32.81 05/05/2024 1:14 PM EDT Plan of Treatment Health Maintenance Due Date Last Done Comments [facility]-Depression Screening 1965 [facility]-HIV Screening 1965 [facility]-Hepatitis C Screening 1965 [facility]-/Child/Adol SDOH Screenings 1965 Diabetes: Dental Exam 09/30/1973 [facility]- SDOH Screenings 09/30/1981 [facility]-Adult SDOH Screenings 09/30/1981 [facility]-Hepatitis A Vaccines (1 of 2 - Risk 2-dose series) 09/30/1982 CT Colonography 09/30/2008 Colonoscopy 09/30/2008 FIT-DNA 09/30/2008 FIT 09/30/2008 FOBT 09/30/2008 Sigmoidoscopy 09/30/2008 [facility]-Colorectal Cancer Screening 09/30/2008 [facility]-Breast Cancer Screening 09/30/2013 [facility]-Pneumococcal Vaccine: 50+ Years (2 of 2 - PCV) 12/02/2018 12/02/2017 [facility]-Zoster Vaccines (2 of 3) 07/02/2020 05/07/2020 [facility]-Diabetes: Hemoglobin A1C 02/17/2023 08/20/2022, 11/05/2021 [facility]-RSV Vaccine: 60+ Years or (1 - Risk 60-74 years 1-dose series) 2023 [id number] Vaccine (4 - season) 2024 07/25/2021, 10/23/2020, 09/25/2020 [facility]-Influenza Vaccine (#1) 03/12/202504/15, 03/26/2021, 05/07/2020, Additional history exists [facility]-DTaP,Tdap,and Td Vaccines (2 - Td or Tdap) 04/08/2030 04/08/2020 [facility]-Obesity Intervention Completed 05/05/2024, 07/2023 HPV Vaccines Aged Out No longer eligi ble based on patient's age to complete this topic [facility]-HIB Vaccines Aged Out No longer e ligible based on patient's age to complete this topic [facility]-IPV Vaccines Aged Out No longer e ligible based on patient's age to complete this topic [facility]-Rotavirus Vaccines Aged Out No lo nger eligible based on patient's age to complete this topic Insurance [facility] Care Teams Chief Clinical Dietitian Relationship Specialty Start Date End Date Joshua Koroma MD [address] [place] [address] PCP - General 07/17/21
--- NOTE | 2025-02-02 13:27 | MR_ITS ---
FINAL REPORT TECHNIQUE: Multiplanar MR, without and with gadolinium enhancement CLINICAL HISTORY: LUMBAR BACK PAIN/DEGENERATION OF DISC lower back pain with right leg pain , tingling and numbness COMPARISON: none FINDINGS: Sagittal images show normal vertebral height. Alignment is normal. Fusion of the L5-S1 disc. No evidence of mass. There is no abnormal enhancement. T12-L1: Ibcz-ta-xmmkdlka annular disc bulge. Mild neural foraminal narrowing. L1-2: Moderate annular disc bulge. Small central disc protrusion. Borderline central canal stenosis. L2-3: Mild annular disc bulge. Mild facet arthropathy. Mild central canal stenosis and bilateral neural foraminal narrowing. L3-4: Moderate annular disc bulge. Moderate facet arthropathy. Mild central canal stenosis. Moderate bilateral neural foraminal narrowing. L4-5: Moderate annular disc bulge. Severe facet overgrowth. Moderate central canal stenosis. Moderate bilateral neural foraminal narrowing. L5-S1: Endplate hypertrophic changes. Small central disc osteophyte complex. Mild bilateral neural foraminal narrowing without canal stenosis. IMPRESSION: Midline degenerative changes with canal stenosis and neural foraminal narrowing most pronounced at L4-5. Reviewed, Interpreted and Dictated by Sena Pruett MD Transcribed by Suki Eden Authenticated and [facility]
[2025-02-02 13:54] LABS: Blood Urea Nitrogen 14 mg/dl (7-17); Creatinine,Serum 1.00 mg/dl (0.52-1.04); Estimated Glomerular Filt Rate 56 ml/min (>60); GFR (African American) 68 ML/MIN (>60)
[2025-02-02] MEDS: SODIUM CHLORIDE 0.9% 10ML SYR (RAD ONLY) 10 ML IV (14:21)
[2025-02-02] MEDS: GADOTERIDOL INJ 20ML SYRINGE 15 ML IV (14:21)
== END 2025-02-02 23:59 | disposition home or self-care (01) ==
LOC: RAD 13:14
PROVIDERS: PCP Family Medicine; Visit Provider Family Medicine
DX: M47.26 Other spondylosis with radiculopathy, lumbar region (principal); M48.061 Spinal stenosis, lumbar region without neurogenic claudication; M99.73 Connective tissue and disc stenosis of intervertebral foramina of lumbar region; M51.362 Other intervertebral disc degeneration, lumbar region with discogenic back pain and lower extremity pain; M51.16 Intervertebral disc disorders with radiculopathy, lumbar region
CPT/HCPCS: 36415; 72158; 82565; 84520; A9576

== ENCOUNTER 2025-02-07 16:00 | Outpatient (RCR) | payer BC, SELFPAY ==
--- NOTE | 2025-01-16 17:36 | HMH.PTOPEV ---
PT Outpatient Evaluation Rehab PT Outpatient Evaluation Start: 01/16/25 14:14 Freq: Status: Active Protocol: Document 01/16/25 14:16 CATRACHO (Rec: 01/16/25 17:21 CATRACHO [id number]) E-signed By Laura Ornelas, PT Outpatient Therapy Subjective History Subjective History Pt is a 59 y/o female who reports chronic LBP with worsening of symptoms over the past 2-3 months, denies trauma or injury. Pt reports most recent MRI in 2020 showing DJD and bulging discs. Pt reports current symptoms of R>L central low back aggravated by bending forward, lifting, twisting, prolonged sitting, standing and walking. Pt reports it feels that her back gets stuck with prolonged sitting or standing and requires frequent repositioning. Pt reports intermittent referral pain into her posterior hips and tingling of bilateral thighs and calves. Pt denies b/b dysfunction. Pt reports she takes Gabapentin which she states does not improve her symptoms. Medical History: Chronic back pain, Anxiety, GERD, Depression, HTN, HLP, Insomnia, Type II Diabetes New diagnosis of No cancer in past 12 months? Chief Complaint Pain Symptom Type Ache,Sharp,Dull Symptoms Relieved By Rest/Positioning Symptoms Aggravated Sitting,Standing,Physical Activity,Twisting,Walking, By Lifting Current Functional Lifting,Housework,Standing,Sitting,Squatting,Walking, Limitations Bending/Stooping Symptom Description Constant but Variable Level of pain today 4 (0-10) Pain scale - at its 3 best (0-10) Pain scale - at its 9 worst (0-10) Lumbopelvic Eval Palapation tenderness bilateral lumbar spinal Yes: L3-4, L4-5, L5-S1 tenderness buttock tenderness Yes: glute med, min, piriformis Lumbar/Sacral Tenderness Palpation Findings Lumbar/Sacral 2-3/4 TTP Palpation Overall Comment Accessory Movement L-spine Vertebrae Central P/A Pierson Accessory Movements that Elicit Symptoms L4 bilateral L5 bilateral S1 bilateral Range of Motion Lumbar Spine Active 80 Flexion Range of Motion (degrees) Lumbar Spine Active 10 Extension Range of Motion (degrees) Left Lumbar Spine 10 Lateral Flexion Active Range of Motion (degrees) Right Lumbar Spine 10 Lateral Flexion Active Range of Motion (degrees) Manual Muscle Test Bilateral Knee Extension 5 Normal Strength Grade Knee Flexion 5 Normal Strength Grade Hip Flexion Strength 4 Good Grade Hip Abduction 4 Good Strength Grade Hip Adduction 4 Good Strength Grade Hip Extension 4- Good- Strength Grade Ankle Dorsiflexion 5 Normal Strength Grade DTR Rt Patellar 2+ Lt Patellar 2+ Altered Sensation Bilateral Comment equal and intact to light touch sensation bilaterally Special Tests Hip Pete (WAYNE) Positive Left,Positive Right Test Sciatic Nerve Negative Left,Negative Right Tension Test Unilateral Straight Negative Left,Negative Right Leg Raise (Lasegue) Test Oswestry Index Section 1 Pain Intensity The pain comes and goes and is severe Section 2 Personal Care ( increase the pain, but I manage not to change my way of Washing,Dresing) doing it Section 3 Lifting lifting heavy weights off the floor, but I can manage light to medium Section 4 Walking I cannot walk more than 1/4 mile without increasing pain Section 5 Sitting Pain prevents me from sitting for more than 1/2 hour Section 6 Standing I cannot stand more than 10 minutes without increasing pain Section 7 Sleeping Because of my pain, my normal night's sleep is less than 6 hours sleep Section 8 Social Life Pain has restricted my social life and I do not go out often Section 9 Traveling I get extra pain while traveling, but it does not compel me to seek al Section 10 Changing Degreee of My pain is gradually getting worse Pain Score and Risk Level Oswestry Sc 32 Oswestry Risk Level Severe Disability Outpatient Therapy Assessment Impairments Problems/ Palpation Tenderness,Impaired Range of Motion,Impaired Impairmments Strength,Impaired Walking,Impaired Standing,Impaired Sitting,Impaired Lifting,Impaired Household Care, Subjective C/O Pain,Impaired Self Care/Self Management Prognosis Rehab Potential Good Clinical Impression Consistent with Yes Diagnosis Short Term Goals Number of Weeks 3 Decrease Subjective Yes: Improve pain at worst to 7/10 to improve overall C/O Pain QOL Improve Self Care/ Yes Self Management Patient to be Ind w/ Yes HEP Alf Goals Number of Weeks 6 Decreased Palpation Yes: 0-1/4 TTP of lower lumbar spinal segments and Tenderness gluteal mm Increase Range of Yes: Improve lumbar AROM flex to 90, ext and LF to 15 Motion Increase Strength Yes: Improve B hip MMT to 4+/5 grossly to assist with function Improve Oswestry Yes: Improve score to 27 or less to improve overall QOL Score Decrease Subjective Yes: Improve pain at worst to 5/10 to improve overall C/O Pain QOL Outpatient Therapy Plan of Care Treatment Plan May Include Therapeutic Exercise Yes Including Home Exercise Program Manual Therapy Yes Techniques Neuromuscular Re- Yes education Therapeutic Yes Activities to Return to Previous Functional/Work Level Gait Training Yes ADL/Self Care Yes Education Mechanical Traction Yes Dry Needling Yes Thermal Modalities Yes Electrical Yes Stimulation Ultrasound/ Yes Phonophoresis Iontophoresis Yes Massage Yes Group Therapy for Yes Medicare Eval/Re-Eval Yes Frequency Times per week 2 Duration Number of Weeks 4-6 Addendums This patient is a No candidate for social or vocational rehab ? Patient/Guardian Yes verbally acknowledges understanding of treatment program and consents to further treatment? Patient/Guardian Yes verbally acknowledges understanding of diagnosis, prognosis and goals for treatment? Eval Complexity PT Charges 94519 - Moderate Complexity Shoulder/Elbow Eval Shoulder Objective Measurements Elbow Objective Measurements PHYSICIAN CERTIFICATION: I certify the specified therapy services for Maria L Gonzalez are required, authorized, and reviewed every 30 days.
== END 2025-02-07 23:59 | disposition home or self-care (01) ==
LOC: PT 16:00
PROVIDERS: Visit Provider Family Medicine
DX: M47.817 Spondylosis without myelopathy or radiculopathy, lumbosacral region (principal)
CPT/HCPCS: 97014; 97110; 97162; G0283

== ENCOUNTER 2025-03-01 11:12 | Outpatient (CLI) | payer BC, SELFPAY ==
--- OUTSIDE RECORDS SUMMARY | 2025-01-01 09:15 | XMS_ITS ---
Author Organization [facility] Address [address] [place] [id number] Care Team Providers Care Business Controller Name Role Phone Indiana Koroma Primary Care Provider Allergies No Known Allergies Results Component Value Reference Range Notes Glycohemoglobin A1c (in hous e) Reviewed date:01/05/2025 12:20:09 PM Interpretation: Performing Lab: Notes/Report: glycohemoglobin 5.2% 5 - 6.5 % P-Basic Metabolic Panel (BMP ) Reviewed date:01/05/2025 01:33:12 PM Interpretation:satisfactory Performing Lab: Notes/Report: Test performed by [employer], [employer] [address] [place] [address] , [address], [place] [address] Wilberto Johnson MD, Curriculum Facilitator CLIA: [id number] Sodium 146 135-145 mmol/L Potassium 4.3 3.5-5.3 mmol/L Chloride 109 97-108 mmol/L CO2 27 22-32 mmol/L Glucose 78 65-99 mg/dL BUN 16 8-23 mg/dL Creatinine 1.01 0.50-1.00 mg/dL Calcium 9.1 8.6-10.4 mg/dL eGFR by Creatinine 63 >59 mL/min/1.73m2 Reason For Referral Reason lumbar DJD, pain Diagnosis 1 DJD (degenerative gee int disease), lumbosacral (M47.817) [facility] Referring Provider First Name Indiana Diaz Referring Provider Last Name Ga Referring Provider Speciality Family Pra ctice Referred Provider Specialty Physical The rapist General Notes Jessica Timmons 2024 03:04:33 PM > faxed to [facility] PT Referral Priority Routine REASON FOR [...] day; Duration: 30 days 10/19/2024 Active Nystatin-Triamcinolone 804702-4.1 UNIT/GM APPLY TO AFFECTED AREA TWICE DAILY; [...] 01/01/2025 Encounters Encounter Location Date Provider Diagnosis [facility] [address] [facility] 36 [facility] [address] [place] [id number] 01/01/2025 Indiana Koroma Essential hypertensi on I10 ; Diastolic dysfunction I51.89 ; BMI 27.0-27.9,adult Z68.27 ; Atherosclerosis of [place] coronary artery without angina pectoris, unspecified whether [place] or transplanted heart I25.10 and DJD (degenerative joint disease), lumbosacral M47.817 Assessments Encounter Date Diagnosis (ICD Code) Assessment Notes Treatment Notes Treatment Clinical Notes Section Notes 01/01/2025 Essential hypertension (ICD-10 - I10) 01/01/2025 Diastolic dysfunction (ICD-10 - I51.89) 01/01/2025 BMI 27.0-27.9,adult (ICD-10 - Z68.27) 01/01/2025 Atherosclerosis of [place] coronary artery without angina pectoris, unspecified whether [place] or transplanted heart (ICD-10 - I25.10) 01/01/2025 [...] Follow Up: 3 Weeks, Reason: Provider Name:Indiana villa, 04/05/2025 02:00:00 PM, [address] [place] [facility], [address], [place], [phone], Provider Name:Indiana villa, 05/14/2025 10:21:00 AM, [address] [facility] 36 [facility], [address], [place], [phone], Progress Notes * RYAN MOLINA:1965 (59 yo F)Acc No.[id number]:01/01/2025 Progress Notes Patient: MANUELA GIL Provider: Indiana Koroma M.D. :1965 A ge:59 Y S ex:Female Date:01/01/2025 Address:[address] [place], [place] [address], [id number] Subjective: * Chief Complaints: * 1 . [...] 08/27/2022. * Hospitalization/Major Diagno stic Procedure: M [place]-H 06/14/2010, [facility] 09/02-, [facility], Tachycardia 06/29/2019, [facility] 06/28/2201. * Family History: F ather: [...] 3 times a day , Taking Nystatin-Triamcinolone 438807-9.1 UNIT/GM Cream APPLY TO AFFECTED AREA TWICE [...] iastolic dysfunction - I51.89 3 . B ND 27.0-27.9,adult - Z68.27 4 . A therosclerosis of [place] coronary artery without angina pectoris, unspecified whether [place] or transplanted heart - I25.10 5 . [...] Patient informed of normal results. 2.?Atherosclerosis of [place] coronary artery without angina pectoris, unspecified whether [place] or transplanted heart? Decrease Isosorbide Mononitrate ER [...] Procedure Codes: 3 6416 CAPILLARY BLOOD DRAW, 45021 GLYCATED HEMOGLOBIN TEST, Modifiers: QW , 1036F TOBACCO NON-USER, 3044F HG A1C LEVEL LT 7.0%, G8783 BP SCR PRFRM RCMDD DEFIND SCR INTVL, G8752 MOST RECENT SYSTOLIC BP < 140MM HG, G8754 MOST RECENT DIASTOLIC BP < 90MM HG, G8420 BMI<30 AND >=22 CALC & DOCU * Follow Up: 3 Weeks * Images: Billing Information: * Visit Code: 30077 Office Visit, Est Pt., Level 4. * Procedure Codes: 40201 CAPILLARY BLOOD DRAW. 13148 GLYCATED HEMOGLOBIN TEST. Modifiers: QW 1036F TOBACCO NON-USER. 3044F HG A1C LEVEL LT 7.0%. G8783 BP SCR PRFRM RCMDD DEFIND SCR INTVL. G8752 MOST RECENT SYSTOLIC BP < 140MM HG. G8754 MOST RECENT DIASTOLIC BP < 90MM HG. G8420 BMI<30 AND >=22 CALC & DOCU. * Electronic signature of Indiana Koroma MD on 03/01/2025 at 11:15 AM EDT Sign off status: Pending * Provider: Indiana Koroma M.D. Date: 0 01/01/2025 Generated for Isabel graham/Caitlin/Paramitting on: 0 03/01/2025 11:15 AM EDT History and Physical Notes * HPI [...]
--- OUTSIDE RECORDS SUMMARY | 2025-01-22 09:15 | XMS_ITS ---
Author Organization [facility] Address [address] [facility] [address] [place] [id number] Care Team Providers Care Macerator Operator Name Role Phone Indiana Koroma Primary Care [...] day; Duration: 30 days 01/01/2025 Active Nystatin-Triamcinolone 431336-8.1 UNIT/GM APPLY TO AFFECTED AREA TWICE DAILY; [...] Blood pressure systolic 102 mm Hg 01/23/20 Blood pressure diastolic 66 mm Hg 025 Heart Rate 74 /min 01/22/2025 Height 65 in 01/22/2025 Weight 158.8 lbs 01/22/2025 BMI 26.42 kg/m2 01/22/2025 Encounters Encounter Location Date Provider Diagnosis [facility] [address] [place] [address] [address] [facility] [address] [place] [id number] 01/22/2025 Indiana Koroma Lumbar back pain wit [...] 2 Months, Reason: Provider Name:Indiana Isabel er, 04/05/2025 02:00:00 PM, [address] [facility] [address] [facility], [address], [place], [id number], Provider Name:Indiana Joe Chalo er, 05/14/2025 10:21:00 AM, [address], [address], [place], [place], [id number], Progress Notes * HUNG MOLINAEDOB:1965 (59 yo F)Acc No.[id number]:01/22/2025 Progress Notes Patient: MANUELA GLI Provider: Indiana Koroma M.D. :1965 A ge:59 Y S ex:Female Date:01/22/2025 Address:[facility] [place] [address], [place], [id number] Subjective: * Chief Complaints: * 1 . [...] Sleeve 08/27/2022. * Hospitalization/Major Diagno stic Procedure: [facility] 06/14/2010, [facility] 09/02-, [facility], Tachycardia 06/29/2019, [facility] 06/28/2201. * Family History: F ather: [...] day (in the evening) , Taking Nystatin-Triamcinolone 252973-7.1 UNIT/GM Cream APPLY TO AFFECTED AREA TWICE DAILY , Taking Potassium Chloride Jaki ER 20 MEQ Tablet Extended Release TAKE 1 TABLET BY MOUTH ONCE DAILY , Taking Doxepin HCl 50 MG Capsule 1 capsule at bedtime Orally Once a day , Taking Isosorbide Mononitrate ER 60 MG Tablet Extended Release 24 Hour /2 Orally Once a day , Taking Gabapentin [...] extremity pain - M51.362 3 . B [place] 26.0-26.9,adult - Z68.26 Plan: * Treatment: Notes: Continue present care. MRI??2.?Degeneration of intervertebral disc of lumbar region with discogenic back pain and lower extremity pain?Imaging: MRI : spine, lumbosacral with and without contrast (Performed Date - 02/02/2025)?midline degenerative changes with stenosis and foraminal narrowing * Jessica Timmons 01/24/2025 02:0 8:56 PM EDT > auth# [id number]; valid 01/24/2025-02/22/2025; CPT code 81040; faxed to [facility] Scheduling Bernadine España 02/09/2025 10:59:07 AM EDT > See phone encounter * Procedure Codes: 1 036F TOBACCO NON-USER, G8420 BMI<30 AND >=22 CALC & DOCU, G8783 BP SCR PRFRM RCMDD DEFIND SCR INTVL, 3074F SYST BP LT 130 MM HG, 3078F DIAST BP < 80 MM HG * Follow Up: 2 Months * Images: Billing Information: * Visit Code: 21728 Office Visit, Est Pt., Level 3. * Procedure Codes: 1036F TOBACCO NON-USER. G8420 BMI<30 AND >=22 CALC & DOCU. G8783 BP SCR PRFRM RCMDD DEFIND SCR INTVL. 3074F SYST BP LT 130 MM HG. 3078F DIAST BP < 80 MM HG. * Electronic signature of Indiana Koroma MD on 03/01/2025 at 11:14 AM EDT Sign off status: Pending * Provider: Indiana Koroma M.D. Date: 01/22/2025 Generated for Printi ng/Fabarrong/eTransmitting on: 03/01/2025 11:14 AM EDT History and Physical Notes * [...]
--- OUTSIDE RECORDS SUMMARY | 2025-02-22 11:15 | XMS_ITS ---
[facility] Address [address] [place] [phone] Care Team Providers Care Ase Certified Technician Name Role Phone [place] Koroma Primary Care Provider Allergies No Known Allergies Reason For Referral Reason spinal stenosis and degenerative disc disease. Diagnosis 1 Spinal stenosis of l umbosacral region (M48.07) [facility] Referring Provider First Name Indiana Diaz Referring Provider Last Name Ga Referring Provider Speciality Family Pra ctice Referred Provider Damián Rutherford Referred Provider Specialty Pain Managem ent General Notes Jessica Timmons 2024 04:53:09 PM > faxed to [facility] Pain Management Referral Priority Routine REASON FOR [...] MOUTH ONCE DAILY; Duration: 30 Active Nystatin-Triamcinolone 792475-6.1 UNIT/GM APPLY TO AFFECTED AREA TWICE DAILY; [...] Notes Problem Spinal stenosis of lumbosacral region (912218760) Spinal stenosis of lumbosacral region (M48.07) Active confirmed Vital Signs Blood pressure systolic 110 mm Hg 02/23/20 25 Blood pressure diastolic 70 mm Hg 025 Heart Rate 72 /min 02/22/2025 Height 65 in 02/22/2025 Weight 156.4 lbs 02/22/2025 BMI 26.02 kg/m2 02/22/2025 Encounters Encounter Location Date Provider Diagnosis [facility] [address] [phone] 02/22/2025 [place] Koroma Spinal stenosis of lumbosacral region M48.07 and Degeneration of intervertebral disc of lumbar region with discogenic back pain and lower extremity pain M51.362 Assessments Encounter Date Diagnosis (ICD Code) Assessment Notes Treatment Notes Treatment Clinical Notes Section Notes 02/22/2025 Spinal stenosis of lumbosacral region (ICD-10 - M48.07) 02/22/2025 Degeneration of intervertebral disc of lumbar region with discogenic back pain and lower extremity pain (ICD-10 - M51.362) Plan Of Treatment Referrals Referral Date Details 02/22/2025 02/22/2025, spinal s tenosis and degenerative disc disease., Damián Bux Next Appt Details Follow Up: 6 Weeks, Reason: Provider Name:Indiana villa, 04/05/2025 02:00:00 PM, [address] [facility] [address], [address], [place], [phone], Provider Name:Ind[place] Isabel er, 05/14/2025 10:21:00 AM, [address] [facility] [address], [address], [place], [phone], Progress Notes * CHIKIS MOLINAOB:1965 (59 yo F)Acc No.[id number]:02/22/2025 Progress Notes Patient: MANUELA GIL Provider: [place] Koroma M.D. :1965 A ge:59 Y S ex:Female Date:02/22/2025 Address:[address] [place] [address] [id number] Subjective: * Chief Complaints: * 1 . [...] 08/27/2022. * Hospitalization/Major Diagno stic Procedure: M [facility] 06/14/2010, [facility] 09/02-, [facility], Tachycardia 06/29/2019, [facility] 06/28/2201. * Family History: F ather: , [...] day (in the evening) , Taking Nystatin-Triamcinolone 685096-5.1 UNIT/GM Cream APPLY TO AFFECTED AREA TWICE [...] pain - M51.362 Plan: * Treatment: * Follow Up: 6 Weeks * Images: Billing Information: * Visit Code: 86591 Office Visit, Est Pt., Level 3. * Procedure Codes: * Electronic signature of Indiana Koroma MD on 03/01/2025 at 11:14 AM EDT Sign off status: Pending * Provider: [place] Koroma M.D. Date: 02/22/2025 Generated for Isabel graham/Caitlin/Paramitting on: 03/01/2025 11:14 AM EDT History and [...]
--- NOTE | 2025-03-01 | CA_ITS ---
APPROVED REPORT Exam: Pharmacologic Technologist: Melissa Delaney Ht: 5 ft 4 in Wt: 157 lbs BSA: 1.76 m2 Medical History Medications: alopram, atorvastatin, vit D3, plavix, Co Q-10, doxepin, trulicity, mounjaro, toprol XL, repatha, trintellix, protonix, xarelto, potassium chloride ER, ferrous sulfate, gabapentin, vistaril, ibuprofen, isosorbide mononitrate ER, probiotic, lisinopril. Stress Test Details Test: Lexiscan Reason for pharmacologic stress test: physical limitation. HR Resting HR: 77 bpm Max Heart Rate (APMHR): 159 bpm Max HR Achieved: 103 bpm Target HR (85% APMHR): 135 bpm % of APMHR: 65 Recovery HR: 98 bpm BP Resting BP: 129.0/85.0 mmHg Max BP: 129.0/85.0 mmHg Recovery BP: 129.0/80.0 mmHg ECG Resting ECG: SR No ectopy. Stress ECG Conclusion Symptoms: None. Arrhythmias/Ectopy: None. ST-T Changes: less than 1.5mm ST segment changes. Conclusion: Non-diagnostic ECG/Lexiscan. Electronically signed by : Taylor Connell MD 03/01/2025 15:45:16
--- OUTSIDE RECORDS SUMMARY | 2025-03-01 11:14 | XMS_ITS | Clinical Summary ---
Author Organization [facility] Address [address] [place] [address] Care Team Providers Care Pc Technician Name Role Phone Joshua Koroma MD Primary Care Provider [phone] Allergies No known active allergies Medications * [...] (08/05/2022): Added automatically from request for surgery [id number] Immunizations Immunization Administration Dates Next Due COVID-19 [...] or training? Not on file Preferred Language Mohawk 08/28/2022 Education Answer Date Recorded What is the highest level of school you have completed or the highest degree you have received? 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 [address] [place] [address] Bere Daly PA [address] [place] [address] Health Maintenance Due Date Last [...] SCREENING 03/21/2034 Medical Devices Implanted Type Area Qa Test Lead Device Identifier Shelf Expiration Date Model / Serial / Lot Clipapplr M/ Endo Ligamax5 5mm 33cm /Lg - [id number] Implanted:Qty : 1 on 08/27/2022 by Amanuel Nunes MD at [facility] Implant N/A: Bile Duct [employer] J 07/11/2027 [id number] / / [id number] Stplr Gastrc/Slv Titan/Sgs Non/Articulr Pwr 23cm 1/Pu - [id number] Implanted:Qty : 1 on 08/27/2022 by Amanuel Nunes MD at [facility] Implant N/A: Stomach [employer] 01/30/2023 [id number] / / [id number] Description:Tracking number: [id number] Kt Tran Hemos Abs Floseal Matrx Fast/Prep 10ml - [id number] Implanted:Qty : 1 on 08/27/2022 by Amanuel Nunes MD at [facility] Implant N/A: Abdomen [facility] 06/02/2024 [id number] / / [id number] Procedures Procedure Name Priority Date/Time Associated Diagnosis [...] - 11/07/2021 3:08 PM EDT Performed at: [facility] [id number] Agile Developer: Trey Moran PhD, Phone: [phone] Patient Fasting: N us Carol [facility] BLOOD ORDERABLES Final Resu lt [facility] ([facility]) [address] [place] [address], [place] [phone] [facility] [address] [place] [address], [place] [phone] from Last 3 Months or Most Recently Relevant to Health Maintenance Insurance [employer] Advance Directives * CPR (Attempt to [...] Release to patient: Routine Release Care Teams Pc Technician Relationship Specialty Start Date End Date Joshua Koroma MD [address] [facility] [address] [place] [address] PCP - General Family Medicine 01/31/21
--- OUTSIDE RECORDS SUMMARY | 2025-03-01 11:14 | XMS_ITS | Clinical Summary ---
Author Organization [facility] Address [address] [place] [address] Care Team Providers Care Mechanical Engineering Draftsperson Name Role Phone Joshua Koroma MD Primary Care Provider Allergies No known active allergies Medications bisoprolol [...] Daughter Cali Gonzalez Alcohol abuse Father Frankie Partridge Cancer Father Frankie Partridge Heart disease Father Frankie Partridge Hyperlipidemia Father Frankie Partridge Hypertension Father Frankie Partridge Alcohol abuse Father's Brother 1 León Partridge Cancer Father's Brother 1 León Partridge Alcohol abuse Father's Brother 2 Edin Partridge Alcohol abuse Father's Sister Sravani Dinesh Cancer Father's Sister Sravani Dinesh Cancer Maternal Grandfather LaVaine Minerva Heart disease Maternal Grandfather LaVaine Minerva Cancer Mother Dee Partridge Heart disease Mother Dee Partridge Hypertension Mother Dee Partridge Kidney disease Mother Dee Partridge Cancer Mother's Sister LaDene Tarrabaccia Cancer Paternal Grandfather Ole Partridge Hypertension Son Rolando Gonzalez Relation Name Status Comments Heidi Gonzalez Father Frankie Partridge Alive Father's Brother 1 León Partridge Father's Brother 2 Edin Partridge Father's Sister Sravani Dinesh Maternal Grandfather LaVaine Minerva Mother Dee Partridge Alive Mother's Sister LaDene Tarrabaccia Paternal Grandfather Ole Partridge Son Rolando Gonzalez Social History Tobacco Use [...] - Risk 60-74 years 1-dose series) 2023 [id number] Vaccine (4 - season) 2024 07/25/2021, 10/23/2020, [...] patient's age to complete this topic Insurance [facility] Care Teams Mechanical Engineering Draftsperson Relationship Specialty Start Date End Date Joshua Koroma MD [address] [place] [address] PCP - General 07/17/21
--- NOTE | 2025-03-01 11:15 | CA_ITS ---
APPROVED REPORT EXAM: Comprehensive 2D, Doppler, and color-flow Echocardiogram Store Clerk Checker: Nicole Casey RCS, RVS Ht: 5 ft 4 in Wt: 157lbs BSA: 1.76 BP: 104/76 mmHg Indications: CP, Dyspnea, CAD-stents 2D Dimensions LVDd 4.27 cm LVEF (Visual) 76.90 % LVDs 2.34 cm LA Volume 45.80 mL Left Atrium 2.38 cm LA Volume Index 25.30 mL/m2 (M/F) 16-34 M-Mode Dimensions RVDd 2.21 cm (0.9-2.6) LA Diam 3.50 cm (1.9-4.0) LVDd 4.33 cm (3.5-5.7) LVDs 1.95 cm (3.5-5.7) IVSd 0.78 cm (0.6-1.1) PWd 0.73 cm (0.6-1.1) EF (Teich) 85.90% FS 55.00% EDV (Teich) 84.40 mL TAPSE 1.41 (<1.7) ESV (Teich) 11.90 mL LV Diastology E Decel Time 237 (160-240 msec) E/A Ratio 1.14 MED A' 12.70 cm/s LAT A' 13.50 cm/s Aortic Valve KELL Index 1.33 cm2/m2 AoV Peak Andrew. 143.0 (50-130 cm/s) AO Peak GR. 8.20 mmHg AO Mean GR. 4.00 (<5 mmHg) AO VTI 28.1 (18-25 cm) KELL (VTI) 2.41 (2.5-4.5 cm2) Mitral Valve MV A Velocity 71.0 (40-130 cm/s) E/A Ratio 1.14 Tricuspid Valve TR P. Velocity 236.00 cm/s RAP Estimate 10.00 mmHg RVSP 32.20 mmHg Left Ventricle The left ventricle is normal size. Left ventricular systolic function is normal. The left ventricular ejection fraction is within the normal range. There is normal left ventricular wall thickness. There is normal LV segmental wall motion. The left ventricular diastolic function is normal. LVEF is 55% Right Ventricle The right ventricle is normal size. The right ventricular systolic function is normal. Atria The left atrium size is normal. The right atrium size is normal. There is no color Doppler evidence of interatrial shunt. Aortic Valve The aortic valve opens well. There is no hemodynamically significant aortic valvular stenosis. No aortic regurgitation is present. Mitral Valve The mitral valve is normal in structure. No evidence of mitral valve stenosis. Mild mitral regurgitation is present. Tricuspid Valve The tricuspid valve leaflets are thin and pliable. Trace tricuspid regurgitation. There is insufficient TR jet to estimate RVSP. Pulmonic Valve The pulmonary valve is grossly normal in structure. Trace pulmonic valve regurgitation is present. Great Vessels The aortic root is normal in size. Mildly dilated ascending aorta, measuring 3.9 cm in diameter. IVC is normal in size and collapses >50% with inspiration. Pericardium There is no pericardial effusion. Other Information Study Quality: Fair Conclusion Normal biventricular systolic function. Mild MR. Mildly dilated ascending aorta, measuring 3.9 cm in diameter. Electronically signed by : Taylor Connell MD 03/03/2025 22:00:27
--- OUTSIDE RECORDS SUMMARY | 2025-03-01 11:15 | XMS_ITS | Patient Health Record ---
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 Role Phone [place] Koroma Primary Care Provider David Tobin Unavailable [phone] Mariaa Soliz Unavailable [phone] Shruthi Kenny Unavailable [phone] Allergies No Known Allergies Results Component Value Reference Range Notes MRI : spine, lumbosacral wit h and without contrast Reviewed date:02/09/2025 10:59:14 AM Interpretation:midline degenerative changes with stenosis and foraminal narrowing Performing Lab: Notes/Report: midline degenerative changes with stenosis and foraminal narrowing P-Basic Metabolic Panel (BMP ) Reviewed date:01/05/2025 01:33:12 PM Interpretation:satisfactory Performing Lab: Notes/Report: Test performed by [facility], [address] , [address], [place] [address] Wilberto Johnson MD, Sander Setter CLIA: [id number] Sodium 146 135-145 mmol/L Potassium 4.3 3.5-5.3 mmol/L Chloride 109 97-108 mmol/L CO2 27 22-32 mmol/L Glucose 78 65-99 mg/dL BUN 16 8-23 mg/dL Creatinine 1.01 0.50-1.00 mg/dL Calcium 9.1 8.6-10.4 mg/dL eGFR by Creatinine 63 >59 mL/min/1.73m2 Glycohemoglobin A1c (in hous e) Reviewed date:01/05/2025 12:20:09 PM Interpretation: Performing Lab: Notes/Report: glycohemoglobin 5.2% 5 - 6.5 % P-Comprehensive Metabolic Pa aquiles (CMP) Reviewed date:10/18/2024 04:35:26 PM Interpretation:Cr 1.05 Performing Lab: Notes/Report: Test performed by [facility] [address] [place] [address] , [address], [place] [address] Wilberto Johnson MD, Sander Setter CLIA: [id number] Sodium 143 135-145 mmol/L Potassium 5.1 3.5-5.3 [...] 0.9 <0.2-1.2 mg/dL A/G Ratio 2.1 1.1-2.5 CBC Venipuncture (in house) Reviewed date:10/03/2024 01:52:37 [...] 400 P-Comprehensive Metabolic Pa aquiles (CMP) Reviewed date:08/04/2024 09:05:52 AM Interpretation: Performing Lab: Notes/Report: Glycohemoglobin A1c (in hous e) Reviewed date:08/03/2024 04:31:59 PM Interpretation: Performing Lab: Notes/Report: CBC Venipuncture (in house) Reviewed date:08/03/2024 04:31:35 PM Interpretation: Performing Lab: Notes/Report: CBC Fingerstick (in house) Reviewed date:03/30/2024 02:04:46 PM Interpretation: Performing Lab: Notes/Report: wbc 6.2 3.5 - 10 lym 28.9 15 - 50 mid 5.6 2 - 15 gran 65.5 35 - 80 rbc 4.26 3.5 - 5.5 hgb 12.2 11.5 - 16.5 hct 38.2 35 - 55 mcv 89.8 75 - 100 mch 28.7 25 - 35 mchc 32.0 31 - 38 plat 194 100 - 400 P-Microalbumin/Creatinine, R andom Urine Sample Reviewed date:08/04/2024 09:07:13 AM Interpretation:Normal Performing Lab: Notes/Report: Test performed by [facility] [address] [place] [address] , [address], [place] [address] Wilberto Johnson MD, Sander Setter CLIA: [id number] Albumin/Creatinine Ratio, Urine 8 0-30 ug/m g Microalbumin, Urine, Random 1.8 Creatinine, Urine 215.2 P-Comprehensive Metabolic Pa aquiles (CMP) Reviewed date:08/04/2024 09:07:13 AM Interpretation:Cr 1.18, gfr 53 Performing Lab: Notes/Report: Test performed by [facility] [address] [place] [address] , [address], [place] [address] Wilberto Johnson MD, Sander Setter CLIA: [id number] Sodium 144 135-145 mmol/L Potassium 4.1 3.5-5.3 [...] 0.9 <0.2-1.2 mg/dL A/G Ratio 2.2 1.1-2.5 Glycohemoglobin A1c (in hous e) Reviewed date:08/04/2024 09:07:13 AM Interpretation:5.2% Performing Lab: Notes/Report: 5.2% glycohemoglobin 5.2% 5 - 6.5 % CBC Venipuncture (in house) Reviewed date:03/24/2024 09:44:26 AM Interpretation: Performing Lab: Notes/Report: wbc 4.5 3.5 - 10 lymph 44.0% 15 - 50 mid 5.8% 2 - 15 gran 50.2% 35 - 80 rbc 3.75 3.5 - 5.5 hgb 10.9 11.5 - 16.5 hct 32.7 35 - 55 mcv 87.0 75 - 100 mch 29.1 25 - 35 mchc 33.5 31 - 38 platlet 182 100 - 400 CBC Venipuncture (in house) Reviewed date:08/04/2024 09:07:13 [...] - 38 platlet 180 100 - 400 CBC Venipuncture (in house) Reviewed date:04/28/2024 10:17:03 AM Interpretation: Performing Lab: Notes/Report: wbc 4.1 3.5 - 10 lymph 43.7% 15 - 50 mid 5.9% 2 - 15 gran 50.4% 35 - 80 rbc 4.27 3.5 - 5.5 hgb 12.1 11.5 - 16.5 hct 37.3 35 - 55 mcv 97.4 75 - 100 mch 28.4 25 - 35 mchc 32.5 31 - 38 platlet 210 100 - 400 Glycohemoglobin A1c (in hous e) Reviewed date:04/28/2024 11:29:44 AM Interpretation: Performing Lab: Notes/Report: glycohemoglobin 5.0% 5 - 6.5 % P-Basic Metabolic Panel (BMP ) Reviewed date:05/01/2024 09:57:28 AM Interpretation:Cr 1.03 Performing Lab: Notes/Report: Test performed by [facility] [address] [place] [address] , [address], [place] [address] Wilberto Johnson MD, Sander Setter CLIA: [id number] Sodium 144 135-145 mmol/L Potassium 4.2 3.5-5.3 mmol/L Chloride 105 97-108 mmol/L CO2 30 22-32 mmol/L Glucose 86 65-99 mg/dL BUN 20 8-23 mg/dL Creatinine 1.03 0.50-1.00 mg/dL Calcium 9.5 8.6-10.4 mg/dL eGFR by Creatinine 62 >59 mL/min/1.73m2 DEXA Hip and Spine Reviewed date:05/24/2024 11:45:53 AM Interpretation:Normal Performing Lab: Notes/Report: Normal Dexa results Normal Mammogram Reviewed date:05/24/2024 11:45:53 AM Interpretation:Negative, annual f/u Performing Lab: Notes/Report: Negative, annual f/u result Negative, annual f/u H-BUN/CREAT Reviewed date:02/07/2025 12:53:15 PM Interpretation: Performing Lab: Notes/Report: BUN 14 7-17 mg/dl CREATT 1.00 0.52-1.04 mg/dl GFRAA 68 >60 ML/MIN EGFR 56 >60 ml/min P-Microalbumin/Creatinine, R andom Urine Sample Reviewed date:08/04/2024 09:06:05 AM Interpretation: Performing Lab: Notes/Report: Medications Medication SIG (Take, Route, Frequency, Duration) Notes Start Date End Date Status Potassium Chloride Jaki ER 20 MEQ TAKE 1 TABLET BY MOUTH ONCE DAILY; Duration: 30 Active Nystatin-Triamcinolone 926481-0.1 UNIT/GM APPLY TO AFFECTED AREA TWICE DAILY; Duration: 20 Active Xarelto 20 MG 1 tab(s) orally once a day (in the evening); Duration: 30 days Active Mounjaro 10 MG/0.5ML 0.5 mL Subcutaneous once a week; Duration: 28 days Active Atorvastatin Calcium 80 MG 1 tablet Oral ly Once a day; Duration: 30 day(s) Active Probiotic Daily - as directed Orally Active Repatha 140 MG/ML 1 mL Subcutaneous; Duration: 30 day(s) Active hydrOXYzine Pamoate 50 MG TAKE 1 CAPSULE BY MOUTH ONCE DAILY MAY CAUSE DROWSINESS; Duration: 30 Activ e Gabapentin 300 MG 1 capsule Orally 3 t imes a day; Duration: 30 days 01/01/2025 Active Isosorbide Mononitrate ER 60 MG 1/2 Orally Once a day Active Clopidogrel Bisulfate 75 MG 1 tablet Orally Once a day; Duration: 30 day(s) Active Trintellix 10 MG 1 tablet Orally Once a day; Duration: 30 days Active Metoprolol Succinate ER 25 MG 1 tablet Orally Once a day A ctive Vitamin D3 25 MCG (1000 UT) 1 capsule Orally Once a day; Duration: 30 day(s) Active Doxepin HCl 50 MG 1 capsule at bedtime Orally Once a day; Duration: 90 days Active Xanax 0.5 MG 1 tab(s) orally 3 ti mes a day; Duration: 30 days 01/17/2025 Active Immunizations Vaccine Route Administration Date Status Comme nts COVID 19 Moderna Unknown 10/23/2020 Administered COVID 19 Moderna Unknown 07/25/2021 Administered Fluzone Quad (6months&older) IM Intramuscular 03/31/2017 Administered Fluzone Quad (6months&older) IM Intramuscular 04/14/2018 Administered Fluzone Quad (6months&older) IM Intramuscular 04/21/2019 Administered Fluzone Quad (6months&older) IM Intramuscular 05/07/2020 Administered Fluzone Quad (6months&older) IM Intramuscular 03/26/2021 Administered Fluzone Quad (6months&older) IM Intramuscular 04/15/2022 Administered Fluzone Quad (6months&older) IM Intramuscular 04/01/2023 Pending Fluzone Quad (6months&older) IM Intramuscular 04/27/2024 Administered PNEUMOVAX 23 VACCINE IM Intramuscular 12/02/2017 Administe red Shingrix IM Intramuscular 05/07/2020 Administered Tetanus Tdap-Adacel (over 7yrs) IM Intramuscular 04/08/2020 Administered xFlu shot-36 months and older IM Intramuscular 05/18/2006 Administered xFlu shot-36 months and older IM Intramuscular 03/14/2009 Administered xFlu shot-36 months and older IM Intramuscular 04/03/2010 Administered Problems Problem Type SNOMED Code ICD Code Onset Dates Problem Status W/U Status Risk Notes Problem Essential hypertension (11409242) Essential (primary) hypertension (I10) Active confirmed Problem Essential hypertension (54012507) Essential hypertension (I10) Active confirmed Problem Acute non-ST segment elevation myocardial infarction (499303993) NSTEMI (non-ST elevated myocardial infarction) (I21.4) Active confirmed Problem Rosacea (203459135) Rosacea (L71.9) Active conf irmed Problem Body mass index 40+ - severely obese (294674848) BMI 50.0-59.9, adult (Z68.43) Active confirmed Problem Mixed anxiety and depressive disorder (166134762) Depression with anxiety (F41.8) Active confirmed Problem BMI 30+ - obesity (580249332) BMI 32.0-32.9,adult (Z68.32) Active confirmed Problem Obese class I (791991490533319) BMI 33.0-33.9,adult (Z68.33) Active confirmed Problem Body mass index 40+ - severely obese (907753114) BMI 45.0-49.9, adult (Z68.42) Active confirmed Problem Mixed hyperlipidemia (106012868) Mixed hyperlipidemia (E78.2) Active confirmed Problem Dysthymia (27962288) Dysthymic disorder (F34.1) Active confirmed Problem Primary insomnia (6545798) Primary insomnia (F51.01) Active confirmed Problem Chronic pain syndrome (561208608) Chronic pain syndrome (G89.4) Active confirmed Problem Acute cystitis (04623640) Acute cystitis without hematuria (N30.00) Active confirmed Problem Obesity (025655275) Obesity (BMI 30-39.9) (E66.9) Active confirmed Problem Thyroid nodule (914550702) Thyroid nodule (E04.1) Active confirmed Problem Chronic pain (31636779) Other chronic pain (G89.29) Active confirmed Problem History of thromboembolism of vein (735438162) H/O deep venous thrombosis (Z86.718) Active confirmed Problem Spinal stenosis of lumbosacral region (534587752) Spinal stenosis of lumbosacral region (M48.07) Active confirmed Problem Obesity (563527829) Non morbid o besity due to excess calories (E66.09) Active confirmed Problem Renal insufficiency (702528527) Renal insufficiency (N28.9) Active confirmed Problem Mammography abnormal (692725008) Abnormal mammogram of left breast (R92.8) Active confirmed Problem Obese class II (884520447816377) BMI 36.0-36.9,adult (Z68.36) Active confirmed Problem Lumbosacral spondylosis without myelopathy (48430129) Spondylosis of lumbar region without myelopathy or radiculopathy (M47.816) Active confirmed Problem History of placement of stent for coronary artery disease (situation) (719583365) Status post coronary artery stent placement (Z95.5) Active confirmed Problem Iron deficiency anemia (13251078) Other iron deficiency anemia (D50.8) Active confirmed Problem Obese class II (394167764062867) BMI 38.0-38.9,adult (Z68.38) Active confirmed Problem Hyperlipidaemia (52573585) Hyperlipidemia, unspecified hyperlipidemia type (E78.5) Active confirmed Problem Altered mental status (980596956) Altered mental status, unspecified altered mental status type (R41.82) Active confirmed Problem Transient ischemic attack (011314789) TIA (transient ischemic attack) (G45.9) Active confirmed Problem Type II diabetes mellitus without complication (831489668) Type 2 diabetes mellitus without complication, without long-term current use of insulin (E11.9) Active confirmed Problem Atherosclerotic heart disease of [place] coronary artery without angina pectoris (016508955187146) Atherosclerosis of [place] coronary artery without angina pectoris, unspecified whether cowl[place] or transplanted heart (I25.10) Active confirmed Problem Systemic lupus erythematosus (49395451) Systemic lupus erythematosus, unspecified SLE type, unspecified organ involvement status (M32.9) Active confirmed Problem Fibrocystic breast changes (80656430) Fibrocystic breast disease (FCBD), unspecified laterality (N60.19) Active confirmed Problem Atherosclerotic heart disease of [place] coronary artery without angina pectoris (570596601197575) Coronary artery calcification seen on CT scan (I25.10) Active confirmed Problem Diastolic heart failure (753260825) Heart failure with preserved left ventricular function (HFpEF) (I50.30) Active confirmed Problem Diastolic dysfunction (3808617) Diastolic dysfunction (I51.89) Active confirmed Problem History of supraventricular tachycardia (96642559648664980) History of supraventricular tachycardia (Z86.79) Active confirmed Problem Major depression, single episode (35920628) Major depressive disorder with current active episode, unspecified depression episode severity, unspecified whether recurrent (F32.9) Active confirmed Problem Grief (416181191) Grief (F43.21) Active confirm ed Problem Lumbar radiculopathy (153252524) Lumbar back pain with radiculopathy affecting lower extremity (M54.16) Active confirmed Problem Lumbosacral spondylosis without myelopathy (91604383) DJD (degenerative joint disease), lumbosacral (M47.817) Active confirmed Problem Gastric sleeve (physical object) (564743561) H/O gastric sleeve (Z90.3) Active confirmed Problem Degeneration of intervertebral disc of lumbar region with discogenic back pain and lower extremity pain (M51.362) Active confirmed Vital Signs Heart Rate 72 /min 02/22/2025 Blood pressure diastolic 70 mm Hg 02/22/2025 Height 65 in 02/22/2025 Blood pressure systolic 110 mm Hg 02/22/2025 Weight 156.4 lbs 02/22/2025 BMI 26.02 kg/m2 02/22/2025 Encounters Encounter Location Date Provider Diagnosis [facility] [address] [id number] 03/23/2024 J Joe Ga Polyp of descending colon, unspecified type K63.5 ; Other iron deficiency anemia D50.8 ; Essential hypertension I10 ; H/O deep venous thrombosis Z86.718 ; Depression with anxiety F41.8 ; Type 2 diabetes mellitus without complication, without long-term current use of insulin E11.9 ; H/O gastric sleeve Z90.3 and Status post coronary artery stent placement Z95.5 [facility] [address] [id number] 03/30/2024 Shruthi Crowdy Obesity (BMI 30-39.9 ) E66.9 ; Type 2 diabetes mellitus without complication, without long-term current use of insulin E11.9 and Gastrointestinal hemorrhage, unspecified gastrointestinal hemorrhage type K92.2 [facility] [address] [id number] 04/27/2024 [place] Koroma BMI 32.0-32.9,adult Z68.32 ; H/O gastric sleeve Z90.3 ; Type 2 diabetes mellitus without complication, without long-term current use of insulin E11.9 ; Status post coronary artery stent placement Z95.5 ; Fibrocystic breast disease (FCBD), unspecified laterality N60.19 ; Osteopenia, unspecified location M85.80 and Encounter for immunization Z23 [facility] [address] [id number] 07/20/2024 Shruthi Zoya Lumbar back pain wit h radiculopathy affecting lower extremity M54.[address] [id number] 07/24/2024 [place] Koroma Lumbar back pain wit h radiculopathy affecting lower extremity M54.16 ; Obesity (BMI 30-39.9) E66.9 and Degeneration of intervertebral disc of lumbar region with discogenic back pain and lower extremity pain M51.[address] [id number] 08/03/2024 [place] Koroma Type 2 diabetes estevan itus without complication, without long-term current use of insulin E11.9 and Essential (primary) hypertension I10 [facility] [address] [id number] 08/07/2024 [place] Koroma Essential hypertensi on I10 [...] stent placement Z95.5 and Vaginal qing B37.31 [facility] [address] [id number] 10/02/2024 [place] Koroma Essential hypertensi on I10 ; H/O deep venous thrombosis Z86.718 ; Depression with anxiety F41.8 ; Renal insufficiency N28.9 and Intertrigo L30.4 [facility] [address] [place], [place] [id number] 01/01/2025 [place] Koroma Essential hypertensi on I10 ; Diastolic dysfunction I51.89 ; BMI 27.0-27.9,adult Z68.27 ; Atherosclerosis of [place] coronary artery without angina pectoris, unspecified whether cowl[place] or transplanted heart I25.10 and DJD (degenerative joint disease), lumbosacral M47.817 [facility] [address] [place], [place] [id number] 01/22/2025 [place] Koroma Lumbar back pain wit h radiculopathy affecting lower extremity M54.16 ; Degeneration of intervertebral disc of lumbar region with discogenic back pain and lower extremity pain M51.362 and BMI 26.0-26.9,adult Z68.26 [facility] [address] [place], [place] [id number] 02/22/2025 [place] Koroma Spinal stenosis of lumbosacral region M48.07 and Degeneration of intervertebral disc of lumbar region with discogenic back pain and lower extremity pain M51.362 [facility] [address] [place], [place] [id number] 03/30/2024 [place] Koroma [facility] [address] [place], [place] [id number] 04/21/2024 [place] Koroma Other chronic pain G89.29 [facility] [address] [place], [place] [id number] 04/25/2024 Shruthi Zoya Type 2 diabetes estevan itus without complication, without long-term current use of insulin E11.9 [facility] [address] [facility] [address] [place], [place] [id number] 05/01/2024 [place] Koroma [facility] [address] [place] [id number] 05/23/2024 Mariaa Soliz [facility] [address] [place], [place] [id number] 05/25/2024 Shruthi Kenny [facility] [address] [place] [id number] 06/16/2024 J Joe Ga [facility] [address] [place] [id number] 06/19/2024 David [place] Depression with anxi ety F41.8 [facility] [address] [place], [place] [id number] 07/10/2024 J Joe Ga [facility] [address] [place] [id number] 07/19/2024 J Joe Ga Depression with anxi ety F41.8 [facility] [address] [place] [id number] 07/20/2024 J Joe Ga Other chronic pain G89.29 and Low back pain, unspecified M54.50 [facility] [address] [place] [id number] 08/04/2024 J Joe Ga [facility] [address] [place] [id number] 08/15/2024 J Joe Ga [facility] [address] [place] [id number] 09/01/2024 J Joe Ga Other chronic pain G89.29 [facility] [address] [place] [id number] 10/17/2024 J Joe Ga Depression with anxi ety F41.8 [facility] [address] [place] [id number] 10/18/2024 J Joe Ga [facility] [address] [place] [id number] 01/16/2025 J Joe Ga Depression with anxi ety F41.8 [facility] [address] [place] [id number] 02/06/2025 J Joe Ga [facility] [address] [place] [id number] 02/09/2025 [place] PRASADA[facility] [address] [place] [id number] 02/01/2025 [place] Koroma Assessments Encounter Date Diagnosis (ICD Code) Assessment Notes Treatment Notes Treatment Clinical Notes Section Notes 03/23/2024 Other iron deficiency anemia (ICD-10 - D50.8) Taking Ferrous sulfate 325mg every other day 03/23/2024 Polyp of descending colon, unspecified type (ICD-10 - K63.5) 04/21/2024 Other chronic pain (ICD-10 - G89.29) 04/25/2024 Type 2 diabetes mellitus without complication, without long-term current use of insulin (ICD-10 - E11.9) 04/27/2024 BMI 32.0-32.9,adult (ICD-10 - Z68.32) 03/30/2024 Obesity (BMI 30-39.9) (ICD-10 - E66.9) I initially sent a rx to see if Wegovy could be covered as that is what the patient's insurance advised her to do. This was however cancelled because we will try to get mounjaro or ozempic first as patient is diabetic. 03/30/2024 Type 2 diabetes mellitus without complication, without long-term current use of insulin (ICD-10 - E11.9) Will try to see if mounjaro or ozempic will be covered. She has been on trulicity but is no longer tolerating it and would like to switch to something else. 04/27/2024 H/O gastric sleeve (ICD-10 - Z90.3) 06/19/2024 Depression with anxiety (ICD-10 - F41.8) 07/19/2024 Depression with anxiety (ICD-10 - F41.8) 07/20/2024 Lumbar back pain with radiculopathy affecting lower extremity (ICD-10 - M54.16) Pt has appt with Dr. Koroma on Wednesday. He will send some tramadol today. If no improvement by Wednesday, she will need imaging. 07/20/2024 Other chronic pain (ICD-10 - G89.29) 07/24/2024 Obesity (BMI 30-39.9) (ICD-10 - E66.9) 07/24/2024 Lumbar back pain with radiculopathy affecting lower extremity (ICD-10 - M54.16) 08/07/2024 Essential hypertension (ICD-10 - I10) 08/07/2024 Degeneration of intervertebral disc of lumbar region with discogenic back pain and lower extremity pain (ICD-10 - M51.362) 09/01/2024 Other chronic pain (ICD-10 - G89.29) 10/02/2024 Essential hypertension (ICD-10 - I10) 10/17/2024 Depression with anxiety (ICD-10 - F41.8) 01/01/2025 Essential hypertension (ICD-10 - I10) 10/02/2024 H/O deep venous thrombosis (ICD-10 - Z86.718) 01/01/2025 Diastolic dysfunction (ICD-10 - I51.89) 01/22/2025 Lumbar back pain with radiculopathy affecting lower extremity (ICD-10 - M54.16) Continue present care. MRI 01/22/2025 Degeneration of intervertebral disc of lumbar region with discogenic back pain and lower extremity pain (ICD-10 - M51.362) 02/22/2025 Spinal stenosis of lumbosacral region (ICD-10 - M48.07) 02/22/2025 Degeneration of intervertebral disc of lumbar region with discogenic back pain and lower extremity pain (ICD-10 - M51.362) 01/16/2025 Depression with anxiety (ICD-10 - F41.8) 01/22/2025 BMI 26.0-26.9,adult (ICD-10 - Z68.26) 01/01/2025 BMI 27.0-27.9,adult (ICD-10 - Z68.27) 10/02/2024 Depression with anxiety (ICD-10 - F41.8) 08/07/2024 H/O deep venous thrombosis (ICD-10 - Z86.718) 07/24/2024 Degeneration of intervertebral disc of lumbar region with discogenic back pain and lower extremity pain (ICD-10 - M51.362) 04/27/2024 Type 2 diabetes mellitus without complication, without long-term current use of insulin (ICD-10 - E11.9) 08/03/2024 Type 2 diabetes mellitus without complication, without long-term current use of insulin (ICD-10 - E11.9) 07/20/2024 Low back pain, unspecified (ICD-10 - M54.50) 03/30/2024 Gastrointestinal hemorrhage, unspecified gastrointestinal hemorrhage type (ICD-10 - K92.2) CBC is stable. Will take iron for 2 more weeks and then stop it for 2 weeks and recheck a CBC in 1 month. 03/23/2024 Essential hypertension (ICD-10 - I10) 03/23/2024 H/O deep venous thrombosis (ICD-10 - Z86.718) 04/27/2024 Status post coronary artery stent placement (ICD-10 - Z95.5) 08/03/2024 Essential (primary) hypertension (ICD-10 - I10) 08/07/2024 Depression with anxiety (ICD-10 - F41.8) 01/01/2025 Atherosclerosis of [place] coronary artery without angina pectoris, unspecified whether [place] or transplanted heart (ICD-10 - I25.10) 10/02/2024 Renal insufficiency (ICD-10 - N28.9) 01/01/2025 DJD (degenerative joint disease), lumbosacral (ICD-10 - M47.817) 10/02/2024 Intertrigo (ICD-10 - L30.4) 08/07/2024 Type 2 diabetes mellitus without complication, without long-term current use of insulin (ICD-10 - E11.9) 04/27/2024 Fibrocystic breast disease (FCBD), unspecified laterality (ICD-10 - N60.19) 03/23/2024 Depression with anxiety (ICD-10 - F41.8) 03/23/2024 Type 2 diabetes mellitus without complication, without long-term current use of insulin (ICD-10 - E11.9) 04/27/2024 Osteopenia, unspecified location (ICD-10 - M85.80) 08/07/2024 H/O gastric sleeve (ICD-10 - Z90.3) 08/07/2024 Status post coronary artery stent placement (ICD-10 - Z95.5) 03/23/2024 H/O gastric sleeve (ICD-10 - Z90.3) 04/27/2024 Encounter for immunization (ICD-10 - Z23) 03/23/2024 Status post coronary artery stent placement (ICD-10 - Z95.5) 08/07/2024 Vaginal qing (ICD-10 - B37.31) 04/27/2024 Other Gabapentin refilled today Plan Of Treatment Pending Test Test Name Order Date LC-Sedimentation Rate-Westergren 021 Next Appt Details Provider Name:[place] Diaz Coop er, 04/05/2025 02:00:00 PM, [address], [address], [place], [phone], Provider Name:[place]iana Diaz Coop er, 05/14/2025 10:21:00 AM, [address] [facility], [address], [place], [id number], Insurance Providers Payer Name Payer Address Payer Phone Subscriber Number Group Number Insured Name Patient Relationship to Insured Coverage Start Date Coverage End Date [facility] [employer] [address] [place] [address] [id number] MANUELA MOLINA Self - patient is the insured Medications Administered Medication Instructions Date of Administration Dosage Notes Dexamethasone 07/08/2009 1 mL Medical (General) History Medical History History ICD Code seasonal allergies - Dr. Reza chronic back pain anxiety GERD Depression HTN HLP Insomnia YASMIN/ATN 2020 Surgical History Surgery Date(Month/Year) left hand surgery-pins placed partial hysterectomy laparoscopy x 5 C section x2 tonsillectomy root canal colonoscopy 04/21/2010 tooth removed 01/2011 tooth removed 01/2012 teeth removed 07/2012 teeth removed 10/2012 implants bottom teeth 12/2012 oral surgery 04/24/2013 oral surgery, had more bone taken out, X 2 times in the same month 04/2014 Epidural 12/2021 Gastric Sleeve 08/27/2022 Hospitalization History Reason Date(Month/Year) [facility] 06/28/2201 [facility], Tachycardia 06/29/2019 [facility] 09/02- [facility] 06/14/2010
[2025-03-01] MEDS: SODIUM CHLORIDE 0.9% 10ML SYR (RAD ONLY) 10 ML IV ×2 (12:00→14:00)
--- NOTE | 2025-03-01 12:00 | NM_ITS ---
APPROVED REPORT Exam: Nuclear Stress Test Indication: cad, 2 stents, h/o mi, dysrhytmia, htn, diabetes, hyperlipidemia, fm hx, c.p., sob, palpitations, fatigue Patient Location: Outpatient Stress Tech: Melissa Ahumada [place] Tech:Jackeline May, ARRT RT (R)(N)(M) Ht: 5 ft 4 in Wt: 152 lbs Bra Size: dd HR: 77 bpm BP: 129/85 mmHg BSA: 1.74 m2 TID: 1.27 BMI: 26.0 History: cad, 2 stents, h/o mi, dysrhytmia, htn, diabetes, hyperlipidemia, fm hx, c.p., sob, palpitations, fatigue Procedure: Patient received 0.4 mg of intravenous Lexiscan, resting heart rate 77 bpm, resting blood pressure 129/85 mmHg, with Lexiscan maximum heart rate achieved was 102 bpm which is % of the maximum predicted heart rate and blood pressure was 121/73 mmHg. With Lexiscan, patient denied any complaint of chest pain. Cardiac Stress and Resting SPECT Images: Cardiac Stress and Resting SPECT images were obtained using technetium 99m Myoview 30.2 mCi stress and 10.64 mCi at rest. Resting and stress imaging in supine and prone positions demonstrate no evidence of fixed or reversible perfusion defects. There is increase in transient ischemic dilatation ratio (TID 1.27), which may be suggestive of possible multivessel disease or balanced ischemia. Gated imaging demonstrates normal global and regional LV systolic function. LVEF is calculated at 66%. Conclusion: No evidence of fixed or reversible perfusion defects. There is increase in transient ischemic dilatation ratio (TID 1.27), which may be suggestive of possible multivessel disease or balanced ischemia. Gated imaging demonstrates normal global and regional LV systolic function. LVEF is calculated at 66%. Electronically signed by : Taylor Connell MD 03/01/2025 15:42:46
[2025-03-01] MEDS: ISOTOPE MYOVIEW (PER STUDY) 1 DOSE IV (14:43)
== END 2025-03-01 23:59 | disposition home or self-care (01) ==
LOC: RT 11:13
PROVIDERS: PCP Family Medicine; Visit Provider Nurse Practitioner Family
DX: I34.0 Nonrheumatic mitral (valve) insufficiency (principal); I77.810 Thoracic aortic ectasia; I25.10 Atherosclerotic heart disease of native coronary artery without angina pectoris; I10 Essential (primary) hypertension; E78.5 Hyperlipidemia, unspecified; R94.31 Abnormal electrocardiogram [ECG] [EKG]; E11.9 Type 2 diabetes mellitus without complications; I49.9 Cardiac arrhythmia, unspecified; R94.39 Abnormal result of other cardiovascular function study; Z95.5 Presence of coronary angioplasty implant and graft; Z86.718 Personal history of other venous thrombosis and embolism
CPT/HCPCS: 78452; 93016; 93017; 93018; 93306; A9502; J2785

== ENCOUNTER 2025-03-08 09:00 | Outpatient (RCR) | payer BC, SELFPAY ==
--- NOTE | 2025-02-20 14:45 | HMH.RHREAS ---
Rehab Reassessment Rehab OP Re-assessment Start: 02/20/25 13:01 Freq: Status: Active Protocol: Document 02/20/25 13:05 CATRACHO (Rec: 02/20/25 14:44 CATRACHO [id number]) E-signed By Laura Ornelas PT Oswestry Index Section 1 Pain Intensity The pain comes and goes and is severe Section 2 Personal Care ( increase the pain and I find it necessary to change my Washing,Dresing) way of doing it Section 3 Lifting lifting heavy weights off the floor, but I can manage if they are Section 4 Walking I cannot walk more than 1/4 mile without increasing pain Section 5 Sitting Pain prevents me from sitting for more than 1/2 hour Section 6 Standing I cannot stand more than 10 minutes without increasing pain Section 7 Sleeping Because of my pain, my normal night's sleep is less than 4 hours Section 8 Social Life Pain has no significant effect on my social life apart from limiting Section 9 Traveling I get extra pain while traveling, but it does not compel me to seek al Section 10 Changing Degreee of My pain is gradually getting worse Pain Score and Risk Level Oswestry Sc 32 Oswestry Risk Level Severe Disability Rehab Re-assessment Subjective Subjective Pt states she has not attended PT in 12 days due to scheduling issues per pt although she reports compliance with HEP. Pt reports minimal to no improvements since starting PT. Pt reports continued R> L low back pain with constant right posterior hip pain and right lateral calf and foot tingling. Pt denies b/b dysfunction. Pt reports pain continues to be aggravated by prolonged sitting, standing, and walking rated 8/10 at worst on VAS. Pt reports her back continues to feel stuck at times after prolonged standing and sitting. Pt had a lumbar spine MRI on 02/02 with impression of Midline degenerative changes with canal stenosis and neural foraminal narrowing most pronounced at L4-5. Objective Objective Notes Palpation: 3/4 TTP of L2-L5, S1 and R glute med/min and piriformis mm with noted muscle guarding Lumbar AROM: flex 80, ext 15, LLF 10, RLF 5 (p! at all end ranges) Assessment Assessment Notes Pt has attended only 2 PT treatment sessions since her initial evaluation performed on 01/26/25 likely limiting overall progress to date. Pt demonstrated slight improvement in subjective report of pain at worst by 1 point and lumbar extension AROM by 5 degrees compared the initial evaluation. Pt continues to report severe low back pain with sitting, standing an walking with tenderness to palpation of the lower lumbar spine and right sided gluteal musculature. Pt educated on importance of compliance with PT POC to assist with overall progress. Overall, the pt would continue to benefit from skilled PT to further improve subjective report of pain, lumbar AROM, BLE strength and functional activity tolerance. PT Patient Goals PT Short Term ST/3 Patient Goals -Self/care (MET) -HEP compliance (MET) -pain at worst 01/18 (NOT MET 02/18) Plan Plan Continue POC. Treat and refer back to MD for further pain management options due to continued severity of pain. Frequency of Therapy 2x/week Duration of Therapy 2-4 more week Therapeutic Exercise Yes Including Home Exercise Program Manual Therapy Yes Techniques Neuromuscular Re- Yes education Therapeutic Yes Activities to Return to Previous Functional/Work Level Gait Training Yes ADL/Self Care Yes Education Mechanical Traction Yes Dry Needling Yes Thermal Modalities Yes Electrical Yes Stimulation Ultrasound/ Yes Phonophoresis Iontophoresis Yes Massage Yes Eval/Re-Eval Yes Time and Billing Re-Eval Time 11 Re-Eval Billing 0 Units Charge for PT No reassessment? Charge for OT No reassessment? PHYSICIAN CERTIFICATION: I certify the specified therapy services for Maria L Gonzalez are required, authorized, and reviewed every 30 days.
== END 2025-03-08 23:59 | disposition home or self-care (01) ==
LOC: PT 09:00
PROVIDERS: Visit Provider Family Medicine
DX: M47.817 Spondylosis without myelopathy or radiculopathy, lumbosacral region (principal)
CPT/HCPCS: 97014; 97110; 97140; G0283

== ENCOUNTER 2025-03-19 11:05 | Outpatient (RCR) | payer BC, SELFPAY | END 2025-03-19 23:59 | disposition home or self-care (01) | LOC: PT 11:05 | PROVIDERS: PCP Family Medicine; Visit Provider Family Medicine | DX: M47.817 Spondylosis without myelopathy or radiculopathy, lumbosacral region (principal) | CPT/HCPCS: 97014; 97110; G0283 ==

== ENCOUNTER 2025-03-30 08:49 | Day surgery (SDC) | payer BC, SELFPAY ==
[2025-03-30] VITALS (11 sets, daily range): BP systolic 91–115; BP diastolic 62–78; PULSE 55–73; RESP 20; O2SAT 90–100; BMI 26.7
--- NOTE | 2025-03-30 07:03 | IR_ITS ---
APPROVED REPORT Patient Location: Outpatient Rn Clinical Documentation: Mika Jain, RT (R) PROCEDURES Left heart catheterization Left ventriculogram Selective coronary angiogram INDICATION Abnormal Myoview, Angina pectoris Informed consent was obtained prior to the procedure. COMPLICATIONS NONE Estimated Blood Loss: LESS THAN 10 ML TECHNIQUE One percent lidocaine used to anesthetize the right anterior aspect of the wrist. The right radial artery was accessed via the Seldinger technique. A 6 English sheath was placed in the right radial artery. 2.5 mg of Verapamil, 800 mcg of nitroglycerin, 1mg Lidocaine and 5000 U Heparin were given through the arterial sheath. The JL3 catheter was also used to perform left heart catheterization, left ventriculogram and selective coronary angiogram. At the end of the procedure the sheath was removed good hemostasis was achieved using Traclet band, patient was transferred to the postop holding area in stable condition. ANGIOGRAPHIC RESULTS The left main artery Normal The left anterior descending artery Has a stent in the proximal segment which is widely patent free of in-stent restenosis with excellent proximal and distal transitioning. The mid LAD has a 25 mm myocardial bridge compressing 40% during systole. A large first diagonal artery is a widely patent stent teeing off the proximal LAD also with no angiographic evidence of in-stent restenosis with excellent distal transitioning The circumflex artery Has diffuse 10 to 20% luminal regularities The right coronary artery Vestigial and normal The JOHNSON ventriculogram reveals Normal 60% The left ventricular end-diastolic pressure 15 mmHg IMPRESSION Coronary artery disease as described above Normal ejection fraction Borderline LVEDP PLAN 1. Continue medical management Electronically signed by : Jamal Oviedo MD 03/30/2025 11:57:28
[2025-03-30 09:15] LABS: Hematocrit 39.1 % (37.0-47.0); Hemoglobin 13.1 g/dL (12.2-16.2); Immature Granulocytes % 0 %; Mean Corpuscular HGB Conc 33.5 g/dL (31.8-35.4); Mean Corpuscular Hemoglobin 29.5 pg (27.0-31.2); Mean Corpuscular Volume 88.1 fl (81-99); Nucleated Red Blood Cells % 0 %; Platelet Count 185 K/mm3 (142-424); Red Blood Count 4.44 M/mm3 (4.20-5.40); Red Cell Distribution Width-SD 43.5 fL; White Blood Count 3.5 K/mm3 (4.8-10.8)
[2025-03-30 09:36] LABS: Chloride 101 mmol/L (98-107); Potassium 4.0 mmoL/L (3.5-5.1); Sodium 141 mmol/L (136-145)
[2025-03-30 09:39] LABS: Blood Urea Nitrogen 21 mg/dl (7-17); Creatinine Clearance Estimated 66 mL/min (50-200); Creatinine,Serum 1.00 mg/dl (0.52-1.04); Estimated Glomerular Filt Rate 56 ml/min (>60); GFR (African American) 68 ML/MIN (>60)
[2025-03-30 09:40] LABS: Anion Gap 13.0 mEq/L (5-15); Calcium 9.4 mg/dl (8.4-10.2); Carbon Dioxide 31 mmol/L (22.0-30.0); Glucose 84 mg/dl (74-100)
[2025-03-30] MEDS: FENTANYL 100MCG/2ML VIAL 50 MCG IV (11:37)
[2025-03-30] MEDS: MIDAZOLAM HCL 1MG/ML 5ML VIAL 1 MG IV (11:37)
[2025-03-30] MEDS: HEPARIN 1,000 UNITS/500ML NS (CATH LAB) 3000 UNIT IV (11:38)
[2025-03-30] MEDS: LIDOCAINE 1% 10ML MDV 10 ML IJ (11:38)
[2025-03-30] MEDS: VERAPAMIL 2.5MG/ML 2ML VIAL 2.5 MG IV (11:38)
[2025-03-30] MEDS: NITROGLYCERIN 800MCG/8ML SYR (CATH LAB) 800 MCG IA (11:38)
[2025-03-30] MEDS: 0.9 % SODIUM CHLORIDE 500 ML 25 ML IV (11:39)
[2025-03-30] MEDS: IOPAMIDOL-370 (76%);100ML BOTTLE 40 ML IV (13:26)
== END 2025-03-30 15:07 | disposition home or self-care (01) ==
PROVIDERS: PCP Family Medicine; Visit Provider Internal Medicine
PROC: 4A023N7 Measurement of Cardiac Sampling and Pressure, Left Heart, Percutaneous Approach (ICD-10-PCS; CPT 93452; principal; 2025-03-30 10:00)
DX: I25.119 Atherosclerotic heart disease of native coronary artery with unspecified angina pectoris (principal); R94.31 Abnormal electrocardiogram [ECG] [EKG]; I10 Essential (primary) hypertension; E11.9 Type 2 diabetes mellitus without complications; E78.2 Mixed hyperlipidemia; I47.10 Supraventricular tachycardia, unspecified; I77.810 Thoracic aortic ectasia; I25.2 Old myocardial infarction; Z86.718 Personal history of other venous thrombosis and embolism; Z98.84 Bariatric surgery status; Z79.1 Long term (current) use of non-steroidal anti-inflammatories (NSAID); Z79.01 Long term (current) use of anticoagulants; Z79.02 Long term (current) use of antithrombotics/antiplatelets; Z79.84 Long term (current) use of oral hypoglycemic drugs; Z79.899 Other long term (current) drug therapy; Z95.5 Presence of coronary angioplasty implant and graft; Z82.49 Family history of ischemic heart disease and other diseases of the circulatory system
CPT/HCPCS: 80048; 85025; 93458; 99152; C1725; C1769; J1200; J1644; J2003; J3010; J7040; Q9967

== ENCOUNTER 2025-05-08 09:45 | Day surgery (SDC) | payer BC, SELFPAY ==
[2025-05-08 09:49] VITALS: BP 114/74; PULSE 72; RESP 18; O2SAT 96; BMI 58.2
[2025-05-08] MEDS: DEXAMETHASONE 10MG/ML 1ML VIAL 10 MG (10:17)
--- NOTE | 2025-05-08 10:24 | EXP.PAIN.PRO ---
Procedure Date: 05/08/25 Time: 10:10 Anesthesiologist:: Onur Subramanian CRNA Complications:: None Pre-procedure Diagnosis:: Degenerative disc lumbar spine multilevels. Lumbar radiculopathy. Post-procedure Diagnosis:: Same. Indications for Procedure:: Patient is a very pleasant 59-year-old female who comes to clinic today for lumbar epidural steroid injection at the L4-5 level. Patient describes low lumbar back pain as constant, dull, aching. She also reports bilateral hip and leg radicular symptoms at times. She rates her pain 7/10. Procedure Details:: Procedure: Lumbar epidural steroid injection under fluoroscopy Informed consent was obtained and the risks and benefits of the procedure were explained to the patient. The patient was taken to the procedure room and noninvasive monitors placed, including noninvasive blood pressure cuff and pulse oximeter. The back was viewed using C-arm Fluoroscopy and prepped using Chloraprep as a cleansing solution and the L4-L5 interspace was palpated. Skin and subcutaneous tissues were anesthetized using lidocaine 1.5% and a 25-gauge needle. After this, an 18-gauge Touhy epidural needle was placed into the L4-L5 interspace and advanced using fluoroscopic guidance and loss of resistance to air until the epidural space was encountered. After confirmation of needle placement in the epidural space, with dye, a solution containing normal saline, 3 mL and dexamethasone 10 mg were incrementally injected into the lumbar epidural space. The patient tolerated the procedure well with no complications. The patient was observed in the Pain Clinic and then discharged home neurologically intact. Plan and Disposition:: Patient was discharged without incident.
[2025-05-08 10:26] VITALS: BP 114/75; PULSE 75; RESP 16; O2SAT 99
[2025-05-08 10:29] VITALS: BP 99/64; PULSE 70; RESP 18; O2SAT 98
[2025-05-08 10:30] VITALS: BP 99/64; PULSE 70; RESP 18; O2SAT 98
== END 2025-05-08 10:26 | disposition home or self-care (01) ==
PROVIDERS: PCP Family Medicine; Visit Provider Nurse Anesthetist, Certified Registered
DX: M51.16 Intervertebral disc disorders with radiculopathy, lumbar region (principal); F41.9 Anxiety disorder, unspecified; I11.0 Hypertensive heart disease with heart failure; I50.9 Heart failure, unspecified; F32.A Depression, unspecified; I25.119 Atherosclerotic heart disease of native coronary artery with unspecified angina pectoris; Z86.718 Personal history of other venous thrombosis and embolism; Z79.01 Long term (current) use of anticoagulants; Z79.899 Other long term (current) drug therapy
CPT/HCPCS: 62323; J1100

== ENCOUNTER 2025-05-17 11:34 | Outpatient (CLI) | payer BC, SELFPAY ==
--- OUTSIDE RECORDS SUMMARY | 2024-07-24 09:15 | XMS_ITS ---
Author Organization [facility] Address [address] [place] [id number] Care Team Providers Care Game Trapper Name Role Phone [place] Koroma Primary Care Provider Allergies No Known Allergies Results Component Value Reference Range Notes CBC Venipuncture (in house) Reviewed date:08/03/2024 04:31:35 PM Interpretation: Performing Lab: Notes/Report: Glycohemoglobin A1c (in hous e) Reviewed date:08/03/2024 04:31:59 PM Interpretation: Performing Lab: Notes/Report: P-Comprehensive Metabolic Pa aquiles (CMP) Reviewed date:08/04/2024 09:05:52 AM Interpretation: Performing Lab: Notes/Report: P-Microalbumin/Creatinine, R andom Urine Sample Reviewed date:08/04/2024 09:06:05 AM Interpretation: Performing Lab: Notes/Report: REASON FOR VISIT 3 months, Needs labs & diabetic eye exam Medications Medication SIG (Take, Route, Frequency, Duration) Notes Start Date End Date Status traMADol HCl 50 MG 1 tablet as needed O rally three times a day as needed 07/21/2024 Active hydrOXYzine Pamoate 50 MG 1 cap(s) orall y once daily; Duration: 30 days Active Mounjaro 7.5 MG/0.5ML INJECT THE CONTENT S OF 1 PEN (7.5 MG / 0.5ML) SUBCUTANEOUSLY ONCE A WEEK; Duration: 28 Active Methocarbamol 750 MG 1 tablet Orally thr ee times a day as needed 07/20/2024 Active Doxepin HCl 50 MG TAKE 1 CAPSULE BY [facility] AT BEDTIME; Duration: 30 Active Xanax 0.5 MG 1 tab(s) orally 3 ti mes a day 06/21/2024 Active Potassium Chloride ER 20 MEQ 1 tab(s) orally once daily; Duration: 30 days Active Trintellix 10 MG TAKE 1 TABLET BY ALEXANDRA ONCE DAILY; Duration: 30 days Active Mounjaro 5 MG/0.5ML as directed Subcutan eous once a week 05/26/2024 Active Gabapentin 100 MG 2 caps orally 3 time s a day 12/09/2023 Active Ferrous Sulfate 325 (65 Fe) MG 1 tablet Orally every other day; Duration: 30 day(s) 03/23/2024 Active Atorvastatin Calcium 80 MG 1 tablet Oral ly Once a day; Duration: 30 day(s) Active Xarelto 20 MG 1 tab(s) orally once a day (in the evening); Duration: 30 days Active Isosorbide Mononitrate ER 60 MG 1 tablet in the AM Orally Once a day Active Metoprolol Succinate ER 25 MG 1 tablet Orally Once a day A ctive Vitamin D3 25 MCG (1000 UT) 1 capsule Orally Once a day; Duration: 30 day(s) Active Probiotic Daily - as directed Orally Active Repatha 140 MG/ML 1 mL Subcutaneous; Duration: 30 day(s) Active Clopidogrel Bisulfate 75 MG 1 tablet Orally Once a day; Duration: 30 day(s) Active Problems Problem Type SNOMED Code ICD Code Onset Dates Problem Status W/U Status Risk Notes Problem Degeneration of intervertebral disc of lumbar region with discogenic back pain and lower extremity pain (M51.362) Active confirmed Vital Signs Blood pressure systolic 120 mm Hg 07/24/19 25 Blood pressure diastolic 80 mm Hg 025 Heart Rate 55 /min 07/24/2024 Height 65 in 07/24/2024 Weight 183.2 lbs 07/24/2024 BMI 30.48 kg/m2 07/24/2024 Encounters Encounter Location Date Provider Diagnosis [facility] [address] [facility] [place] [id number] 07/24/2024 [place] Koroma Lumbar back pain wit h radiculopathy affecting lower extremity M54.16 ; Obesity (BMI 30-39.9) E66.9 and Degeneration of intervertebral disc of lumbar region with discogenic back pain and lower extremity pain M51.362 Assessments Encounter Date Diagnosis (ICD Code) Assessment Notes Treatment Notes Treatment Clinical Notes Section Notes 07/24/2024 Lumbar back pain with radiculopathy affecting lower extremity (ICD-10 - M54.16) 07/24/2024 Obesity (BMI 30-39.9) (ICD-10 - E66.9) 07/24/2024 Degeneration of intervertebral disc of lumbar region with discogenic back pain and lower extremity pain (ICD-10 - M51.362) Plan Of Treatment Next Appt Details Follow Up: 2 Weeks, Reason: Provider Name:[place] Isabel er, 06/15/2025 11:45:00 AM, [address] [facility] [address] , [place], [place], [id number], Progress Notes * JESSE HUNGEDOB:1965 (59 yo F)Acc No.[id number]:07/24/2024 Progress Notes Patient: MANUELA GIL Provider: [place] Koroma M.D. :1965 A ge:58 Y S ex:Female Date:07/24/2024 Address:[address] [place] [address], [id number] Subjective: * Chief Complaints: * 1 . 3 months. 2. Needs labs & diabetic eye exam. * HPI: C ardiology: The pt is here for a check up on Hypertension and Hyperlipidemia. Pt states she tried helping her up after a fall injured her low back. Pt states the pain is a little better but not a lot. Pt is not fasting. 58 year old female presents with c/o Dizziness. Denies : Chest Pain. D enies : Short of Breath. D enies : Palpitations. 03/01/2021 MRI of LS spine with degenerative disc disease at multiple levels. * ROS: D ERMATOLOGY: no R rose marie. n o H montez. G ASTROENTEROLOGY: no N ausea. n o V omiting. n o D iarrhea.? U ROLOGY: no D ifficulty urinating. n o B lood in urine. * Medical History: s easonal allergies -- Dr. Reza, Chronic back pain, Anxiety, GERD, Depression, HTN, HLP, Insomnia, YASMIN/ATN 2020. * Surgical History: l eft hand surgery-pins placed , partial hysterectomy , laparoscopy x 5 , C section x2 , tonsillectomy , root canal , colonoscopy 04/21/2010, tooth removed 01/2011, tooth removed 01/2012, teeth removed 07/2012, teeth removed 10/2012, implants bottom teeth 12/2012, oral surgery 04/24/2013 , oral surgery, had more bone taken out, X 2 times in the same month 04/2014, Epidural 12/2021, Gastric Sleeve 08/27/2022. * Hospitalization/Major Diagno stic Procedure: [facility] 06/14/2010, [facility] 09/02-, [facility], Tachycardia 06/29/2019, [facility] 06/28/2201. * Family History: F ather: alive, hypertension, hyperlipidemia. M other: alive. 3 brother(s) , 1 sister(s) - healthy. 1 son(s) , 1 daughter(s) - healthy. . Colon cancer. * Social History: C URRENT TOBACCO USE S moking Status: Patient does NOT smoke. C affeine: yes, frequency: 1 cup qd. Exercise: yes. Home smoke detector use: no. Marital Status: . 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 Past smoking status: no, Smoking status: Does not smoke. Recreational drug use: no. Alcohol: Type: , Frequency:sledom ,Years: , Determination:. * Medications: T aking Repatha 140 MG/ML Solution Prefilled Syringe 1 mL Subcutaneous , Taking Probiotic Daily - Capsule as directed Orally , Taking Vitamin D3 25 MCG (1000 UT) Capsule 1 capsule Orally Once a day , Taking Metoprolol Succinate ER 25 MG Tablet Extended Release 24 Hour 1 tablet Orally Once a day , Taking Clopidogrel Bisulfate 75 MG Tablet 1 tablet Orally Once a day , Taking Atorvastatin Calcium 80 MG Tablet 1 tablet Orally Once a day , Taking Isosorbide Mononitrate ER 60 MG Tablet Extended Release 24 Hour 1 tablet in the AM Orally Once a day , Taking Xarelto 20 MG Tablet 1 tab(s) orally once a day (in the evening) , Taking Ferrous Sulfate 325 (65 Fe) MG Tablet Delayed Release 1 tablet Orally every other day , Taking Gabapentin 100 MG Capsule 2 caps orally 3 times a day , Taking Mounjaro 5 MG/0.5ML Solution Auto-injector as directed Subcutaneous once a week , Taking Trintellix 10 MG Tablet TAKE 1 TABLET BY MOUTH ONCE DAILY , Taking Potassium Chloride ER 20 MEQ Tablet Extended Release 1 tab(s) orally once daily , Taking Xanax 0.5 MG Tablet 1 tab(s) orally 3 times a day , Taking Doxepin HCl 50 MG Capsule TAKE 1 CAPSULE BY MOUTH AT BEDTIME , Taking hydrOXYzine Pamoate 50 MG Capsule 1 cap(s) orally once daily , Taking Methocarbamol 750 MG Tablet 1 tablet Orally three times a day as needed , Taking Mounjaro 7.5 MG/0.5ML Solution Auto-injector INJECT THE CONTENTS OF 1 PEN (7.5 MG / 0.5ML) SUBCUTANEOUSLY ONCE A WEEK , Taking traMADol HCl 50 MG Tablet 1 tablet as needed Orally three times a day as needed , Discontinued Medrol 4 MG Tablet Therapy Pack as directed orally daily , Medication List reviewed and reconciled with the patient * Allergies: N .K.D.A. Objective: * Vitals: W t:183.2, Temp:97.6, BP:120/80, HR:55, Nurse:ALEYDA, Ht: 65, BMI:30.48. * Examination: G eneral Examination: General Appearance: NAD, appears healthy, some pain with movement. A bdomen: soft and nontender. N eurologic Exam: dorsiflexion of toes intact and equal. B ack: tender SI joint, tender at sciatic notch. E xtremities: 2+ leg edema on right. Assessment: * Assessment: 1. L umbar back pain with radiculopathy affecting lower extremity - M54.16 (Primary) 2 . O besity (BMI 30-39.9) - E66.9 3 . D egeneration of intervertebral disc of lumbar region with discogenic back pain and lower extremity pain - M51.362 Plan: * Treatment: * Labs: * L ab: P-Microalbumin/Creatinine, Random Urine Sample (Collection Date & Time - 08/04/2024) ?Lab: P-Comprehensive Metabolic Panel (CMP) (Collection Date & Time - 08/04/2024)* see duplicate order ?Lab: CBC Venipuncture (in house) (Collection Date & Time - 08/03/2024)* Jessica Mora 07/28/2024 8:4 2:50 AM > Pt contacted to return to the office for lab drawJessica Mora 08/03/2024 4:31:06 PM > see duplicate order ?Lab: Glycohemoglobin A1c (in house) (Collection Date & Time - 08/03/2024)* Jessica Mora 07/28/2024 8:4 3:21 AM > Pt contacted to return to the office for lab drawJessica Mora 08/03/2024 4:31:45 PM > see duplicate order * Follow Up: 2 Weeks * Images: Billing Information: * Visit Code: 89144 Office Visit, Est Pt., Level 3. * Procedure Codes: * Electronic signature of Indiana Koroma MD on 05/17/2025 at 11:39 AM EST Sign off status: Pending * Provider: [place] Koroma M.D. Date: 0 07/24/2024 Generated for Isabel graham/Caitlin/eTransmitting on: 1 07/17/2024 11:39 AM EST History and Physical Notes * HPI (History of Present Illness) Category Sub-Category Detail Notes Category Not es Cardiology Short of Breath 03/01/2021 MR I of LS spine with degenerative disc disease at multiple levels Chest Pain Palpitations Dizziness Examination Category Sub-Category Detail Notes Category Not es General Examination Abdomen: soft and nontender Extremities: 2+ leg edema on righ t General Appearance: NAD, appears healthy , some pain with movement Neurologic Exam: dorsiflexion of toes intact and equal Back: tender SI joint, ten trey at sciatic notch
--- OUTSIDE RECORDS SUMMARY | 2024-08-03 10:45 | XMS_ITS ---
Author Organization [facility] Address [address] [place] [id number] Care Team Providers Care Automation Tender Name Role Phone [place] Koroma Primary Care Provider Results Component Value Reference Range Notes CBC Venipuncture (in house) Reviewed date:08/04/2024 09:07:13 AM Interpretation:Normal Performing Lab: Notes/Report: Normal wbc 4.7 3.5 - 10 lymph 47.0 15 - 50 mid 7.1 2 - 15 gran 45.9 35 - 80 rbc 4.86 3.5 - 5.5 hgb 13.6 11.5 - 16.5 hct 41.2 35 - 55 mcv 84.7 75 - 100 mch 27.9 25 - 35 mchc 32.9 31 - 38 platlet 180 100 - 400 Glycohemoglobin A1c (in hous e) Reviewed date:08/04/2024 09:07:13 AM Interpretation:5.2% Performing Lab: Notes/Report: 5.2% glycohemoglobin 5.2% 5 - 6.5 % P-Comprehensive Metabolic Pa aquiles (CMP) Reviewed date:08/04/2024 09:07:13 AM Interpretation:Cr 1.18, gfr 53 Performing Lab: Notes/Report: Test performed by [facility] [address] [place] [address] , [address], [place] [address] Wilberto Johnson MD, [employer] CLIA: [id number] Sodium 144 135-145 mmol/L Potassium 4.1 3.5-5.3 mmol/L Chloride 105 97-108 mmol/L CO2 29 22-32 mmol/L Glucose 85 65-99 mg/dL BUN 20 8-23 mg/dL Creatinine 1.18 0.50-1.00 mg/dL Calcium 9.0 8.6-10.4 mg/dL eGFR by Creatinine 53 >59 mL/min/1.73m2 Protein 6.4 6.0-8.3 g/dL Albumin 4.4 3.5-5.3 g/dL Alkaline Phosphatase 97 35-121 IU/L ALT (SGPT) 39 <5-47 IU/L AST (SGOT) 40 <5-40 IU/L Bilirubin, Total 0.9 <0.2-1.2 mg/dL A/G Ratio 2.2 1.1-2.5 P-Microalbumin/Creatinine, R andom Urine Sample Reviewed date:08/04/2024 09:07:13 AM Interpretation:Normal Performing Lab: Notes/Report: Test performed by [facility] [address] [place] [address] , [address], [place] [address] Wilberto Johnson MD, [employer] CLIA: [id number] Albumin/Creatinine Ratio, Urine 8 0-30 ug/m g Microalbumin, Urine, Random 1.8 Creatinine, Urine 215.2 REASON FOR VISIT blood work and urine sample Encounters Encounter Location Date Provider Diagnosis [facility] [address] [facility] [address] [facility] [address] [place], [place] [id number] 08/03/2024 [place] Koroma Type 2 diabetes mellitus without complication, without long-term current use of insulin E11.9 and Essential (primary) hypertension I10 Assessments Encounter Date Diagnosis (ICD Code) Assessment Notes Treatment Notes Treatment Clinical Notes Section Notes 08/03/2024 Type 2 diabetes mellitus without complication, without long-term current use of insulin (ICD-10 - E11.9) 08/03/2024 Essential (primary) hypertension (ICD-10 - I10) Plan Of Treatment Next Appt Details Provider Name:[place] Isabel er, 06/15/2025 11:45:00 AM, [address] [facility], [address], [place], [place], [id number], Progress Notes * CHIKIS MOLINAOB:1965 (59 yo F)Acc No.[id number]:08/03/2024 Patient: MANUELA GIL Provider: [place] Koroma M.D. :1965 A ge:58 Y S ex:Female Date:08/03/2024 Address:[address] [place] [address], [id number] Subjective: * Chief Complaints: * 1 . Blood work and urine sample. * Medical History: Objective: * Vitals: Assessment: * Assessment: 1. T ype 2 diabetes mellitus without complication, without long-term current use of insulin - E11.9 2 . E ssential (primary) hypertension - I10 Plan: * Treatment: Value Reference Range A lbumin/Creatinine Ratio, Urine 8 0-30 - ug /mg * C reatinine, Urine 215.2 - mg/dL * M icroalbumin, Urine, Random 1.8 - mg/dL * Bernadine España 08/04/2024 9:07: 07 AM >See phone encounter ?LAB: Glycohemoglobin A1c (in house) (Collection Date & Time - 08/03/2024)? 5.2%* Value Reference Range g lycohemoglobin 5.2% 5 - 6.5 % * Judith Vasquez 08/03/2024 4:23: 52 PM > Bernadine España 08/04/2024 9:07:07 AM >See phone encounter 2.?Essential (primary) hypertension?LAB: P-Comprehensive Metabolic Panel (CMP) (Collection Date & Time - 08/03/2024 03:06 PM)?Cr 1.18, gfr 53* Value Reference Range A /G Ratio 2.2 1.1-2.5 - * A lbumin 4.4 3.5-5.3 - g/dL * A lkaline Phosphatase 97 35-121 - IU/L * A LT (SGPT) 39 <5-47 - IU/L * A ST (SGOT) 40 <5-40 - IU/L * B ilirubin, Total 0.9 <0.2-1.2 - mg/dL * B UN 20 8-23 - mg/dL * C alcium 9.0 8.6-10.4 - mg/dL * C hloride 105 97-108 - mmol/L * C O2 29 22-32 - mmol/L * C reatinine 1.18 H 0.50-1.00 - mg/dL * G lucose 85 65-99 - mg/dL * P otassium 4.1 3.5-5.3 - mmol/L * S odium 144 135-145 - mmol/L * P rotein 6.4 6.0-8.3 - g/dL * e GFR by Creatinine 53 L >59 - mL/min/1.73m2 * Bernadine España 08/04/2024 9:07: 07 AM >See phone encounter ?LAB: CBC Venipuncture (in house) (Collection Date & Time - 08/03/2024)? Normal* Value Reference Range w bc 4.7 3.5 - 10 * l ymph 47.0 15 - 50 * m id 7.1 2 - 15 * g ran 45.9 35 - 80 * r bc 4.86 3.5 - 5.5 * h gb 13.6 11.5 - 16.5 * h ct 41.2 35 - 55 * m cv 84.7 75 - 100 * m ch 27.9 25 - 35 * m chc 32.9 31 - 38 * p latlet 180 100 - 400 * Judith Vasquez 08/03/2024 4:24: 55 PM > Bernadine España 08/04/2024 9:07:07 AM >See phone encounter * Procedure Codes: 8 5025 CBC WITH AUTO DIFF, 27079 VENIPUNCT, ROUTINE*, 68373 CAPILLARY BLOOD DRAW, 28085 GLYCATED HEMOGLOBIN TEST, Modifiers: QW * Images: Billing Information: * Visit Code: * Procedure Codes: 81153 CBC WITH AUTO DIFF. 65360 VENIPUNCT, ROUTINE*. 24588 CAPILLARY BLOOD DRAW. 60865 GLYCATED HEMOGLOBIN TEST. Modifiers: QW * Electronic signature of Indiana Koroma MD on 05/17/2025 at 11:36 AM EST Sign off status: Pending * Provider: [place] Koroma M.D. Date: 0 08/03/2024 Generated for Kunali santos/Caitlin/eTransmitting on: 07/17/2024 11:36 AM EST
--- OUTSIDE RECORDS SUMMARY | 2024-08-07 10:15 | XMS_ITS ---
Author Organization [facility] Address [address] [facility] [address] [place] [id number] Care Team Providers Care Sex Worker Or Escort Name Role Phone [place] Koroma Primary Care Provider [phone] Allergies No Known Allergies REASON FOR VISIT 2 week f/u Medications Medication SIG (Take, Route, Frequency, Duration) Notes Start Date End Date Status hydrOXYzine Pamoate 50 MG 1 cap(s) orall y once daily; Duration: 30 days Active Mounjaro 7.5 MG/0.5ML INJECT THE CONTENT S OF 1 PEN (7.5 MG / 0.5ML) SUBCUTANEOUSLY ONCE A WEEK; Duration: 28 Active Methocarbamol 750 MG 1 tablet Orally thr ee times a day as needed 07/20/2024 Active traMADol HCl 50 MG 1 tablet as needed O rally three times a day as needed 07/21/2024 Active Diflucan 200 MG 1 tablet Orally; Dur ation: 1 days 08/07/2024 Active Xanax 0.5 MG 1 tab(s) orally 3 ti mes a day 06/21/2024 Active Doxepin HCl 50 MG TAKE 1 CAPSULE BY [facility] AT BEDTIME; Duration: 30 Active Potassium Chloride ER 20 MEQ 1 tab(s) orally once daily; Duration: 30 days Active Trintellix 10 MG TAKE 1 TABLET BY ALEXANDRA TH ONCE DAILY; Duration: 30 days Active Isosorbide Mononitrate ER 60 MG 1 tablet in the AM Orally Once a day Active Atorvastatin Calcium 80 MG 1 tablet Oral ly Once a day; Duration: 30 day(s) Active Ferrous Sulfate 325 (65 Fe) MG 1 tablet Orally every other day; Duration: 30 day(s) 03/23/2024 Active Xarelto 20 MG 1 tab(s) orally once a day (in the evening); Duration: 30 days Active Gabapentin 100 MG 2 caps orally 3 time s a day 12/09/2023 Active Clopidogrel Bisulfate 75 MG 1 tablet Orally Once a day; Duration: 30 day(s) Active Metoprolol Succinate ER 25 MG 1 tablet Orally Once a day A ctive Probiotic Daily - as directed Orally Active Repatha 140 MG/ML 1 mL Subcutaneous; Duration: 30 day(s) Active Vitamin D3 25 MCG (1000 UT) 1 capsule Orally Once a day; Duration: 30 day(s) Active Vital Signs Blood pressure systolic 114 mm Hg 08/07/19 25 Blood pressure diastolic 80 mm Hg 025 Heart Rate 84 /min 08/07/2024 Height 65 in 08/07/2024 Weight 179.4 lbs 08/07/2024 BMI 29.85 kg/m2 08/07/2024 Encounters Encounter Location Date Provider Diagnosis [facility] [facility] [facility] [address] [id number] 08/07/2024 [place] Koroma Essential hypertensi on I10 ; Degeneration of intervertebral disc of lumbar region with discogenic back pain and lower extremity pain M51.362 ; H/O deep venous thrombosis Z86.718 ; Depression with anxiety F41.8 ; Type 2 diabetes mellitus without complication, without long-term current use of insulin E11.9 ; H/O gastric sleeve Z90.3 ; Status post coronary artery stent placement Z95.5 and Vaginal qing B37.31 Assessments Encounter Date Diagnosis (ICD Code) Assessment Notes Treatment Notes Treatment Clinical Notes Section Notes 08/07/2024 Essential hypertension (ICD-10 - I10) 08/07/2024 Degeneration of intervertebral disc of lumbar region with discogenic back pain and lower extremity pain (ICD-10 - M51.362) 08/07/2024 H/O deep venous thrombosis (ICD-10 - Z86.718) 08/07/2024 Depression with anxiety (ICD-10 - F41.8) 08/07/2024 Type 2 diabetes mellitus without complication, without long-term current use of insulin (ICD-10 - E11.9) 08/07/2024 H/O gastric sleeve (ICD-10 - Z90.3) 08/07/2024 Status post coronary artery stent placement (ICD-10 - Z95.5) 08/07/2024 Vaginal qing (ICD-10 - B37.31) Plan Of Treatment Medication Medication Name Sig Start Date Stop Date Notes Diflucan 200 MG 1 tablet Orally; Duration: 1 days 08/07/19 25 Next Appt Details Follow Up: 2 Months, Reason: Provider Name:[place] Isabel er, 06/15/2025 11:45:00 AM, [address] [facility] [address] [facility], [address], [place], [place], [id number], Progress Notes * CHIKIS MOLINAOB:1965 (59 yo F)Acc No.[id number]:08/07/2024 Patient: MANUELA GIL Provider: [place] Koroma M.D. :1965 A ge:58 Y S ex:Female Date:08/07/2024 Address:[address] [place] [address], [id number] Subjective: * Chief Complaints: * 1 . 2 week f/u. * HPI: Mary marquis back: The pt is here for a follow up on Lumbar strain. Pt states she doing some better. Pt states the pain is not as tender as before. Pt states she is having a lot of vaginal itching and is wondering if the steroids could be causing it. G astroenterology: Has GI appt tomorrow but plans to reschedule. * ROS: D ERMATOLOGY: no R rose [...] 08/27/2022. * Hospitalization/Major Diagno stic Procedure: [facility] 06/14/2010, [facility] 09/02-, [facility], Tachycardia 06/29/2019, [facility] 06/28/2201. * Family History: F ather: [...] orally 3 times a day , Taking Trintellix 10 MG Tablet TAKE [...] times a day as needed , Discontinued Mounjaro 5 MG/0.5ML Solution Auto-injector as directed Subcutaneous once a week , Medication List reviewed and reconciled with the patient * Allergies: N .K.D.A. Objective: * Vitals: W t:179.4, Temp:98.5, BP:114/80, HR:84, Nurse:ALEYDA, Ht: 65, BMI:29.85. Assessment: * Assessment: 1. D egeneration of intervertebral disc of lumbar region with discogenic back pain and lower extremity pain - M51.362 (Primary) 2 . E ssential hypertension - I10 ?3. H /O deep venous thrombosis - Z86.718 4 . D epression with anxiety - F41.8 5 . T ype 2 diabetes mellitus without complication, without long-term current use of insulin - E11.9 6 . H /O gastric sleeve - Z90.3 7 .?Status post coronary artery stent placement - Z95.5 8 . V aginal qing - B37.31 Plan: * Treatment: * Follow Up: 2 Months * Images: Billing Information: * Visit Code: 63650 Office Visit, Est Pt., Level 3. * Procedure Codes: * Electronic signature of Indiana Koroma MD on 05/17/2025 at 11:36 AM EST Sign off status: Pending * Provider: [place] Koroma M.D. Date: 0 08/07/2024 Generated for Isabel graham/Caitlin/Hiram on: 07/17/2024 11:36 AM EST
--- OUTSIDE RECORDS SUMMARY | 2024-10-02 09:30 | XMS_ITS ---
Author Organization [facility] Address [address] [place] [id number] Care Team Providers Care Bow Maker Custom Name Role Phone Indiana Koroma Primary Care Provider Allergies No Known Allergies Results Component Value Reference Range Notes CBC Venipuncture (in house) Reviewed date:10/03/2024 01:52:37 PM Interpretation: Performing Lab: Notes/Report: wbc 3.8 3.5 - 10 lymph 48.8% 15 - 50 mid 7.7% 2 - 15 gran 43.5% 35 - 80 rbc 4.49 3.5 - 5.5 hgb 12.9 11.5 - 16.5 hct 38.7 35 - 55 mcv 86.1 75 - 100 mch 28.9 25 - 35 mchc 33.5 31 - 38 platlet 211 100 - 400 P-Comprehensive Metabolic Pa aquiles (CMP) Reviewed date:10/18/2024 04:35:26 PM Interpretation:Cr 1.05 Performing Lab: Notes/Report: Test performed by [facility] [address] [place] [address] , [address], [place] [address] Wilberto Johnson MD, Industrial Aerial Installer CLIA: [id number] Sodium 143 135-145 mmol/L Potassium 5.1 3.5-5.3 mmol/L Chloride 105 97-108 mmol/L CO2 27 22-32 mmol/L Glucose 82 65-99 mg/dL BUN 19 8-23 mg/dL Creatinine 1.05 0.50-1.00 mg/dL Calcium 9.7 8.6-10.4 mg/dL eGFR by Creatinine 60 >59 mL/min/1.73m2 Protein 6.6 6.0-8.3 g/dL Albumin 4.5 3.5-5.3 g/dL Alkaline Phosphatase 99 35-121 IU/L ALT (SGPT) 23 <5-47 IU/L AST (SGOT) 25 <5-40 IU/L Bilirubin, Total 0.9 <0.2-1.2 mg/dL A/G Ratio 2.1 1.1-2.5 REASON FOR VISIT 2 month ckup Medications Medication SIG (Take, Route, Frequency, Duration) Notes Start Date End Date Status Mounmadie 10 MG/0.5ML INJECT THE CONTENTS OF 1 PEN (10 MG / 0.5ML) SUBCUTANEOUSLY ONCE A WEEK; Duration: 28 Active Doxepin HCl 50 MG TAKE 1 CAPSULE BY [facility] AT BEDTIME; Duration: 30 Active Potassium Chloride ER 20 MEQ 1 tab(s) orally once daily; Duration: 30 days Active Gabapentin 100 MG 2 caps orally 3 times a day 08/13 Active Trintellix 10 MG TAKE 1 TABLET BY [facility] ONCE DAILY; Duration: 30 Active Xanax 0.5 MG 1 tab(s) orally 3 ti mes a day 06/21/2024 Active hydrOXYzine Pamoate 50 MG 1 cap(s) orall y once daily; Duration: 30 days Active Xarelto 20 MG 1 tab(s) orally once a day (in the evening); Duration: 30 days Active Clopidogrel Bisulfate 75 MG 1 tablet Orally Once a day; Duration: 30 day(s) Active Atorvastatin Calcium 80 MG 1 tablet Orally Once a day; Duration: 30 day(s) Active Metoprolol Succinate ER 25 MG 1 tablet Orally Once a day A ctive Isosorbide Mononitrate ER 60 MG 1 tablet in the AM Orally Once a day Active Nystatin-Triamcinolone 289406-2.1 UNIT/GM 1 application Externally Twice a day 10/02/2024 Active Repatha 140 MG/ML 1 mL Subcutaneous; Duration: 30 day(s) Active Probiotic Daily - as directed Orally Active Vitamin D3 25 MCG (1000 UT) 1 capsule Orally Once a day; Duration: 30 day(s) Active Vital Signs Blood pressure systolic 120 mm Hg 10/03/19 25 Blood pressure diastolic 80 mm Hg 025 Heart Rate 74 /min 10/02/2024 Height 65 in 10/02/2024 Weight 169.0 lbs 10/02/2024 BMI 28.12 kg/m2 10/02/2024 Encounters Encounter Location Date Provider Diagnosis [facility] [address] [place] [id number] 10/02/2024 Indiana Koroma Essential hypertensi on I10 ; H/O deep venous thrombosis Z86.718 ; Depression with anxiety F41.8 ; Renal insufficiency N28.9 and Intertrigo L30.4 Assessments Encounter Date Diagnosis (ICD Code) Assessment Notes Treatment Notes Treatment Clinical Notes Section Notes 10/02/2024 Essential hypertension (ICD-10 - I10) 10/02/2024 H/O deep venous thrombosis (ICD-10 - Z86.718) 10/02/2024 Depression with anxiety (ICD-10 - F41.8) 10/02/2024 Renal insufficiency (ICD-10 - N28.9) 10/02/2024 Intertrigo (ICD-10 - L30.4) Plan Of Treatment Medication Medication Name Sig Start Date Stop Date Notes Nystatin-Triamcinolone 171120-6.1 UNIT/GM 1 application Externally Twice a day 10/02/2024 Next Appt Details Follow Up: 3 Months, Reason: Provider Name:Indiana Isabel er, 06/15/2025 11:45:00 AM, [address], [address] , [facility] [place], [id number], Progress Notes * CHIKIS MOLINAOB:1965 (59 yo F)Acc No.[id number]:10/02/2024 Progress Notes Patient: MANUELA GIL Provider: Indiana Koroma M.D. :1965 A ge:59 Y S ex:Female Date:10/02/2024 Address:[address] [place] [address] [place] [id number] Subjective: * Chief Complaints: * 1 . 2 month ckup. * HPI: C ardiology: The patient is here for a check up on Hypertension and Diabetes. Pt states she having some episodes of anxiety and depression. Pt is not fasting. Denies : Chest Pain. D enies : Short of Breath. D enies : Dizziness. D enies : Palpitations. D ermatology: rash i rritated recurrent rash of the lower abdomen, intertriginous. * ROS: D ERMATOLOGY: no R rose [...] 10/2012, implants bottom teeth 12/2012, oral surgery 04/24/2013, oral surgery, had more bone taken out, X 2 times in the same month 04/2014, Epidural 12/2021, Gastric Sleeve 08/27/2022. * Hospitalization/Major Diagno stic Procedure: M [facility] 06/14/2010, [facility] 09/02-, [facility], Tachycardia 06/29/2019, [facility] 06/28/2201. * Family History: F ather: [...] a day (in the evening) , Taking Potassium Chloride ER 20 MEQ Tablet Extended Release 1 tab(s) orally once daily , Taking Xanax 0.5 MG Tablet 1 tab(s) orally 3 times a day , Taking hydrOXYzine Pamoate 50 MG Capsule 1 cap(s) orally once daily , Taking Gabapentin 100 MG Capsule 2 caps orally 3 times a day , Taking Trintellix 10 MG Tablet TAKE 1 TABLET BY MOUTH ONCE DAILY , Taking Mounjaro 10 MG/0.5ML Solution Auto-injector INJECT THE CONTENTS OF 1 PEN (10 MG / 0.5ML) SUBCUTANEOUSLY ONCE A WEEK , Taking Doxepin HCl 50 MG Capsule TAKE 1 CAPSULE BY MOUTH AT BEDTIME , Discontinued Ferrous Sulfate 325 (65 Fe) MG Tablet Delayed Release 1 tablet Orally every other day , Discontinued traMADol HCl 50 MG Tablet 1 tablet as needed Orally three times a day as needed , Discontinued Diflucan 200 MG Tablet 1 tablet Orally * Allergies: N .K.D.A. Objective: * Vitals: W t: 169.0, Temp: 98.0, BP: 120/80, HR: 74, Nurse: ALEYDA, Ht: 65, BMI:28.12. * Examination: G eneral Examination: General Appearance: N AD. Note weight loss. Top weight was 307#. H EENT: u nremarkable. O ral cavity: n o lesions, mucosa moist and WNL, no erythema. N arun: s upple, no lymphadenopathy. C hest: n ormal shape and expansion. . H eart: R SR, aortic murmur. L ungs: c lear to auscultation. A bdomen:?soft and nontender, redundant pannus with intertrigo. N eurologic Exam: I ntact, gait normal. S kin: n ormal, no rash. P eripheral pulses: n ormal . E xtremities: Minimal leg edema. Assessment: * Assessment: 1. E ssential hypertension - I10 (Primary) 2 . H /O deep venous thrombosis - Z86.718 3 . D epression with anxiety - F41.8 4 . R enal insufficiency - N28.9 5 . I ntertrigo - L30.4 Plan: * Treatment: Value Reference Range A /G Ratio 2.1 1.1-2.5 - * A lbumin 4.5 3.5-5.3 - g/dL * A lkaline Phosphatase 99 35-121 - IU/L * A LT (SGPT) 23 <5-47 - IU/L * A ST (SGOT) 25 <5-40 - IU/L * B ilirubin, Total 0.9 <0.2-1.2 - mg/dL * B UN 19 8-23 - mg/dL * C alcium 9.7 8.6-10.4 - mg/dL * C hloride 105 97-108 - mmol/L * C O2 27 22-32 - mmol/L * C reatinine 1.05 H 0.50-1.00 - mg/dL * G lucose 82 65-99 - mg/dL * P otassium 5.1 3.5-5.3 - mmol/L * S odium 143 135-145 - mmol/L * P rotein 6.6 6.0-8.3 - g/dL * e GFR by Creatinine 60 >59 - mL/min/1.73m2 * Jessica Mora 10/02/2024 04 :31:55 PM >nurse draw Kait Gambino 10/18/2024 04:35:07 PM > see phone encounter ?LAB: CBC Venipuncture (in house) (Collection Date & Time - 10/02/2024)* Value Reference Range w bc 3.8 3.5 - 10 * l ymph 48.8% 15 - 50 * m id 7.7% 2 - 15 * g ran 43.5% 35 - 80 * r bc 4.49 3.5 - 5.5 * h gb 12.9 11.5 - 16.5 * h ct 38.7 35 - 55 * m cv 86.1 75 - 100 * m ch 28.9 25 - 35 * m chc 33.5 31 - 38 * p latlet 211 100 - 400 * Jessica Mora 10/02/2024 05 :50:25 PM > Provider reviewed results while patient in office. 2.?Intertrigo? Start Nystatin-Triamcinolone Cream, 161941-6.1 UNIT/GM, 1 application, Externally, Twice a day, 60 Gram, Refills 0.?? * Procedure Codes: 8 5025 CBC WITH AUTO DIFF, 65435 VENIPUNCT, ROUTINE*, 3074F SYST BP LT 130 MM HG, 3079F DIAST BP 80-89 MM HG * Follow Up: 3 Months * Images: Billing Information: * Visit Code: 23684 Office Visit, Est Pt., Level 4. * Procedure Codes: 05970 CBC WITH AUTO DIFF. 91353 VENIPUNCT, ROUTINE*. 3074F SYST BP LT 130 MM HG. 3079F DIAST BP 80-89 MM HG. * Electronic signature of Indiana Koroma MD on 05/17/2025 at 11:37 AM EST Sign off status: Pending * Provider: Indiana Koroma M.D. Date: 0 10/02/2024 Generated for Isabel graham/Caitlin/eTransmitting on: 1 07/17/2024 11:37 AM EST History and Physical Notes * HPI (History of Present Illness) Category Sub-Category Detail Notes Category Not es Dermatology rash irritated recurr ent rash of the lower abdomen, intertriginous Cardiology Short of Breath Chest Pain Palpitations Dizziness Examination Category Sub-Category Detail Notes Category Not es General Examination HEENT: unremarkable Heart: RSR, aortic murmur Lungs: clear to auscultatio n Abdomen: soft and nontender, redundant pannus with intertrigo Extremities: Minimal leg edema General Appearance: NAD. Note weight los s. Top weight was 307# Skin: normal, no rash Neurologic Exam: Intact, gait normal Neck: supple, no lymphaden opathy Oral cavity: no lesions, mucosa m oist and WNL, no erythema Peripheral pulses: normal Chest: normal shape and exp ansion.
--- OUTSIDE RECORDS SUMMARY | 2025-01-01 08:15 | XMS_ITS ---
Author Organization [facility] Address [address] [place] [id number] Care Team Providers Care Software Test Specialist Name Role Phone Indiana Koroma Primary Care Provider Allergies No Known Allergies Results Component Value Reference Range Notes Glycohemoglobin A1c (in hous e) Reviewed date:01/05/2025 12:20:09 PM Interpretation: Performing Lab: Notes/Report: glycohemoglobin 5.2% 5 - 6.5 % P-Basic Metabolic Panel (BMP ) Reviewed date:01/05/2025 01:33:12 PM Interpretation:satisfactory Performing Lab: Notes/Report: Test performed by [facility], [place] [address] [place] [address] , [address], [place] [address] Wilberto Johnson MD, Commercial Lending Relationship Manager CLIA: [id number] Sodium 146 135-145 mmol/L Potassium 4.3 3.5-5.3 mmol/L Chloride 109 97-108 mmol/L CO2 27 22-32 mmol/L Glucose 78 65-99 mg/dL BUN 16 8-23 mg/dL Creatinine 1.01 0.50-1.00 mg/dL Calcium 9.1 8.6-10.4 mg/dL eGFR by Creatinine 63 >59 mL/min/1.73m2 Reason For Referral Reason lumbar DJD, pain Diagnosis 1 DJD (degenerative gee int disease), lumbosacral (M47.817) [facility] Referring Provider First Name Indiana Diaz Referring Provider Last Name Ga Referring Provider Speciality Family Pra ctice Referred Provider Specialty Physical The rapist General Notes Jessica Timmons 2024 03:04:33 PM > faxed to [facility] PT Referral Priority Routine REASON FOR VISIT 3 month, Needs labs & diabetic eye exam Medications Medication SIG (Take, Route, Frequency, Duration) Notes Start Date End Date Status Metoprolol Succinate ER 25 MG 1 tablet Orally Once a day A ctive Clopidogrel Bisulfate 75 MG 1 tablet Orally Once a day; Duration: 30 day(s) Active Vitamin D3 25 MCG (1000 UT) 1 capsule Orally Once a day; Duration: 30 day(s) Active Atorvastatin Calcium 80 MG 1 tablet Orally Once a day; Duration: 30 day(s) Active Mounjaro 10 MG/0.5ML INJECT THE CONTENTS OF 1 PEN (10 MG / 0.5ML) SUBCUTANEOUSLY ONCE A WEEK; Duration: 28 Active Doxepin HCl 50 MG 1 capsule at bedtime Orally Once a day; Duration: 30 days Active Probiotic Daily - as directed Orally Active Repatha 140 MG/ML 1 mL Subcutaneous; Duration: 30 day(s) Active Isosorbide Mononitrate ER 60 MG 1/2 Orally Once a day Active Trintellix 10 MG TAKE 1 TABLET BY [facility] ONCE DAILY; Duration: 30 Active Potassium Chloride Jaki ER 20 MEQ TAKE 1 TABLET BY MOUTH ONCE DAILY; Duration: 30 Active Xanax 0.5 MG 1 tab(s) orally 3 ti mes a day; Duration: 30 days 10/19/2024 Active Nystatin-Triamcinolone 191089-3.1 UNIT/GM APPLY TO AFFECTED AREA TWICE DAILY; Duration: 20 Active hydrOXYzine Pamoate 50 MG 1 cap(s) orall y once daily; Duration: 30 days Active Gabapentin 300 MG 1 capsule Orally 3 t imes a day; Duration: 30 days 01/01/2025 Active Xarelto 20 MG 1 tab(s) orally once a day (in the evening); Duration: 30 days Active Problems Problem Type SNOMED Code ICD Code Onset Dates Problem Status W/U Status Risk Notes Problem Lumbosacral spondylosis without myelopathy ([id number]) DJD (degenerative joint disease), lumbosacral (M47.817) Active confirmed Vital Signs Blood pressure systolic 92 mm Hg 01/02/20 25 Blood pressure diastolic 62 mm Hg 025 Heart Rate 64 /min 01/01/2025 Height 65 in 01/01/2025 Weight 163.6 lbs 01/01/2025 BMI 27.22 kg/m2 01/01/2025 Encounters Encounter Location Date Provider Diagnosis [facility] [address] [facility] [address] [place] [id number] 01/01/2025 Indiana Koroma Essential hypertensi on I10 ; Diastolic dysfunction I51.89 ; BMI 27.0-27.9,adult Z68.27 ; Atherosclerosis of king salmon coronary artery without angina pectoris, unspecified whether king salmon or transplanted heart I25.10 and DJD (degenerative joint disease), lumbosacral M47.817 Assessments Encounter Date Diagnosis (ICD Code) Assessment Notes Treatment Notes Treatment Clinical Notes Section Notes 01/01/2025 Essential hypertension (ICD-10 - I10) 01/01/2025 Diastolic dysfunction (ICD-10 - I51.89) 01/01/2025 BMI 27.0-27.9,adult (ICD-10 - Z68.27) 01/01/2025 Atherosclerosis of king salmon coronary artery without angina pectoris, unspecified whether king salmon or transplanted heart (ICD-10 - I25.10) 01/01/2025 DJD (degenerative joint disease), lumbosacral (ICD-10 - M47.817) Plan Of Treatment Medication Medication Name Sig Start Date Stop Date Notes Gabapentin 100 MG 2 caps orally 3 times a day 09/01/2024 Isosorbide Mononitrate ER 60 MG 1/2 Orally Once a day Gabapentin 300 MG 1 capsule Orally 3 t imes a day; Duration: 30 days 01/01/2025 Referrals Referral Date Details 01/01/2025 01/01/2025, lumbar D ARTURO, pain Next Appt Details Follow Up: 3 Weeks, Reason: Provider Name:Ind[place] Isabel er, 06/15/2025 11:45:00 AM, [address] [facility] [address], [address], [place], [id number], Progress Notes * CHIKIS MOLINAOB:1965 (59 yo F)Acc No.[id number]:01/01/2025 Progress Notes Patient: MANUELA GIL Provider: Indiana Koroma M.D. :1965 A ge:59 Y S ex:Female Date:01/01/2025 [facility] [place] [id number] Subjective: * Chief Complaints: * 1 . 3 month. 2. Needs labs & diabetic eye exam. * HPI: C ardiology: The pt is here for a check up on Hypertension and Diabetes. Pt states she does check her BP occasionally and it has been doing good. Pt states her back pain is getting worse. Pt rates her pain about a 7-8/10 at times. Denies : Chest Pain. D enies : Short of Breath. D enies : Dizziness. D enies : Palpitations. * ROS: D ERMATOLOGY: no R rose marie. n o H montez. G ASTROENTEROLOGY: no N ausea. n o V omiting. n o D iarrhea.? U ROLOGY: no D ifficulty urinating. n o B lood in urine. * Medical History: s easonal allergies - Dr. Reza, Chronic back pain, Anxiety, GERD, [...] 08/27/2022. * Hospitalization/Major Diagno stic Procedure: [facility] 06[facility]14[facility]2010, [facility] 09/02-, [facility], Tachycardia 06/29/2019, [facility] 06/28/2201. * Family History: F ather: [...] a day (in the evening) , Taking hydrOXYzine Pamoate 50 MG Capsule 1 cap(s) orally once daily , Taking Gabapentin 100 MG Capsule 2 caps orally 3 times a day , Taking Xanax 0.5 MG Tablet 1 tab(s) orally 3 times a day , Taking Nystatin-Triamcinolone 831728-5.1 UNIT/GM Cream APPLY TO AFFECTED AREA TWICE DAILY , Taking Trintellix 10 MG Tablet TAKE 1 TABLET BY MOUTH ONCE DAILY , Taking Potassium Chloride Jaki ER 20 MEQ Tablet Extended Release TAKE 1 TABLET BY MOUTH ONCE DAILY , Taking Mounjaro 10 MG/0.5ML Solution Auto-injector INJECT THE CONTENTS OF 1 PEN (10 MG / 0.5ML) SUBCUTANEOUSLY ONCE A WEEK , Taking Doxepin HCl 50 MG Capsule 1 capsule at bedtime Orally Once a day , Medication List reviewed and reconciled with the patient * Allergies: N .K.D.A. Objective: * Vitals: W t: 163.6, Temp: 97.9, BP: 92/62, HR: 64, Nurse: ALEYDA, Ht: 65, BMI:27.22. * Examination: G eneral Examination: General Appearance: N AD. Note weight loss. Top weight was 307#. H EENT: u nremarkable. O ral cavity: n o lesions, mucosa moist and WNL, no erythema. N arun: s upple, no lymphadenopathy. C hest: n ormal shape and expansion. . H eart: R SR, aortic murmur. L ungs: c lear to auscultation. A bdomen:?soft and nontender. N eurologic Exam: I ntact, gait normal. S kin: n ormal, no rash. P eripheral pulses: n ormal . E xtremities: M inimal leg edema. ? Assessment: * Assessment: 1. E ssential hypertension - I10 (Primary) 2 . D iastolic dysfunction - I51.89 3 . B IL 27.0-27.9,adult - Z68.27 4 . A therosclerosis of king salmon coronary artery without angina pectoris, unspecified whether king salmon or transplanted heart - I25.10 5 . D ARTURO (degenerative joint disease), lumbosacral - M47.817 ? Plan: * Treatment: Value Reference Range B UN 16 8-23 - mg/dL * C alcium 9.1 8.6-10.4 - mg/dL * C hloride 109 H 97-108 - mmol/L * C O2 27 22-32 - mmol/L * C reatinine 1.01 H 0.50-1.00 - mg/dL * G lucose 78 65-99 - mg/dL * P otassium 4.3 3.5-5.3 - mmol/L * S odium 146 H 135-145 - mmol/L * e GFR by Creatinine 63 >59 - mL/min/1.73m2 * Jessica Mora 01/05/2025 01 :33:06 PM EDT > Patient informed of normal results. 2.?Atherosclerosis of king salmon coronary artery without angina pectoris, unspecified whether king salmon or transplanted heart? Decrease Isosorbide Mononitrate ER Tablet Extended Release 24 Hour, 60 MG, 1/2, Orally, Once a day. ?3.?DJD (degenerative joint disease), lumbosacral? Stop Gabapentin Capsule, 100 MG, 2 caps, orally, 3 times a day;?Start Gabapentin Capsule, 300 MG, 1 capsule, Orally, 3 times a day, 30 days, 90 Capsule, Refills 2.? Referral To:Physical Therapist ?Reason:lumbar DJD, pain * Labs: * L ab: Glycohemoglobin A1c (in house) (Collection Date & Time - 01/01/2025) Value Reference Range g lycohemoglobin 5.2% 5 - 6.5 % * Jessica Mora 01/01/2025 02 :06:01 PM EDT > Provider reviewed results while patient in office. * Procedure Codes: 3 6416 CAPILLARY BLOOD DRAW, 08712 GLYCATED HEMOGLOBIN TEST, Modifiers: QW , 1036F TOBACCO NON-USER, 3044F HG A1C LEVEL LT 7.0%, G8783 BP SCR PRFRM RCMDD DEFIND SCR INTVL, G8752 MOST RECENT SYSTOLIC BP < 140MM HG, G8754 MOST RECENT DIASTOLIC BP < 90MM HG, G8420 BMI<30 AND >=22 CALC & DOCU * Follow Up: 3 Weeks * Images: Billing Information: * Visit Code: 64253 Office Visit, Est Pt., Level 4. * Procedure Codes: 34861 CAPILLARY BLOOD DRAW. 04460 GLYCATED HEMOGLOBIN TEST. Modifiers: QW 1036F TOBACCO NON-USER. 3044F HG A1C LEVEL LT 7.0%. G8783 BP SCR PRFRM RCMDD DEFIND SCR INTVL. G8752 MOST RECENT SYSTOLIC BP < 140MM HG. G8754 MOST RECENT DIASTOLIC BP < 90MM HG. G8420 BMI<30 AND >=22 CALC & DOCU. * Electronic signature of Indiana Koroma MD on 05/17/2025 at 11:38 AM EST Sign off status: Pending * Provider: [place] Koroma M.D. Date: 0 01/01/2025 Generated for Isabel graham/Caitlin/eTransmitting on: 1 07/17/2024 11:38 AM EST History and Physical Notes * HPI (History of Present Illness) Category Sub-Category Detail Notes Category Not es Cardiology Short of Breath Chest Pain Palpitations Dizziness Examination Category Sub-Category Detail Notes Category Not es General Examination HEENT: unremarkable Heart: RSR, aortic murmur Lungs: clear to auscultatio n Abdomen: soft and nontender Extremities: Minimal leg edema General Appearance: NAD. Note weight los s. Top weight was 307# Skin: normal, no rash Neurologic Exam: Intact, gait normal Neck: supple, no lymphaden opathy Oral cavity: no lesions, mucosa m oist and WNL, no erythema Peripheral pulses: normal Chest: normal shape and exp ansion. Consultation Request Notes Referral Date Referring Provider Referred Provider Not es 01/01/2025 Indiaan Koroma , lumbar DJD , pain
--- OUTSIDE RECORDS SUMMARY | 2025-01-22 08:15 | XMS_ITS ---
Author Organization [facility] Address [address] [facility] [address] [place] [id number] Care Team Providers Care Music Instructor Name Role Phone Indiana Koroma Primary Care Provider [phone] Allergies No Known Allergies Results Component Value Reference Range Notes MRI : spine, lumbosacral wit h and without contrast Reviewed date:02/09/2025 10:59:14 AM Interpretation:midline degenerative changes with stenosis and foraminal narrowing Performing Lab: Notes/Report: midline degenerative changes with stenosis and foraminal narrowing REASON FOR VISIT 3 weeks Medications Medication SIG (Take, Route, Frequency, Duration) Notes Start Date End Date Status hydrOXYzine Pamoate 50 MG TAKE 1 CAPSULE BY MOUTH ONCE DAILY MAY CAUSE DROWSINESS; Duration: 30 Activ e Trintellix 10 MG TAKE 1 TABLET BY ONCE DAILY; Duration: 30 Active Mounjaro 10 MG/0.5ML INJECT THE CONTENTS OF 1 PEN (10 MG / 0.5ML) SUBCUTANEOUSLY ONCE A WEEK; Duration: 28 Active Xanax 0.5 MG 1 tab(s) orally 3 ti mes a day; Duration: 30 days 01/17/2025 Active Repatha 140 MG/ML 1 mL Subcutaneous; Duration: 30 day(s) Active Potassium Chloride Jaki ER 20 MEQ TAKE 1 TABLET BY MOUTH ONCE DAILY; Duration: 30 Active Doxepin HCl 50 MG 1 capsule at bedtime Orally Once a day; Duration: 30 days Active Isosorbide Mononitrate ER 60 MG 1/2 Orally Once a day Active Gabapentin 300 MG 1 capsule Orally 3 t imes a day; Duration: 30 days 01/01/2025 Active Nystatin-Triamcinolone 788798-0.1 UNIT/GM APPLY TO AFFECTED AREA TWICE DAILY; Duration: 20 Active Clopidogrel Bisulfate 75 MG 1 tablet Orally Once a day; Duration: 30 day(s) Active Atorvastatin Calcium 80 MG 1 tablet Orally Once a day; Duration: 30 day(s) Active Metoprolol Succinate ER 25 MG 1 tablet Orally Once a day A ctive Xarelto 20 MG 1 tab(s) orally once a day (in the evening); Duration: 30 days Active Vitamin D3 25 MCG (1000 UT) 1 capsule Orally Once a day; Duration: 30 day(s) Active Probiotic Daily - as directed Orally Active Vital Signs Blood pressure systolic 102 mm Hg 01/23/20 25 Blood pressure diastolic 66 mm Hg 025 Heart Rate 74 /min 01/22/2025 Height 65 in 01/22/2025 Weight 158.8 lbs 01/22/2025 BMI 26.42 kg/m2 01/22/2025 Encounters Encounter Location Date Provider Diagnosis [facility] [address] [facility] 36 [facility] [address] [place] [id number] 01/22/2025 Indiana Koroma Lumbar back pain wit h radiculopathy affecting lower extremity M54.16 ; Degeneration of intervertebral disc of lumbar region with discogenic back pain and lower extremity pain M51.362 and BMI 26.0-26.9,adult Z68.26 Assessments Encounter Date Diagnosis (ICD Code) Assessment Notes Treatment Notes Treatment Clinical Notes Section Notes 01/22/2025 Lumbar back pain with radiculopathy affecting lower extremity (ICD-10 - M54.16) Continue present care. MRI 01/22/2025 Degeneration of intervertebral disc of lumbar region with discogenic back pain and lower extremity pain (ICD-10 - M51.362) 01/22/2025 BMI 26.0-26.9,adult (ICD-10 - Z68.26) Plan Of Treatment Treatment Notes Assessment Notes Lumbar back pain with radicu lopathy affecting lower extremity Continue present care. MRI Next Appt Details Follow Up: 2 Months, Reason: Provider Name:Indiana Isabel er, 06/15/2025 11:45:00 AM, [address] [facility] 36 [facility], [address], [place], [id number], Progress Notes * CHIKIS MOLINAOB:1965 (59 yo F)Acc No.[id number]:01/22/2025 Progress Notes Patient: MANUELA GIL Provider: Indiana Koroma M.D. :1965 A ge:59 Y S ex:Female Date:01/22/2025 Address:[address] [place] [address], [place], [id number] Subjective: * Chief Complaints: * 1 . 3 weeks. * HPI: L ower back: The patient is here for a check up on Low back pain. Pt states the pain is about the same. Pt states she did go to PT on Wednesday for evaluation. PT requesting repeat MRI LS spine. 59 year old female presents with c/o Low Back Pain. * ROS: D ERMATOLOGY: no R rose [...] 08/27/2022. * Hospitalization/Major Diagno stic Procedure: M AL-H 06/14/2010, [facility] 09/02-, [facility], Tachycardia 06/29/2019, [facility] 06/28/2201. * Family History: F ather: alive, [...] tablet Orally Once a day , Taking Xarelto 20 MG Tablet 1 tab(s) orally once a day (in the evening) , Taking Nystatin-Triamcinolone 342888-2.1 UNIT/GM Cream APPLY TO AFFECTED AREA TWICE DAILY , Taking Potassium Chloride Jaki ER 20 MEQ Tablet Extended Release TAKE 1 TABLET BY MOUTH ONCE DAILY , Taking Doxepin HCl 50 MG Capsule 1 capsule at bedtime Orally Once a day , Taking Isosorbide Mononitrate ER 60 MG Tablet Extended Release 24 Hour 1/2 Orally Once a day , Taking Gabapentin 300 MG Capsule 1 capsule Orally 3 times a day , Taking hydrOXYzine Pamoate 50 MG Capsule TAKE 1 CAPSULE BY MOUTH ONCE DAILY MAY CAUSE DROWSINESS , Taking Trintellix 10 MG Tablet TAKE 1 TABLET BY MOUTH ONCE DAILY , Taking Mounjaro 10 MG/0.5ML Solution Auto-injector INJECT THE CONTENTS OF 1 PEN (10 MG / 0.5ML) SUBCUTANEOUSLY ONCE A WEEK , Taking Xanax 0.5 MG Tablet 1 tab(s) orally 3 times a day , Medication List reviewed and reconciled with the patient * Allergies: N .K.D.A. Objective: * Vitals: W t: 158.8, Temp: 98.4, BP: 102/66, HR: 74, Nurse: ALEYDA, Ht: 65, BMI:26.42. * Examination: G eneral Examination: General Appearance: [...] leg edema. ? Assessment: * Assessment: 1. L umbar back pain with radiculopathy affecting lower extremity - M54.16 (Primary) 2 . D egeneration of intervertebral disc of lumbar region with discogenic back pain and lower extremity pain - M51.362 3 . B ND 26.0-26.9,adult - Z68.26 Plan: * Treatment: Notes: Continue present care. MRI??2.?Degeneration of intervertebral disc of lumbar region with discogenic back pain and lower extremity pain?Imaging: MRI : spine, lumbosacral with and without contrast (Performed Date - 02/02/2025)?midline degenerative changes with stenosis and foraminal narrowing * Jessica Timmons 01/24/2025 02:0 8:56 PM EDT > auth# [id number]; valid 01/24/2025-02/22/2025; CPT code 15353; faxed to [facility] Scheduling Bernadine España 02/09/2025 10:59:07 AM EDT > See phone encounter * Procedure Codes: 1 036F TOBACCO NON-USER, G8420 BMI<30 AND >=22 CALC & DOCU, G8783 BP SCR PRFRM RCMDD DEFIND SCR INTVL, 3074F SYST BP LT 130 MM HG, 3078F DIAST BP < 80 MM HG * Follow Up: 2 Months * Images: Billing Information: * Visit Code: 43075 Office Visit, Est Pt., Level 3. * Procedure Codes: 1036F TOBACCO NON-USER. G8420 BMI<30 AND >=22 CALC & DOCU. G8783 BP SCR PRFRM RCMDD DEFIND SCR INTVL. 3074F SYST BP LT 130 MM HG. 3078F DIAST BP < 80 MM HG. * Electronic signature of Indiana Koroma MD on 05/17/2025 at 11:36 AM EST Sign off status: Pending * Provider: Indiana Koroma M.D. Date: 0 01/22/2025 Generated for Printi ng/Fabarrong/eTransmitting on: 1 07/17/2024 11:36 AM EST History and Physical Notes * HPI (History of Present Illness) Category Sub-Category Detail Notes Category Not es Lower back Low Back Pain Examination Category Sub-Category Detail Notes Category Not [...]
--- OUTSIDE RECORDS SUMMARY | 2025-02-22 10:15 | XMS_ITS ---
Author Organization [facility] Address [address] [place] [id number] Care Team Providers Care Nurse Infection Control Name Role Phone [place] Koroma Primary Care Provider Allergies No Known Allergies Reason For Referral Reason spinal stenosis and degenerative disc disease. Diagnosis 1 Spinal stenosis of l umbosacral region (M48.07) Ref[facility] Referring Provider First Name [place] Diaz Referring Provider Last Name Ga Referring Provider Speciality Family Pra ctice Referred Provider Damián Rutherford Referred Provider Specialty Pain Managem ent General Notes Jessica Timmons 2024 04:53:09 PM > faxed to [facility] Pain Management Referral Priority Routine REASON FOR VISIT Discuss Pain Management Referral Medications Medication SIG (Take, Route, Frequency, Duration) Notes Start Date End Date Status hydrOXYzine Pamoate 50 MG TAKE 1 CAPSULE BY MOUTH ONCE DAILY MAY CAUSE DROWSINESS; Duration: 30 Activ e Trintellix 10 MG 1 tablet Orally Once a day; Duration: 30 days Active Mounjaro 10 MG/0.5ML 0.5 mL Subcutaneous once a week; Duration: 28 days Active Doxepin HCl 50 MG 1 capsule at bedtime Orally Once a day; Duration: 90 days Active Xanax 0.5 MG 1 tab(s) orally 3 ti mes a day; Duration: 30 days 01/17/2025 Active Potassium Chloride Jaki ER 20 MEQ TAKE 1 TABLET BY MOUTH ONCE DAILY; Duration: 30 Active Nystatin-Triamcinolone 514392-2.1 UNIT/GM APPLY TO AFFECTED AREA TWICE DAILY; Duration: 20 Active Xarelto 20 MG 1 tab(s) orally once a day (in the evening); Duration: 30 days Active Gabapentin 300 MG 1 capsule Orally 3 t imes a day; Duration: 30 days 01/01/2025 Active Isosorbide Mononitrate ER 60 MG 1/2 Orally Once a day Active Atorvastatin Calcium 80 MG 1 tablet Oral ly Once a day; Duration: 30 day(s) Active Probiotic Daily - as directed Orally Active Clopidogrel Bisulfate 75 MG 1 tablet Orally Once a day; Duration: 30 day(s) Active Metoprolol Succinate ER 25 MG 1 tablet Orally Once a day A ctive Vitamin D3 25 MCG (1000 UT) 1 capsule Orally Once a day; Duration: 30 day(s) Active Repatha 140 MG/ML 1 mL Subcutaneous; Duration: 30 day(s) Active Problems Problem Type SNOMED Code ICD Code Onset Dates Problem Status W/U Status Risk Notes Problem Spinal stenosis of lumbosacral region (149251709) Spinal stenosis of lumbosacral region (M48.07) Active confirmed Vital Signs Blood pressure systolic 110 mm Hg 02/23/20 25 Blood pressure diastolic 70 mm Hg 025 Heart Rate 72 /min 02/22/2025 Height 65 in 02/22/2025 Weight 156.4 lbs 02/22/2025 BMI 26.02 kg/m2 02/22/2025 Encounters Encounter Location Date Provider Diagnosis [facility] [address] [phone] 02/22/2025 [place] Koroma Spinal stenosis of lumbosacral region M48.07 ; Degeneration of intervertebral disc of lumbar region with discogenic back pain and lower extremity pain M51.362 and BMI 26.0-26.9,adult Z68.26 Assessments Encounter Date Diagnosis (ICD Code) Assessment Notes Treatment Notes Treatment Clinical Notes Section Notes 02/22/2025 Spinal stenosis of lumbosacral region (ICD-10 - M48.07) 02/22/2025 Degeneration of intervertebral disc of lumbar region with discogenic back pain and lower extremity pain (ICD-10 - M51.362) 02/22/2025 BMI 26.0-26.9,adult (ICD-10 - Z68.26) Plan Of Treatment Referrals Referral Date Details 02/22/2025 02/22/2025, spinal s tenosis and degenerative disc disease., Damián Bux Next Appt Details Follow Up: 6 Weeks, Reason: Provider Name:[place] Isabel er, 06/15/2025 11:45:00 AM, [address], [place], [place], [phone], Progress Notes * HUNG MOLINAEDOB:1965 (59 yo F)Acc No.[id number]:02/22/2025 Progress Notes Patient: MANUELA GIL Provider: [place] Koroma M.D. :1965 A ge:59 Y S ex:Female Date:02/22/2025 Address:[address] [id number] Subjective: * Chief Complaints: * 1 . Discuss Pain Management Referral. * HPI: Mary marquis back: The pt is here today to discuss chronic low back pain. Pt states she would like to discuss referral to pain management. Pt states she has been doing physical therapy and the therapist recommended Pain Management. 02/02/25 MRI reviewed today. Spinal stenosis and disc bulges, protrusion at L1-2. 59 year old female presents with c/o [...] 08/27/2022. * Hospitalization/Major Diagno stic Procedure: [facility], [facility] 09/02-, [facility], Tachycardia 06/29/2019, [facility] 06/28/2201. * Family History: F ather: , hypertension, hyperlipidemia. M other: . 3 brother(s) , 1 sister(s) - healthy. [...] day (in the evening) , Taking Nystatin-Triamcinolone 928514-2.1 UNIT/GM Cream APPLY TO AFFECTED AREA TWICE DAILY , Taking Potassium Chloride Jaki ER 20 MEQ Tablet Extended Release TAKE 1 TABLET BY MOUTH ONCE DAILY , Taking Isosorbide Mononitrate ER 60 MG Tablet Extended Release 24 Hour 1/2 Orally Once a day , Taking Gabapentin 300 MG Capsule 1 capsule Orally 3 times a day , Taking hydrOXYzine Pamoate 50 MG Capsule TAKE 1 CAPSULE BY MOUTH ONCE DAILY MAY CAUSE DROWSINESS , Taking Xanax 0.5 MG Tablet 1 tab(s) orally 3 times a day , Taking Doxepin HCl 50 MG Capsule 1 capsule at bedtime Orally Once a day , Taking Mounjaro 10 MG/0.5ML Solution Auto-injector 0.5 mL Subcutaneous once a week , Taking Trintellix 10 MG Tablet 1 tablet Orally Once a day , Medication List reviewed and reconciled with the patient * Allergies: N .K.D.A. Objective: * Vitals: W t: 156.4, Temp: 97.9, BP: 110/70, HR: 72, Nurse: ALEYDA, Ht: 65, BMI:26.02. * Examination: G eneral Examination: General Appearance: [...] E xtremities: M inimal leg edema. ? L ower back: Palpation: S I joint tenderness bilateral, vertebral spine tenderness. Assessment: * Assessment: 1. S santo stenosis of lumbosacral region - M48.07 (Primary) 2 . D egeneration of intervertebral disc of lumbar region with discogenic back pain and lower extremity pain - M51.362 3 . B WA 26.0-26.9,adult - Z68.26 Plan: * Treatment: * Procedure Codes: 1 036F TOBACCO NON-USER, 3074F SYST BP LT 130 MM HG, 3078F DIAST BP < 80 MM HG * Follow Up: 6 Weeks * Images: Billing Information: * Visit Code: 68054 Office Visit, Est Pt., Level 3. * Procedure Codes: 1036F TOBACCO NON-USER. 3074F SYST BP LT 130 MM HG. 3078F DIAST BP < 80 MM HG. * Electronic signature of Indiana Koroma MD on 05/17/2025 at 11:37 AM EST Sign off status: Pending * Provider: Indiana Koroma M.D. Date: 0 02/22/2025 Generated for Isabel graham/Caitlin/eTransmitting on: 07/17/2024 11:37 AM EST History and Physical [...] normal Chest: normal shape and exp ansion. Lower back Palpation: SI joint tendern ess bilateral, vertebral spine tenderness Consultation Request Notes Referral Date Referring Provider Referred Provider Not es 02/22/2025 [place] Koroma Anjum spinal rosalinda nosis and degenerative disc disease.
--- OUTSIDE RECORDS SUMMARY | 2025-04-05 09:00 | XMS_ITS ---
[facility] Organization [facility] Address [address] [facility] [address] [place] [id number] Care Team Providers Care Nurse Ob Name Role Phone [place] Koroma Primary Care Provider [phone] Allergies No Known Allergies REASON FOR VISIT 2 months, Needs labs, diabetic eye exam, Prevnar, & flu vaccine Medications Medication SIG (Take, Route, Frequency, Duration) Notes Start Date End Date Status Clopidogrel Bisulfate 75 MG 1 tablet Orally Once a day; Duration: 30 day(s) Active Probiotic Daily - as directed Orally Active Repatha 140 MG/ML 1 mL Subcutaneous; Duration: 30 day(s) Active Metoprolol Succinate ER 25 MG 1 tablet Orally Once a day A ctive Vitamin D3 25 MCG (1000 UT) 1 capsule Orally Once a day; Duration: 30 day(s) Active Mounjaro 10 MG/0.5ML 0.5 mL Subcutaneous once a week; Duration: 28 days Active Trintellix 10 MG 1 tablet Orally Once a day; Duration: 30 days Active Xanax 0.5 MG 1 tab(s) orally 3 ti mes a day; Duration: 30 days 01/17/2025 Active hydrOXYzine Pamoate 50 MG TAKE 1 CAPSULE BY MOUTH ONCE DAILY MAY CAUSE DROWSINESS; Duration: 30 Activ e Doxepin HCl 50 MG 1 capsule at bedtime Orally Once a day; Duration: 90 days Active Xarelto 20 MG 1 tab(s) orally once a day (in the evening); Duration: 30 days Active Potassium Chloride Jaki ER 20 MEQ TAKE 1 TABLET BY MOUTH ONCE DAILY; Duration: 30 Active Nystatin-Triamcinolone 914110-6.1 UNIT/GM APPLY TO AFFECTED AREA TWICE DAILY; Duration: 20 Active Gabapentin 300 MG 1 capsule Orally 3 t imes a day; Duration: 30 days 01/01/2025 Active Isosorbide Mononitrate ER 60 MG 1/2 Orally Once a day Active Atorvastatin Calcium 80 MG 1 tablet Oral ly Once a day; Duration: 30 day(s) Active Vital Signs Blood pressure systolic 110 mm Hg 04/05/20 Blood pressure diastolic 78 mm Hg 025 Heart Rate 65 /min 04/05/2025 Height 65 in 04/05/2025 Weight 154.0 lbs 04/05/2025 BMI 25.62 kg/m2 04/05/2025 Encounters Encounter Location Date Provider Diagnosis [facility] [address] [facility] [address] [id number] 04/05/2025 [place] Koroma Essential (primary) hypertension I10 ; Renal insufficiency N28.9 ; Type 2 diabetes mellitus without complication, without long-term current use of insulin E11.9 ; H/O gastric sleeve Z90.3 ; DJD (degenerative joint disease), lumbosacral M47.817 ; Spinal stenosis of lumbosacral region M48.07 and BMI 25.0-25.9,adult Z68.25 Assessments Encounter Date Diagnosis (ICD Code) Assessment Notes Treatment Notes Treatment Clinical Notes Section Notes 04/05/2025 Essential (primary) hypertension (ICD-10 - I10) 04/05/2025 Renal insufficiency (ICD-10 - N28.9) 04/05/2025 Type 2 diabetes mellitus without complication, without long-term current use of insulin (ICD-10 - E11.9) 04/05/2025 H/O gastric sleeve (ICD-10 - Z90.3) 04/05/2025 DJD (degenerative joint disease), lumbosacral (ICD-10 - M47.817) 04/05/2025 Spinal stenosis of lumbosacral region (ICD-10 - M48.07) 04/05/2025 BMI 25.0-25.9,adult (ICD-10 - Z68.25) Plan Of Treatment Next Appt Details Follow Up: 2 Months, Reason: Provider Name:Indiana villa, 06/15/2025 11:45:00 AM, [address], [address], [place], [phone], Progress Notes * CHIKIS MOLINAOB:1965 (59 yo F)Acc No.[id number]:04/05/2025 Progress Notes Patient: MANUELA GIL Provider: [place] Koroma M.D. :1965 A ge:59 Y S ex:Female Date:04/05/2025 Address:[address] [place] [address], [place] [id number] Subjective: * Chief Complaints: * 1 . 2 months. 2. Needs labs, diabetic eye exam, Prevnar, & flu vaccine. * HPI: Mary marquis back: The pt is here today for a follow up on low back pain. Pt states she saw pain management on the and is scheduled for an injection on May 08. See pt docs. Pt rates the pain 6-8/10 on the pain scale. 59 year old female presents with c/o Low Back Pain. C ardiology: The pt states she had a heart cath on 03/30/25. SEE REPORT. Pt denies any unusual bleeding but does have a lot of bruising of the right wrist. Denies : Chest Pain. D enies : Short of Breath. D enies : Dizziness. D enies : Palpitations. * ROS: C ONSTITUTIONAL: Positive for A [facility] physician seen since last visit? yes pain management 03/28/25, Change in medication since last visit?No, Are you taking antibiotics?No, Are you taking steroids? No. D ERMATOLOGY: no R rose marie. n [...] 08/27/2022. * Hospitalization/Major Diagno stic Procedure: [facility] 06/14/2010, [facility] 09/02-, [facility], Tachycardia 06/29/2019, [facility] 06/28/2201. * Family History: F ather: , [...] day (in the evening) , Taking Nystatin-Triamcinolone 617406-4.1 UNIT/GM Cream APPLY TO AFFECTED AREA TWICE [...] bedtime Orally Once a day , Taking Trintellix 10 MG Tablet 1 tablet Orally Once a day , Taking Mounjaro 10 MG/0.5ML Solution Auto-injector 0.5 mL Subcutaneous once a week , Medication List reviewed and reconciled with the patient * Allergies: N .K.D.A. Objective: * Vitals: W t: 154.0, Temp: 98.1, BP: 110/78, HR: 65, Nurse: ALEYDA, Ht: 65, BMI:25.62. * Examination: G eneral Examination: General Appearance: N AD. Note continued weight loss. Top weight was 307#. H EENT: u nremarkable. O ral cavity: n o lesions, mucosa moist and WNL, no erythema. N arun: s upple, no lymphadenopathy. C hest: n ormal shape and expansion. . H eart: R SR, aortic murmur. L ungs: c lear to auscultation.?Abdomen: s oft and nontender. N eurologic Exam: I ntact, gait normal. S kin: n ormal, no rash. P eripheral pulses: n ormal . E xtremities: M inimal leg edema.? L ower back: Palpation: S I joint tenderness bilateral, vertebral spine tenderness. Assessment: * Assessment: 1. E ssential (primary) hypertension - I10 (Primary) 2 . R enal insufficiency - N28.9 3 . T ype 2 diabetes mellitus without complication, without long-term current use of insulin - E11.9 4 . H /O gastric sleeve - Z90.3 5 . D ARTURO (degenerative joint disease), lumbosacral - M47.817 6 . S santo stenosis of lumbosacral region - M48.07 7 . B FL 25.0-25.9,adult - Z68.25 ? Plan: * Treatment: * Procedure Codes: 1 036F TOBACCO NON-USER, 3074F SYST BP LT 130 MM HG, 3078F DIAST BP < 80 MM HG * Follow Up: 2 Months * Images: Billing Information: * Visit Code: 17481 Office Visit, Est Pt., Level 3. * Procedure Codes: 1036F TOBACCO NON-USER. 3074F SYST BP LT 130 MM HG. 3078F DIAST BP < 80 MM HG. * Electronic signature of Indiana Koroma MD on 05/17/2025 at 11:39 AM EST Sign off status: Pending * Provider: [place] Koroma M.D. Date: 0 04/05/2025 Generated for Isabel graham/Caitlin/Tyroneransmitting on: 07/17/2024 11:39 AM EST History and Physical Notes * HPI (History of Present Illness) Category Sub-Category Detail Notes Category Not es Cardiology Short of Breath Chest Pain Palpitations Dizziness Lower back Low Back Pain Examination Category Sub-Category Detail Notes Category Not es General Examination HEENT: unremarkable Heart: RSR, aortic murmur Lungs: clear to auscultatio n Abdomen: soft and nontender Extremities: Minimal leg edema General Appearance: NAD. Note continued weight loss. Top weight was 307# Skin: normal, no rash Neurologic Exam: Intact, gait normal Neck: supple, no lymphaden opathy Oral cavity: no lesions, mucosa m oist and WNL, no erythema Peripheral pulses: normal Chest: normal shape and exp ansion. Lower back Palpation: SI joint tendern ess bilateral, vertebral spine tenderness
--- OUTSIDE RECORDS SUMMARY | 2025-04-24 11:00 | XMS_ITS ---
Author Organization [facility] Address [address] [facility] [address] [place] [phone] Care Team Providers Care Gear Repairer Name Role Phone [place] Koroma Primary Care Provider Nikolas Becker Unavailable [phone] Allergies No Known Allergies Results Component Value Reference [place] Notes Rapid Strep- Inhouse Reviewed date:04/25/2025 10:30:53 AM Interpretation: Performing Lab: Notes/Report: strep test Neg CBC Fingerstick (in house) Reviewed date:04/25/2025 10:30:53 AM Interpretation: Performing Lab: Notes/Report: wbc 5.1 3.5 - 10 lym 31.2% 15 - 50 mid 6.8% 2 - 15 gran 62.0% 35 - 80 rbc 4.38 3.5 - 5.5 hgb 13.0 11.5 - 16.5 hct 38.7 35 - 55 mcv 88.3 75 - 100 mch 29.6 25 - 35 mchc 33.5 31 - 38 plat 163 100 - 400 REASON FOR VISIT poss strep Medications Medication SIG (Take, Route, Frequency, Duration) Notes Start Date End Date Status Trintellix 10 MG 1 tablet Orally Once a day; Duration: 30 days Active Potassium Chloride Jaki ER 20 MEQ 1 tablet with food Orally Once a day; Duration: 90 days Active Gabapentin 300 MG 1 capsule Orally 3 t imes a day; Duration: 30 days 04/23/2025 Active hydrOXYzine Pamoate 50 MG TAKE 1 CAPSULE BY MOUTH ONCE DAILY MAY CAUSE DROWSINESS; Duration: 30 Activ e Doxepin HCl 50 MG 1 capsule at bedtime Orally Once a day; Duration: 90 days Active Isosorbide Mononitrate ER 60 MG 1/2 Orally Once a day Active Clopidogrel Bisulfate 75 MG 1 tablet Orally Once a day; Duration: 30 day(s) Active Atorvastatin Calcium 80 MG 1 tablet Oral ly Once a day; Duration: 30 day(s) Active Xarelto 20 MG 1 tab(s) orally once a day (in the evening); Duration: 30 days Active Nystatin-Triamcinolone 661893-7.1 UNIT/GM APPLY TO AFFECTED AREA TWICE DAILY; Duration: 20 Active Repatha 140 MG/ML 1 mL Subcutaneous; Duration: 30 day(s) Active Probiotic Daily - as directed Orally Active Vitamin D3 25 MCG (1000 UT) 1 capsule Orally Once a day; Duration: 30 day(s) Active Metoprolol Succinate ER 25 MG 1 tablet Orally Once a day A ctive Mounjaro 10 MG/0.5ML 0.5 mL Subcutaneous once a week; Duration: 28 days Active Xanax 0.5 MG 1 tab(s) orally 3 ti mes a day; Duration: 30 days 04/23/2025 Active Immunizations Vaccine Route Administration Date Status Comme nts Fluzone Quad (6months&older) IM Intramuscular 04/24/2025 Administered Vital Signs Blood pressure systolic 104 mm Hg 04/24/20 25 Blood pressure diastolic 60 mm Hg 025 Heart Rate 70 /min 04/24/2025 Height 65 in 04/24/2025 Weight 154.2 lbs 04/24/2025 BMI 25.66 kg/m2 04/24/2025 Encounters Encounter Location Date Provider Diagnosis [facility] [address] [facility] [address] [place] [id number] 04/24/2025 Nikolas Becker Immunization due Z23 and Viral syndrome B34.9 Assessments Encounter Date Diagnosis (ICD Code) Assessment Notes Treatment Notes Treatment Clinical Notes Section Notes 04/24/2025 Immunization due (ICD-10 - Z23) 04/24/2025 Viral syndrome (ICD-10 - B34.9) Symptomatic treatment Plan Of Treatment Treatment Notes Assessment Notes Viral syndrome Symptomatic treatmen t Next Appt Details Follow Up: prn, Reason: Provider Name:[place] Isabel er, 06/15/2025 11:45:00 AM, [address], [address], [place], [place], [id number], Progress Notes * CHIKIS MOLINAOB:1965 (59 yo F)Acc No.[id number]:04/24/2025 Progress Notes Patient: MANUELA GIL Provider: Nikolas Becker M.D. :1965 A ge:59 Y S ex:Female Date:04/24/2025 Address:[address] [address], [place], [id number] Pcp:Indiana Koroma Subjective: * Chief Complaints: * 1 . Poss strep. * HPI: E NT/respiratory: The pt is here today with c/o sore throat. Pt states her grandson tested positive yesterday with Strep. 59 year old female presents with c/o sore throat. c/o cough d ry without any sputum production. Denies : Fever. * ROS: D ERMATOLOGY: no R rose [...] 08/27/2022. * Hospitalization/Major Diagno stic Procedure: M [facility] 06/14/2010, [facility] 09/02-, [facility], Tachycardia 06/29/2019, [facility] 06/28/2201. * Family History: F [...] day (in the evening) , Taking Nystatin-Triamcinolone 305084-2.1 UNIT/GM Cream APPLY TO AFFECTED AREA TWICE DAILY , Taking Isosorbide Mononitrate ER 60 MG Tablet Extended Release 24 Hour 1/2 Orally Once a day , Taking hydrOXYzine Pamoate 50 MG Capsule TAKE 1 CAPSULE BY MOUTH ONCE DAILY MAY CAUSE DROWSINESS , Taking Doxepin HCl 50 MG Capsule 1 capsule at bedtime Orally Once a day , Taking Trintellix 10 MG Tablet 1 tablet Orally Once a day , Taking Potassium Chloride Jaki ER 20 MEQ Tablet Extended Release 1 tablet with food Orally Once a day , Taking Gabapentin 300 MG Capsule 1 capsule Orally 3 times a day , Taking Xanax 0.5 MG Tablet 1 tab(s) orally 3 times a day , Taking Mounjaro 10 MG/0.5ML Solution Auto-injector 0.5 mL Subcutaneous once a week , Medication List reviewed and reconciled with the patient * Allergies: N .K.D.A. Objective: * Vitals: W t: 154.2, Temp: 98.3, BP: 104/60, HR: 70, Nurse: JLJ, Ht: 65, BMI:25.66. * Examination: E NT/Respiratory: General Appearance: N AD. E ars: B ilateral wax.?Nose : n ormal, no lesions, nares patent. O ral cavity : m ild erythema of throat, no exudate. N arun : S lightly tender right sided adenopathy. H eart : R RR, normal S1 S2, no murmurs. L ungs: c lear to auscultation bilaterally. Assessment: * Assessment: 1. V iral syndrome - B34.9 (Primary) 2 . I mmunization due - Z23 Plan: * Treatment: * Immunizations: Fluzone Quad (6months&older) : 0.5 mL (Route: Intramuscular) given by Jessica Mora on Right Deltoid (Immunization due) * Labs: * L ab: Rapid Strep- Inhouse (Collection Date & Time - 04/24/2025) Value Reference Range s trep test Neg * Jessica Mora 04/24/2025 0 4:17:47 PM EDT > Provider reviewed results while patient in office. ?Lab: CBC Fingerstick (in house) (Collection Date & Time - 04/24/2025)* Value Reference [place] w bc 5.1 3.5 - 10 * l ym 31.2% 15 - 50 * m id 6.8% 2 - 15 * g ran 62.0% 35 - 80 * r bc 4.38 3.5 - 5.5 * h gb 13.0 11.5 - 16.5 * h ct 38.7 35 - 55 * m cv 88.3 75 - 100 * m ch 29.6 25 - 35 * m chc 33.5 31 - 38 * p lat 163 100 - 400 * Jessica Mora 04/24/2025 0 5:00:48 PM EDT > Provider reviewed results while patient in office. * Procedure Codes: 8 7880 STREP A ASSAY W/OPTIC, Modifiers: QW , 34742 CBC WITH AUTO DIFF, 1036F TOBACCO NON-USER, 3074F SYST BP LT 130 MM HG, 3078F DIAST BP < 80 MM HG * Follow Up: p rn * Images: Billing Information: * Visit Code: 90320 Office Visit, Est Pt., Level 3. * Procedure Codes: 51150 STREP A ASSAY W/OPTIC. Modifiers: QW 48058 CBC WITH AUTO DIFF. 1036F TOBACCO NON-USER. 3074F SYST BP LT 130 MM HG. 3078F DIAST BP < 80 MM HG. * Electronic signature of Nikolas Becker MD on 05/17/2025 at 11:37 AM EST Sign off status: Pending * Provider: Nikolas Becker M.D. Date: Generated for Isabel graham/Caitlin/eTransmitting on: 07/17/2024 11:37 AM EST History and Physical Notes * HPI (History of Present Illness) Category Sub-Category Detail Notes Category Not es ENT/respiratory sore throat cough dry without any sput um production Fever Examination Category Sub-Category Detail Notes Category Not es ENT/Respiratory Oral cavity : mild erythema of throat, no exudate Ears: Bilateral wax Neck : Slightly tender righ t sided adenopathy Heart : RRR, normal S1 S2, n o murmurs Lungs: clear to auscultatio n bilaterally General Appearance: NAD Nose : normal, no lesions, nares patent
--- OUTSIDE RECORDS SUMMARY | 2025-05-14 05:21 | XMS_ITS ---
Author Organization [facility] Address [address] [facility] [address] [facility] [address] [place] [phone] Care Team Providers Care Trade Show Manager Name Role Phone [place] Koroma Primary Care Provider REASON FOR VISIT due colonoscopy Encounters Encounter Location Date Provider Diagnosis [facility] [address] [facility] [address] [facility] [address] [place] [phone] 05/14/2025 Indiana Koroma Plan Of Treatment Next Appt Details Provider Name:[place] Isabel er, 06/15/2025 11:45:00 AM, [address] [facility] [address] [facility], [address], [place], [phone], Progress Notes * HUNG MOLINAEDOB:1965 (59 yo F)Acc No.[id number]:05/14/2025 Patient: Jere MANUELA FR[place] :1965 A ge:59 Y S ex:Female Address:[address] [place], [place] [address] [address] Subjective: * Chief Complaints: * D ue colonoscopy * Medical History: * Surgical History: * Hospitalization/Major Diagno stic Procedure: * Medications: Objective: * Vitals: * Physical Examination: Assessment: Plan: * Treatment: * Procedure Codes: * true * Date: Generated for Printi ng/Faxing/eTransmitting on: 07/17/2024 11:37 AM EST
--- NOTE | 2025-05-17 10:30 | MM_ITS ---
PROCEDURE INFORMATION: Exam: MG Bilateral Screening 3D Mammography Exam date and time: 05/17/2025 11:51 AM Age: 59 years old Clinical indication: Screening examination TECHNIQUE: Imaging protocol: Bilateral Screening tomosynthesis and 2D mammography including computer-aided detection (CAD) when performed. COMPARISON: 1. MG MM DIG SCREENING MAMM BI W/CAD 05/15/2024 9:34 AM 2. MG MM CLIP PLACEMENT LT 09/16/2022 10:34 AM FINDINGS: MAMMOGRAPHY: Breast composition: There are scattered areas of fibroglandular density. Mass: None. Architectural distortion: None. Calcifications: No suspicious calcifications. Asymmetric density: None. Skin thickening: None. Axillary adenopathy: None. IMPRESSION: No mammographic evidence of malignancy. Annual screening is recommended unless otherwise clinically indicated. ASSESSMENT: BI-RADS Category 1: Negative.
--- NOTE | 2025-05-17 11:00 | US_ITS ---
Ultrasound Sonograher: PROCEDURE: US TRANSVAGINAL CLINICAL INDICATION: lower quadrant pain COMPARISON: CT CT ABDOMEN PELVIS W CON from 09/22/2023 FINDINGS: Transvaginal and transabdominal sonographic images of the pelvis were obtained. UTERUS: The uterus is surgically absent. The vaginal vault is intact. The bowel is seen at the top of the vaginal vault. LEFT OVARY: The left ovary remains but was not seen transvaginally or transabdominally today. RIGHT OVARY: The right ovary is surgically absent. The ovaries were not visualized. There is no fluid in the cul-de-sac. IMPRESSION: 1. The uterus is surgically absent. The vaginal vault is intact. 2. The adnexae were visualized but ovaries were not seen. The left ovary was not seen transabdominally or transvaginally. The right ovary has been surgically removed. 3. No fluid in the cul-de-sac. 4. No obvious cause for her left-sided pain. Dictated by: Trevor Raygoza MD 05/17/2025 14:52 Trevor Raygoza MD in [place] 05/17/2025 14:52
--- OUTSIDE RECORDS SUMMARY | 2025-05-17 11:37 | XMS_ITS | Encounter Summary ---
Author Organization [facility] Address [address] [place] [id number] Care Team Providers Care Drying Machine Operator Package Yarns Name Role Phone Joshua Koroma MD Primary Care Provider [phone] Reason for Visit * Reason Comments Med Refill Encounter Details Date Type Department Care Team (Late st Contact Info) Description 04/13/2025 Refill [facility] GASTROENTEROLOGY [address] [facility] [address] [place] [id number] Delmy Castillo APRN [address] [facility] [address] [place] [address] Gastroesophageal reflux disease, unspecified whether esophagitis present Social History Tobacco Use Types Packs/Day Years Used Date Smoking Tobacco: Never Smokeless Tobacco: Never Alcohol Use Standard Drinks/Week Comments Not Currently [...] or training? Not on file Preferred Language Mexican 08/28/2022 Education Answer Date Recorded What is the highest level of school you have completed or the highest degree you have received? 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, [employer]) 12/18/2021 Comments No Sex and Gender Information Value Date Recorded Sex Assigned at Not on file Legal Sex Female 9:34 AM EDT Gender Identity Not on file Sexual Orientation Not on file documented as of this encounter Miscellaneous Notes * Telephone Encounter - Kay Miranda LPN - 04/16/2025 7:40 AM EDT Rx Refill Note Requested Prescriptions Pending Prescriptions Disp Refills pantoprazole (PROTONIX) 40 MG EC tablet [Pharmacy Med Name: PANTOPRAZOLE SODIUM 40 MG TABLET] 30 tablet 10 Sig: TAKE 1 TABLET BY MOUTH ONCE DAILY Last office visit with prescribing clinician: 03/09/2024 Last telemedicine visit with prescribing clinician: Visit date not found Next office visit with prescribing clinician: Visit date not found Would you like a call back once the refill request has been completed: [] Yes [] No If the office needs to give you a call back, can they leave a voicemail: [] Yes [] No Kay Miranda LPN 04/16/25, 07:40 EDT documented in this encounter Plan of Treatment Upcoming Encounters Date Type Department Care Team (Late st Contact Info) Description 10/09/2025 11:00 AM EDT Office Visit [facility] BARIATRIC SURGERY [address] [place] [address] Bere Daly PA [address] [place] [address] documented as of this encounter Visit Diagnoses Diagnosis Gastroesophageal reflux disease, unspecified whether esophagitis present documented in this encounter Care Teams Drying Machine Operator Package Yarns Relationship Specialty Start Date End Date Joshua Koroma MD [address] [facility] [address] [facility] [address] [place] [address] PCP - General Family Medicine 01/31/21 documented as of this encounter
--- OUTSIDE RECORDS SUMMARY | 2025-05-17 11:38 | XMS_ITS | Clinical Summary ---
Author Organization [facility] Address [address] [place] [address] Care Team Providers Care Web Development Consultant Name Role Phone Joshua Koroma MD Primary Care Provider [phone] Allergies No known active allergies Medications bisoprolol [...] Daughter Cali Gonzalez Alcohol abuse Father Frankie Verdi Cancer Father Frankie Verdi Heart disease Father Frankie Verdi Hyperlipidemia Father Frankie Verdi Hypertension Father Frankie Verdi Alcohol abuse Father's Brother 1 León Verdi Cancer Father's Brother 1 León Verdi Alcohol abuse Father's Brother 2 Edin Verdi Alcohol abuse Father's Sister Sravani Dinesh Cancer Father's Sister Sravani Dinesh Cancer Maternal Grandfather LaVaine Minerva Heart disease Maternal Grandfather LaVaine Minerva Cancer Mother Dee Verdi Heart disease Mother Dee Verdi Hypertension Mother Dee Verdi Kidney disease Mother Dee Verdi Cancer Mother's Sister LaDene Tarrabaccia Cancer Paternal Grandfather Ole Verdi Hypertension Son Rolando Gonzalez Relation Name Status Comments Heidi Gonzalez Father Frankie Verdi Alive Father's Brother 1 León Verdi Father's Brother 2 Edin Verdi Father's Sister Sravani Dinesh Maternal Grandfather LaVaine Minerva Mother Dee Verdi Alive Mother's Sister LaDene Tarrabaccia Paternal Grandfather Ole Verdi Son Rolando Gonzalez Social History Tobacco Use [...] C Screening 1965 [facility]-/Child/Adol SDOH Screenings 1965 [facility]- SDOH Screenings 09/30/1981 [facility]-Adult SDOH Screenings 09/30/1981 [facility]-Hepatitis A Vaccines (1 of 2 - Risk 2-dose series) 09/30/1982 CT Colonography 09/30/2008 Colonoscopy 09/30/2008 FIT-DNA 09/30/2008 FIT 09/30/2008 FOBT 09/30/2008 Sigmoidoscopy 09/30/2008 [facility]-Colorectal Cancer Screening 09/30/2008 [facility]-Breast Cancer Screening 09/30/2013 [facility]-Pneumococcal Vaccine: 50+ Years (2 of 2 - PCV) 12/02/2018 12/02/2017 [facility]-Zoster Vaccines (2 of 3) 07/02/2020 05/07/2020 [facility]-RSV Vaccine: 60+ Years or (1 - Risk 60-74 years 1-dose series) 2023 [id number] Vaccine ( season) 2025 07/25/2021, 10/23/2020, 09/25/2020 [facility]-Influenza Vaccine (#1) 03/12/202504/15, 03/26/2021, 05/07/2020, Additional history exists [facility]-DTaP,Tdap,and Td Vaccines (2 - Td or Tdap) 04/08/2030 04/08/2020 [facility]-Diabetes: Hemoglobin A1C Discontinued 08/20/2022, 11/05/2021 [facility]-Obesity Intervention Completed 05/05/2024, 070 07/2023 HPV Vaccines Aged Out No longer [...] patient's age to complete this topic Insurance [facility] Care Teams Web Development Consultant Relationship Specialty Start Date End Date Joshua Koroma MD [address] [place] [address] PCP - General 07/17/21
--- OUTSIDE RECORDS SUMMARY | 2025-05-17 11:38 | XMS_ITS | Clinical Summary ---
Author Organization [facility] Address [address] [place] [address] Care Team Providers Care Dye House Vat Worker Name Role Phone Joshua Koroma MD Primary Care Provider [phone] Allergies No known active allergies Medications * [...] by mouth Daily With Dinner. 4 Active Tirzepatide (Mounjaro) 10 MG/0.5ML solution auto-injector Inject 10 mg under the skin into the appropriate area as directed Every 7 (Seven) Days. Active pantoprazole (PROTONIX) 40 MG EC tabletIndication s:Gastroesophage al reflux disease, unspecified whether esophagitis present TAKE 1 TABLET BY MOUTH ONCE DAILY 30 tablet 10 5 Active Active Problems Problem Noted Date Diagnosed [...] (08/05/2022): Added automatically from request for surgery [id number] Encounters Date Type Department Care Team Description 04/13/2025 [facility] GASTROENTEROLOGY [address] [facility] [address] [place] [address] Delmy Castillo APRN Gastroesophageal reflux disease, unspecified whether esophagitis present from Last 3 Months Immunizations Immunization Administration Dates Next Due COVID-19 [...] or training? Not on file Preferred Language Honduran 08/28/2022 Education Answer Date Recorded What is the highest level of school you have completed or the highest degree you have received? 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) 12/18/2021 Comments No Sex and [...] Description 10/09/2025 11:00 AM EDT Office Visit [facility] BARIATRIC SURGERY [address] [place] [id number] Bere Daly PA [address] [place] [address] Health Maintenance Due Date Last Done Comments Annual Gynecologic Pelvic an d Breast Exam 1965 TDAP/TD VACCINES (1 - Tdap) 09/30/1982 MAMMOGRAM 2003 COLOGUARD 09/30/2008 COLON CANCER SCREENING 5 YEA R SIGMOIDOSCOPY 09/30/2008 CT COLONOGRAPHY 09/30/2008 FECAL OCCULT BLOOD TEST 09/30/2008 FIT Testing (1 year) 09/30/2008 Pneumococcal Vaccine 50+ (1 of 1 - PCV) 09/30/2013 ZOSTER VACCINE (1 of 2) 09/30/2013 ANNUAL PHYSICAL 03/10/2021 HEPATITIS C SCREENING 03/10/2021 LIPID PANEL 11/05/2022 11/05/2021 INFLUENZA VACCINE 02/09/2025 04/15/2022, , 05/07/2020, Additional history exists COLONOSCOPY 03/21/2034 03/21/2024, 09/0 03/2024, 08/14/2022 (Patient-Reported (Performed Externally)) COLORECTAL CANCER SCREENING 03/21/2034 Medical Devices Implanted Type Area Wildlife Technician Device Identifier Shelf Expiration Date Model / Serial / Lot Clipapplr M/ Endo Ligamax5 5mm 33cm /Lg - [id number] Implanted:Qty : 1 on 08/27/2022 by Amanuel Nunes MD at [facility] Implant N/A: Bile Duct [employer] DIV OF J AND J 07/11/2027 [id number] / / [id number] Stplr Gastrc/Slv Titan/Sgs Non/Articulr Pwr 23cm 1/Pu - [id number] Implanted:Qty : 1 on 08/27/2022 by Amanuel Nunes MD at [facility] Implant N/A: Stomach STANDARD [employer] 01/30/2023 [id number] / / [id number] Description:Tracking number: [id number] Kt Seal Hemos Abs Floseal Matrx Fast/Prep 10ml - [id number] Implanted:Qty : 1 on 08/27/2022 by Amanuel Nunes MD at [facility] Implant N/A: Abdomen [employer] 06/02/2024 [id number] / / [id number] Procedures Procedure Name Priority Date/Time Associated Diagnosis Comments SCANNED - COLONOSCOPY 03/21/2024 LIPID PANEL Routine 11/05/2021 1:03 PM EDT Palpitations Hypertension, unspecified type Hyperlipidemia, unspecified hyperlipidemia type Body mass index (BMI) of 50-59.9 in adult Fatigue, unspecified type from Last 3 Months or Most Recently Relevant to Health Maintenance Results * Colonoscopy, Scan (03/21/2024) Ryder Seymour MD CHART REVIEW T ABS [...] - 11/07/2021 3:08 PM EDT Performed at: [facility] [id number] Pet Sitting: Trey Moran PhD, Phone: [phone] Patient Fasting: N us Carol [facility] BLOOD ORDERABLES Final Resu lt [facility] (AMBULATORY) [address] [place] [address], [place] [phone] [facility] [address] [place] [address], [place] [phone] from Last 3 Months or Most Recently Relevant to Health Maintenance Insurance [employer] Advance Directives * CPR [...] Release to patient: Routine Release Care Teams Dye House Vat Worker Relationship Specialty Start Date End Date Joshua Koroma MD [address] [facility] [address] [place] [id number] PCP - General Family Medicine 01/31/21
--- OUTSIDE RECORDS SUMMARY | 2025-05-17 11:39 | XMS_ITS | Patient Health Record ---
Author Organization [facility] Address [address] [facility] [address] [place] [id number] Care Team Providers Care Gas Check Pad Maker Name Role Phone Indiana Koroma Primary Care Provider Nikolas Becker Unavailable [phone] David Tobin Unavailable [phone] Mariaa Soliz Unavailable [phone] Shruthi Kenny Unavailable [phone] Allergies No Known Allergies Results Component Value [...] 53 Performing Lab: Notes/Report: Test performed by [facility] [address] [place] [address] , [address], [place] [address] Wilberto Johnson MD, Shredder Tender Peat CLIA: [id number] Sodium 144 135-145 mmol/L Potassium 4.1 3.5-5.3 [...] Interpretation:Normal Performing Lab: Notes/Report: Test performed by [email or web address] [address] [place] [address] , [address], [place] [address] Wilberto Johnson MD, Shred[employer] Tender Peat CLIA: [id number] Albumin/Creatinine Ratio, Urine 8 0-30 ug/m g Microalbumin, Urine, Random 1.8 Creatinine, Urine 215.2 CBC Venipuncture (in house) Reviewed date:10/03/2024 01:52:37 [...] 1.05 Performing Lab: Notes/Report: Test performed by [email or web address] [address] [place] [address] , [address], [place] [address] Wilberto Johnson MD, [employer]red[employer] Tender Peat CLIA: [id number] Sodium 143 135-145 mmol/L Potassium 5.1 3.5-5.3 [...] 0.9 <0.2-1.2 mg/dL A/G Ratio 2.1 1.1-2.5 MRI : spine, lumbosacral wit h and without contrast Reviewed date:02/09/2025 10:59:14 AM Interpretation:midline degenerative changes with stenosis and foraminal narrowing Performing Lab: Notes/Report: midline degenerative changes with stenosis and foraminal narrowing Rapid Strep- Inhouse Reviewed date:04/25/2025 10:30:53 AM [...] - 38 plat 163 100 - 400 P-Microalbumin/Creatinine, R andom Urine Sample Reviewed date:08/04/2024 09:06:05 AM Interpretation: Performing Lab: Notes/Report: P-Comprehensive Metabolic Pa aquiles (CMP) Reviewed date:08/04/2024 09:05:52 AM Interpretation: Performing Lab: Notes/Report: Glycohemoglobin A1c (in hous e) Reviewed date:08/03/2024 04:31:59 PM Interpretation: Performing Lab: Notes/Report: CBC Venipuncture (in house) Reviewed date:08/03/2024 04:31:35 PM Interpretation: Performing Lab: Notes/Report: H-BUN/CREAT Reviewed date:02/07/2025 12:53:15 PM Interpretation: Performing Lab: Notes/Report: BUN 14 7-17 mg/dl CREATT 1.00 0.52-1.04 mg/dl GFRAA 68 >60 ML/MIN EGFR 56 >60 ml/min Glycohemoglobin A1c (in hous e) Reviewed date:01/05/2025 12:20:09 PM Interpretation: Performing Lab: Notes/Report: glycohemoglobin 5.2% 5 - 6.5 % P-Basic Metabolic Panel (BMP ) Reviewed date:01/05/2025 01:33:12 PM Interpretation:satisfactory Performing Lab: Notes/Report: Test performed by [email or web address] [address] , [address], [place] [address] Wilberto Johnson MD, Shredder Tender Peat CLIA: [id number] Sodium 146 135-145 mmol/L Potassium 4.3 3.5-5.3 mmol/L Chloride 109 97-108 mmol/L CO2 27 22-32 mmol/L Glucose 78 65-99 mg/dL BUN 16 8-23 mg/dL Creatinine 1.01 0.50-1.00 mg/dL Calcium 9.1 8.6-10.4 mg/dL eGFR by Creatinine 63 >59 mL/min/1.73m2 Medications Medication SIG (Take, Route, Frequency, Duration) Notes Start Date End Date Status Trintellix 10 MG 1 tablet Orally Once a day; Duration: 30 days Active Doxepin HCl 50 MG 1 capsule at bedtime Orally Once a day; Duration: 90 days Active Repatha 140 MG/ML 1 mL Subcutaneous; Duration: 30 day(s) Active Probiotic Daily - as directed Orally Active Potassium Chloride Jaki ER 20 MEQ 1 tablet with food Orally Once a day; Duration: 90 days Active Vitamin D3 25 MCG (1000 UT) 1 capsule Orally Once a day; Duration: 30 day(s) Active Gabapentin 300 MG 1 capsule Orally 3 t imes a day; Duration: 30 days 04/23/2025 Active Metoprolol Succinate ER 25 MG 1 tablet Orally Once a day A ctive Xanax 0.5 MG 1 tab(s) orally 3 ti mes a day; Duration: 30 days 04/23/2025 Active hydrOXYzine Pamoate 50 MG TAKE 1 CAPSULE BY MOUTH ONCE DAILY MAY CAUSE DROWSINESS; Duration: 30 Activ e Isosorbide Mononitrate ER 60 MG 1/2 Orally [...] the evening); Duration: 30 days Active Nystatin-Triamcinolone 142560-6.1 UNIT/GM APPLY TO AFFECTED AREA TWICE DAILY; Duration: 20 Active Immunizations Vaccine Route Administration Date Status [...] Fluzone Quad (6months&older) IM Intramuscular 04/27/2024 Administered Fluzone Quad (6months&older) IM Intramuscular 04/24/2025 Administered PNEUMOVAX 23 VACCINE IM Intramuscular 12/02/2017 [...] W/U Status Risk Notes Problem Essential hypertension (67363393) Essential (primary) hypertension (I10) Active confirmed Problem Essential hypertension (58520896) Essential hypertension (I10) Active confirmed Problem Acute non-ST segment elevation myocardial infarction (081747466) NSTEMI (non-ST elevated myocardial infarction) (I21.4) Active confirmed Problem Rosacea (923545986) Rosacea (L71.9) Active conf irmed Problem Body mass index 40+ - severely obese (350971401) BMI 50.0-59.9, adult (Z68.43) Active confirmed Problem Mixed anxiety and depressive disorder (181150371) Depression with anxiety (F41.8) Active confirmed Problem BMI 30+ - obesity (532887655) BMI 32.0-32.9,adult (Z68.32) Active confirmed Problem Obese class I (663520269205927) BMI 33.0-33.9,adult (Z68.33) Active confirmed Problem Body mass index 40+ - severely obese (052003397) BMI 45.0-49.9, adult (Z68.42) Active confirmed Problem Mixed hyperlipidemia (749890782) Mixed hyperlipidemia (E78.2) Active confirmed Problem Dysthymia (96744080) Dysthymic disorder (F34.1) Active confirmed Problem Primary insomnia (6082825) Primary insomnia (F51.01) Active confirmed Problem Chronic pain syndrome (815824611) Chronic pain syndrome (G89.4) Active confirmed Problem Acute cystitis (44824057) Acute cystitis without hematuria (N30.00) Active confirmed Problem Obesity (358393335) Obesity (BMI 30-39.9) (E66.9) Active confirmed Problem Thyroid nodule (478204174) Thyroid nodule (E04.1) Active confirmed Problem Chronic pain (00430145) Other chronic pain (G89.29) Active confirmed Problem History of thromboembolism of vein (421544421) H/O deep venous thrombosis (Z86.718) Active confirmed Problem Spinal stenosis of lumbosacral region (380302644) Spinal stenosis of lumbosacral region (M48.07) Active confirmed Problem Obesity (243026007) Non morbid o besity due to excess calories (E66.09) Active confirmed Problem Renal insufficiency (034383184) Renal insufficiency (N28.9) Active confirmed Problem Mammography abnormal (375687964) Abnormal mammogram of left breast (R92.8) Active confirmed Problem Obese class II (061016580665402) BMI 36.0-36.9,adult (Z68.36) Active confirmed Problem Lumbosacral spondylosis without myelopathy (63754884) Spondylosis of lumbar region without myelopathy or radiculopathy (M47.816) Active confirmed Problem History of placement of stent for coronary artery disease (situation) (044326287) Status post coronary artery stent placement (Z95.5) Active confirmed Problem Iron deficiency anemia (07108161) Other iron deficiency anemia (D50.8) Active confirmed Problem Obese class II (159142258447900) BMI 38.0-38.9,adult (Z68.38) Active confirmed Problem Hyperlipidaemia (73514639) Hyperlipidemia, unspecified hyperlipidemia type (E78.5) Active confirmed Problem Altered mental status (232139054) Altered mental status, unspecified altered mental status type (R41.82) Active confirmed Problem Transient ischemic attack (884829442) TIA (transient ischemic attack) (G45.9) Active confirmed Problem Type II diabetes mellitus without complication (346874212) Type 2 diabetes mellitus without complication, without long-term current use of insulin (E11.9) Active confirmed Problem Atherosclerotic heart disease of [place] coronary artery without angina pectoris (149183182750001) Atherosclerosis of [place] coronary artery without angina pectoris, unspecified whether [place] or transplanted heart (I25.10) Active confirmed Problem Systemic lupus erythematosus (72760979) Systemic lupus erythematosus, unspecified SLE type, unspecified organ involvement status (M32.9) Active confirmed Problem Fibrocystic breast changes (17747734) Fibrocystic breast disease (FCBD), unspecified laterality (N60.19) Active confirmed Problem Atherosclerotic heart disease of [place] coronary artery without angina pectoris (172167020153559) Coronary artery calcification seen on CT scan (I25.10) Active confirmed Problem Diastolic heart failure (534887565) Heart failure with preserved left ventricular function (HFpEF) (I50.30) Active confirmed Problem Diastolic dysfunction (2184495) Diastolic dysfunction (I51.89) Active confirmed Problem History of supraventricular tachycardia (73167110908411109) History of supraventricular tachycardia (Z86.79) Active confirmed Problem Major depression, single episode (77708178) Major depressive disorder with current active episode, unspecified depression episode severity, unspecified whether recurrent (F32.9) Active confirmed Problem Grief (364005931) Grief (F43.21) Active confirm ed Problem Lumbar radiculopathy (721728991) Lumbar back pain with radiculopathy affecting lower extremity (M54.16) Active confirmed Problem Lumbosacral spondylosis without myelopathy (13668985) DJD (degenerative joint disease), lumbosacral (M47.817) Active confirmed Problem Gastric sleeve (physical object) (786651540) H/O gastric sleeve (Z90.3) Active confirmed Problem Degeneration of intervertebral disc of lumbar region with discogenic back pain and lower extremity pain (M51.362) Active confirmed Vital Signs Heart Rate 70 /min 04/24/2025 Blood pressure diastolic 60 mm Hg 04/24/2025 Height 65 in 04/24/2025 Blood pressure systolic 104 mm Hg 04/24/2025 Weight 154.2 lbs 04/24/2025 BMI 25.66 kg/m2 04/24/2025 Encounters Encounter Location Date Provider Diagnosis [facility] [address] [id number] 07/20/2024 Shruthi Kenny Lumbar back pain wit h radiculopathy affecting lower extremity M54.16 [facility] [address], [place] [id number] 07/24/2024 Indiana Koroma Lumbar back pain wit h radiculopathy affecting lower extremity M54.16 ; Obesity (BMI 30-39.9) E66.9 and Degeneration of intervertebral disc of lumbar region with discogenic back pain and lower extremity pain M51.362 [facility] 36 [address] [place] [id number] 08/03/2024 Indiana Koroma Type 2 diabetes estevan itus without complication, without long-term current use of insulin E11.9 and Essential (primary) hypertension I10 [facility] [facility] [address] [place] Solis [id number] 08/07/2024 Indiana Koroma Essential hypertensi on I10 [...] stent placement Z95.5 and Vaginal qing B37.31 [facility] [address] [place] [id number] 10/02/2024 Indiana Koroma Essential hypertensi on I10 ; H/O deep venous thrombosis Z86.718 ; Depression with anxiety F41.8 ; Renal insufficiency N28.9 and Intertrigo L30.4 [facility] [address] [place] [id number] 01/01/2025 Indiana Koroma Essential hypertensi on I10 ; Diastolic dysfunction I51.89 ; BMI 27.0-27.9,adult Z68.27 ; Atherosclerosis of [place] coronary artery without angina pectoris, unspecified whether [place] or transplanted heart I25.10 and DJD (degenerative joint disease), lumbosacral M47.817 [facility] [address] [place] [id number] 01/22/2025 Indiana Koroma Lumbar back pain wit h radiculopathy affecting lower extremity M54.16 ; Degeneration of intervertebral disc of lumbar region with discogenic back pain and lower extremity pain M51.362 and BMI 26.0-26.9,adult Z68.26 [facility] [address] [place], [place] [id number] 02/22/2025 Indiana Koroma Spinal stenosis of lumbosacral region M48.07 ; Degeneration of intervertebral disc of lumbar region with discogenic back pain and lower extremity pain M51.362 and BMI 26.0-26.9,adult Z68.26 [facility] [address] [place], [place] [id number] 04/05/2025 Indiana Koroma Essential (primary) hypertension I10 ; Renal insufficiency N28.9 ; Type 2 diabetes mellitus without complication, without long-term current use of insulin E11.9 ; H/O gastric sleeve Z90.3 ; DJD (degenerative joint disease), lumbosacral M47.817 ; Spinal stenosis of lumbosacral region M48.07 and BMI 25.0-25.9,adult Z68.25 [facility] [address] [place], [place] [id number] 04/24/2025 R Zac Rosita Immunization due Z23 and Viral syndrome B34.9 [facility] [address] [place] [id number] 05/08/2025 Indiana Koroma [facility] [address] [place] [id number] 05/23/2024 Mariaa Soliz [facility] [address] [place], [place] [id number] 05/25/2024 Shruthi Crowabebe [facility] [address] [place] [id number] 06/16/2024 Indiana Koroma [facility] [address] [place] [id number] 06/19/2024 David Allegan Depression with anxi ety F41.8 [facility] [address] [place] [id number] 07/10/2024 Indiana Koroma [facility] [address] [place] [id number] 07/19/2024 Indiana Koroma Depression with anxi ety F41.8 [facility] [address] [place] [id number] 07/20/2024 Indiana Koroma Other chronic pain G89.29 and Low back pain, unspecified M54.50 [facility] [address] [place] [id number] 08/04/2024 Indiana Koroma [facility] [address] [place] [id number] 08/15/2024 J Joe Koroma [facility] [address] [place] [id number] 09/01/2024 Indiana Koroma Other chronic pain G89.29 [facility] [address] [place] [id number] 10/17/2024 J Joe Koroma Depression with anxi ety F41.8 [facility] [address] [place] [id number] 10/18/2024 J Joe Koroma [facility] [address] [place], [place] [id number] 01/16/2025 Indiana Koroma Depression with anxi ety F41.8 [facility] [address] [place] [id number] 02/06/2025 J Joe Koroma [facility] [address] [place] [id number] 02/09/2025 J Joe Koroma [facility] [address] [place] [id number] 03/05/2025 Indiana Koroma [facility] [address] [place] [id number] 03/13/2025 Indiana Koroma [facility] [address] [place] [id number] 03/30/2025 J Joe Koroma [facility] [address] [place] [id number] 04/23/2025 David Allegan DJD (degenerative gee int disease), lumbosacral M47.817 and Depression with anxiety F41.8 [facility] [address] [place] [id number] 05/14/2025 Indiana Koroma [facility] [address] [place], [place] [id number] 02/01/2025 Indiana Koroma Assessments Encounter Date Diagnosis (ICD Code) Assessment Notes Treatment Notes Treatment Clinical Notes Section Notes 06/19/2024 Depression with anxiety (ICD-10 - F41.8) [...] M54.16) 08/07/2024 Essential hypertension (ICD-10 - I10) 09/01/2024 Other chronic pain (ICD-10 - G89.29) 10/02/2024 Essential hypertension (ICD-10 - I10) 08/07/2024 Degeneration of intervertebral disc of lumbar region with discogenic back pain and lower extremity pain (ICD-10 - M51.362) 10/02/2024 H/O deep venous thrombosis (ICD-10 - Z86.718) 10/17/2024 Depression with anxiety (ICD-10 - F41.8) 01/01/2025 Essential hypertension (ICD-10 - I10) 01/01/2025 Diastolic dysfunction (ICD-10 - I51.89) 01/16/2025 Depression with anxiety (ICD-10 - F41.8) 02/22/2025 Spinal stenosis of lumbosacral region (ICD-10 - M48.07) 02/22/2025 Degeneration of intervertebral disc of lumbar region with discogenic back pain and lower extremity pain (ICD-10 - M51.362) 04/05/2025 Essential (primary) hypertension (ICD-10 - I10) 01/22/2025 Lumbar back pain with radiculopathy affecting lower extremity (ICD-10 - M54.16) Continue present care. MRI 01/22/2025 Degeneration of intervertebral disc of lumbar region with discogenic back pain and lower extremity pain (ICD-10 - M51.362) 04/05/2025 Renal insufficiency (ICD-10 - N28.9) 04/23/2025 DJD (degenerative joint disease), lumbosacral (ICD-10 - M47.817) 04/24/2025 Viral syndrome (ICD-10 - B34.9) Symptomatic treatment 04/24/2025 Immunization due (ICD-10 - Z23) 04/23/2025 Depression with anxiety (ICD-10 - F41.8) 02/22/2025 BMI 26.0-26.9,adult (ICD-10 - Z68.26) 04/05/2025 Type 2 diabetes mellitus without complication, without long-term current use of insulin (ICD-10 - E11.9) 08/03/2024 Type 2 diabetes mellitus without complication, without long-term current use of insulin (ICD-10 - E11.9) 01/22/2025 BMI 26.0-26.9,adult (ICD-10 - Z68.26) 01/01/2025 BMI 27.0-27.9,adult (ICD-10 - Z68.27) 10/02/2024 Depression with anxiety (ICD-10 - F41.8) 08/07/2024 H/O deep venous thrombosis (ICD-10 - Z86.718) 07/24/2024 Degeneration of intervertebral disc of lumbar region with discogenic back pain and lower extremity pain (ICD-10 - M51.362) 07/20/2024 Low back pain, unspecified (ICD-10 - M54.50) 08/03/2024 Essential (primary) hypertension (ICD-10 - I10) 08/07/2024 Depression with anxiety (ICD-10 - F41.8) 01/01/2025 Atherosclerosis of [place] coronary artery without angina pectoris, unspecified whether [place] or transplanted heart (ICD-10 - I25.10) 10/02/2024 Renal insufficiency (ICD-10 - N28.9) 04/05/2025 H/O gastric sleeve (ICD-10 - Z90.3) 04/05/2025 DJD (degenerative joint disease), lumbosacral (ICD-10 - M47.817) 01/01/2025 DJD (degenerative joint disease), lumbosacral (ICD-10 - M47.817) 08/07/2024 Type 2 diabetes mellitus without complication, without long-term current use of insulin (ICD-10 - E11.9) 10/02/2024 Intertrigo (ICD-10 - L30.4) 08/07/2024 H/O gastric sleeve (ICD-10 - Z90.3) 04/05/2025 Spinal stenosis of lumbosacral region (ICD-10 - M48.07) 04/05/2025 BMI 25.0-25.9,adult (ICD-10 - Z68.25) 08/07/2024 Status post coronary artery stent placement (ICD-10 - Z95.5) 08/07/2024 Vaginal qing (ICD-10 - B37.31) Plan Of Treatment Pending Test Test Name Order Date LC-Sedimentation Rate-Westergren 021 Next Appt Details Provider Name:Indiana Isabel er, 06/15/2025 11:45:00 AM, [address], [place], [place], [id number], Insurance Providers Payer Name Payer Address Payer Phone Subscriber Number Group Number Insured Name Patient Relationship to Insured Coverage Start Date Coverage End Date [facility] [employer] [address] [place] [address] [id number] MANUELA MOLINA Self - patient is the [...] Gastric Sleeve 08/27/2022 Hospitalization History Reason Date(Month/Year) [facility] 06/28/2201 HM-CAP, Tachycardia 06/29/2019 [facility] 09/02- [facility]VA[facility] 06/14/2010
== END 2025-05-17 23:59 | disposition home or self-care (01) ==
LOC: RAD 11:35
PROVIDERS: PCP Family Medicine; Visit Provider Nurse Practitioner Obstetrics & Gynecology
DX: Z12.31 Encounter for screening mammogram for malignant neoplasm of breast (principal); R92.323 Mammographic fibroglandular density, bilateral breasts; R10.32 Left lower quadrant pain; Z90.710 Acquired absence of both cervix and uterus; Z90.721 Acquired absence of ovaries, unilateral
CPT/HCPCS: 76830; 77063; 77067